=== PATIENT | female | born 1965 | race American Indian/Alaskan Native ===

== ENCOUNTER 2018-04-01 15:54 | Inpatient (IN) | payer MEDICAID ==
[2018-04-01 16:03] VITALS: BMI 39.5
[2018-04-01] MEDS ORDERED: Levalbuterol 1.25 MG/3 ML Inhal Soln UD IH STA ×3 (17:10→17:35)
[2018-04-01 18:26] LABS: BASO # 0.01 K/mm3 (0.0-2.0); BASO % 0.1 % (0.0-3.0); EOS % 0.1 % (1.5-5.0); GRAN # 15.77 (1.4-6.5); GRAN % 86.2 % (50.0-68.0); HEMOGLOBIN 14.3 g/dL (12.0-16.0); LYMPH # 1.7 (1.2-3.4); LYMPH % 9.1 % (22.0-35.0); MEAN CELL VOLUME 91.2 fl (80.0-105.0); MEAN CORPUSCULAR HEMOGLOBIN 30.8 pg (25.0-35.0); MEAN CORPUSCULAR HGB CONC 33.7 g/dl (31.0-37.0); MEAN PLATELET VOLUME 8.9 fl (7.0-11.0); MONO # 0.8 (0.1-0.6); MONO % 4.5 % (1.0-6.0); RBC 4.65 10^6/uL (3.5-6.1); RED CELL DISTRIBUTION WIDTH 13.9 % (11.5-14.5); WHITE BLOOD COUNT 18.3 10^3/ul (4.5-11.0)
[2018-04-01 18:32] LABS: VENOUS BLOOD GAS PO2 29 mm/Hg (30-55)
[2018-04-01 18:35] LABS: INR 1.06; PARTIAL THROMBOPLASTIN TIME 27.1 Seconds (25.1-36.5); PROTHROMBIN TIME 12.1 SECONDS (9.4-12.5)
[2018-04-01 18:43] LABS: ALB/GLOB RATIO 0.8 (1.1-1.8); ALBUMIN 4.4 g/dL (3.0-4.8)
[2018-04-01 18:53] LABS: TROPONIN I 0.01 ng/mL
[2018-04-01] MEDS ORDERED: Azithromycin 500MG/NS 250ml 500 MG/250 ML BAG IVPB STA (18:56)
--- NOTE | 2018-04-01 20:30 | ED PDOC ---
Arrival/HPI - General Chief Complaint: Cough, Cold, Congestion Time Seen by Provider: 04/01/18 16:12 Historian: Patient - History of Present Illness Narrative History of Present Illness (Text): 04/01/18 20:55 53yo female with pmhx of ESRD (dialysis MWF), Asthma, CVA who was bib EMS for 6days history of nonproductive cough, SOB and wheeze, The daughter by the bedside states she has been taking Prednisone and oral prednisone without relieve. +History of hospitalization secondary to Asthma. Never intubated and not steroid dependent. States the son had cold. Denies fever, chills, nausea, vomiting, SOB, diaphoresis, any other complaint. Past Medical History - Provider Review Nursing Documentation Reviewed: Yes - Infectious Disease Hx of Infectious Diseases: None - Tetanus Immunization Tetanus Immunization: Unknown - Cardiac Hx Congestive Heart Failure: Yes - Pulmonary Hx Asthma: Yes Hx Chronic Obstructive Pulmonary Disease (COPD): Yes - Neurological HX Cerebrovascular Accident: Yes - HEENT Hx HEENT Disorder: No - Renal Hx Dialysis: Yes Type of Dialysis Access: L AV shunt Date of Last Dialysis Treatment: 04/01/18 Hx Renal Failure: Yes - Endocrine/Metabolic Hx Diabetes Mellitus Type 2: Yes - Hematological/Oncological Hx Blood Transfusions: Yes (01/2014) Hx Blood Transfusion Reaction: No - Integumentary Hx Dermatological Disorder: No - Musculoskeletal/Rheumatological Hx Musculoskeletal Disorders: No - Gastrointestinal Hx Gastrointestinal Disorders: Yes Hx Gall Bladder Disease: Yes (s/p cholecystectomy) - Genitourinary/Gynecological Hx Genitourinary Disorders: No (C/S X3) - Psychiatric Hx Emotional Abuse: No Hx Physical Abuse: No Hx Substance Use: No - Past Surgical History Past Surgical History: No Previous - Surgical History Hx Cholecystectomy: Yes Other/Comment: L upper arm AV shunt - Anesthesia Hx Anesthesia: Yes Hx Anesthesia Reactions: No Hx Malignant Hyperthermia: No - Suicidal Assessment Feels Threatened In Home Enviroment: No Family/Social History - Physician Review Nursing Documentation Reviewed: Yes Family/Social History: Unknown Family HX Smoking Status: Never Smoked Hx Alcohol Use: No Hx Substance Use: No Hx Substance Use Treatment: No Allergies/Home Meds Allergies/Adverse Reactions: Allergies No Known Allergies Allergy (Verified 01/26/13 00:49) Home Medications: Home Meds Medication Instructions Recorded Confirmed Eliquis 2.5 mg PO BID 06/20/16 04/01/18 Ferric Citrate [Auryxia] 210 mg PO TID 04/01/18 04/01/18 Review of Systems - Physician Review All systems were reviewed & negative as marked: Yes - Review of Systems Constitutional: Normal Eyes: Normal ENT: Normal Respiratory: SOB, Cough, Wheezing Cardiovascular: Normal Gastrointestinal: Normal Genitourinary Female: Normal Musculoskeletal: Normal Skin: Normal Neurological: Normal Endocrine: Normal Hemo/Lymphatic: Normal Psychiatric: Normal Physical Exam Vital Signs Reviewed: Yes Vital Signs Pulse Resp BP Pulse Ox 04/01/18 19:54 85 18 99/78 L 100 04/01/18 16:38 97 H 18 97/74 L 100 Temperature: Afebrile Blood Pressure: Normal Pulse: Regular Respiratory Rate: Normal Appearance: Positive for: Well-Appearing, Non-Toxic, Comfortable Pain Distress: None Mental Status: Positive for: Alert and Oriented X 3 - Systems Exam Head: Present: Atraumatic, Normocephalic Pupils: Present: PERRL Extroacular Muscles: Present: EOMI Conjunctiva: Present: Normal Mouth: Present: Moist Mucous Membranes Neck: Present: Normal Range of Motion Respiratory/Chest: Present: Wheezes (Diffuse expiratory wheeze), Decreased Breath Sounds. No: Respiratory Distress, Accessory Muscle Use, Rales, Retracting, Rhonchi, Tachypneic, Tender to Palpation Cardiovascular: Present: Regular Rate and Rhythm, Normal S1, S2. No: Murmurs Abdomen: No: Tenderness, Distention, Peritoneal Signs Back: Present: Normal Inspection Upper Extremity: Present: Normal Inspection, Other (Fistula noted in left arm). No: Cyanosis, Edema Lower Extremity: Present: Normal Inspection. No: Edema Neurological: Present: GCS=15, CN II-XII Intact, Speech Normal Skin: Present: Warm, Dry, Normal Color. No: Rashes Psychiatric: Present: Alert, Oriented x 3, Normal Insight, Normal Concentration Medical Decision Making ED Course and Treatment: 04/02/18 00:03 53yo female in ED for SOB, cough x 6days. Labs Blood culture Chest xray Xopenex x3 Solu medrol On re evaluation pt continue to wheeze and hypoxic on facial mask. Lab was reviewed and leukocytosis, likely secondary to steroid use was noted. CXR - Cardiomegaly with no clear acute process. EKG NSR; LAD @ 88bpm. Secondary to pt's continuous symptom despite treatment, she was admitted for further treatment. Zithromax and another xopenex ordered. Case was DW Dr. Mccray and she accepted pt for admission Result and plan was DW both pt and the daughter and they agreed. - Lab Interpretations Lab Results: 04/01/18 18:06 04/01/18 18:06 Lab Results 04/01/18 18:06: PT 12.1, INR 1.06, APTT 27.1 04/01/18 18:06: Sodium 135, Chloride 89 L, Potassium 4.8, Carbon Dioxide 33, Anion Gap 17, BUN 30 H, Creatinine 6.0 H, Est GFR ( Amer) 9, Est GFR (Non-Af Amer) 7, Random Glucose 147 H, Calcium 9.0, Magnesium 2.1, Total Bilirubin 0.6, AST 28, ALT 15, Alkaline Phosphatase 92, Lactate Dehydrogenase 497, Total Creatine Kinase 94, Troponin I 0.01 D, Total Protein 9.6 H, Albumin 4.4, Globulin 5.2, Albumin/Globulin Ratio 0.8 L 04/01/18 18:06: pO2 29 L, VBG pH 7.40, VBG pCO2 58.0, VBG HCO3 35.9 H, VBG Total CO2 37.7 H, VBG O2 Sat (Calc) 52.1, VBG Base Excess 9.0 H, VBG Potassium 4.9, Sodium 134.0, Chloride 93.0 L, Glucose 149 H, Lactate 1.7, FiO2 21.0, Venous Blood Potassium 4.9 04/01/18 18:06: WBC 18.3 H D, RBC 4.65, Hgb 14.3, Hct 42.4, MCV 91.2, MCH 30.8, MCHC 33.7, RDW 13.9, Plt Count 333, MPV 8.9, Gran % 86.2 H, Lymph % (Auto) 9.1 L , [place] % (Auto) 4.5, Eos % (Auto) 0.1 L, Baso % (Auto) 0.1, Gran # 15.77 H, Lymph # (Auto) 1.7, [place] # (Auto) 0.8 H, Eos # (Auto) 0.0, Baso # (Auto) 0.01 - RAD Interpretation Radiology Orders: 04/01/18 17:09 CHEST PORTABLE [RAD] Stat - Medication Orders Current Medication Orders: Discontinued Medications Azithromycin (Zithromax 500mg In Ns) 500 mg in 250 mls @ 167 mls/hr IVPB STAT STA; Protocol Stop: 04/01/18 20:25 Last Admin: 04/01/18 19:57 Dose: 167 mls/hr eMAR Start Stop Document 04/01/18 19:57 HI (Rec: 04/01/18 19:57 [id number] Intravenous Solution Start Date 04/01/18 Start Time 19:57 Levalbuterol HCl (Xopenex) 1.25 mg IH STAT STA Stop: 04/01/18 17:11 Last Admin: 04/01/18 18:11 Dose: 1.25 mg Levalbuterol HCl (Xopenex) 1.25 mg IH STAT STA Stop: 04/01/18 17:36 Last Admin: 04/01/18 17:00 Dose: 1.25 mg Levalbuterol HCl (Xopenex) 1.25 mg IH STAT STA Stop: 04/01/18 17:36 Last Admin: 04/01/18 18:28 Dose: 1.25 mg Methylprednisolone (Solu-Medrol) 125 mg IVP STAT STA Stop: 04/01/18 17:09 Last Admin: 04/01/18 18:11 Dose: 125 mg IVP Administration Document 04/01/18 18:11 HI (Rec: 04/01/18 18:11 [id number] Charges for Administration # of IVP Administrations 1 Disposition/Present on Arrival - Present on Arrival Any Indicators Present on Arrival: No History of DVT/PE: No History of Uncontrolled Diabetes: Yes Urinary Catheter: No History of Decub. Ulcer: No History Surgical Site Infection Following: None - Disposition Have Diagnosis and Disposition been Completed?: Yes Diagnosis: Hypoxia, Asthma exacerbation Disposition: HOSPITALIZED Disposition Time: 20:00 Patient Plan: Admission Patient Problems: Current Active Problems Problem Status Onset Asthma exacerbation Acute Hypoxia Acute Condition: STABLE
[2018-04-01] MEDS ORDERED: Levalbuterol 1.25 MG/3 ML Inhal Soln UD IH PRN (22:40)
[2018-04-01] MEDS ORDERED: MethylPREDNISolone 40 mg Vial IVP SCH (22:45)
--- NOTE | 2018-04-01 23:08 | CP.PCM.HP ---
History of Present Illness - History of Present Illness History of Present Illness: Marco Antonio Arreola PGY1, History and Physical for Yana Mccray Pt is a 53yo female with a PMH of ESRD (dialysis MWF), asthma (she is unsure if she has been intubated in the past), CVA x2, TIA x2, HTN who presented to the ED complaining of nonproductive cough, SOB and wheezing for the past week. Pt reports she has had a respiratory illness recently and thinks that it causes her to have this asthma exacerbation. Pt states she has been taking prednisone but she has not had very much relief. Pt has been hospitalized before for asthma exacerbation. Pt denies fever, chills, chest pain, nausea, vomiting, or diarrhea. A 12 point ROS was obtained and added to the HPI where appropriate. PMH: TIA x2, thromboembolic stroke x2, HTN, ESRD on hemodialysis, and asthma PSH: , cholecystectomy SH: denies tobacco, denies alcohol, denies drugs, lives with 3 children FH: Mother- 71, CVA. Father CVA x3 Home meds: per chart review Allergies: NKDA PMD: Saleeb Present on Admission - Present on Admission Any Indicators Present on Admission: No Review of Systems - Review of Systems Review of Systems: a 12 point ROS was obtained and added to HPI where appropriate Past Patient History - Infectious Disease Hx of Infectious Diseases: None - Tetanus Immunizations Tetanus Immunization: Unknown - Past Social History Smoking Status: Never Smoked - CARDIAC Hx Congestive Heart Failure: Yes - PULMONARY Hx Asthma: Yes Hx Chronic Obstructive Pulmonary Disease (COPD): Yes - NEUROLOGICAL HX Cerebrovascular Accident: Yes - HEENT Hx HEENT Problems: No - RENAL Hx Dialysis: Yes Type of Dialysis Access: L AV shunt Date of Last Dialysis Treatment: 04/01/18 Hx Renal Failure: Yes - ENDOCRINE/METABOLIC Hx Diabetes Mellitus Type 2: Yes - HEMATOLOGICAL/ONCOLOGICAL Hx Blood Transfusions: Yes (01/2014) Hx Blood Transfusion Reaction: No - INTEGUMENTARY Hx Dermatological Problems: No - MUSCULOSKELETAL/RHEUMATOLOGICAL Hx Musculoskeletal Disorders: No - GASTROINTESTINAL Hx Gastrointestinal Disorders: Yes Hx Gall Bladder Disease: Yes (s/p cholecystectomy) - GENITOURINARY/GYNECOLOGICAL Hx Genitourinary Disorders: No (C/S X3) - PSYCHIATRIC Hx Emotional Abuse: No Hx Physical Abuse: No Hx Substance Use: No - SURGICAL HISTORY Hx Cholecystectomy: Yes Other/Comment: L upper arm AV shunt - ANESTHESIA Hx Anesthesia: Yes Hx Anesthesia Reactions: No Hx Malignant Hyperthermia: No Meds Allergies/Adverse Reactions: Allergies Allergy/AdvReac Type Severity Reaction Status Date / Time No Known Allergies Allergy Verified 01/26/13 00:49 Physical Exam - Constitutional Appears: No Acute Distress - Head Exam Head Exam: ATRAUMATIC, NORMOCEPHALIC - Eye Exam Eye Exam: EOMI - ENT Exam ENT Exam: Mucous Membranes Moist - Respiratory Exam Respiratory Exam: Wheezes. absent: Accessory Muscle Use Additional comments: wheezing throughout all lung munoz - Cardiovascular Exam Cardiovascular Exam: RRR, +S1, +S2 - GI/Abdominal Exam GI & Abdominal Exam: Normal Bowel Sounds, Soft - Extremities Exam Extremities exam: Positive for: pedal pulses present. Negative for: calf tenderness, pedal edema - Neurological Exam Neurological exam: Alert, Oriented x3 Additional comments: 4/5 muscle strength LUE 1/5 muscle strength LLE - Skin Skin Exam: Dry, Normal Color, Warm Results - Vital Signs Recent Vital Signs: Last Vital Signs Temp Pulse 83 04/01/18 21:40 Resp 18 04/01/18 21:40 BP 101/79 04/01/18 21:40 Pulse Ox 100 04/01/18 21:40 - Labs Result Diagrams: 04/01/18 18:06 04/01/18 18:06 Labs: Laboratory Results - last 24 hr 04/01/18 04/01/18 04/01/18 18:06 18:06 18:06 WBC 18.3 H D RBC 4.65 Hgb 14.3 Hct 42.4 MCV 91.2 MCH 30.8 MCHC 33.7 RDW 13.9 Plt Count 333 MPV 8.9 Gran % 86.2 H Lymph % (Auto) 9.1 L [place] % (Auto) 4.5 Eos % (Auto) 0.1 L Baso % (Auto) 0.1 Gran # 15.77 H Lymph # (Auto) 1.7 [place] # (Auto) 0.8 H Eos # (Auto) 0.0 Baso # (Auto) 0.01 PT INR APTT pO2 29 L VBG pH 7.40 VBG pCO2 58.0 VBG HCO3 35.9 H VBG Total CO2 37.7 H VBG O2 Sat (Calc) 52.1 VBG Base Excess 9.0 H VBG Potassium 4.9 Sodium 134.0 135 Chloride 93.0 L 89 L Glucose 149 H Lactate 1.7 FiO2 21.0 Potassium 4.8 Carbon Dioxide 33 Anion Gap 17 BUN 30 H Creatinine 6.0 H Est GFR ( Amer) 9 Est GFR (Non-Af Amer) 7 Random Glucose 147 H Calcium 9.0 Magnesium 2.1 Total Bilirubin 0.6 AST 28 ALT 15 Alkaline Phosphatase 92 Lactate Dehydrogenase 497 Total Creatine Kinase 94 Troponin I 0.01 D Total Protein 9.6 H Albumin 4.4 Globulin 5.2 Albumin/Globulin Ratio 0.8 L Venous Blood Potassium 4.9 04/01/18 18:06 WBC RBC Hgb Hct MCV MCH MCHC RDW Plt Count MPV Gran % Lymph % (Auto) [place] % (Auto) Eos % (Auto) Baso % (Auto) Gran # Lymph # (Auto) [place] # (Auto) Eos # (Auto) Baso # (Auto) PT 12.1 INR 1.06 APTT 27.1 pO2 VBG pH VBG pCO2 VBG HCO3 VBG Total CO2 VBG O2 Sat (Calc) VBG Base Excess VBG Potassium Sodium Chloride Glucose Lactate FiO2 Potassium Carbon Dioxide Anion Gap BUN Creatinine Est GFR ( Amer) Est GFR (Non-Af Amer) Random Glucose Calcium Magnesium Total Bilirubin AST ALT Alkaline Phosphatase Lactate Dehydrogenase Total Creatine Kinase Troponin I Total Protein Albumin Globulin Albumin/Globulin Ratio Venous Blood Potassium Assessment & Plan - Assessment and Plan (Free Text) Assessment: Pt is a 53yo female with a PMH of ESRD (dialysis MWF), asthma (she is unsure if she has been intubated in the past), CVA x2, TIA x2, HTN who presented to the ED complaining of nonproductive cough, SOB and wheezing for the past week. Plan: Asthma Exacerbation - pt unsure if she has been intubated in the past - repeat ABG in the morning - duoneb q15min - duoneb q6 NASIR - duoneb q2 PRN - WBC 18.3 - given solumedrol 125 mg in ED - start solumedrol 40mg PO Q12 - Azithromycin 500mg IVPB daily - Blood culture - Procalcitonin - Pulm consulted, Dr Dorman History of CVA - continue Eliquis - continue ASA - Lipid panel - BNP - Troponin negative - continue atorvastatin COPD - continue home O2 ESRD (dialysis MWF) - BUN 30, Cr 6.0, GFR 9 Hyperglycemia - random glucose 147 - HA1C - ISS med - accucheck Pt seen, examined, assessment and plan discussed with Dr Yana Arreola PGY1, Internal Medicine Resident - Date & Time Date: 04/02/18 Time: 02:03
[2018-04-01 23:17] LABS: ARTERIAL BLOOD GAS O2 SAT 97.1 % (95-98); ARTERIAL BLOOD GAS PCO2 38 mm/Hg (35-45); ARTERIAL BLOOD GAS PH 7.46 (7.35-7.45); ARTERIAL BLOOD GAS TCO2 28.2 mmol.L (22-28)
[2018-04-02] MEDS ORDERED: Albuterol-Ipratrop 3 mg / 0.5 (3 ml) UD IH PRN (00:36)
[2018-04-02] MEDS ORDERED: Albuterol-Ipratrop 3 mg / 0.5 (3 ml) UD IH SCH ×2 (00:45→10:12)
[2018-04-02] MEDS: Albuterol-Ipratrop 3 mg / 0.5 (3 ml) UD IH SCH ×5 (01:24→19:25)
[2018-04-02 06:35] LABS: EOS % 0.1 % (1.5-5.0); GRAN # 12.57 (1.4-6.5); GRAN % 90.7 % (50.0-68.0); HEMOGLOBIN 13.5 g/dL (12.0-16.0); LYMPH # 0.9 (1.2-3.4); LYMPH % 6.2 % (22.0-35.0); MEAN CELL VOLUME 92.6 fl (80.0-105.0); MEAN CORPUSCULAR HEMOGLOBIN 30.2 pg (25.0-35.0); MEAN CORPUSCULAR HGB CONC 32.6 g/dl (31.0-37.0); MONO # 0.4 (0.1-0.6); PLATELET COUNT 348 10^3/uL (120.0-450.0); RBC 4.47 10^6/uL (3.5-6.1); RED CELL DISTRIBUTION WIDTH 14.2 % (11.5-14.5); WHITE BLOOD COUNT 13.9 10^3/ul (4.5-11.0)
[2018-04-02 06:48] LABS: ALB/GLOB RATIO 0.9 (1.1-1.8); ALBUMIN 4.3 g/dL (3.0-4.8); CALCIUM 8.5 mg/dL (8.4-10.5)
--- NOTE | 2018-04-02 07:58 | CARD ---
APPROVED REPORT Date of service: 04/01/2018 EKG Measurement Heart [id number] <Conclusion> Normal sinus rhythm Left axis deviation Low voltage QRS Abnormal ECG
[2018-04-02] MEDS ORDERED: Levalbuterol 1.25 MG/3 ML Inhal Soln UD IH SCH (08:00)
[2018-04-02 08:24] LABS: ANISOCYTOSIS SLIGHT; LYMPHOCYTE 6 % (22.0-35.0); MONOCYTE 2 % (1.0-6.0); NEUTROPHIL 92 % (50.0-70.0); PLATELET ESTIMATE NORMAL (NORMAL)
[2018-04-02] MEDS: Insulin Lispro (humaLOG) MEDIUM Coverage SC SCH ×4 (08:37→22:09)
[2018-04-02] MEDS: Azithromycin 500MG/NS 250ml 500 MG/250 ML BAG IVPB SCH (09:25)
--- NOTE | 2018-04-02 09:53 | RAD ---
Date of service: 04/01/2018 HISTORY: SOB COMPARISON: CT chest from 06/15/2016 FINDINGS: LUNGS: The lungs are clear. PLEURA: No significant pleural effusion identified, no pneumothorax apparent. CARDIOVASCULAR: Normal. OSSEOUS STRUCTURES: No significant abnormalities. VISUALIZED UPPER ABDOMEN: Normal. OTHER FINDINGS: None. IMPRESSION: No active pulmonary disease.
[2018-04-02] MEDS ORDERED: MethylPREDNISolone 40 mg Vial IVP SCH (10:00)
[2018-04-02] MEDS: FERRIC CITRATE PO SCH ×2 (13:06→17:17)
[2018-04-02] MEDS: guaiFENesin 600 mg ER Tab PO SCH ×2 (13:07→17:17)
[2018-04-02] MEDS ORDERED: FERRIC CITRATE PO SCH (14:00)
--- NOTE | 2018-04-02 15:33 | CP.PCM.PN ---
<Rosa Razo - Last Filed: 04/02/18 15:30> Subjective - Date & Time of Evaluation Date of Evaluation: 04/02/18 Time of Evaluation: 07:45 - Subjective Subjective: PGY-1 Rosa Razo D.O. Medicine progress note for Dr. Felipe service: Patient was seen and examined this morning. No over night events reported. Pat hugo states she is still wheezing. She had an intermittent cough that is nonproductive. She reports she uses 2-3L of O2 via NC at home as needed. She uses a walker at baseline to ambulate. She sees Dr. Renteria for primary care and pulmonology. She denies chest pain. She is breathing comfortably on 3L O2 while lying down. She becomes more out of breath when asked to sit up and has not gotten out of bed since being admitted last night. Objective - Vital Signs/Intake and Output Vital Signs (last 24 hours): Temp Pulse Resp BP Pulse Ox 97.8 F 91 H 20 138/91 H 100 04/02/18 06:00 04/02/18 06:00 04/02/18 06:00 04/02/18 06:00 04/02/18 06:00 Intake and Output: 04/02/18 04/02/18 06:59 18:59 Intake Total 120 Output Total 0 Balance 120 - Medications Medications: Current Medications Albuterol/Ipratropium (Duoneb 3 Mg/0.5 Mg (3 Ml) Ud) 3 ml IH Q2H PRN PRN Reason: Shortness of Breath Albuterol/Ipratropium (Duoneb 3 Mg/0.5 Mg (3 Ml) Ud) 3 ml IH Q4 [facility] [place] Last Admin: 04/02/18 15:25 Dose: 3 ml Apixaban (Eliquis) 2.5 mg PO BID [facility] [place] Last Admin: 04/02/18 09:26 Dose: 2.5 mg Aspirin (Ecotrin) 81 mg PO DAILY [facility] [place] Last Admin: 04/02/18 09:26 Dose: 81 mg Atorvastatin Calcium (Lipitor) 10 mg PO DIN [facility] [place] Guaifenesin (Mucinex La) 600 mg PO BID [facility] [place] Last Admin: 04/02/18 13:07 Dose: 600 mg Azithromycin (Zithromax 500mg In Ns) 500 mg in 250 mls @ 167 mls/hr IVPB DAILY NASIR; Protocol Last Admin: 04/02/18 09:25 Dose: 167 mls/hr Insulin Human Lispro (Humalog Med) 0 units SC ACHS NASIR; Protocol Last Admin: 04/02/18 11:23 Dose: Not Given Methylprednisolone (Solu-Medrol) 40 mg IVP Q8H NASIR Non-Formulary Medication (Ferric Citrate [Auryxia]) 2 tab PO TID NASIR Last Admin: 04/02/18 13:06 Dose: 2 tab - Labs Labs: 04/02/18 06:00 04/02/18 06:00 PT 12.1 SECONDS (9.4-12.5) 04/01/18 18:06 INR 1.06 04/01/18 18:06 APTT 27.1 Seconds (25.1-36.5) 04/01/18 18:06 - Constitutional Appears: Non-toxic, No Acute Distress - Head Exam Head Exam: ATRAUMATIC, NORMAL INSPECTION - Eye Exam Eye Exam: EOMI, Normal appearance, PERRL - ENT Exam ENT Exam: Mucous Membranes Moist, Normal Exam - Neck Exam Neck Exam: Full ROM, Normal Inspection - Respiratory Exam Respiratory Exam: Rhonchi, Wheezes, NORMAL BREATHING PATTERN - Cardiovascular Exam Cardiovascular Exam: REGULAR RHYTHM, +S1, +S2 - GI/Abdominal Exam GI & Abdominal Exam: Soft, Normal Bowel Sounds - Rectal Exam Rectal Exam: Deferred - Extremities Exam Extremities Exam: Normal Capillary Refill, Normal Inspection - Back Exam Back Exam: NORMAL INSPECTION - Neurological Exam Neurological Exam: Alert, Awake, CN II-XII Intact, Oriented x3 Neuro motor strength exam: Left Upper Extremity: 4 (2/2 CVA), Right Upper Extremity: 5, Left Lower Extremity: 4 (2/2 CVA), Right Lower Extremity: 5 - Psychiatric Exam Psychiatric exam: Normal Affect, Normal Mood - Skin Skin Exam: Dry, Intact, Normal Color, Warm Assessment and Plan - Assessment and Plan (Free Text) Assessment: Patient is a 53 yo AA female with a history of asthma, CVAs, OB, and ESRD on dialysis (MWF) who presented to the ED with an asthma exacerbation. Patient reports that her asthma flares up about once per month, and she requires hospitalization about once per year. She cannot recall if she was ever intubated. Plan: Asthma exacerbation - On home supplemental O2 2-3 L PRN - Lactate 1.8, procal 0.45 - Afebrile - CXR: no active disease - Mucinex 600 mg PO BID - Duoneb Q4H NASIR, Q2H PRN - Solu-medrol 40 mg IV Q12H - Azithromycin 500 mg IV daily - Pulmonology consulted (Lakia) ESRD on HD MWF - Continue scheduled HD - Auryxia - Nephrology consulted ([place]a) H/o CVA - Eliquis 2.5 mg PO BID - ASA 81 mg PO daily HLD - Lipitor 10 mg PO QHS Pre-diabetes - A1c 6.4 - Accuchecks ACHS - ISS low - Hypoglycemia protocol PT- home with services IVF: not indicated Diet: renal GI ppx: not indicated VTE ppx: Eliquis, SCDs Code status: full code Case discussed with attending, Dr. Woodall. <Elin Woodall - Last Filed: 04/04/18 15:50> Objective - Vital Signs/Intake and Output Vital Signs (last 24 hours): Temp Pulse Resp BP Pulse Ox 97.9 F 67 22 113/63 100 04/04/18 08:49 04/04/18 08:49 04/04/18 08:49 04/04/18 08:49 04/04/18 08:49 Intake and Output: 04/04/18 04/04/18 06:59 18:59 Intake Total 120 Balance 120 - Medications Medications: Current Medications Albuterol/Ipratropium (Duoneb 3 Mg/0.5 Mg (3 Ml) Ud) 3 ml IH Q2H PRN PRN Reason: Shortness of Breath Albuterol/Ipratropium (Duoneb 3 Mg/0.5 Mg (3 Ml) Ud) 3 ml IH [id number] [facility] Last Admin: 04/04/18 14:00 Dose: 3 ml Apixaban (Eliquis) 2.5 mg PO BID [facility] [place] Last Admin: 04/04/18 10:13 Dose: 2.5 mg Aspirin (Ecotrin) 81 mg PO DAILY [facility] [place] Last Admin: 04/04/18 10:13 Dose: 81 mg Atorvastatin Calcium (Lipitor) 10 mg PO DIN [facility] [place] Last Admin: 04/03/18 17:29 Dose: 10 mg Azithromycin (Zithromax) 500 mg PO DAILY [facility] [place]; Protocol Guaifenesin (Mucinex La) 600 mg PO BID [facility] [place] Last Admin: 04/04/18 10:13 Dose: 600 mg Heparin Sodium (Porcine) (Heparin) 5,000 units IVP MW PRN; Protocol PRN Reason: clotting Stop: 04/29/18 23:00 Last Admin: 04/03/18 11:21 Dose: 5,000 units Insulin Human Lispro (Humalog Med) 0 units SC ACHS [facility] [place]; Protocol Last Admin: 04/04/18 08:01 Dose: Not Given Methylprednisolone (Solu-Medrol) 40 mg IVP Q8H [facility] [place] Last Admin: 04/04/18 15:33 Dose: 40 mg Non-Formulary Medication (Ferric Citrate [Auryxia]) 2 tab PO TID [facility] [place] Last Admin: 04/04/18 15:33 Dose: 2 tab Pantoprazole Sodium (Protonix Ec Tab) 40 mg PO 0600 [facility] [place] Last Admin: 04/04/18 05:55 Dose: 40 mg Polyethylene Glycol (Miralax) 17 gm PO BID [facility] [place] Last Admin: 04/04/18 10:15 Dose: Not Given - Labs Labs: 04/04/18 06:00 04/04/18 06:00 PT 12.1 SECONDS (9.4-12.5) 04/01/18 18:06 INR 1.06 04/01/18 18:06 APTT 27.1 Seconds (25.1-36.5) 04/01/18 18:06 Attending/Attestation - Attestation I have personally seen and examined this patient.: Yes I have fully participated in the care of the patient.: Yes I have reviewed all pertinent clinical information, including history, physical exam and plan: Yes Notes (Text): 04/04/18 15:47 attending note; Patient seen and examined with resident. Patient is complaining of cough and wheezing. Denies any significant sputum production. Denies any fevers, chills. Patient is a 53 year old female with a history of asthma, CVAs, Gait instability and ESRD on dialysis (MWF) who presented to the ED with an asthma exacerbation. Patient reports that her asthma flares up about once per month, and she requires hospitalization about once per year. She cannot recall if she was ever intubated. continue oxygen when necessary. Continue DuoNeb treatment, IV Solu-Medrol and Zithromax. chest x-ray is negative for pneumonia. pulmonary evaluation requested. History of CVA and gait disability; PT evaluation requested. Continue aspirin, Lipitor and Eliquis. GI prophylaxis with Protonix. End-stage renal disease on dialysis; follow-up with nephrology for dialysis on Friday, Wednesdays and Fridays.
[2018-04-02] MEDS: MethylPREDNISolone 40 mg Vial IVP SCH ×2 (15:37→22:08)
--- NOTE | 2018-04-02 17:21 | CON ---
DATE: 04/02/2018 HISTORY OF PRESENT ILLNESS: This is a 53-year-old lady with past medical history of end-stage renal disease, asthma (on oral prednisone; however, never been intubated for status asthmaticus and her last severe asthma exacerbation requiring hospitalization was more than a year ago), who presented to [facility] with increasing nonproductive cough, shortness of breath and wheezes. That happened few days ago when her son come down with upper respiratory tract infection. She did try to increase the dose of her oral prednisone; however, unsuccessfully. The shortness of breath progressed. There was no associated pleuritic or otherwise chest pain. No nausea. No vomiting. No diarrhea. No constipation. PAST MEDICAL HISTORY: Asthma; diabetes; end-stage renal disease, on chronic hemodialysis; status post cholecystectomy; asthma. SOCIAL HISTORY: No alcohol or illicit drug abuse. No tobacco smoking. ALLERGIES: NKDA. MEDICATIONS: Eliquis, Atrovent inhaler, oral prednisone. FAMILY HISTORY: Noncontributory. REVIEW OF SYSTEMS: Review of 12-organ systems other than mentioned in the history of present illness is negative. PHYSICAL EXAMINATION: VITAL SIGNS: Temperature 97.8, heart rate 91, blood pressure 138/91, oxygen saturation 100% on 3 L nasal cannula, respiratory rate of 20. ENT: Head and neck atraumatic. LUNGS: Scattered wheezes bilaterally. HEART: Regular rate and rhythm. S1 and S2 normal. ABDOMEN: Soft, nontender and nondistended. MUSCULOSKELETAL: No C/C/E. NEUROLOGIC: The patient moves all extremities spontaneously. SKIN: Moist. PSYCH: The patient is alert, awake and oriented, not in respiratory distress. LABORATORY DATA: WBC 13.9, hemoglobin 13.5, platelet count 348. Sodium 134, potassium 4.7, chloride 89, carbon dioxide 29, BUN 50, creatinine 7.7 (the patient is on chronic hemodialysis for end-stage renal disease), glucose 147. Troponin 0.02. ProBNP 4500. INR 1.06. MEDICATIONS: DuoNeb every 4 hours, Eliquis 2.5 mg p.o. b.i.d., aspirin, Lipitor, Mucinex, Solu-Medrol 40 mg IV every 8, azithromycin. Chest x-ray showed no active pulmonary disease. ASSESSMENT AND PLAN: This is a 53-year-old lady, who presented with what appears to be asthma exacerbation, most likely triggered by viral or atypical bacterial pathogen (likely contracted from her child). Nevertheless, her chest x-ray did not show any distinct infiltrate and no other source of infection identified. She does have, however, mild leukocytosis. However, remains afebrile. The patient is on dual bronchodilators every 4 hours, steroid taper and azithromycin. While use of azithromycin in asthma exacerbation is controversial and some data suggest may not be associated with better outcomes (MAGDIEL trial), nevertheless a little earlier data suggest that there may potentially be some benefits. I would continue with azithromycin for now due to it anti-inflammatory effects as well as potential for empiric coverage for atypical microorganisms. I would continue to target euvolemia, euglycemia, normothermia and oxygen saturation more than 90%. We will continue with deep venous thrombosis, gastrointestinal prophylaxis. The patient would need to be seen by product developer as an outpatient to adjust her ICS therapy. Infectious prophylaxis with vaccination is also recommended. Dami Dorman MD RACH
[2018-04-03] MEDS: Albuterol-Ipratrop 3 mg / 0.5 (3 ml) UD IH SCH ×5 (03:52→19:35)
[2018-04-03 04:12] LABS: ARTERIAL BLOOD GAS HCO3 24.3 mmol/L (21-28); ARTERIAL BLOOD GAS HEMOGLOBIN 12.4 g/dL (11.7-17.4); ARTERIAL BLOOD GAS O2 CAPACITY 17.2 mL/dl (16-24); ARTERIAL BLOOD GAS O2 SAT 98.7 % (95-98); ARTERIAL BLOOD GAS PCO2 42 mm/Hg (35-45); ARTERIAL BLOOD GAS PH 7.37 (7.35-7.45); ARTERIAL BLOOD GAS TCO2 25.6 mmol.L (22-28)
[2018-04-03] MEDS: Pantoprazole 40 mg EC Tab PO SCH (05:56)
[2018-04-03 07:03] LABS: GRAN # 14.31 (1.4-6.5); GRAN % 89.1 % (50.0-68.0); HEMOGLOBIN 12.4 g/dL (12.0-16.0); LYMPH % 6.2 % (22.0-35.0); MEAN CORPUSCULAR HEMOGLOBIN 30.2 pg (25.0-35.0); MEAN CORPUSCULAR HGB CONC 33.2 g/dl (31.0-37.0); MEAN PLATELET VOLUME 9.2 fl (7.0-11.0); MONO # 0.8 (0.1-0.6); MONO % 4.7 % (1.0-6.0); RBC 4.1 10^6/uL (3.5-6.1); WHITE BLOOD COUNT 16.1 10^3/ul (4.5-11.0)
[2018-04-03 07:32] LABS: ALB/GLOB RATIO 0.9 (1.1-1.8); ALBUMIN 3.7 g/dL (3.0-4.8); CALCIUM 7.8 mg/dL (8.4-10.5)
[2018-04-03] MEDS: Insulin Lispro (humaLOG) MEDIUM Coverage SC SCH ×3 (08:16→17:30)
[2018-04-03] MEDS: MethylPREDNISolone 40 mg Vial IVP SCH ×3 (08:18→22:51)
[2018-04-03] MEDS: FERRIC CITRATE PO SCH ×3 (10:00→17:30)
[2018-04-03] MEDS: Azithromycin 500MG/NS 250ml 500 MG/250 ML BAG IVPB SCH (15:07)
[2018-04-03] MEDS: guaiFENesin 600 mg ER Tab PO SCH ×2 (15:08→17:16)
[2018-04-03 16:23] LABS: HEPATITIS B SURFACE AG Negative (NEGATIVE)
[2018-04-03 16:28] LABS: HEPATITIS B CORE AB NEGATIVE (NEGATIVE)
--- NOTE | 2018-04-03 16:35 | CP.PCM.PN ---
<Rosa Razo - Last Filed: 04/03/18 16:31> Subjective - Date & Time of Evaluation Date of Evaluation: 04/03/18 Time of Evaluation: 08:00 - Subjective Subjective: PGY-1 Rosa Razo D.O. Medicine progress note for Dr. Felipe service: Patient was seen and examined this morning. No over night events reported. Cara arias states that she is feeling much better. Her SOB is improving. She is still requiring supplemental O2 at all times (at home she uses as needed). Her cough is improving as well. She denies fevers, chills, chest pain, abdominal pain. She is eating and sleeping well. She is scheduled to go to dialysis today. Objective - Vital Signs/Intake and Output Vital Signs (last 24 hours): Temp Pulse Resp BP Pulse Ox 97.4 F L 98 H 20 101/61 97 04/03/18 06:00 04/03/18 06:00 04/03/18 06:00 04/03/18 06:00 04/03/18 06:00 Intake and Output: 04/03/18 04/03/18 06:59 18:59 Intake Total 120 Output Total 0 Balance 120 - Medications Medications: Current Medications Albuterol/Ipratropium (Duoneb 3 Mg/0.5 Mg (3 Ml) Ud) 3 ml IH Q2H PRN PRN Reason: Shortness of Breath Albuterol/Ipratropium (Duoneb 3 Mg/0.5 Mg (3 Ml) Ud) 3 ml IH Q4 [facility] Last Admin: 04/03/18 11:08 Dose: Not Given Apixaban (Eliquis) 2.5 mg PO BID [facility] Last Admin: 04/03/18 15:08 Dose: 2.5 mg Aspirin (Ecotrin) 81 mg PO DAILY [facility] Last Admin: 04/03/18 15:08 Dose: 81 mg Atorvastatin Calcium (Lipitor) 10 mg PO DIN [facility] Last Admin: 04/02/18 17:17 Dose: 10 mg Guaifenesin (Mucinex La) 600 mg PO BID [facility] Last Admin: 04/03/18 15:08 Dose: 600 mg Heparin Sodium (Porcine) (Heparin) 5,000 units IVP MWF PRN; Protocol PRN Reason: clotting Stop: 04/29/18 23:00 Last Admin: 04/03/18 11:21 Dose: 5,000 units Azithromycin (Zithromax 500mg In Ns) 500 mg in 250 mls @ 167 mls/hr IVPB DAILY [facility]; Protocol Last Admin: 04/03/18 15:07 Dose: 167 mls/hr Insulin Human Lispro (Humalog Med) 0 units SC ACHS [facility]; Protocol Last Admin: 04/03/18 12:38 Dose: Not Given Methylprednisolone (Solu-Medrol) 40 mg IVP Q8H [facility] Last Admin: 04/03/18 15:08 Dose: 40 mg Non-Formulary Medication (Ferric Citrate [Auryxia]) 2 tab PO TID [facility] Last Admin: 04/03/18 15:07 Dose: 2 tab Pantoprazole Sodium (Protonix Ec Tab) 40 mg PO 0600 [facility] Last Admin: 04/03/18 05:56 Dose: 40 mg - Labs Labs: 04/03/18 06:30 04/03/18 06:30 PT 12.1 SECONDS (9.4-12.5) 04/01/18 18:06 INR 1.06 04/01/18 18:06 APTT 27.1 Seconds (25.1-36.5) 04/01/18 18:06 - Constitutional Appears: Toxic, No Acute Distress - Head Exam Head Exam: ATRAUMATIC, NORMAL INSPECTION - Eye Exam Eye Exam: EOMI, Normal appearance, PERRL - ENT Exam ENT Exam: Mucous Membranes Moist, Normal Exam, Normal Oropharynx - Neck Exam Neck Exam: Full ROM, Normal Inspection - Respiratory Exam Respiratory Exam: Wheezes (b/l), NORMAL BREATHING PATTERN. absent: Respiratory Distress - Cardiovascular Exam Cardiovascular Exam: REGULAR RHYTHM, +S1, +S2 - GI/Abdominal Exam GI & Abdominal Exam: Soft, Normal Bowel Sounds. absent: Tenderness Additional comments: obese - Rectal Exam Rectal Exam: Deferred - Extremities Exam Extremities Exam: Full ROM, Normal Inspection - Back Exam Back Exam: NORMAL INSPECTION - Neurological Exam Neurological Exam: Alert, Awake, CN II-XII Intact, Oriented x3 - Psychiatric Exam Psychiatric exam: Normal Affect, Normal Mood - Skin Skin Exam: Dry, Intact, Normal Color, Warm Assessment and Plan - Assessment and Plan (Free Text) Assessment: Patient is a 53 yo AA female with a history of asthma, CVAs, OB, and ESRD on dialysis (MWF) who presented to the ED with an asthma exacerbation. Patient reports that her asthma flares up about once per month, and she requires hospitalization about once per year. She cannot recall if she was ever intubated. Plan: Asthma exacerbation - On home supplemental O2 2-3 L PRN - Lactate 1.8, procal 0.45 - Afebrile - Leukocytosis stable- on chronic steroids - CXR: no active disease - Mucinex 600 mg PO BID - Duoneb Q6H [facility], Q2H PRN - Solu-medrol 40 mg IV Q8H - Azithromycin 500 mg IV daily - Pulmonology consulted (Lakia) ESRD on HD MWF - Continue scheduled HD - Auryxia - Nephrology consulted (Aixa) H/o CVA - Eliquis 2.5 mg PO BID - ASA 81 mg PO daily HLD - Lipitor 10 mg PO QHS Pre-diabetes - A1c 6.4 - Accuchecks ACHS - ISS low - Hypoglycemia protocol PT- home with services IVF: not indicated Diet: renal GI ppx: Protonix 40 mg PO daily VTE ppx: Eliquis, SCDs Code status: full code Case discussed with attending, Dr. Woodall. <Elin Woodall - Last Filed: 04/04/18 15:51> Objective - Vital Signs/Intake and Output Vital Signs (last 24 hours): Temp Pulse Resp BP Pulse Ox 97.9 F 67 22 113/63 100 04/04/18 08:49 04/04/18 08:49 04/04/18 08:49 04/04/18 08:49 04/04/18 08:49 Intake and Output: 04/04/18 04/04/18 06:59 18:59 Intake Total 120 Balance 120 - Medications Medications: Current Medications Albuterol/Ipratropium (Duoneb 3 Mg/0.5 Mg (3 Ml) Ud) 3 ml IH Q2H PRN PRN Reason: Shortness of Breath Albuterol/Ipratropium (Duoneb 3 Mg/0.5 Mg (3 Ml) Ud) 3 ml IH [id number] [facility] Last Admin: 04/04/18 14:00 Dose: 3 ml Apixaban (Eliquis) 2.5 mg PO BID [facility] Last Admin: 04/04/18 10:13 Dose: 2.5 mg Aspirin (Ecotrin) 81 mg PO DAILY [facility] Last Admin: 04/04/18 10:13 Dose: 81 mg Atorvastatin Calcium (Lipitor) 10 mg PO DIN [facility] Last Admin: 04/03/18 17:29 Dose: 10 mg Azithromycin (Zithromax) 500 mg PO DAILY [facility]; Protocol Guaifenesin (Mucinex La) 600 mg PO BID [facility] Last Admin: 04/04/18 10:13 Dose: 600 mg Heparin Sodium (Porcine) (Heparin) 5,000 units IVP MWF PRN; Protocol PRN Reason: clotting Stop: 04/29/18 23:00 Last Admin: 04/03/18 11:21 Dose: 5,000 units Insulin Human Lispro (Humalog Med) 0 units SC [facility]; Protocol Last Admin: 04/04/18 08:01 Dose: Not Given Methylprednisolone (Solu-Medrol) 40 mg IVP Q8H [facility] Last Admin: 04/04/18 15:33 Dose: 40 mg Non-Formulary Medication (Ferric Citrate [Auryxia]) 2 tab PO TID [facility] Last Admin: 04/04/18 15:33 Dose: 2 tab Pantoprazole Sodium (Protonix Ec Tab) 40 mg PO 0600 [facility] Last Admin: 04/04/18 05:55 Dose: 40 mg Polyethylene Glycol (Miralax) 17 gm PO BID [facility] Last Admin: 04/04/18 10:15 Dose: Not Given - Labs Labs: 04/04/18 06:00 04/04/18 06:00 PT 12.1 SECONDS (9.4-12.5) 04/01/18 18:06 INR 1.06 04/01/18 18:06 APTT 27.1 Seconds (25.1-36.5) 04/01/18 18:06 Attending/Attestation - Attestation I have personally seen and examined this patient.: Yes I have fully participated in the care of the patient.: Yes I have reviewed all pertinent clinical information, including history, physical exam and plan: Yes Notes (Text): 04/04/18 15:50 attending note; Patient seen and examined with resident. Patient is complaining of cough and wheezing. Denies any significant sputum production. Denies any fevers, chills. status post hemodialysis today. Patient is a 53 year old female with a history of asthma, CVAs, Gait instability and ESRD on dialysis (MWF) who presented to the ED with an asthma exacerbation. Patient reports that her asthma flares up about once per month, and she requires hospitalization about once per year. She cannot recall if she was ever intubated. acute asthma exacerbation; continue oxygen when necessary. Continue DuoNeb treatment, IV Solu-Medrol and Zithromax. chest x-ray is negative for pneumonia. pulmonary evaluation appreciated. History of CVA and gait disability; PT evaluation requested. Continue aspirin, Lipitor and Eliquis. GI prophylaxis with Protonix. End-stage renal disease on dialysis; follow-up with nephrology for dialysis on Friday, Wednesdays and Fridays. upon discharge patient will follow up with PMD Dr. Renteria. 04/04/18 15:51
[2018-04-03] MEDS: POLYETHYLENE GLYCOL 3350 17 GM/Dose PACKET PO SCH (17:30)
[2018-04-04] MEDS: Insulin Lispro (humaLOG) MEDIUM Coverage SC SCH ×6 (01:32→22:46)
[2018-04-04] MEDS: Albuterol-Ipratrop 3 mg / 0.5 (3 ml) UD IH SCH ×4 (01:51→20:16)
[2018-04-04] MEDS: Pantoprazole 40 mg EC Tab PO SCH (05:55)
[2018-04-04 06:49] LABS: BASO # 0.01 K/mm3 (0.0-2.0); BASO % 0.1 % (0.0-3.0); EOS % 0.1 % (1.5-5.0); GRAN # 14.19 (1.4-6.5); GRAN % 80.9 % (50.0-68.0); HEMOGLOBIN 12.9 g/dL (12.0-16.0); LYMPH # 2.2 (1.2-3.4); LYMPH % 12.3 % (22.0-35.0); MEAN CELL VOLUME 92.3 fl (80.0-105.0); MEAN CORPUSCULAR HEMOGLOBIN 29.9 pg (25.0-35.0); MEAN CORPUSCULAR HGB CONC 32.4 g/dl (31.0-37.0); MONO # 1.2 (0.1-0.6); MONO % 6.6 % (1.0-6.0); RBC 4.31 10^6/uL (3.5-6.1); RED CELL DISTRIBUTION WIDTH 14.4 % (11.5-14.5); WHITE BLOOD COUNT 17.5 10^3/ul (4.5-11.0)
[2018-04-04 07:24] LABS: ALB/GLOB RATIO 0.9 (1.1-1.8); ALBUMIN 3.7 g/dL (3.0-4.8); CALCIUM 8.1 mg/dL (8.4-10.5)
[2018-04-04] MEDS: MethylPREDNISolone 40 mg Vial IVP SCH ×3 (08:28→22:45)
--- NOTE | 2018-04-04 09:56 | PN ---
DATE: 04/04/2018 SUBJECTIVE: The patient is currently seen lying comfortable in bed on 3R. She still continues to have shortness of breath and wheezing. She remains on medication for an acute asthma exacerbation. She had an uneventful dialysis yesterday. MEDICATIONS: Medication list reviewed. The patient is currently on DuoNeb, Ecotrin, Eliquis, Auryxia, sliding scale insulin, Lipitor, MiraLax, Mucinex, Protonix, Solu-Medrol, and Zithromax. PHYSICAL EXAMINATION: INTAKE AND OUTPUT: Intake is 120, output is 3500 mL with dialysis. VITAL SIGNS: Blood pressure 105/58, temperature 97.6, respiratory rate 19 with a pulse of 84, pulse ox is 100%. HEENT: Shows her to be normocephalic, atraumatic. Conjunctivae are pink. Sclerae nonicteric. NECK: Supple. No neck vein distention. CHEST: Positive bilateral rhonchi, wheezing. No rales. CARDIOVASCULAR: Shows a regular rate and rhythm without audible murmurs, rubs, or gallops. ABDOMEN: Moderate obesity. Bowel sounds normal. No rebound, guarding, or masses. EXTREMITIES: Show a working AV fistula left upper extremity. No lower extremity pitting edema. No cyanosis or clubbing. LABORATORY DATA AND IMAGING: Admitting chest x-ray done on 04/01/2018 shows no active pulmonary disease. CBC: White blood cell count 17.5, likely partly a steroid effect. Hemoglobin 12.9, platelet count is 331,000. Blood gas from yesterday: pH 7.37, pO2 of 114, pCO2 of 42. Chemistry showed normal electrolytes. BUN 64 with a creatinine of 7.1 from today. Glucose 166. Calcium 8.1 with a phosphorus level of 5.2 and a magnesium level of 2. Liver enzymes are normal. Albumin is 3.7. Blood cultures are negative at 48 hours. ASSESSMENT: 1. End-stage renal disease. The patient will continue routine dialysis Friday, Friday, Friday with her being in the hospital, she will likely have less access to hydration and the patient should remain euvolemic during the hospitalization. 2. Asthma with exacerbation. The patient will continue present medication. Pulmonary evaluation as necessary. We will try and taper steroids as the patient continues improvement. She will remain on empiric antibiotic therapy and continue inhalation therapy. 3. 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 The patient continues on chronic anticoagulation. 4. History of hypertension. The patient continues off blood pressure medication. Blood pressure is controlled with dialysis. 5. History of secondary hyperparathyroidism. Phosphorus level is 5.2. The patient will continue binder therapy. She is using Auryxia. The patient will continue a renal diet. 6. Mild glucose intolerance, likely secondary to the use of steroids. The patient will continue on sliding scale insulin. PLAN: 1. Hemodialysis for 04/06/2018. We will continue to keep the patient euvolemic. 2. Continue present medication and treatment for acute exacerbation of her asthma. 3. Continue chronic anticoagulation with Eliquis in light of her history of thromboembolic CVAs. 4. Compliance with all dietary restrictions and fluid restriction. Andre Peralta MD
[2018-04-04] MEDS: FERRIC CITRATE PO SCH ×3 (10:13→18:23)
[2018-04-04] MEDS: POLYETHYLENE GLYCOL 3350 17 GM/Dose PACKET PO SCH ×3 (10:13→18:36)
[2018-04-04] MEDS: guaiFENesin 600 mg ER Tab PO SCH ×2 (10:13→18:36)
[2018-04-04] MEDS: Azithromycin 500MG/NS 250ml 500 MG/250 ML BAG IVPB SCH (10:13)
--- NOTE | 2018-04-04 11:31 | CP.PCM.PN ---
<Rosa Razo - Last Filed: 04/04/18 12:00> Subjective - Date & Time of Evaluation Date of Evaluation: 04/04/18 Time of Evaluation: 11:00 - Subjective Subjective: PGY-1 Rosa Razo D.O. Medicine progress note for Dr. Felipe service: Patient was seen and examined this morning. Patient is feeling clinically impr todd but is still wheezing. Her cough is intermittent. She denies fevers, chills, chest pain, abdominal pain. She is eating and sleeping well. She is continuing dialysis MWF. Objective - Vital Signs/Intake and Output Vital Signs (last 24 hours): Temp Pulse Resp BP Pulse Ox 97.9 F 67 22 113/63 100 04/04/18 08:49 04/04/18 08:49 04/04/18 08:49 04/04/18 08:49 04/04/18 08:49 Intake and Output: 04/04/18 04/04/18 06:59 18:59 Intake Total 120 Balance 120 - Medications Medications: Current Medications Albuterol/Ipratropium (Duoneb 3 Mg/0.5 Mg (3 Ml) Ud) 3 ml IH Q2H PRN PRN Reason: Shortness of Breath Albuterol/Ipratropium (Duoneb 3 Mg/0.5 Mg (3 Ml) Ud) 3 ml IH [id number] [facility] Last Admin: 04/04/18 07:54 Dose: 3 ml Apixaban (Eliquis) 2.5 mg PO BID [facility] Last Admin: 04/04/18 10:13 Dose: 2.5 mg Aspirin (Ecotrin) 81 mg PO DAILY [facility] Last Admin: 04/04/18 10:13 Dose: 81 mg Atorvastatin Calcium (Lipitor) 10 mg PO DIN [facility] Last Admin: 04/03/18 17:29 Dose: 10 mg Azithromycin (Zithromax) 500 mg PO DAILY [facility]; Protocol Guaifenesin (Mucinex La) 600 mg PO BID [facility] Last Admin: 04/04/18 10:13 Dose: 600 mg Heparin Sodium (Porcine) (Heparin) 5,000 units IVP MWF PRN; Protocol PRN Reason: clotting Stop: 04/29/18 23:00 Last Admin: 04/03/18 11:21 Dose: 5,000 units Insulin Human Lispro (Humalog Med) 0 units SC ACHS [facility]; Protocol Last Admin: 04/04/18 08:01 Dose: Not Given Methylprednisolone (Solu-Medrol) 40 mg IVP Q8H [facility] Last Admin: 04/04/18 08:28 Dose: 40 mg Non-Formulary Medication (Ferric Citrate [Auryxia]) 2 tab PO TID [facility] Last Admin: 04/04/18 10:13 Dose: 2 tab Pantoprazole Sodium (Protonix Ec Tab) 40 mg PO 0600 [facility] Last Admin: 04/04/18 05:55 Dose: 40 mg Polyethylene Glycol (Miralax) 17 gm PO BID [facility] Last Admin: 04/04/18 10:15 Dose: Not Given - Labs Labs: 04/04/18 06:00 04/04/18 06:00 PT 12.1 SECONDS (9.4-12.5) 04/01/18 18:06 INR 1.06 04/01/18 18:06 APTT 27.1 Seconds (25.1-36.5) 04/01/18 18:06 - Constitutional Appears: Non-toxic, No Acute Distress - Head Exam Head Exam: ATRAUMATIC, NORMAL INSPECTION - Eye Exam Eye Exam: EOMI, Normal appearance, PERRL - ENT Exam ENT Exam: Mucous Membranes Moist, Normal Exam - Neck Exam Neck Exam: Normal Inspection - Respiratory Exam Respiratory Exam: Rales, Wheezes, NORMAL BREATHING PATTERN. absent: Respiratory Distress - Cardiovascular Exam Cardiovascular Exam: REGULAR RHYTHM, +S1, +S2 - GI/Abdominal Exam GI & Abdominal Exam: Soft, Normal Bowel Sounds. absent: Tenderness - Rectal Exam Rectal Exam: Deferred - Extremities Exam Extremities Exam: Normal Inspection. absent: Pedal Edema, Tenderness - Back Exam Back Exam: NORMAL INSPECTION - Neurological Exam Neurological Exam: Alert, Awake, CN II-XII Intact, Oriented x3 - Psychiatric Exam Psychiatric exam: Normal Affect, Normal Mood - Skin Skin Exam: Dry, Intact, Normal Color, Warm Assessment and Plan - Assessment and Plan (Free Text) Assessment: Patient is a 53 yo AA female with a history of asthma, CVAs, OB, and ESRD on dialysis (MWF) who presented to the ED with an asthma exacerbation. Patient reports that her asthma flares up about once per month, and she requires hospitalization about once per year. She cannot recall if she was ever intubated. Plan: Asthma exacerbation - On home supplemental O2 2-3 L PRN - Lactate 1.8, procal 0.45 - Leukocytosis stable- chronic steroids - Afebrile - Leukocytosis stable- on chronic steroids - CXR: no active disease - Mucinex 600 mg PO BID - Duoneb Q6H [facility], Q2H PRN - Solu-medrol 40 mg IV Q8H - Change Azithromycin 500 mg from IV to PO daily - Pulmonology consulted (Lakia) ESRD on HD MWF - Continue scheduled HD - Auryxia 2 tabs PO TID - Nephrology consulted ([facility]ixa) H/o CVA - Eliquis 2.5 mg PO BID - ASA 81 mg PO daily HLD - Lipitor 10 mg PO QHS Pre-diabetes - A1c 6.4 - Accuchecks ACHS - ISS low - Hypoglycemia protocol PT- home with services IVF: not indicated Diet: renal GI ppx: Protonix 40 mg PO daily VTE ppx: Eliquis, SCDs Code status: full code Case discussed with attending, Dr. Woodall. <Elin Woodall - Last Filed: 04/04/18 15:53> Objective - Vital Signs/Intake and Output Vital Signs (last 24 hours): Temp Pulse Resp BP Pulse Ox 97.9 F 67 22 113/63 100 04/04/18 08:49 04/04/18 08:49 04/04/18 08:49 04/04/18 08:49 04/04/18 08:49 Intake and Output: 04/04/18 04/04/18 06:59 18:59 Intake Total 120 Balance 120 - Medications Medications: Current Medications Albuterol/Ipratropium (Duoneb 3 Mg/0.5 Mg (3 Ml) Ud) 3 ml IH Q2H PRN PRN Reason: Shortness of Breath Albuterol/Ipratropium (Duoneb 3 Mg/0.5 Mg (3 Ml) Ud) 3 ml IH [id number] [facility] Last Admin: 04/04/18 14:00 Dose: 3 ml Apixaban (Eliquis) 2.5 mg PO BID [facility] Last Admin: 04/04/18 10:13 Dose: 2.5 mg Aspirin (Ecotrin) 81 mg PO DAILY [facility] Last Admin: 04/04/18 10:13 Dose: 81 mg Atorvastatin Calcium (Lipitor) 10 mg PO DIN [facility] Last Admin: 04/03/18 17:29 Dose: 10 mg Azithromycin (Zithromax) 500 mg PO DAILY [facility]; Protocol Guaifenesin (Mucinex La) 600 mg PO BID [facility] Last Admin: 04/04/18 10:13 Dose: 600 mg Heparin Sodium (Porcine) (Heparin) 5,000 units IVP MW PRN; Protocol PRN Reason: clotting Stop: 04/29/18 23:00 Last Admin: 04/03/18 11:21 Dose: 5,000 units Insulin Human Lispro (Humalog Med) 0 units SC ACHS [facility]; Protocol Last Admin: 04/04/18 08:01 Dose: Not Given Methylprednisolone (Solu-Medrol) 40 mg IVP Q8H [facility] Last Admin: 04/04/18 15:33 Dose: 40 mg Non-Formulary Medication (Ferric Citrate [Auryxia]) 2 tab PO TID [facility] Last Admin: 04/04/18 15:33 Dose: 2 tab Pantoprazole Sodium (Protonix Ec Tab) 40 mg PO 0600 [facility] Last Admin: 04/04/18 05:55 Dose: 40 mg Polyethylene Glycol (Miralax) 17 gm PO BID [facility] Last Admin: 04/04/18 10:15 Dose: Not Given - Labs Labs: 04/04/18 06:00 04/04/18 06:00 PT 12.1 SECONDS (9.4-12.5) 04/01/18 18:06 INR 1.06 04/01/18 18:06 APTT 27.1 Seconds (25.1-36.5) 04/01/18 18:06 Attending/Attestation - Attestation I have personally seen and examined this patient.: Yes I have fully participated in the care of the patient.: Yes I have reviewed all pertinent clinical information, including history, physical exam and plan: Yes Notes (Text): 04/04/18 15:52 attending note; Patient seen and examined with resident. shortness of breath is improving. But still with cough and mild wheezing. Denies any fevers, chills. walked with physical therapy today. Patient is a 53 year old female with a history of asthma, CVAs, Gait instability and ESRD on dialysis (MWF) who presented to the ED with an asthma exacerbation. Patient reports that her asthma flares up about once per month, and she requires hospitalization about once per year. She cannot recall if she was ever intubated. acute asthma exacerbation; continue oxygen when necessary. Continue DuoNeb treatment, IV Solu-Medrol and Zithromax. chest x-ray is negative for pneumonia. pulmonary evaluation appreciated. History of CVA and gait disability; PT evaluation appreciated. Ambulating with walker. Continue aspirin, Lipitor and Eliquis. GI prophylaxis with Protonix. End-stage renal disease on dialysis; follow-up with nephrology for dialysis on Friday, Wednesdays and Fridays. Possible discharge within 24-48 hours if clinically improves. Home care services arranged by by skilled nursing case manager. upon discharge patient will follow up with PMD Dr. Renteria. 04/04/18 15:53
--- NOTE | 2018-04-04 13:45 | CON ---
DATE: 04/03/2018 REASON FOR CONSULTATION: Shortness of breath, need for dialysis. HISTORY OF PRESENTING ILLNESS: A 53-year lady known to me from outpatient hemodialysis. She presented to the emergency room late Friday night with complaints of cough and shortness of breath. She gives the history of progressive cough and shortness of breath for 4 days. No fever. No chills. She has a history of asthma. Currently, she is on dialysis. She is awake. She is afebrile, but she is still coughing. PAST MEDICAL AND SURGICAL HISTORY: Asthma, CVA x2, TIA x2, hypertension, ESRD. FAMILY HISTORY: CVA. SOCIAL HISTORY: No smoking, no alcohol use, no IV drug abuse. ALLERGIES: NO KNOWN DRUG ALLERGIES. MEDICATIONS AT HOME: Auryxia, Eliquis and albuterol. REVIEW OF SYSTEMS: All systems are reviewed, pertinent positives as mentioned in history presenting illness, rest unremarkable. PHYSICAL EXAMINATION: GENERAL: Obese young woman, lying in bed in the dialysis unit. VITAL SIGNS: Blood pressure 101/61, heart rate 84, respiratory rate 18-20, temperature 97.6. HEENT: Normocephalic, atraumatic, positive pallor. NECK: Supple, no JVD. LUNGS: Bilateral equal air entry, bilateral rhonchi, bilateral expiratory wheeze. CARDIAC: S1 and S2, regular rate and rhythm, no murmur, no rub. ABDOMEN: Obese, distended, soft, nontender. Bowel sounds present. EXTREMITIES: No lower extremity edema. INTAKE AND OUTPUT: Not charted. LABORATORY DATA: WBC 16, hemoglobin 12, hematocrit 37, platelets 342. Sodium 135, potassium 5.2, chloride 93, CO2 25, BUN 90, creatinine 9.9, glucose 247, calcium 7.8, phosphorus 5.7, magnesium 2.2, albumin 3.7. CURRENT MEDICATIONS: DuoNeb, Ecotrin, Auryxia 2 tablets three times a day with food, heparin, insulin, Lipitor. ASSESSMENT: 1. Asthma exacerbation. 2. Hypertension well controlled. 3. Hyperphosphatemia. 4. End-stage renal disease. 5. Leukocytosis. PLAN: 1. Stable dialysis. 2. Continue phosphate binders. 3. Monitor for fever and WBC count. 4. (?) antibiotics. Mame Kruse MD [facility] # [id number]
[2018-04-04] MEDS: Albuterol-Ipratrop 3 mg / 0.5 (3 ml) UD IH PRN (16:21)
[2018-04-05] MEDS: Albuterol-Ipratrop 3 mg / 0.5 (3 ml) UD IH SCH ×4 (01:34→19:44)
[2018-04-05] MEDS: Pantoprazole 40 mg EC Tab PO SCH (05:23)
[2018-04-05 07:14] LABS: BASO # 0.01 K/mm3 (0.0-2.0); BASO % 0.1 % (0.0-3.0); EOS % 0.1 % (1.5-5.0); GRAN # 17.75 (1.4-6.5); GRAN % 89.4 % (50.0-68.0); LYMPH # 1.3 (1.2-3.4); LYMPH % 6.4 % (22.0-35.0); MEAN CELL VOLUME 90.8 fl (80.0-105.0); MEAN CORPUSCULAR HEMOGLOBIN 30.5 pg (25.0-35.0); MEAN CORPUSCULAR HGB CONC 33.6 g/dl (31.0-37.0); MEAN PLATELET VOLUME 9.2 fl (7.0-11.0); MONO # 0.8 (0.1-0.6); RBC 4.26 10^6/uL (3.5-6.1); RED CELL DISTRIBUTION WIDTH 14.3 % (11.5-14.5); WHITE BLOOD COUNT 19.8 10^3/ul (4.5-11.0)
[2018-04-05] MEDS: Insulin Lispro (humaLOG) MEDIUM Coverage SC SCH ×4 (08:32→21:41)
[2018-04-05] MEDS: MethylPREDNISolone 40 mg Vial IVP SCH (09:01)
[2018-04-05] MEDS: POLYETHYLENE GLYCOL 3350 17 GM/Dose PACKET PO SCH ×2 (10:33→17:14)
[2018-04-05] MEDS: guaiFENesin 600 mg ER Tab PO SCH ×2 (10:39→17:14)
[2018-04-05] MEDS: FERRIC CITRATE PO SCH ×3 (10:39→17:15)
[2018-04-05 10:53] LABS: ALB/GLOB RATIO 0.9 (1.1-1.8); ALBUMIN 3.5 g/dL (3.0-4.8); CALCIUM 7.7 mg/dL (8.4-10.5)
[2018-04-05] MEDS ORDERED: Sod Polystyrene Sulf 15 gm/60 ml Susp PO ONE (10:57)
[2018-04-05] MEDS ORDERED: Insulin Regular 1 UNITS/0.01 ML ML SC STA (10:59)
--- NOTE | 2018-04-05 11:25 | CP.PCM.DIS ---
Provider - Provider Date of Admission: 04/01/18 23:00 Attending physician: Elin Woodall MD Primary care physician: Dr. Tennille Renteria Consults: pulmonology nephrology Time Spent in preparation of Discharge (in minutes): 45 Diagnosis - Discharge Diagnosis (1) Asthma exacerbation Status: Acute Priority: High (2) ESRD (end stage renal disease) on dialysis Status: Chronic Priority: Medium Hospital Course - Lab Results Lab Results: Micro Results 04/01/18 18:06 Blood-Venous Blood Culture - Preliminary NO GROWTH AFTER 3 DAYS 04/01/18 17:30 Blood-Venous Blood Culture - Preliminary NO GROWTH AFTER 3 DAYS Most Recent Lab Values WBC 19.8 10^3/ul (4.5-11.0) H 04/05/18 05:00 RBC 4.26 10^6/uL (3.5-6.1) 04/05/18 05:00 Hgb 13.0 g/dL (12.0-16.0) 04/05/18 05:00 Hct 38.7 % (36.0-48.0) 04/05/18 05:00 MCV 90.8 fl (80.0-105.0) 04/05/18 05:00 MCH 30.5 pg (25.0-35.0) 04/05/18 05:00 MCHC 33.6 g/dl (31.0-37.0) 04/05/18 05:00 RDW 14.3 % (11.5-14.5) 04/05/18 05:00 Plt Count 349 10^3/uL (120.0-450.0) 04/05/18 05:00 MPV 9.2 fl (7.0-11.0) 04/05/18 05:00 Gran % 89.4 % (50.0-68.0) H 04/05/18 05:00 Lymph % (Auto) 6.4 % (22.0-35.0) L 04/05/18 05:00 [place] % (Auto) 4.0 % (1.0-6.0) 04/05/18 05:00 Eos % (Auto) 0.1 % (1.5-5.0) L 04/05/18 05:00 Baso % (Auto) 0.1 % (0.0-3.0) 04/05/18 05:00 Gran # 17.75 (1.4-6.5) H 04/05/18 05:00 Lymph # (Auto) 1.3 (1.2-3.4) 04/05/18 05:00 [place] # (Auto) 0.8 (0.1-0.6) H 04/05/18 05:00 Eos # (Auto) 0.0 (0.0-0.7) 04/05/18 05:00 Baso # (Auto) 0.01 K/mm3 (0.0-2.0) 04/05/18 05:00 Neutrophils % (Manual) 92 % (50.0-70.0) H 04/02/18 06:00 Lymphocytes % (Manual) 6 % (22.0-35.0) L 04/02/18 06:00 Monocytes % (Manual) 2 % (1.0-6.0) 04/02/18 06:00 Platelet Evaluation Normal (NORMAL) 04/02/18 06:00 Anisocytosis (manual) Slight 04/02/18 06:00 PT 12.1 SECONDS (9.4-12.5) 04/01/18 18:06 INR 1.06 04/01/18 18:06 APTT 27.1 Seconds (25.1-36.5) 04/01/18 18:06 pCO2 42 mm/Hg (35-45) 04/03/18 04:04 pO2 114.0 mm/Hg (80-100) H 04/03/18 04:04 HCO3 24.3 mmol/L (21-28) 04/03/18 04:04 ABG pH 7.37 (7.35-7.45) 04/03/18 04:04 ABG Total CO2 25.6 mmol.L (22-28) 04/03/18 04:04 ABG O2 Saturation 98.7 % (95-98) H 04/03/18 04:04 ABG O2 Content 17.0 ML/dl (15-23) 04/03/18 04:04 ABG Base Excess -1.0 mmol/L (-2.0-3.0) 04/03/18 04:04 ABG Hemoglobin 12.4 g/dL (11.7-17.4) 04/03/18 04:04 ABG Carboxyhemoglobin 1.0 % (0.5-1.5) 04/03/18 04:04 POC ABG HHb (Measured) 1.3 % (0-5) 04/03/18 04:04 ABG Methemoglobin 0.9 % (0.0-3.0) 04/03/18 04:04 ABG O2 Capacity 17.2 mL/dl (16-24) 04/03/18 04:04 ABG Potassium 4.4 mmol/L (3.6-5.2) 04/01/18 23:10 VBG pH 7.40 (7.32-7.43) 04/01/18 18:06 VBG pCO2 58.0 (40-60) 04/01/18 18:06 VBG HCO3 35.9 mmol/l (21-28) H 04/01/18 18:06 VBG Total CO2 37.7 mmol.L (22-28) H 04/01/18 18:06 VBG O2 Sat (Calc) 52.1 % (40-65) 04/01/18 18:06 VBG Base Excess 9.0 mmol/L (0.0-2.0) H 04/01/18 18:06 VBG Potassium 4.9 mmol/L (3.6-5.2) 04/01/18 18:06 Hgb O2 Saturation 96.8 % (95.0-98.0) 04/03/18 04:04 Sodium 130.0 mmol/L (132-148) L 04/01/18 23:10 Chloride 96.0 mmol/L (98-107) L 04/01/18 23:10 Glucose 237 mg/dl (65-105) H 04/01/18 23:10 Lactate 1.8 mmol/L (0.7-2.1) 04/01/18 23:10 FiO2 28.0 % 04/03/18 04:04 Sodium 133 mmol/L (132-148) 04/05/18 05:00 Potassium 6.0 mmol/L (3.6-5.0) H* D 04/05/18 05:00 Chloride 98 mmol/L (98-107) 04/05/18 05:00 Carbon Dioxide 19 mmol/L (21-33) L 04/05/18 05:00 Anion Gap 22 (10-20) H 04/05/18 05:00 BUN 105 mg/dL (7-21) H 04/05/18 05:00 Creatinine 10.4 mg/dl (0.7-1.2) H* D 04/05/18 05:00 Est GFR ( Amer) 5 04/05/18 05:00 Est GFR (Non-Af Amer) 4 04/05/18 05:00 POC Glucose (mg/dL) 158 mg/dL (65-110) H 04/05/18 07:16 Random Glucose 207 mg/dL (70-110) H 04/05/18 05:00 Hemoglobin A1c 6.4 % (4.2-6.5) 04/02/18 06:00 Calcium 7.7 mg/dL (8.4-10.5) L 04/05/18 05:00 Phosphorus 5.9 mg/dL (2.5-4.5) H 04/05/18 05:00 Magnesium 2.2 mg/dL (1.7-2.2) 04/05/18 05:00 Total Bilirubin 0.6 mg/dL (0.2-1.3) 04/05/18 05:00 AST 21 U/L (14-36) 04/05/18 05:00 ALT 7 U/L (7-56) 04/05/18 05:00 Alkaline Phosphatase 88 U/L (38-126) 04/05/18 05:00 Lactate Dehydrogenase 497 U/L (333-699) 04/01/18 18:06 Total Creatine Kinase 94 U/L (35-230) 04/01/18 18:06 Troponin I 0.02 ng/mL 04/02/18 06:30 NT-Pro-B Natriuret Pep 4500 pg/mL (0-450) H 04/02/18 06:00 Total Protein 7.3 g/dL (5.8-8.3) 04/05/18 05:00 Albumin 3.5 g/dL (3.0-4.8) 04/05/18 05:00 Globulin 3.8 gm/dL 04/05/18 05:00 Albumin/Globulin Ratio 0.9 (1.1-1.8) L 04/05/18 05:00 Triglycerides 69 mg/dL (35-160) 04/02/18 06:00 Cholesterol 191 mg/dL (130-200) 04/02/18 06:00 LDL Cholesterol Direct 101 mg/dL (0-129) 04/02/18 06:00 HDL Cholesterol 54 mg/dL (29-60) 04/02/18 06:00 Procalcitonin 0.45 NG/ML (0.19-0.49) 04/02/18 06:00 TSH 3rd Generation 0.51 mIU/mL (0.46-4.68) 04/01/18 18:06 Arterial Blood Potassium 4.4 mmol/L (3.6-5.2) 04/01/18 23:10 Venous Blood Potassium 4.9 mmol/L (3.6-5.2) 04/01/18 18:06 Hep Bs Antigen Negative (NEGATIVE) 04/03/18 10:00 Hep Bs Antibody Negative (NEGATIVE) 04/03/18 10:00 Hep B Core IgM Ab Negative (NEGATIVE) 04/03/18 10:00 - Hospital Course Hospital Course: 53 y/o female with a PMH of ESRD (dialysis MWF), asthma (she is unsure if she has been intubated in the past), CVA x2, TIA x2, HTN presented to the ED complaining of nonproductive cough, SOB and wheezing for the past week. Pt reports she has had a respiratory illness recently and thinks that it causes her to have this asthma exacerbation. Pt states she has been taking prednisone but she has not had very much relief. Pt has been hospitalized before for asthma exacerbation. The patient was diagnosed with COPD exacerbation. Her VBGs revealed CO2 of 58, Total CO2 of 37.7 and pH of 7.40. ABGs revealed CO2 of 38, Total CO2 of 28.2 and pH of 7.40. She received duonebs, solu-medrol and azithromycin as well as mucinex. Her O2 saturation ranged from 97-100 on 3 L O2 via nasal cannula. Patient reports improvement in her symptoms. The patient's creatinine was elevated at 9.9, phosphorus was elevated at 5.7 and magnesium was normal at 2.2 which is due to history of end stage renal disease which she receives dialysis for on Friday, Friday and Friday. Discharge Exam - Head Exam Head Exam: ATRAUMATIC, NORMAL INSPECTION Discharge Plan - Discharge Medications Prescriptions: Albuterol HFA [Ventolin HFA 90 mcg/actuation (8 g)] 1 puff IH Q12 #1 inhaler Aspirin [Ecotrin] 81 mg PO DAILY #30 tabec Atorvastatin [Lipitor] 10 mg PO DIN #30 tab Azithromycin [Zithromax] 500 mg PO DAILY 3 Days #3 tab guaiFENesin [Mucinex LA] 600 mg PO BID 3 Days #6 tab Methylprednisolone [Medrol Dose Pack (21 tabs)] 4 mg PO DAILY #21 mg - Follow Up Plan Condition: STABLE Disposition: HOME/ ROUTINE Instructions: Asthma in Adults, Asthma, Adult (DC), Shortness of Breath (Dyspnea) (DC), Altered Mental Status (DC) Additional Instructions: Please follow-up with your primary care physician, Dr. Renteria, within 3-5 days of discharge. You will be given a prescription for Azithromycin (antibiotic). Please take for 3 days until all pills completed. You will be given a prescription for Mucinex for cough. You may take twice daily for 3 days. You will be given a Medrol dose pack. Please follow instructions for taking pills. When the pack is completed, you may resume your previous home dose of steroids. You may resume all of your other home medications. If symptoms return, present to the nearest emergency room. Referrals: Tennille Renteria MD [Family Provider] -
--- NOTE | 2018-04-05 13:47 | PN ---
DATE: 04/05/2018 SUBJECTIVE: The patient is currently seen lying comfortable in bed. She states she will likely be discharged home later today. Exacerbation of her asthma has significantly improved with steroid therapy and inhalation therapy. The patient states she is back to baseline. MEDICATIONS: Medication list reviewed. The patient is on DuoNeb, Ecotrin, Eliquis, Auryxia, subcu heparin, sliding scale insulin, Lipitor, MiraLax, Mucinex, Protonix, Solu-Medrol, and Zithromax. PHYSICAL EXAMINATION: INTAKE AND OUTPUT. Intake 1210, output not charted. VITAL SIGNS: Blood pressure 114/63, temperature 98.2, respiratory rate 20 with a pulse of 91, pulse ox 98%. HEENT: Shows her to be normocephalic, atraumatic. Conjunctivae remain pink. Sclerae are nonicteric. NECK: Supple. No neck vein distention. CHEST: Occasional scattered wheeze. No rhonchi. No rales. CARDIOVASCULAR: Regular rate and rhythm without audible murmurs, rubs, or gallops. ABDOMEN: Obese. Bowel sounds normal. No rebound, guarding, or masses. EXTREMITIES: Show a working AV fistula, left upper extremity. No lower extremity cyanosis, clubbing, or edema. LABORATORY DATA AND IMAGING: CBC today: White blood cell count 19.8, likely a steroid effect. Hemoglobin 13 with a platelet count of 349,000. Chemistries today showed normal electrolytes. BUN 64, creatinine 7.1 from 04/04/2018. Glucose today was 209. Last calcium 8.1 with a phosphorus of 5.2. Albumin was 3.7. Microbiology, all cultures are negative at 72 hours. ASSESSMENT: 1. End-stage renal disease. The patient will continue routine Friday, Friday, and Friday dialysis. In all likelihood, she will be discharged later today and she may receive her outpatient dialysis at her outpatient center at [facility]. 2. Asthma with exacerbation. The patient responded nicely to steroids and will likely be discharged home on tapering doses of steroid. She will continue inhalation therapy. No evidence for any infectious etiology. However, the patient will continue her course of Zithromax therapy. 3. 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 The patient will continue chronic anticoagulation. 4. History of hypertension. Blood pressure remains controlled off blood pressure medication. 5. History of secondary hyperparathyroidism. The patient will continue binder therapy. She is using Auryxia. The patient will continue a renal diet. Last phosphorus level was 5.2. 6. History of mild glucose intolerance, in part secondary to use of steroids. With decreasing steroid dose, the patient's requirement for any sliding scale insulin will likely be zero. PLAN: 1. Hemodialysis scheduled for tomorrow. This will likely be take place in the outpatient unit. 2. Discussed with Dr. Woodall, her hospitalist. Discharge home on steroids, tapering dose, and inhalation therapy. 3. The patient will continue chronic anticoagulation with Eliquis in light of her thromboembolic CVAs. 4. The patient to be careful with fluid restrictions at home as to not exacerbate her shortness of breath. Andre Peralta MD
--- NOTE | 2018-04-05 15:12 | CP.PCM.PN ---
<Rosa Razo - Last Filed: 04/05/18 15:15> Subjective - Date & Time of Evaluation Date of Evaluation: 04/05/18 Time of Evaluation: 10:20 - Subjective Subjective: PGY-1 Rosa Razo D.O. Medicine progress note for Dr. Felipe service: Patient was seen and examined this morning. Patient is feeling clinically impr todd but is still wheezing. She states that she always wheezes somewhat. Her cough is intermittent. She denies fevers, chills, chest pain, abdominal pain. She is eating and sleeping well. She is continuing dialysis MWF. Conversation with patient's daughter (mathematics department chair) concluded that patient should stay one more day as her wheezing is more audible than baseline. Objective - Vital Signs/Intake and Output Vital Signs (last 24 hours): Temp Pulse Resp BP Pulse Ox 98.2 F 91 H 20 114/63 98 04/05/18 08:36 04/05/18 08:36 04/05/18 08:36 04/05/18 08:36 04/05/18 08:36 Intake and Output: 04/05/18 04/05/18 06:59 18:59 Intake Total 1210 Balance 1210 - Medications Medications: Current Medications Albuterol/Ipratropium (Duoneb 3 Mg/0.5 Mg (3 Ml) Ud) 3 ml IH Q2H PRN PRN Reason: Shortness of Breath Last Admin: 04/04/18 16:21 Dose: 3 ml Albuterol/Ipratropium (Duoneb 3 Mg/0.5 Mg (3 Ml) Ud) 3 ml IH [id number] [facility] Last Admin: 04/05/18 14:40 Dose: 3 ml Apixaban (Eliquis) 2.5 mg PO BID [facility] Last Admin: 04/05/18 10:40 Dose: 2.5 mg Aspirin (Ecotrin) 81 mg PO DAILY [facility] Last Admin: 04/05/18 10:40 Dose: 81 mg Atorvastatin Calcium (Lipitor) 10 mg PO DIN [facility] Last Admin: 04/04/18 18:36 Dose: 10 mg Azithromycin (Zithromax) 500 mg PO DAILY [facility]; Protocol Last Admin: 04/05/18 10:39 Dose: 500 mg Guaifenesin (Mucinex La) 600 mg PO BID [facility] Last Admin: 04/05/18 10:39 Dose: 600 mg Heparin Sodium (Porcine) (Heparin) 5,000 units IVP MWF PRN; Protocol PRN Reason: clotting Stop: 04/29/18 23:00 Last Admin: 04/03/18 11:21 Dose: 5,000 units Insulin Human Lispro (Humalog Med) 0 units SC ACHS [facility]; Protocol Last Admin: 04/05/18 08:32 Dose: 1 unit Methylprednisolone (Solu-Medrol) 40 mg IVP Q8H [facility] Last Admin: 04/05/18 09:01 Dose: 40 mg Non-Formulary Medication (Ferric Citrate [Auryxia]) 2 tab PO TID [facility] Last Admin: 04/05/18 10:39 Dose: 2 tab Pantoprazole Sodium (Protonix Ec Tab) 40 mg PO 0600 [facility] Last Admin: 04/05/18 05:23 Dose: 40 mg Polyethylene Glycol (Miralax) 17 gm PO BID [facility] Last Admin: 04/05/18 10:33 Dose: Not Given - Labs Labs: 04/05/18 05:00 04/05/18 05:00 PT 12.1 SECONDS (9.4-12.5) 04/01/18 18:06 INR 1.06 04/01/18 18:06 APTT 27.1 Seconds (25.1-36.5) 04/01/18 18:06 - Constitutional Appears: Non-toxic, No Acute Distress - Head Exam Head Exam: ATRAUMATIC, NORMAL INSPECTION - Eye Exam Eye Exam: EOMI, Normal appearance, PERRL - ENT Exam ENT Exam: Mucous Membranes Moist, Normal Exam - Neck Exam Neck Exam: Normal Inspection - Respiratory Exam Respiratory Exam: Wheezes, NORMAL BREATHING PATTERN. absent: Respiratory Distress - Cardiovascular Exam Cardiovascular Exam: REGULAR RHYTHM, +S1, +S2 - GI/Abdominal Exam GI & Abdominal Exam: Soft, Normal Bowel Sounds. absent: Tenderness - Rectal Exam Rectal Exam: Deferred - Extremities Exam Extremities Exam: Normal Inspection - Back Exam Back Exam: NORMAL INSPECTION - Neurological Exam Neurological Exam: Alert, Awake, CN II-XII Intact, Oriented x3 - Psychiatric Exam Psychiatric exam: Normal Affect, Normal Mood - Skin Skin Exam: Dry, Intact, Normal Color, Warm Assessment and Plan (1) Asthma exacerbation Status: Acute (2) ESRD (end stage renal disease) on dialysis Status: Chronic - Assessment and Plan (Free Text) Assessment: Patient is a 53 yo AA female with a history of asthma, CVAs, OB, and ESRD on dialysis (MWF) who presented to the ED with an asthma exacerbation. Patient reports that her asthma flares up about once per month, and she requires hospitalization about once per year. She cannot recall if she was ever intubated. Plan: Asthma exacerbation - On home supplemental O2 2-3 L PRN - Lactate 1.8, procal 0.45 - Leukocytosis stable- chronic steroids - Afebrile - Leukocytosis stable- on chronic steroids - CXR: no active disease - Mucinex 600 mg PO BID - Duoneb Q6H NASIR, Q2H PRN - Change Solu-medrol 40 mg IV Q8H to Prednison 40 mg PO daily - Change Azithromycin 500 mg from IV to PO daily - Pulmonology consulted (Lakia) ESRD on HD MWF - Continue scheduled HD - Auryxia 2 tabs PO TID - Kayexalate 15 g PO PRN - Nephrology consulted ([place]) H/o CVA - Eliquis 2.5 mg PO BID - ASA 81 mg PO daily HLD - Lipitor 10 mg PO QHS Pre-diabetes - A1c 6.4 - Accuchecks ACHS - ISS low - Hypoglycemia protocol PT- home with services IVF: not indicated Diet: renal GI ppx: Protonix 40 mg PO daily VTE ppx: Eliquis, SCDs Code status: full code Case discussed with attending, Dr. Woodall. <Elin Woodall - Last Filed: 04/05/18 17:14> Objective - Vital Signs/Intake and Output Vital Signs (last 24 hours): Temp Pulse Resp BP Pulse Ox 97.6 F 89 18 106/64 98 04/05/18 17:02 04/05/18 17:02 04/05/18 17:02 04/05/18 17:02 04/05/18 17:02 Intake and Output: 04/05/18 04/05/18 06:59 18:59 Intake Total 1210 Balance 1210 - Medications Medications: Current Medications Albuterol/Ipratropium (Duoneb 3 Mg/0.5 Mg (3 Ml) Ud) 3 ml IH Q2H PRN PRN Reason: Shortness of Breath Last Admin: 04/04/18 16:21 Dose: 3 ml Albuterol/Ipratropium (Duoneb 3 Mg/0.5 Mg (3 Ml) Ud) 3 ml IH [id number] [facility] Last Admin: 04/05/18 14:40 Dose: 3 ml Apixaban (Eliquis) 2.5 mg PO BID [facility] Last Admin: 04/05/18 10:40 Dose: 2.5 mg Aspirin (Ecotrin) 81 mg PO DAILY [facility] Last Admin: 04/05/18 10:40 Dose: 81 mg Atorvastatin Calcium (Lipitor) 10 mg PO DIN [facility] Last Admin: 04/04/18 18:36 Dose: 10 mg Azithromycin (Zithromax) 500 mg PO DAILY [facility]; Protocol Last Admin: 04/05/18 10:39 Dose: 500 mg Azithromycin (Zithromax) 500 mg PO DAILY [facility]; Protocol Stop: 04/10/18 10:01 Guaifenesin (Mucinex La) 600 mg PO BID [facility] Last Admin: 04/05/18 10:39 Dose: 600 mg Heparin Sodium (Porcine) (Heparin) 5,000 units IVP MWF PRN; Protocol PRN Reason: clotting Stop: 04/29/18 23:00 Last Admin: 04/03/18 11:21 Dose: 5,000 units Insulin Human Lispro (Humalog Med) 0 units SC [facility]; Protocol Last Admin: 04/05/18 08:32 Dose: 1 unit Non-Formulary Medication (Ferric Citrate [Auryxia]) 2 tab PO TID [facility] Last Admin: 04/05/18 10:39 Dose: 2 tab Pantoprazole Sodium (Protonix Ec Tab) 40 mg PO 0600 [facility] Last Admin: 04/05/18 05:23 Dose: 40 mg Polyethylene Glycol (Miralax) 17 gm PO BID [facility] Last Admin: 04/05/18 10:33 Dose: Not Given Prednisone (Prednisone Tab) 40 mg PO DAILY [facility] - Labs Labs: 04/05/18 05:00 04/05/18 15:46 PT 12.1 SECONDS (9.4-12.5) 04/01/18 18:06 INR 1.06 04/01/18 18:06 APTT 27.1 Seconds (25.1-36.5) 04/01/18 18:06 Attending/Attestation - Attestation I have personally seen and examined this patient.: Yes I have fully participated in the care of the patient.: Yes I have reviewed all pertinent clinical information, including history, physical exam and plan: Yes Notes (Text): 04/05/18 17:13 attending note; Patient seen and examined with resident. shortness of breath is improving. But still with mild wheezing. Denies any fevers, chills. wanted to go home. Patient is a 53 year old female with a history of asthma, CVAs, Gait instability and ESRD on dialysis (MWF) who presented to the ED with an asthma exacerbation. Patient reports that her asthma flares up about once per month, and she requires hospitalization about once per year. She cannot recall if she was ever intubated. acute asthma exacerbation; continue oxygen when necessary. Continue DuoNeb treatment, IV Solu-Medrol and Zithromax. chest x-ray is negative for pneumonia. pulmonary evaluation appreciated. History of CVA and gait disability; PT evaluation appreciated. Ambulating with walker. Continue aspirin, Lipitor and Eliquis. GI prophylaxis with Protonix. End-stage renal disease on dialysis; follow-up with nephrology for dialysis on Friday, Wednesdays and Fridays. Hyperkalemia; Kayexalate given. Follow-up potassium level. Patient will get hemodialysis tomorrow. Possible discharge tomorrow. Home care services arranged by by outpatient case manager. upon discharge patient will follow up with PMD Dr. Renteria. 04/05/18 17:13
[2018-04-05 16:38] LABS: CALCIUM 7.9 mg/dL (8.4-10.5)
[2018-04-06] MEDS: Albuterol-Ipratrop 3 mg / 0.5 (3 ml) UD IH SCH ×3 (01:32→14:02)
[2018-04-06] MEDS: Pantoprazole 40 mg EC Tab PO SCH (05:37)
[2018-04-06 06:32] LABS: BASO # 0.01 K/mm3 (0.0-2.0); EOS # 0.1 (0.0-0.7); EOS % 0.4 % (1.5-5.0); GRAN # 16.45 (1.4-6.5); GRAN % 78.9 % (50.0-68.0); HEMOGLOBIN 12.9 g/dL (12.0-16.0); LYMPH # 3.1 (1.2-3.4); LYMPH % 14.7 % (22.0-35.0); MEAN CELL VOLUME 90.3 fl (80.0-105.0); MEAN CORPUSCULAR HEMOGLOBIN 29.8 pg (25.0-35.0); MEAN PLATELET VOLUME 8.9 fl (7.0-11.0); MONO # 1.3 (0.1-0.6); RBC 4.33 10^6/uL (3.5-6.1); RED CELL DISTRIBUTION WIDTH 14.2 % (11.5-14.5); WHITE BLOOD COUNT 20.9 10^3/ul (4.5-11.0)
--- NOTE | 2018-04-06 08:13 | PN ---
DATE: 04/03/2018 SUBJECTIVE: The patient was seen and examined at the bedside. She is in good spirit. She reports that her breathing subjectively better. The night was uneventful. She is in the hemodialysis unit, and she was seen and examined at the bedside. PHYSICAL EXAMINATION: VITAL SIGNS: Temperature 97.4, blood pressure 101/61, heart rate 98, respiratory rate 20, oxygen saturation 97% on 2 L nasal cannula. GENERAL: The patient reports that she has some cough with whitish sputum and able to expectorate phlegm easily. ENT: Head and neck atraumatic. LUNGS: Clear to auscultation bilaterally. HEART: Regular rate and rhythm. S1 and S2 normal. ABDOMEN: Soft, nontender, and nondistended. MUSCULOSKELETAL: No C/C/E. NEURO: The patient moves all extremities spontaneously. SKIN: Moist. PSYCH: The patient is alert, awake, and oriented x3. LABORATORY DATA: WBC 16.1, hemoglobin 12.4, and platelet count 342. Eosinophils 0. Sodium 135, potassium 5.2 (the patient is on dialysis), chloride 93. BUN 90, creatinine 9.9. Glucose 247. AST 18, ALT 12. MEDICATIONS: DuoNeb p.r.n. and every 4 hours on standing basis, Eliquis, aspirin, Lipitor, Mucinex, heparin with dialysis, Solu-Medrol 40 mg IV every 8 hours, Protonix, and azithromycin. ASSESSMENT AND PLAN: This is a 53-year-old lady with asthma exacerbation, chronically on dual bronchodilators every 4 hours and systemic steroid taper. I will also add inhaled corticosteroids. The patient is doing subjectively better. We will continue to target euvolemia, euglycemia, normothermia, and oxygen saturation more than 90%. She is still wheezing a little bit; however, bronchospasm appears to be doing little bit better. We will continue with DVT and GI prophylaxes, dialysis. Dami Dorman MD
[2018-04-06 08:53] VITALS: RESP 20
[2018-04-06] MEDS: Insulin Lispro (humaLOG) MEDIUM Coverage SC SCH ×3 (09:29→17:01)
[2018-04-06] MEDS: POLYETHYLENE GLYCOL 3350 17 GM/Dose PACKET PO SCH ×2 (09:34→17:07)
[2018-04-06] MEDS: FERRIC CITRATE PO SCH ×3 (09:34→17:07)
[2018-04-06 10:07] LABS: ALB/GLOB RATIO 0.9 (1.1-1.8); ALBUMIN 3.2 g/dL (3.0-4.8); CALCIUM 7.1 mg/dL (8.4-10.5)
[2018-04-06] MEDS: guaiFENesin 600 mg ER Tab PO SCH ×2 (16:30→17:07)
[2018-04-06 17:39] VITALS: BP 135/92; PULSE 85; TEMP 98.6; O2SAT 100
[2018-04-06] MEDS: Albuterol-Ipratrop 3 mg / 0.5 (3 ml) UD IH PRN (17:40)
--- NOTE | 2018-04-06 18:18 | PN ---
DATE: 04/06/2018 SUBJECTIVE: The patient is currently seen completing dialysis, 3.5 liters of fluid have been removed. The patient's breathing is improved, but she still continues to have wheezing. She states that is her baseline. MEDICATIONS List reviewed. The patient is currently on DuoNeb, Ecotrin, Eliquis, Auryxia, heparin, insulin sliding scale, Lipitor, MiraLax, Mucinex, prednisone, Protonix, and Zithromax. OBJECTIVE: INTAKE/OUTPUT: Intake/output not charted. VITAL SIGNS: Blood pressure presently 104/61, temperature 97.8, respiratory rate 20 with a pulse of 87. HEENT: Shows her to be normocephalic, atraumatic. Conjunctivae remain pink. Sclerae are nonicteric. NECK: Supple. No neck vein distention. CHEST: Scattered wheezes bilaterally. No rales or rhonchi. CARDIOVASCULAR: Shows regular rate and rhythm without audible murmurs, rubs or gallops. ABDOMEN: Moderately obese. Bowel sounds normal. No rebound, guarding or masses. EXTREMITIES: Show cannulated AV fistula in left upper extremity. No lower extremity cyanosis, clubbing or edema. LABORATORY DATA AND IMAGING: CBC: White blood cell count today 20.9, likely a steroid effect. Hemoglobin 12 and platelet count of 334,000. Today's chemistries, BUN 130 with creatinine of 12.4. Potassium level is 4.7. Remainder of the electrolytes are acceptable. Calcium is 7.1. Phosphorus level remains extremely elevated at 8. Albumin is 3.2. Microbiology: All cultures are negative i.e. blood cultures at 4 days. ASSESSMENT: 1. End-stage renal disease. The patient will continue Friday, Friday and Friday dialysis, should she be discharged home later today or next dialysis will take place in the outpatient unit in [place]. 2. History of asthma with exacerbation. The patient will likely need to taper steroids in the outpatient setting. She will continue inhalation therapy. She will complete her course of Zithromax therapy. 3. Past history of thromboembolic cerebrovascular accident. The patient will continue on chronic anticoagulation. No bleeding. 4. History of hypertension. Blood pressure remains in the low normal range, off blood pressure medication. 5. History of secondary hyperparathyroidism. Elevated phosphorus levels. The patient needs to continue binder therapy and adheres strictly to a renal diet. 6. History of mild glucose intolerance, likely exacerbated by steroids. In all likelihood, she would not require any medication for glucose control once the steroid dose is reduced. PLAN: 1. The patient will complete today's hemodialysis if she remains stable from a pulmonary standpoint to be discharged home later today. 2. Continue medication, chronic anticoagulation with Eliquis in light of her history of thromboembolic CVAs. 3. Cautioned the patient to adhere to all fluid restrictions at home, not to exacerbate her shortness of breath. Andre Peralta MD
--- NOTE | 2018-04-06 22:09 | CP.PCM.DIS ---
Provider - Provider Date of Admission: 04/01/18 23:00 Attending physician: Elin Woodall MD Consults: Pulmonology: Dr. Dorman Nephrology: Dr. Kruse Time Spent in preparation of Discharge (in minutes): 45 Hospital Course - Lab Results Lab Results: Micro Results 04/01/18 18:06 Blood-Venous Blood Culture - Final NO GROWTH AFTER 5 DAYS 04/01/18 18:06 Blood-Venous Gram Stain - Final TEST NOT PERFORMED 04/01/18 17:30 Blood-Venous Blood Culture - Final NO GROWTH AFTER 5 DAYS 04/01/18 17:30 Blood-Venous Gram Stain - Final TEST NOT PERFORMED Most Recent Lab Values WBC 20.9 10^3/ul (4.5-11.0) H 04/06/18 06:10 RBC 4.33 10^6/uL (3.5-6.1) 04/06/18 06:10 Hgb 12.9 g/dL (12.0-16.0) 04/06/18 06:10 Hct 39.1 % (36.0-48.0) 04/06/18 06:10 MCV 90.3 fl (80.0-105.0) 04/06/18 06:10 MCH 29.8 pg (25.0-35.0) 04/06/18 06:10 MCHC 33.0 g/dl (31.0-37.0) 04/06/18 06:10 RDW 14.2 % (11.5-14.5) 04/06/18 06:10 Plt Count 334 10^3/uL (120.0-450.0) 04/06/18 06:10 MPV 8.9 fl (7.0-11.0) 04/06/18 06:10 Gran % 78.9 % (50.0-68.0) H 04/06/18 06:10 Lymph % (Auto) 14.7 % (22.0-35.0) L 04/06/18 06:10 Wilkin % (Auto) 6.0 % (1.0-6.0) 04/06/18 06:10 Eos % (Auto) 0.4 % (1.5-5.0) L 04/06/18 06:10 Baso % (Auto) 0.0 % (0.0-3.0) 04/06/18 06:10 Gran # 16.45 (1.4-6.5) H 04/06/18 06:10 Lymph # (Auto) 3.1 (1.2-3.4) 04/06/18 06:10 Wilkin # (Auto) 1.3 (0.1-0.6) H 04/06/18 06:10 Eos # (Auto) 0.1 (0.0-0.7) 04/06/18 06:10 Baso # (Auto) 0.01 K/mm3 (0.0-2.0) 04/06/18 06:10 Neutrophils % (Manual) 92 % (50.0-70.0) H 04/02/18 06:00 Lymphocytes % (Manual) 6 % (22.0-35.0) L 04/02/18 06:00 Monocytes % (Manual) 2 % (1.0-6.0) 04/02/18 06:00 Platelet Evaluation Normal (NORMAL) 04/02/18 06:00 Anisocytosis (manual) Slight 04/02/18 06:00 PT 12.1 SECONDS (9.4-12.5) 04/01/18 18:06 INR 1.06 04/01/18 18:06 APTT 27.1 Seconds (25.1-36.5) 04/01/18 18:06 pCO2 42 mm/Hg (35-45) 04/03/18 04:04 pO2 114.0 mm/Hg (80-100) H 04/03/18 04:04 HCO3 24.3 mmol/L (21-28) 04/03/18 04:04 ABG pH 7.37 (7.35-7.45) 04/03/18 04:04 ABG Total CO2 25.6 mmol.L (22-28) 04/03/18 04:04 ABG O2 Saturation 98.7 % (95-98) H 04/03/18 04:04 ABG O2 Content 17.0 ML/dl (15-23) 04/03/18 04:04 ABG Base Excess -1.0 mmol/L (-2.0-3.0) 04/03/18 04:04 ABG Hemoglobin 12.4 g/dL (11.7-17.4) 04/03/18 04:04 ABG Carboxyhemoglobin 1.0 % (0.5-1.5) 04/03/18 04:04 POC ABG HHb (Measured) 1.3 % (0-5) 04/03/18 04:04 ABG Methemoglobin 0.9 % (0.0-3.0) 04/03/18 04:04 ABG O2 Capacity 17.2 mL/dl (16-24) 04/03/18 04:04 ABG Potassium 4.4 mmol/L (3.6-5.2) 04/01/18 23:10 VBG pH 7.40 (7.32-7.43) 04/01/18 18:06 VBG pCO2 58.0 (40-60) 04/01/18 18:06 VBG HCO3 35.9 mmol/l (21-28) H 04/01/18 18:06 VBG Total CO2 37.7 mmol.L (22-28) H 04/01/18 18:06 VBG O2 Sat (Calc) 52.1 % (40-65) 04/01/18 18:06 VBG Base Excess 9.0 mmol/L (0.0-2.0) H 04/01/18 18:06 VBG Potassium 4.9 mmol/L (3.6-5.2) 04/01/18 18:06 Hgb O2 Saturation 96.8 % (95.0-98.0) 04/03/18 04:04 Sodium 130.0 mmol/L (132-148) L 04/01/18 23:10 Chloride 96.0 mmol/L (98-107) L 04/01/18 23:10 Glucose 237 mg/dl (65-105) H 04/01/18 23:10 Lactate 1.8 mmol/L (0.7-2.1) 04/01/18 23:10 FiO2 28.0 % 04/03/18 04:04 Sodium 134 mmol/L (132-148) 04/06/18 09:00 Potassium 4.7 mmol/L (3.6-5.0) 04/06/18 09:00 Chloride 95 mmol/L (98-107) L 04/06/18 09:00 Carbon Dioxide 20 mmol/L (21-33) L 04/06/18 09:00 Anion Gap 24 (10-20) H 04/06/18 09:00 BUN 138 mg/dL (7-21) H* 04/06/18 09:00 Creatinine 12.4 mg/dl (0.7-1.2) H* D 04/06/18 09:00 Est GFR ( Amer) 4 04/06/18 09:00 Est GFR (Non-Af Amer) 3 04/06/18 09:00 POC Glucose (mg/dL) 79 mg/dL (65-110) 04/06/18 16:25 Random Glucose 90 mg/dL (70-110) 04/06/18 09:00 Hemoglobin A1c 6.4 % (4.2-6.5) 04/02/18 06:00 Calcium 7.1 mg/dL (8.4-10.5) L 04/06/18 09:00 Phosphorus 8.0 mg/dL (2.5-4.5) H 04/06/18 09:00 Magnesium 2.0 mg/dL (1.7-2.2) 04/06/18 09:00 Total Bilirubin 0.7 mg/dL (0.2-1.3) 04/06/18 09:00 AST 33 U/L (14-36) 04/06/18 09:00 ALT 15 U/L (7-56) 04/06/18 09:00 Alkaline Phosphatase 71 U/L (38-126) 04/06/18 09:00 Lactate Dehydrogenase 497 U/L (333-699) 04/01/18 18:06 Total Creatine Kinase 94 U/L (35-230) 04/01/18 18:06 Troponin I 0.02 ng/mL 04/02/18 06:30 NT-Pro-B Natriuret Pep 4500 pg/mL (0-450) H 04/02/18 06:00 Total Protein 6.5 g/dL (5.8-8.3) 04/06/18 09:00 Albumin 3.2 g/dL (3.0-4.8) 04/06/18 09:00 Globulin 3.4 gm/dL 04/06/18 09:00 Albumin/Globulin Ratio 0.9 (1.1-1.8) L 04/06/18 09:00 Triglycerides 69 mg/dL (35-160) 04/02/18 06:00 Cholesterol 191 mg/dL (130-200) 04/02/18 06:00 LDL Cholesterol Direct 101 mg/dL (0-129) 04/02/18 06:00 HDL Cholesterol 54 mg/dL (29-60) 04/02/18 06:00 Procalcitonin 0.45 NG/ML (0.19-0.49) 04/02/18 06:00 TSH 3rd Generation 0.51 mIU/mL (0.46-4.68) 04/01/18 18:06 Arterial Blood Potassium 4.4 mmol/L (3.6-5.2) 04/01/18 23:10 Venous Blood Potassium 4.9 mmol/L (3.6-5.2) 04/01/18 18:06 Hep Bs Antigen Negative (NEGATIVE) 04/03/18 10:00 Hep Bs Antibody Negative (NEGATIVE) 04/03/18 10:00 Hep B Core IgM Ab Negative (NEGATIVE) 04/03/18 10:00 - Hospital Course Hospital Course: Patient is a 53 yo AA female with a history of asthma, CVAs, OB, and ESRD on dialysis (MWF) who presented to the ED and admitted for asthma exacerbation. Patient reports that her asthma flares up about once per month, and she requires hospitalization about once per year. Pt was found to have Lactate 1.8, procal 0.45- Leukocytosis stable- chronic steroids. Chest xray showed no active disease. She was started on Mucinex, Duoneb, Solu-medrol and azithromycin in the hospital. Pulmonology and nephrology were consulted during this hospital stay. Pt was continued on hemodialysis during the hospital stay. Auryxia was continued. Pt was continued on home medications. During hospital stay, patients SOB and wheezing had improved significantly after hemodialysis and medical treatment. Pts daughter was involved in treatment process and agreed with the the discharge planning. Pt was discharged with a taper of po prednisone as well as azithromycin. Discharge Exam - Head Exam Head Exam: ATRAUMATIC, NORMAL INSPECTION - Eye Exam Eye Exam: EOMI, Normal appearance - ENT Exam ENT Exam: Mucous Membranes Moist, Normal Exam - Respiratory Exam Respiratory Exam: NORMAL BREATHING PATTERN, UNREMARKABLE. absent: Accessory Muscle Use, Rales, Rhonchi - Cardiovascular Exam Cardiovascular Exam: REGULAR RHYTHM, +S1, +S2 - GI/Abdominal Exam GI & Abdominal Exam: Normal Bowel Sounds, Soft. absent: Tenderness - Extremities Exam Extremities exam: normal inspection - Back Exam Back exam: NORMAL INSPECTION - Neurological Exam Neurological exam: Alert, CN II-XII Intact, Oriented x3 - Psychiatric Exam Psychiatric exam: Normal Affect, Normal Mood - Skin Skin Exam: Dry, Intact, Warm Discharge Plan - Discharge Medications Prescriptions: Albuterol HFA [Ventolin HFA 90 mcg/actuation (8 g)] 1 puff IH Q12 #1 inhaler Aspirin [Ecotrin] 81 mg PO DAILY #30 tabec Atorvastatin [Lipitor] 10 mg PO DIN #30 tab Azithromycin [Zithromax] 500 mg PO DAILY 3 Days #3 tab guaiFENesin [Mucinex LA] 600 mg PO BID 3 Days #6 tab Prednisolone [Millipred Dp] See Taper PO DAILY #18 tab.ds.pk Prednisone 10 mg PO DAILY #18 tab.ds.pk - Follow Up Plan Condition: STABLE Disposition: HOME/ ROUTINE Instructions: Asthma in Adults, Asthma, Adult (DC), Shortness of Breath (Dyspnea) (DC), Altered Mental Status (DC) Additional Instructions: Please follow-up with your primary care physician, Dr. Renteria, within 3-5 days of discharge. You will be given a prescription for Azithromycin (antibiotic). Please take for 3 days until all pills completed. You will be given a prescription for Mucinex for cough. You may take twice daily for 3 days. You may take over the counter miralax or colace as needed for constipation. You will be given a tapered dose of a steroid, Prednisone, to go home with. You will take it as follows: -30mg once a day x3 days -20mg once a day x3 days -10mg once a day x3 days You may resume all of your other home medications. If symptoms return, present to the nearest emergency room. Referrals: Tennille Renteria MD [Family Provider] - Clinical Quality Measures - CQM - Stroke Statin prescribed: Yes - CQM - VTE Did patient receive overlap therapy during hosptialization?: Yes - Date & Time of Discharge Summary Date of Discharge Summary: 04/06/18 Time of Discharge Summary: 22:00
== END 2018-04-06 18:57 | disposition home or self-care (01) | DRG 96 ==
LOC: ED 15:54 → ERH 23:00 → 3RSO 04-02 00:31
PROVIDERS: ADMIT Internal Medicine; ATTEND Internal Medicine
PROC: 5A1D70Z Performance of Urinary Filtration, Intermittent, Less than 6 Hours Per Day (ICD-10-PCS; principal; 2018-04-03)
PROC: 5A1D70Z Performance of Urinary Filtration, Intermittent, Less than 6 Hours Per Day (ICD-10-PCS; 2018-04-06)
DX: J45.901 Unspecified asthma with (acute) exacerbation (principal); N18.6 End stage renal disease; I13.2 Hypertensive heart and chronic kidney disease with heart failure and with stage 5 chronic kidney disease, or end stage renal disease; I50.9 Heart failure, unspecified; E11.22 Type 2 diabetes mellitus with diabetic chronic kidney disease; E87.5 Hyperkalemia; E11.65 Type 2 diabetes mellitus with hyperglycemia; J44.9 Chronic obstructive pulmonary disease, unspecified; N25.81 Secondary hyperparathyroidism of renal origin; E83.39 Other disorders of phosphorus metabolism; D72.829 Elevated white blood cell count, unspecified; Z79.52 Long term (current) use of systemic steroids; Z99.2 Dependence on renal dialysis; Z79.01 Long term (current) use of anticoagulants; Z86.73 Personal history of transient ischemic attack (TIA), and cerebral infarction without residual deficits; Z82.3 Family history of stroke

== ENCOUNTER 2018-05-05 10:00 | Observation (INO) | payer MEDICAID ==
[2018-05-05 10:37] VITALS: BMI 40.3
[2018-05-05 10:50] VITALS: TEMP 97.7; O2SAT 98
--- NOTE | 2018-05-05 11:18 | ED PDOC ---
Arrival/HPI - General Chief Complaint: Upper Extremity Problem/Injury Time Seen by Provider: 05/05/18 10:49 Historian: Patient - History of Present Illness Narrative History of Present Illness (Text): 05/05/18 11:18 Patient is a 53 year old female whose past medical history includes renal failure, who was sent to the Emergency department by her physician for dialysis. Patient last had dialysis 4 days ago. She was scheduled for dialysis yesterday, but couldn't receive it because she was scheduled for a procedure and did not make it to dialysis on time. Patient denies fevers, shortness of breath, chest pain, or any other complaint. 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: Time/Duration: < week Context: Other (Had a blood clot in fistual yesterday) Past Medical History - Provider Review Nursing Documentation Reviewed: Yes - Infectious Disease Hx of Infectious Diseases: None - Tetanus Immunization Tetanus Immunization: Unknown - Cardiac Hx Cardiac Disorders: Yes Hx Congestive Heart Failure: Yes Hx Hypertension: Yes - Pulmonary Hx Respiratory Disorders: Yes Hx Chronic Obstructive Pulmonary Disease (COPD): Yes - Neurological Hx Neurological Disorder: Yes HX Cerebrovascular Accident: Yes - HEENT Hx HEENT Disorder: No - Renal Hx Renal Disorder: Yes Hx Renal Failure: Yes - Endocrine/Metabolic Hx Endocrine Disorders: Yes Hx Diabetes Mellitus Type 2: Yes - Hematological/Oncological Hx Blood Disorders: Yes Hx Anemia: Yes - Integumentary Hx Dermatological Disorder: No - Musculoskeletal/Rheumatological Hx Musculoskeletal Disorders: Yes Hx Falls: Yes Hx Unsteady Gait: Yes - Gastrointestinal Hx Gastrointestinal Disorders: Yes Hx Gall Bladder Disease: Yes (s/p cholecystectomy) - Genitourinary/Gynecological Hx Genitourinary Disorders: No (C/S X3) Other/Comment: ANURIA - Psychiatric Hx Psychophysiologic Disorder: No Hx Substance Use: No - Past Surgical History Past Surgical History: No Previous - Surgical History Hx Cholecystectomy: Yes Other/Comment: L upper arm AV shunt - Anesthesia Hx Anesthesia: Yes Hx Anesthesia Reactions: No Hx Malignant Hyperthermia: No - Suicidal Assessment Feels Threatened In Home Enviroment: No Family/Social History - Physician Review Nursing Documentation Reviewed: Yes Family/Social History: No Known Family HX Smoking Status: Never Smoked Hx Alcohol Use: No Hx Substance Use: No Hx Substance Use Treatment: No Allergies/Home Meds Allergies/Adverse Reactions: Allergies No Known Allergies Allergy (Verified 05/05/18 10:38) Home Medications: Home Meds Medication Instructions Recorded Confirmed Eliquis 2.5 mg PO BID 06/20/16 05/05/18 Ferric Citrate [Auryxia] 2 tab PO TID 04/01/18 05/05/18 Albuterol/Ipratropium [Combivent 1 puff IH PRN PRN 04/02/18 05/05/18 Respimat] Review of Systems - Physician Review All systems were reviewed & negative as marked: Yes - Review of Systems Constitutional: absent: Fevers Respiratory: absent: SOB Cardiovascular: absent: Chest Pain Physical Exam - Physical Exam Narrative Physical Exam (Text): 05/05/18 11:34 Constitutional: No acute distress. Head: Normocephalic. Atraumatic. Eyes: PERRL. ENT: Moist mucous membranes. Neck: Supple. Cardiovascular: Regular rate. Chest: No tenderness. Respiratory: Clear to auscultation bilaterally. GI: Soft. Nontender. Nondistended. Back: No CVA tenderness. Musculoskeletal: No tenderness or swelling of extremities. Left upper extremity AV fistula with palpable thrill Skin: No rash. Neurologic: Alert. Vital Signs Reviewed: Yes Vital Signs Temp Pulse Resp BP Pulse Ox 05/05/18 10:49 97.7 F 86 19 146/78 98 Temperature: Afebrile Blood Pressure: Normal Pulse: Regular Respiratory Rate: Normal Appearance: Positive for: Well-Appearing Mental Status: Positive for: Alert and Oriented X 3 Finger Stick Blood Glucose: 116 Medical Decision Making ED Course and Treatment: 05/05/18 11:18 Impression: 53 year old female who presents for need for dialysis as she did not obtain her treatment yesterday due to extenuating circumstances. Differential Diagnosis included but are not limited to: Plan: -- Discuss with Dr. Peralta. Prior Visits: Notes and results from previous visits were reviewed. Progress Notes: 05/05/18 11:29 Discussed case with , who states that he will be arranging for patient to get dialysis here, and that patient may be discharged afterwards. States baseline labs not required as patient will be receiving routine dialysis - Lab Interpretations Lab Results: Lab Results 05/05/18 10:45: POC Glucose (mg/dL) 116 H - Scribe Statement The provider has reviewed the documentation as recorded by the Scribyvonne Breaux Provider Scribe Attestation: All medical record entries made by the Andraeibyvonne were at my direction and personally dictated by me. I have reviewed the chart and agree that the record accurately reflects my personal performance of the history, physical exam, medical decision making, and the department course for this patient. I have also personally directed, reviewed, and agree with the discharge instructions and disposition. Disposition/Present on Arrival - Present on Arrival Any Indicators Present on Arrival: No History of DVT/PE: No History of Uncontrolled Diabetes: No Urinary Catheter: No History of Decub. Ulcer: No History Surgical Site Infection Following: None - Disposition Have Diagnosis and Disposition been Completed?: Yes Diagnosis: ESRD (end stage renal disease) Disposition: HOSPITALIZED Disposition Time: 12:00 Patient Plan: Observation Condition: STABLE
[2018-05-05 13:42] VITALS: BP 111/71; PULSE 78; RESP 18
[2018-05-05 14:40] LABS: BASO # 0.04 K/mm3 (0.0-2.0); BASO % 0.5 % (0.0-3.0); EOS # 0.2 (0.0-0.7); EOS % 2.4 % (1.5-5.0); GRAN # 5.65 (1.4-6.5); HEMOGLOBIN 11.1 g/dL (12.0-16.0); LYMPH # 1.9 (1.2-3.4); MEAN CORPUSCULAR HEMOGLOBIN 30.5 pg (25.0-35.0); MEAN CORPUSCULAR HGB CONC 33.1 g/dl (31.0-37.0); MEAN PLATELET VOLUME 8.9 fl (7.0-11.0); MONO # 0.7 (0.1-0.6); MONO % 8.1 % (1.0-6.0); RBC 3.64 10^6/uL (3.5-6.1); RED CELL DISTRIBUTION WIDTH 13.9 % (11.5-14.5); WHITE BLOOD COUNT 8.4 10^3/uL (4.5-11.0)
[2018-05-05 15:04] LABS: ALB/GLOB RATIO 1.1 (1.1-1.8); ALBUMIN 3.2 g/dL (3.0-4.8); CALCIUM 7.6 mg/dL (8.4-10.5)
== END 2018-05-05 20:42 | disposition home or self-care (01) ==
LOC: ED 10:00 → ERH 12:01 → 5RNO 18:01
PROVIDERS: ADMIT Internal Medicine Nephrology; ATTEND Internal Medicine Nephrology
DX: I13.2 Hypertensive heart and chronic kidney disease with heart failure and with stage 5 chronic kidney disease, or end stage renal disease (principal); N18.6 End stage renal disease; E11.22 Type 2 diabetes mellitus with diabetic chronic kidney disease; I50.9 Heart failure, unspecified; J44.9 Chronic obstructive pulmonary disease, unspecified; Z79.01 Long term (current) use of anticoagulants; Z86.73 Personal history of transient ischemic attack (TIA), and cerebral infarction without residual deficits; Z90.49 Acquired absence of other specified parts of digestive tract
CPT/HCPCS: 80053; 82948; 83735; 84100; 85025; 99285; G0378

== ENCOUNTER 2018-09-22 21:00 | Inpatient (IN) | payer MEDICAID ==
[2018-09-22 21:12] VITALS: BMI 41.3
--- NOTE | 2018-09-22 21:39 | ED PDOC ---
Arrival/HPI - General Chief Complaint: Shortness Of Breath Time Seen by Provider: 09/22/18 21:04 Historian: Patient - History of Present Illness Narrative History of Present Illness (Text): 09/22/18 21:36 53 year old female, whose past medical history includes chronic obstructive pulmonary disease and end stage renal disease on hemodialysis, who presents to the ED for shortness of breath for the past 3 days. Patient report associated wheezing. Patient reports she was fully dialyzed yesterday. Patient denies any cough, fever, nausea, vomiting, chest pain or any other complaints. Time/Duration: < week Symptom Onset: Gradual Symptom Course: Unchanged Activities at Onset: Light Context: Home Past Medical History - Provider Review Nursing Documentation Reviewed: Yes - Infectious Disease Hx of Infectious Diseases: None - Tetanus Immunization Tetanus Immunization: Unknown - Cardiac Hx Cardiac Disorders: Yes Hx Congestive Heart Failure: Yes Hx Hypertension: Yes - Pulmonary Hx Respiratory Disorders: Yes Hx Chronic Obstructive Pulmonary Disease (COPD): Yes - Neurological Hx Neurological Disorder: Yes HX Cerebrovascular Accident: Yes - HEENT Hx HEENT Disorder: No - Renal Hx Renal Disorder: Yes Hx Renal Failure: Yes - Endocrine/Metabolic Hx Endocrine Disorders: Yes (HYPERPARATHYROIDISM) - Hematological/Oncological Hx Blood Disorders: Yes Hx Anemia: Yes - Integumentary Hx Dermatological Disorder: No - Musculoskeletal/Rheumatological Hx Musculoskeletal Disorders: No - Gastrointestinal Hx Gastrointestinal Disorders: Yes Hx Gall Bladder Disease: Yes (s/p cholecystectomy) - Genitourinary/Gynecological Hx Genitourinary Disorders: Yes (C/S X3) Other/Comment: ANURIA - Psychiatric Hx Psychophysiologic Disorder: No Hx Substance Use: No - Past Surgical History Past Surgical History: No Previous - Surgical History Hx Cholecystectomy: Yes Other/Comment: L upper arm AV shunt - Anesthesia Hx Anesthesia: Yes Hx Anesthesia Reactions: No Hx Malignant Hyperthermia: No - Suicidal Assessment Feels Threatened In Home Enviroment: No Family/Social History - Physician Review Nursing Documentation Reviewed: Yes Family/Social History: Unknown Family HX Smoking Status: Never Smoked Hx Alcohol Use: No Hx Substance Use: No Hx Substance Use Treatment: No Allergies/Home Meds Allergies/Adverse Reactions: Allergies No Known Allergies Allergy (Verified 09/22/18 21:09) Home Medications: Home Meds Medication Instructions Recorded Confirmed Eliquis 2.5 mg PO BID 06/20/16 09/22/18 Ferric Citrate [Auryxia] 3 tab PO TID 04/01/18 09/22/18 Albuterol/Ipratropium [Combivent 1 puff IH PRN PRN 04/02/18 09/22/18 Respimat] Azithromycin [Zithromax] 250 mg PO QID 09/22/18 09/22/18 Fluticasone Propionate [Flovent 220 mcg INH BID 09/22/18 09/22/18 Hfa] Levocetirizine Dihydrochloride 5 mg PO DAILY 09/22/18 09/22/18 [Xyzal] Montelukast [Singulair] 10 mg PO DAILY 09/22/18 09/22/18 Prednisone 10 mg PO DAILY 09/22/18 09/22/18 Review of Systems - Physician Review All systems were reviewed & negative as marked: Yes - Review of Systems Constitutional: Normal. absent: Fevers Eyes: Normal ENT: Normal Respiratory: SOB, Wheezing. absent: Cough Cardiovascular: Normal. absent: Chest Pain Gastrointestinal: Normal. absent: Abdominal Pain, Diarrhea, Nausea, Vomiting Musculoskeletal: Normal. absent: Back Pain, Neck Pain Skin: Normal. absent: Rash Neurological: Normal. absent: Headache, Dizziness Endocrine: Normal Hemo/Lymphatic: Normal Psychiatric: Normal Physical Exam Vital Signs Reviewed: Yes Vital Signs Temp Pulse Resp BP Pulse Ox 09/22/18 21:00 97.8 F 107 H 20 111/65 95 Temperature: Afebrile Blood Pressure: Normal Pulse: Tachycardic Respiratory Rate: Normal Appearance: Positive for: Well-Appearing Pain Distress: None Mental Status: Positive for: Alert and Oriented X 3 - Systems Exam Head: Present: Atraumatic, Normocephalic Pupils: Present: PERRL Extroacular Muscles: Present: EOMI Conjunctiva: Present: Normal Mouth: Present: Moist Mucous Membranes Neck: Present: Normal Range of Motion. No: Meningeal Signs, MIDLINE TENDERNESS, Paraspinal Tenderness Respiratory/Chest: Present: Wheezes. No: Respiratory Distress, Accessory Muscle Use Cardiovascular: Present: Regular Rate and Rhythm, Normal S1, S2. No: Murmurs Abdomen: No: Tenderness, Distention, Peritoneal Signs Upper Extremity: Present: Normal Inspection. No: Cyanosis, Edema Lower Extremity: Present: Normal Inspection. No: Edema Neurological: Present: GCS=15, CN II-XII Intact, Speech Normal Skin: Present: Warm, Dry, Normal Color. No: Rashes Psychiatric: Present: Alert, Oriented x 3, Normal Insight, Normal Concentration Medical Decision Making ED Course and Treatment: 09/22/18 21:44 Impression: 53 year old female who presents to the ED for shortness of breath and wheezing. Plan: -- EKG -- Labs, cardiac enzymes, Beta-HCG, blood cultures -- Rapid Flu A/B -- Chest X-ray -- Duoneb -- Solu-Medrol --Reassess and disposition Prior Visits: Notes and results from previous visits were reviewed. Progress Notes: Reviewed EKG, sinus tachycardia at 109 bpm. Non-specific ST/T wave changes. 09/22/17 22:55 Chest X-ray reviewed, shows no acute processes. 09/22/18 23:[address] Welsh, who requests pt go to hospitalist service. 09/23/18 00:08 Case discussed with emergency medical dispatcher production editor, who is aware and agrees with plan. 09/23/18 00:[address] Pinto, who is aware and agrees with plan. Accepts pt in to hospitalist service. Pt admitted to remote telemetry for COPD. - Lab Interpretations I have reviewed the lab results: Yes - RAD Interpretation Radiology Orders: 09/22/18 21:30 CHEST PORTABLE [RAD] Stat Activities Therapist: ED Physician - EKG Interpretation Interpreted by ED Physician: Yes Type: 12 lead EKG - Medication Orders Current Medication Orders: Albuterol/Ipratropium (Duoneb 3 Mg/0.5 Mg (3 Ml) Ud) 3 ml IH Q15M NASIR Stop: 09/22/18 22:16 Methylprednisolone (Solu-Medrol) 125 mg IVP STAT STA Stop: 09/22/18 21:31 - Scribe Statement The provider has reviewed the documentation as recorded by the Kwabena Phoenix training with Muna Flynn. All medical record entries made by the Andraeibyvonne were at my direction and personally dictated by me. I have reviewed the chart and agree that the record accurately reflects my personal performance of the history, physical exam, medical decision making, and the department course for this patient. I have also personally directed, reviewed, and agree with the discharge instructions and disposition. Disposition/Present on Arrival - Present on Arrival Any Indicators Present on Arrival: No History of DVT/PE: No History of Uncontrolled Diabetes: No Urinary Catheter: No History of Decub. Ulcer: No History Surgical Site Infection Following: None - Disposition Have Diagnosis and Disposition been Completed?: Yes Diagnosis: ESRD (end stage renal disease), Asthma Disposition: HOSPITALIZED Disposition Time: 00:06 Condition: FAIR
[2018-09-22] MEDS ORDERED: Albuterol-Ipratrop 3 mg / 0.5 (3 ml) UD IH SCH (21:45)
[2018-09-22 21:54] LABS: BASO # 0.06 K/mm3 (0.0-2.0); BASO % 0.4 % (0.0-3.0); EOS # 0.1 (0.0-0.7); EOS % 0.5 % (1.5-5.0); HEMOGLOBIN 13.8 g/dL (12.0-16.0); LYMPH # 2.4 (1.2-3.4); LYMPH % 14.2 % (22.0-35.0); MEAN CELL VOLUME 93.8 fl (80.0-105.0); MEAN CORPUSCULAR HEMOGLOBIN 30.3 pg (25.0-35.0); MEAN CORPUSCULAR HGB CONC 32.3 g/dl (31.0-37.0); MEAN PLATELET VOLUME 9.2 fl (7.0-11.0); MONO # 1.4 (0.1-0.6); MONO % 8.3 % (1.0-6.0); RBC 4.55 10^6/uL (3.5-6.1); RED CELL DISTRIBUTION WIDTH 13.4 % (11.5-14.5); WHITE BLOOD COUNT 16.7 10^3/uL (4.5-11.0)
[2018-09-22 22:15] LABS: TROPONIN I < 0.01 ng/mL
[2018-09-22 22:17] LABS: ALB/GLOB RATIO 0.9 (1.1-1.8); ALBUMIN 3.9 g/dL (3.0-4.8); ALT/SGPT < 6 U/L (7-56); AST/SGOT 19 U/L (14-36); BLOOD UREA NITROGEN 65 mg/dL (7-21); GFR NON-AFRICAN AMERICAN 4
[2018-09-23] MEDS ORDERED: Azithromycin 500MG/NS 250ml 500 MG/250 ML BAG IVPB STA (00:58)
--- NOTE | 2018-09-23 01:21 | CP.PCM.HP ---
<Marvin Graf - Last Filed: 09/23/18 02:49> History of Present Illness - History of Present Illness History of Present Illness: Dr Graf H&P Hospitalist Service Pt is a 53yo female with a PMH of ESRD (dialysis MWF), asthma (she is unsure if she has been intubated in the past), CVA x2, TIA x2, HTN who presented to the ED complaining of nonproductive cough, SOB and wheezing for the past 3 days. Pt reports she say Dr Welsh in office and was prescribed a Zpak, she took her first does this morning. Pt states she has been taking prednisone PRN for SOB as prescribed but she has not had very much relief. Pt has been hospitalized before for asthma exacerbation. Pt denies fever, chills, chest pain, nausea, vomiting, or diarrhea. Pt reports compliance with her current medications and A 12 point ROS was obtained and added to the HPI where appropriate. PMH: TIA x2, thromboembolic stroke x2, HTN, ESRD on hemodialysis, and asthma PSH: , cholecystectomy SH: denies tobacco, denies alcohol, denies drugs, lives with 3 children FH: Mother- 71, CVA. Father CVA x3 Home meds: per chart review Allergies: NKDA PMD: Anitha Present on Admission - Present on Admission Any Indicators Present on Admission: No Review of Systems - Constitutional Constitutional: absent: Chills, Fever, Headache, Night Sweats - EENT Eyes: absent: Change in Vision, Photophobia Ears: absent: Dizziness Nose/Mouth/Throat: absent: Dysphagia, Neck Pain - Cardiovascular Cardiovascular: absent: Chest Pain, Pain Radiating to Arm/Neck/Jaw, Leg Edema, Palpitations, Syncope - Respiratory Respiratory: Cough, Dyspnea, Wheezing, Chest Congestion - Gastrointestinal Gastrointestinal: absent: Abdominal Pain, Diarrhea, Nausea, Vomiting - Musculoskeletal Musculoskeletal: Muscle Weakness (left lower extremity, post CVA) - Neurological Neurological: absent: Dizziness, Numbness, Syncope, Other Visual Disturbances Past Patient History - Infectious Disease Hx of Infectious Diseases: None - Tetanus Immunizations Tetanus Immunization: Unknown - Past Social History Smoking Status: Never Smoked - CARDIAC Hx Cardiac Disorders: Yes Hx Congestive Heart Failure: Yes Hx Hypertension: Yes - PULMONARY Hx Respiratory Disorders: Yes Hx Chronic Obstructive Pulmonary Disease (COPD): Yes - NEUROLOGICAL Hx Neurological Disorder: Yes HX Cerebrovascular Accident: Yes - HEENT Hx HEENT Problems: No - RENAL Hx Chronic Kidney Disease: Yes Hx Renal Failure: Yes - ENDOCRINE/METABOLIC Hx Endocrine Disorders: Yes (HYPERPARATHYROIDISM) - HEMATOLOGICAL/ONCOLOGICAL Hx Blood Disorders: Yes Hx Anemia: Yes - INTEGUMENTARY Hx Dermatological Problems: No - MUSCULOSKELETAL/RHEUMATOLOGICAL Hx Musculoskeletal Disorders: No - GASTROINTESTINAL Hx Gastrointestinal Disorders: Yes Hx Gall Bladder Disease: Yes (s/p cholecystectomy) - GENITOURINARY/GYNECOLOGICAL Hx Genitourinary Disorders: Yes (C/S X3) Other/Comment: ANURIA - PSYCHIATRIC Hx Psychophysiologic Disorder: No Hx Substance Use: No - SURGICAL HISTORY Hx Cholecystectomy: Yes Other/Comment: L upper arm AV shunt - ANESTHESIA Hx Anesthesia: Yes Hx Anesthesia Reactions: No Hx Malignant Hyperthermia: No Meds Allergies/Adverse Reactions: Allergies Allergy/AdvReac Type Severity Reaction Status Date / Time No Known Allergies Allergy Verified 09/22/18 21:09 Physical Exam - Additional Findings Additional findings: Head: Present: Atraumatic, Normocephalic Pupils: Present: PERRL Extroacular Muscles: Present: EOMI Conjunctiva: Normal Mouth: Moist Mucous Membranes Neck: Normal Range of Motion. No: Meningeal Signs, MIDLINE TENDERNESS, Paraspinal Tenderness Respiratory/Chest: Wheezes all 4 munoz, mild rales in lower munoz bilaterally. No: Respiratory Distress, Accessory Muscle Use Cardiovascular: Regular Rate and Rhythm, Normal S1, S2. No: Murmurs Abdomen: No: Tenderness, Distention, Peritoneal Signs Upper Extremity: Normal Inspection. No: Cyanosis, Edema Lower Extremity: LLE weakness noted, chronic Neurological: GCS=15, CN II-XII Intact, Speech Normal Skin: Warm, Dry, Normal Color. No: Rashes Psychiatric: Alert, Oriented x 3, Normal Insight, Normal Concentration, Results - Vital Signs Recent Vital Signs: Last Vital Signs Temp 97.8 F 09/23/18 00:50 Pulse 107 H 09/23/18 00:50 Resp 19 09/23/18 00:50 BP 119/52 L 09/23/18 00:50 Pulse Ox 100 09/23/18 00:50 - Labs Result Diagrams: 09/22/18 21:30 09/22/18 21:30 Labs: Laboratory Results - last 24 hr 09/22/18 09/22/18 09/22/18 21:30 21:30 21:30 WBC 16.7 H D RBC 4.55 Hgb 13.8 D Hct 42.7 MCV 93.8 MCH 30.3 MCHC 32.3 RDW 13.4 Plt Count 316 MPV 9.2 Neut % (Auto) 76.6 H Lymph % (Auto) 14.2 L Patrick % (Auto) 8.3 H Eos % (Auto) 0.5 L Baso % (Auto) 0.4 Lymph # (Auto) 2.4 Patrick # (Auto) 1.4 H Eos # (Auto) 0.1 Baso # (Auto) 0.06 Absolute Neuts (auto) 12.82 H Sodium 134 Potassium 4.2 Chloride 92 L Carbon Dioxide 26 Anion Gap 20 BUN 65 H Creatinine 9.8 H* D Est GFR ( Amer) 5 Est GFR (Non-Af Amer) 4 Random Glucose 222 H Calcium 8.0 L Magnesium 2.1 Total Bilirubin 0.3 AST 19 ALT < 6 L Alkaline Phosphatase 119 Lactate Dehydrogenase 449 Total Creatine Kinase 41 Troponin I < 0.01 D Total Protein 8.1 Albumin 3.9 Globulin 4.3 Albumin/Globulin Ratio 0.9 L Beta HCG, Quant < 2.39 Influenza Typ A,B (EIA) 09/22/18 21:55 WBC RBC Hgb Hct MCV MCH MCHC RDW Plt Count MPV Neut % (Auto) Lymph % (Auto) Patrick % (Auto) Eos % (Auto) Baso % (Auto) Lymph # (Auto) Patrick # (Auto) Eos # (Auto) Baso # (Auto) Absolute Neuts (auto) Sodium Potassium Chloride Carbon Dioxide Anion Gap BUN Creatinine Est GFR ( Amer) Est GFR (Non-Af Amer) Random Glucose Calcium Magnesium Total Bilirubin AST ALT Alkaline Phosphatase Lactate Dehydrogenase Total Creatine Kinase Troponin I Total Protein Albumin Globulin Albumin/Globulin Ratio Beta HCG, Quant Influenza Typ A,B (EIA) Negative for flu a/b Assessment & Plan - Assessment and Plan (Free Text) Assessment: Pt is a 53yo female with a PMH of ESRD (dialysis MWF), asthma (she is unsure if she has been intubated in the past), CVA x2, TIA x2, HTN who presented to the ED complaining of nonproductive cough, SOB and wheezing for the past 3 days Plan: Asthma exacerbation - Lactate , procal , blood cultures pending - Afebrile - Leukocytosis stable- on chronic steroids - CXR: diffuse infiltrates/ fluid - Duoneb Q4H NASIR, Q2H PRN - Solu-medrol 125 mg IV given in ED - Azithromycin 500 mg IVPB - Mometasone 2 puff hs - singulair 10mg po daily ESRD on HD MWF - Continue scheduled HD - Auryxia 3 tabs PO TID - Nephrology consulted ([facility]) H/o CVA - Eliquis 2.5 mg PO BID - ASA 81 mg PO daily HLD - Lipitor 10 mg PO QHS Pre-diabetes - last A1c 6.4 - accuchecks achs - maintain euglycemia Diet: renal GI ppx: Protonix 40 mg PO daily VTE ppx: Eliquis, SCDs Code status: full code <BlairLucy - Last Filed: 09/23/18 07:42> Results - Vital Signs Recent Vital Signs: Last Vital Signs Temp 97.4 F L 09/23/18 06:07 Pulse 104 H 09/23/18 06:07 Resp 19 09/23/18 06:07 BP 120/75 09/23/18 06:07 Pulse Ox 96 09/23/18 06:07 - Labs Result Diagrams: 09/22/18 21:30 09/22/18 21:30 Labs: Laboratory Results - last 24 hr 09/22/18 09/22/18 09/22/18 21:30 21:30 21:30 WBC 16.7 H D RBC 4.55 Hgb 13.8 D Hct 42.7 MCV 93.8 MCH 30.3 MCHC 32.3 RDW 13.4 Plt Count 316 MPV 9.2 Neut % (Auto) 76.6 H Lymph % (Auto) 14.2 L Patrick % (Auto) 8.3 H Eos % (Auto) 0.5 L Baso % (Auto) 0.4 Lymph # (Auto) 2.4 Patrick # (Auto) 1.4 H Eos # (Auto) 0.1 Baso # (Auto) 0.06 Absolute Neuts (auto) 12.82 H pO2 VBG pH VBG pCO2 VBG HCO3 VBG Total CO2 VBG O2 Sat (Calc) VBG Base Excess VBG Potassium Glucose Lactate FiO2 Crit Value Called To Crit Value Called By Blood Gas Notified Time Sodium 134 Potassium 4.2 Chloride 92 L Carbon Dioxide 26 Anion Gap 20 BUN 65 H Creatinine 9.8 H* D Est GFR ( Amer) 5 Est GFR (Non-Af Amer) 4 Random Glucose 222 H Calcium 8.0 L Magnesium 2.1 Total Bilirubin 0.3 AST 19 ALT < 6 L Alkaline Phosphatase 119 Lactate Dehydrogenase 449 Total Creatine Kinase 41 Troponin I < 0.01 D Total Protein 8.1 Albumin 3.9 Globulin 4.3 Albumin/Globulin Ratio 0.9 L Beta HCG, Quant < 2.39 Venous Blood Potassium Influenza Typ A,B (EIA) 09/22/18 09/23/18 21:55 05:55 WBC RBC Hgb Hct MCV MCH MCHC RDW Plt Count MPV Neut % (Auto) Lymph % (Auto) Patrick % (Auto) Eos % (Auto) Baso % (Auto) Lymph # (Auto) Patrick # (Auto) Eos # (Auto) Baso # (Auto) Absolute Neuts (auto) pO2 61 H VBG pH 7.41 VBG pCO2 37.0 L VBG HCO3 23.5 VBG Total CO2 24.6 VBG O2 Sat (Calc) 94.8 H VBG Base Excess -0.8 L VBG Potassium 5.2 Glucose 354 H Lactate 2.5 H FiO2 21.0 Crit Value Called To Sukhdev dickson rn 2rso Crit Value Called By Yamila Blood Gas Notified Time 612 Sodium 131.0 L Potassium Chloride 92.0 L Carbon Dioxide Anion Gap BUN Creatinine Est GFR ( Amer) Est GFR (Non-Af Amer) Random Glucose Calcium Magnesium Total Bilirubin AST ALT Alkaline Phosphatase Lactate Dehydrogenase Total Creatine Kinase Troponin I Total Protein Albumin Globulin Albumin/Globulin Ratio Beta HCG, Quant Venous Blood Potassium 5.2 Influenza Typ A,B (EIA) Negative for flu a/b Attending/Attestation - Attestation I have personally seen and examined this patient.: Yes I have fully participated in the care of the patient.: Yes I have reviewed all pertinent clinical information: Yes Notes (Text): 09/23/18 07:35 Pt was seen with the resident by the bedside. Case discussed in detail. Addendum to Physical exam: Pt is Obese. She. has an AV shunt in the L upper arm. Additional diagnosis of Obesity is to be noted,and dietitcan referral is recommended Agree with rest of documentation,assessment and plan of treatment
[2018-09-23] MEDS: Albuterol-Ipratrop 3 mg / 0.5 (3 ml) UD IH SCH ×5 (03:11→20:12)
[2018-09-23 06:12] LABS: VENOUS BLOOD GAS BASE EXCESS -0.8 mmol/L (0.0-2.0); VENOUS BLOOD GAS PO2 61 mm/Hg (30-55); VENOUS BLOOD PH 7.41 (7.32-7.43)
--- NOTE | 2018-09-23 09:31 | RAD ---
Date of service: 09/22/2018 HISTORY: sob COMPARISON: 04/01/2018 TECHNIQUE: 1 view obtained. FINDINGS: LUNGS: No active pulmonary disease. PLEURA: No significant pleural effusion identified, no pneumothorax apparent. CARDIOVASCULAR: No aortic atherosclerotic calcification present. Mild cardiomegaly. There is a prominent right hilum. Follow-up two-view chest x-ray or chest CT is recommended OSSEOUS STRUCTURES: No significant abnormalities. VISUALIZED UPPER ABDOMEN: Normal. OTHER FINDINGS: None. IMPRESSION: There is a prominent right hilum. Follow-up two-view chest x-ray or chest CT is recommended
[2018-09-23] MEDS ORDERED: Albuterol HFA 90 mcg/actuation (8 g) IH SCH (10:00)
--- NOTE | 2018-09-23 10:06 | CARD ---
APPROVED REPORT Date of service: 09/22/2018 EKG Measurement Heart [id number] <Conclusion> Sinus tachycardia Low voltage QRS Borderline ECG
[2018-09-23 11:42] LABS: VENOUS BLOOD GAS BASE EXCESS 1.4 mmol/L (0.0-2.0); VENOUS BLOOD GAS PO2 178 mm/Hg (30-55); VENOUS BLOOD PH 7.46 (7.32-7.43)
[2018-09-23] MEDS: FERRIC CITRATE PO SCH ×3 (12:59→19:19)
[2018-09-23] MEDS: MethylPREDNISolone 40 mg Vial IVP SCH ×2 (12:59→21:56)
[2018-09-23] MEDS ORDERED: Azithromycin 500MG/NS 250ml 500 MG/250 ML BAG IVPB SCH (13:00)
[2018-09-23 16:23] LABS: VENOUS BLOOD GAS BASE EXCESS 2.8 mmol/L (0.0-2.0); VENOUS BLOOD GAS PO2 50 mm/Hg (30-55); VENOUS BLOOD PH 7.44 (7.32-7.43)
[2018-09-23] MEDS: Mometasone 220 mcg/puff-14 puff Inh IH SCH (17:42)
[2018-09-24] MEDS: Albuterol-Ipratrop 3 mg / 0.5 (3 ml) UD IH SCH ×7 (00:45→23:47)
--- NOTE | 2018-09-24 02:38 | CON ---
DATE: 09/23/2018 REASON FOR CONSULTATION: Shortness of breath, ESRD, need for dialysis. HISTORY OF PRESENTING ILLNESS: A 53-year-old morbidly obese, young woman, presented to the emergency room with complaints of dyspnea on exertion, shortness of breath, cough, and increased wheezing for the past 3 days. The patient was given Z-Guero by her primary yesterday. The patient denies any fevers, chills. She denies any nausea, vomiting, or diarrhea. In the emergency room, she was found to be afebrile. Blood pressure was 111/65. She was found to be somewhat tachycardic with a heart rate of 107. Her WBC count was found to be elevated at 16.7. PAST MEDICAL AND SURGICAL HISTORY: Morbid obesity, TIA x2, thromboembolic stroke x2, hypertension, ESRD, asthma, , cholecystectomy. FAMILY HISTORY: Hypertension and diabetes. SOCIAL HISTORY: No smoking, no alcohol use, no IV drug abuse. ALLERGIES: NO KNOWN DRUG ALLERGIES. MEDICATIONS AT HOME: Flovent, Singulair, Xyzal, Zithromax, prednisone 10 daily, Ecotrin, Ventolin, Lipitor, Auryxia, Eliquis 2.5 b.i.d. REVIEW OF SYSTEMS: All systems are reviewed, pertinent positives as mentioned in the history of presenting illness, rest are unremarkable. PHYSICAL EXAMINATION: GENERAL: Obese, young woman, lying in bed. VITAL SIGNS: Blood pressure 104/48, heart rate 100, respiratory rate 20, temperature 98.1. HEENT: Normocephalic, atraumatic, positive pallor. NECK: Supple, no JVD. LUNGS: Bilateral equal air entry, bilateral equal expansion. CARDIAC: S1, S2, regular rate and rhythm, no murmur, no rub. ABDOMEN: Obese, distended, soft, nontender, bowel sounds present. EXTREMITIES: No lower extremity edema. INTAKE AND OUTPUT: Not charted. LABORATORY DATA: WBC 16.7, hemoglobin 13.8, hematocrit 42.7, platelets 316. Sodium 134, potassium 4.2, chloride 92, CO2 of 26, BUN 65, creatinine 9.8, glucose 222, calcium 8, magnesium 2.1. Troponin less than 0.01, albumin 3.9. CURRENT MEDICATIONS: Asmanex, aspirin, albuterol, Eliquis, Auryxia, Lipitor, Singulair, Solu-Medrol. ASSESSMENT: 1. Asthma exacerbation. 2. End stage renal disease. 3. Hypertension. 4. Anemia of chronic kidney disease. 5. Secondary hyperparathyroidism. PLAN: 1. Continue empiric antibiotics. 2. Respiratory treatments. 3. Steroids. 4. Dialysis on Friday, Friday, and Friday. 5. Discharge planning. Mame Kruse MD
[2018-09-24 08:04] LABS: ALB/GLOB RATIO 0.9 (1.1-1.8); ALBUMIN 3.5 g/dL (3.0-4.8); ALT/SGPT < 6 U/L (7-56); AST/SGOT 22 U/L (14-36); BLOOD UREA NITROGEN 60 mg/dL (7-21); CALCIUM 7.9 mg/dL (8.4-10.5); GFR NON-AFRICAN AMERICAN 5
[2018-09-24 08:24] LABS: BASO # 0.01 K/mm3 (0.0-2.0); BASO % 0.1 % (0.0-3.0); HEMOGLOBIN 12.4 g/dL (12.0-16.0); LYMPH % 6.1 % (22.0-35.0); MEAN CELL VOLUME 93.7 fl (80.0-105.0); MEAN CORPUSCULAR HEMOGLOBIN 30.1 pg (25.0-35.0); MEAN CORPUSCULAR HGB CONC 32.1 g/dl (31.0-37.0); MEAN PLATELET VOLUME 9.3 fl (7.0-11.0); MONO # 0.7 (0.1-0.6); RBC 4.12 10^6/uL (3.5-6.1); RED CELL DISTRIBUTION WIDTH 13.6 % (11.5-14.5); WHITE BLOOD COUNT 16.8 10^3/uL (4.5-11.0)
[2018-09-24] MEDS: MethylPREDNISolone 40 mg Vial IVP SCH ×2 (09:23→22:56)
[2018-09-24] MEDS: FERRIC CITRATE PO SCH ×3 (09:24→22:56)
--- NOTE | 2018-09-24 11:42 | CT ---
Date of service: 09/23/2018 PROCEDURE: CT Chest without contrast HISTORY: prominent hilum on xray, shortness of breath COMPARISON: None available. TECHNIQUE: Contiguous axial images were obtained through the chest without intravenous contrast enhancement. Sagittal and coronal reconstructions were performed. Radiation dose: Total exam DLP = 804.28 mGy-cm. This CT exam was performed using one or more of the following dose reduction techniques: Automated exposure control, adjustment of the mA and/or kV according to patient size, and/or use of iterative reconstruction technique. FINDINGS: LUNGS: Scattered bilateral pulmonary ground-glass density interstitial changes. MEDIASTINUM: Unremarkable thoracic aorta. No aneurysm. Normal sized heart. Main pulmonary artery unremarkable. No vascular congestion. No lymphadenopathy. No aortic atherosclerotic calcification. PLEURA: No pleural fluid. No pneumothorax. BONES: No fracture. No destructive lesion. 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 OTHER FINDINGS: None. IMPRESSION: Scattered bilateral pulmonary ground-glass density interstitial changes.
--- NOTE | 2018-09-24 14:40 | CP.PCM.PN ---
<Dorian Jones - Last Filed: 09/24/18 14:35> Subjective - Date & Time of Evaluation Date of Evaluation: 09/24/18 Time of Evaluation: 09:30 - Subjective Subjective: Dorian Jones PGY1 Medicine Progress Note Patient seen and examined at bedside this morning. No acute events reported overnight. Patient s/p HD yesterday. Patient admits to SOB that is non improved from previous day. Offers no new complaints today. Denies CP, fevers, nausea, vomiting, abdominal pain and back pain. Objective - Vital Signs/Intake and Output Vital Signs (last 24 hours): Temp Pulse Resp BP Pulse Ox 97.7 F 92 H 20 113/75 100 09/24/18 12:00 09/24/18 12:00 09/24/18 12:00 09/24/18 12:00 09/24/18 09:20 Intake and Output: 09/24/18 09/24/18 06:59 18:59 Intake Total 1078 Output Total 0 Balance 1078 - Medications Medications: Current Medications Albuterol/Ipratropium (Duoneb 3 Mg/0.5 Mg (3 Ml) Ud) 3 ml IH [id number] [facility] Last Admin: 09/24/18 11:37 Dose: 3 ml Apixaban (Eliquis) 2.5 mg PO BID [facility]; Protocol Last Admin: 09/24/18 09:22 Dose: 2.5 mg Aspirin (Aspirin Chewable) 81 mg PO DAILY [facility] Last Admin: 09/24/18 09:22 Dose: 81 mg Atorvastatin Calcium (Lipitor) 10 mg PO DIN [facility] Last Admin: 09/23/18 17:42 Dose: 10 mg Azithromycin (Zithromax) 250 mg PO DAILY [facility]; Protocol Last Admin: 09/24/18 09:22 Dose: 250 mg Methylprednisolone (Solu-Medrol) 40 mg IVP Q12 [facility] Last Admin: 09/24/18 09:23 Dose: 40 mg Mometasone Furoate (Asmanex Twisthaler 220 Mcg) 2 puff IH QPM [facility] Last Admin: 09/23/18 17:42 Dose: 2 puff Montelukast Sodium (Singulair) 10 mg PO DAILY [facility] Last Admin: 09/24/18 09:22 Dose: 10 mg Ferric Citrate [ Auryxia] 3 Tab (Home Med) 2 tab PO TID [facility] Last Admin: 09/24/18 09:24 Dose: 2 tab - Labs Labs: 09/24/18 06:30 09/24/18 06:30 - Constitutional Appears: No Acute Distress - Head Exam Head Exam: ATRAUMATIC, NORMAL INSPECTION - Eye Exam Eye Exam: EOMI Pupil Exam: PERRL - ENT Exam ENT Exam: Mucous Membranes Moist - Neck Exam Neck Exam: Normal Inspection - Respiratory Exam Respiratory Exam: absent: Accessory Muscle Use, Respiratory Distress Additional comments: decreased breath sounds right worse than left - Cardiovascular Exam Cardiovascular Exam: +S1, +S2. absent: Tachycardia - GI/Abdominal Exam GI & Abdominal Exam: Soft. absent: Guarding, Rigid, Tenderness Additional comments: globular abdomen - Extremities Exam Extremities Exam: absent: Calf Tenderness, Tenderness Additional comments: +1 pitting edema B/L - Neurological Exam Neurological Exam: Alert, CN II-XII Intact, Oriented x3 - Skin Skin Exam: Normal Color, Warm Assessment and Plan - Assessment and Plan (Free Text) Assessment: Pt is a 53yo female with a PMH of ESRD (dialysis MWF), asthma (she is unsure if she has been intubated in the past), CVA x2, TIA x2, HTN who presented to the ED complaining of nonproductive cough, SOB and wheezing for the past 3 days. Plan: Asthma exacerbation - procal low, blood cultures negative for 24 hours - Afebrile, WBC is 16.8 from 16.7 yesterday - influenza negative - continue solumedrol 40 q12 - CXR: prominent right hilum - CT chest showed scattered B/L pulmonary ground-glass density interstitial changes - Duoneb Q4H NASIR, Q2H PRN - Mometasone 2 puff hs - singulair 10mg po daily ESRD on HD MWF - possible HD today, potassium and calcium noted to be abnormal - previously on sevelamer, last prescription picked up on January 2018 - Auryxia 3 tabs PO TID - Nephrology consulted ([facility]) Hx of HLD - Lipitor 10 mg PO QHS Hx of CVA - Eliquis 2.5 mg PO BID - ASA 81 mg PO daily Pre-diabetes - last A1c 6.4 - accuchecks achs, maintain euglycemia PPX -protonix, SCD -Renal Diet Patient seen and case discussed with attending, Celestine Prieto <Kayla Lloyd R - Last Filed: 09/25/18 14:58> Objective - Vital Signs/Intake and Output Vital Signs (last 24 hours): Temp Pulse Resp BP Pulse Ox 98.6 F 87 18 105/68 98 09/25/18 11:58 09/25/18 11:58 09/25/18 11:58 09/25/18 11:58 09/25/18 05:50 Intake and Output: 09/25/18 09/25/18 06:59 18:59 Intake Total 1234 Balance 1234 - Medications Medications: Current Medications Albuterol/Ipratropium (Duoneb 3 Mg/0.5 Mg (3 Ml) Ud) 3 ml IH [id number] [facility] Last Admin: 09/25/18 11:56 Dose: 3 ml Apixaban (Eliquis) 2.5 mg PO BID [facility]; Protocol Last Admin: 09/25/18 09:22 Dose: 2.5 mg Aspirin (Aspirin Chewable) 81 mg PO DAILY [facility] Last Admin: 09/25/18 09:22 Dose: 81 mg Atorvastatin Calcium (Lipitor) 10 mg PO DIN [facility] Last Admin: 09/24/18 22:55 Dose: 10 mg Azithromycin (Zithromax) 250 mg PO DAILY [facility]; Protocol Last Admin: 09/25/18 09:22 Dose: 250 mg Methylprednisolone (Solu-Medrol) 20 mg IVP Q12 [facility] Last Admin: 09/25/18 10:54 Dose: Not Given Mometasone Furoate (Asmanex Twisthaler 220 Mcg) 2 puff IH QPM [facility] Last Admin: 09/24/18 22:56 Dose: 2 puff Montelukast Sodium (Singulair) 10 mg PO DAILY [facility] Last Admin: 09/25/18 09:22 Dose: 10 mg Ferric Citrate [ Auryxia] 3 Tab (Home Med) 2 tab PO TID [facility] Last Admin: 09/25/18 09:23 Dose: 2 tab - Labs Labs: 09/25/18 06:30 09/25/18 06:30 Attending/Attestation - Attestation I have personally seen and examined this patient.: Yes I have fully participated in the care of the patient.: Yes I have reviewed all pertinent clinical information, including history, physical exam and plan: Yes Notes (Text): Patient seen and examined by me with resident at approximately 9:40AM on 09/24. Case including HPI, physical exam, and assessment and plan discussed with resident. Agree with above with following additions/corrections. Patient is a 53-year-old female with past medical history significant for end- stage renal disease on dialysis Friday, Friday, and Friday, asthma, CVA, TIA, and hypertension that presented to the emergency room with nonproductive cough, shortness of breath, and wheezing for 3 days. Patient states that she is feeling ok. States she is still feeling short of breath, feels a little worse today. Patient states she is always short of breath but this is worse than her baseline. She denies chest pain or palpitations. No headaches or dizziness. No nausea, vomiting, or abdominal pain. No dysuria. She is afebrile. Physical exam: General: Awake and alert sitting up in bed in no acute distress. HEENT: Normocephalic, atraumatic. Extraocular muscles intact, pupils equal and reactive, no scleral icterus. Oropharynx is pink and moist. No pharyngeal erythema or exudate appreciated. Neck is supple. Cardiovascular: Regular rhythm. Normal S1, S2. No murmurs, rubs, or gallops appreciated Pulmonary: Normal respiratory effort. Decreased breath sounds. Expiratory wheezing appreciated anteriorly. Positive crackles at bases. No rhonchi appreciated. Gastrointestinal: Soft, nondistended. Nontender. Positive bowel sounds all 4 quadrants. No guarding. Musculoskeletal: Moves all extremities. No calf tenderness. No edema appreciated. Central nervous system: AAOx3. Dermatologic: Skin warm and dry. Assessment and plan: Patient is a 53-year-old female with past medical history significant for end-stage renal disease on dialysis Friday, Friday, and ay, asthma, CVA, TIA, and hypertension that presented to the emergency room with nonproductive cough, shortness of breath, and wheezing for 3 days. 1. Dyspnea. Secondary to moderate persistent asthma vs fluid overload. Patient for dialysis today. Continue nebulizer treatments. Continue solumedrol, z ithromax, and asmanex. Continue singulair. Continue O2 via nasal cannula as needed. Patient will need 6 minute walk test prior to discharge. 2. Hyperkalemia. Patient for dialysis today. Follow up repeat labs. 3. Hyperphosphotemia. Continue home auryxia 4. ESRD. Continue dialysis per nephrology. Digital Artist following, recommendations appreciated. 5. Leukocytosis. Likely secondary to steroids. Patient afebrile. Chest xray per radiologist showed prominent right hilum. Chest CT per radiologist showed scattered bilateral pulmonary ground-glass density interstitial changes. Blood cultures with no growth. Procalcitonin 0.47. 6. History of CVA. Continue ASA and Plavix 7. History of homocystinuria. Continue Eliquis 2.5mg PO BID. Case was discussed in detail with the patient regarding current diagnosis and treatment plan. All questions answered.
[2018-09-24] MEDS: Mometasone 220 mcg/puff-14 puff Inh IH SCH (22:56)
--- NOTE | 2018-09-24 23:32 | PN ---
DATE: 09/24/2018 SUBJECTIVE: The patient is seen lying in bed. She complains of shortness of breath. She complains of some cough. She denies any fever. She denies any chills. PHYSICAL EXAMINATION: GENERAL: Obese middle-aged lady, lying in bed. VITAL SIGNS: Blood pressure 113/75, heart rate 92, respiratory rate 20, temperature 97.7. HEENT: Normocephalic, atraumatic. Positive pallor. NECK: Supple. No JVD. LUNGS: Bilateral equal air entry. Bilateral expiratory wheeze. Prolonged expiration. CARDIAC: S1 and S2. Regular rate and rhythm. No murmur. No rub. ABDOMEN: Obese, distended, soft, nontender. Bowel sounds present. EXTREMITIES: 2+ pitting edema of the lower extremities. INTAKE AND OUTPUT: Not charted. LABORATORY DATA: WBC 16.8, hemoglobin 12, hematocrit 38.6, platelets 314. Sodium 134, potassium 5.7, chloride 97, CO2 of 24, BUN 60, creatinine 8.7, glucose 214, calcium 7.9, phosphorus 5.8, magnesium 2.2, albumin 3.5. Blood cultures, no growth. CT of the chest: Bilateral pulmonary ground-glass density, interstitial changes. CURRENT MEDICATIONS: Asmanex, aspirin, DuoNeb, Eliquis, Auryxia, Lipitor 10 mg, Singulair, Solu-Medrol 40 IV every 12 hours, Zithromax. ASSESSMENT: 1. Interstitial pneumonia ? 2. Asthma exacerbation. 3. Hyperkalemia. 4. Hypertension. 5. End-stage renal disease. 6. Anemia of chronic kidney disease. PLAN: 1. Dialysis again today. 2. Ultrafiltrate 3 kg. 3. Continue steroids and respiratory treatments. 4. Continue antibiotics. 5. The patient will receive regular dialysis treatment on Friday again. Mame Kruse MD
[2018-09-25] MEDS: Albuterol-Ipratrop 3 mg / 0.5 (3 ml) UD IH SCH ×6 (04:39→23:11)
[2018-09-25 06:47] LABS: BASO # 0.01 K/mm3 (0.0-2.0); BASO % 0.1 % (0.0-3.0); HEMOGLOBIN 12.9 g/dL (12.0-16.0); LYMPH # 1.2 (1.2-3.4); LYMPH % 8.4 % (22.0-35.0); MEAN CELL VOLUME 93.6 fl (80.0-105.0); MEAN CORPUSCULAR HEMOGLOBIN 29.7 pg (25.0-35.0); MEAN CORPUSCULAR HGB CONC 31.7 g/dl (31.0-37.0); MEAN PLATELET VOLUME 9.1 fl (7.0-11.0); MONO # 0.9 (0.1-0.6); MONO % 5.9 % (1.0-6.0); RBC 4.35 10^6/uL (3.5-6.1); RED CELL DISTRIBUTION WIDTH 13.7 % (11.5-14.5); WHITE BLOOD COUNT 14.7 10^3/uL (4.5-11.0)
[2018-09-25 07:13] LABS: ALBUMIN 3.7 g/dL (3.0-4.8); CALCIUM 7.9 mg/dL (8.4-10.5)
[2018-09-25] MEDS: FERRIC CITRATE PO SCH ×3 (09:23→18:28)
[2018-09-25] MEDS: MethylPREDNISolone 40 mg Vial IVP SCH ×3 (09:23→21:08)
--- NOTE | 2018-09-25 12:47 | CP.PCM.PN ---
<Dorian Jones - Last Filed: 09/25/18 12:41> Subjective - Date & Time of Evaluation Date of Evaluation: 09/25/18 Time of Evaluation: 10:30 - Subjective Subjective: Dorian Jones PGY1 Medicine Progress Note Patient seen and examined at bedside this morning. No acute events reported overnight. Patient s/p HD yesterday with 3L removed. HD planned for today. SOB is improved today. Offers no new complaints today. Will have 6 minute walk test. Objective - Vital Signs/Intake and Output Vital Signs (last 24 hours): Temp Pulse Resp BP Pulse Ox 98.6 F 87 18 105/68 98 09/25/18 11:58 09/25/18 11:58 09/25/18 11:58 09/25/18 11:58 09/25/18 05:50 Intake and Output: 09/25/18 09/25/18 06:59 18:59 Intake Total 1234 Balance 1234 - Medications Medications: Current Medications Albuterol/Ipratropium (Duoneb 3 Mg/0.5 Mg (3 Ml) Ud) 3 ml IH [id number] [facility] Last Admin: 09/25/18 11:56 Dose: 3 ml Apixaban (Eliquis) 2.5 mg PO BID [facility]; Protocol Last Admin: 09/25/18 09:22 Dose: 2.5 mg Aspirin (Aspirin Chewable) 81 mg PO DAILY [facility] Last Admin: 09/25/18 09:22 Dose: 81 mg Atorvastatin Calcium (Lipitor) 10 mg PO DIN [facility] Last Admin: 09/24/18 22:55 Dose: 10 mg Azithromycin (Zithromax) 250 mg PO DAILY [facility]; Protocol Last Admin: 09/25/18 09:22 Dose: 250 mg Methylprednisolone (Solu-Medrol) 20 mg IVP Q12 [facility] Last Admin: 09/25/18 10:54 Dose: Not Given Mometasone Furoate (Asmanex Twisthaler 220 Mcg) 2 puff IH QPM [facility] Last Admin: 09/24/18 22:56 Dose: 2 puff Montelukast Sodium (Singulair) 10 mg PO DAILY [facility] Last Admin: 09/25/18 09:22 Dose: 10 mg Ferric Citrate [ Auryxia] 3 Tab (Home Med) 2 tab PO TID [facility] Last Admin: 09/25/18 09:23 Dose: 2 tab - Labs Labs: 09/25/18 06:30 09/25/18 06:30 - Constitutional Appears: No Acute Distress - Head Exam Head Exam: ATRAUMATIC, NORMAL INSPECTION - Eye Exam Eye Exam: EOMI Pupil Exam: PERRL - ENT Exam ENT Exam: Mucous Membranes Moist - Neck Exam Neck Exam: Normal Inspection - Respiratory Exam Respiratory Exam: absent: Accessory Muscle Use, Respiratory Distress Additional comments: decreased breath sounds right worse than left - Cardiovascular Exam Cardiovascular Exam: +S1, +S2. absent: Tachycardia - GI/Abdominal Exam GI & Abdominal Exam: Soft. absent: Guarding, Rigid, Tenderness Additional comments: globular abdomen - Extremities Exam Extremities Exam: absent: Calf Tenderness, Tenderness Additional comments: +1 pitting edema B/L - Neurological Exam Neurological Exam: Alert, CN II-XII Intact, Oriented x3 - Skin Skin Exam: Normal Color, Warm Assessment and Plan - Assessment and Plan (Free Text) Assessment: Pt is a 53yo female with a PMH of ESRD (dialysis MWF), asthma (she is unsure if she has been intubated in the past), CVA x2, TIA x2, HTN who presented to the ED complaining of nonproductive cough, SOB and wheezing for the past 3 days. Pending 6 minute walk test then discharge home. P.T. to 6 minute walk test. Plan: Asthma exacerbation - procal low, blood cultures negative for 48 hours - Afebrile, WBC is 14.7 from 16.8 - influenza negative - titrating down solumedrol 20 q12 - CXR: prominent right hilum - CT chest showed scattered B/L pulmonary ground-glass density interstitial changes - Duoneb Q4H NASIR, Q2H PRN - Mometasone 2 puff hs - singulair 10mg po daily ESRD on HD MWF - s/p HD yesterday with 3 L removed - plan for HD today - previously on sevelamer, last prescription picked up on January 2018 - Auryxia 3 tabs PO TID - Nephrology consulted ([facility]) Hx of HLD - Lipitor 10 mg PO QHS Hx of CVA - ASA 81 mg PO daily Hx of Homocystinuria - Eliquis 2.5 mg PO BID Pre-diabetes - last A1c 6.4 - accuchecks achs, maintain euglycemia PPX -protonix, SCD -Renal Diet Patient seen and case discussed with attending, Celestine Prieto <Kayla Lloyd R - Last Filed: 09/26/18 07:54> Objective - Vital Signs/Intake and Output Vital Signs (last 24 hours): Temp Pulse Resp BP Pulse Ox 98.2 F 79 20 95/66 L 95 09/26/18 05:34 09/26/18 05:34 09/26/18 05:34 09/26/18 05:34 09/26/18 05:34 Intake and Output: 09/26/18 09/26/18 06:59 18:59 Intake Total 440 Balance 440 - Medications Medications: Current Medications Albuterol/Ipratropium (Duoneb 3 Mg/0.5 Mg (3 Ml) Ud) 3 ml IH [id number] [facility] Last Admin: 09/26/18 07:16 Dose: 3 ml Apixaban (Eliquis) 2.5 mg PO BID [facility]; Protocol Last Admin: 09/25/18 18:27 Dose: 2.5 mg Aspirin (Aspirin Chewable) 81 mg PO DAILY [facility] Last Admin: 09/25/18 09:22 Dose: 81 mg Atorvastatin Calcium (Lipitor) 10 mg PO DIN [facility] Last Admin: 09/25/18 18:28 Dose: 10 mg Azithromycin (Zithromax) 250 mg PO DAILY [facility]; Protocol Last Admin: 09/25/18 09:22 Dose: 250 mg Methylprednisolone (Solu-Medrol) 20 mg IVP Q12 [facility] Last Admin: 09/25/18 21:08 Dose: 20 mg Mometasone Furoate (Asmanex Twisthaler 220 Mcg) 2 puff IH QPM [facility] Last Admin: 09/25/18 18:28 Dose: Not Given Montelukast Sodium (Singulair) 10 mg PO DAILY [facility] Last Admin: 09/25/18 09:22 Dose: 10 mg Ferric Citrate [ Auryxia] 3 Tab (Home Med) 2 tab PO TID [facility] Last Admin: 09/25/18 18:28 Dose: 2 tab - Labs Labs: 09/25/18 06:30 09/25/18 06:30 Attending/Attestation - Attestation I have personally seen and examined this patient.: Yes I have fully participated in the care of the patient.: Yes I have reviewed all pertinent clinical information, including history, physical exam and plan: Yes Notes (Text): Patient seen and examined by me with resident at approximately 9:45AM on 09/25/18. Case including HPI, physical exam, and assessment and plan discussed with resident. Agree with above with following additions/corrections. Patient is a 53-year-old female with past medical history significant for end- stage renal disease on dialysis Friday, Friday, and Friday, asthma, CVA, TIA, and hypertension that presented to the emergency room with nonproductive cough, shortness of breath, and wheezing for 3 days. Patient states that she is feeling better today. Shortness of breath has improved. States she is unsure if it is at baseline. Patient for dialysis today. She denies chest pain or palpitations. No headaches or dizziness. No nausea, vomiting, or abdominal pain. She is afebrile. Patient complains of some constipation, last bowel movement was yesterday. Physical exam: General: Awake and alert sitting up in bed in no acute distress. HEENT: Normocephalic, atraumatic. Extraocular muscles intact, pupils equal and reactive, no scleral icterus. Oropharynx is pink and moist. No pharyngeal erythema or exudate appreciated. Neck is supple. Cardiovascular: Regular rhythm. Normal S1, S2. No murmurs, rubs, or gallops appreciated Pulmonary: Normal respiratory effort. Decreased breath sounds. No rhonchi, rales, or wheezing appreciated Gastrointestinal: Soft, nondistended. Nontender. Positive bowel sounds all 4 quadrants. No guarding. Musculoskeletal: Moves all extremities. No calf tenderness. No edema appreciated. Central nervous system: AAOx3. Dermatologic: Skin warm and dry. Assessment and plan: Patient is a 53-year-old female with past medical history significant for end-stage renal disease on dialysis Friday, Friday, and Friday, asthma, CVA, TIA, and hypertension that presented to the emergency room with nonproductive cough, shortness of breath, and wheezing for 3 days. 1. Dyspnea. Secondary to moderate persistent asthma vs fluid overload. Patient for 3rd day of dialysis today. Continue nebulizer treatments. Continue solumedrol, zithromax, and asmanex. Continue singulair. Continue O2 via nasal c annula as needed. Pending 6 minute walk test prior to discharge. 2. Hyperkalemia. Patient for dialysis today. Follow up repeat labs in AM. 3. Hyperphosphotemia. Continue home auryxia 4. ESRD. Continue dialysis per nephrology. Hydraulic Design Engineer following, recommendations appreciated. 5. Leukocytosis. Likely secondary to steroids. Downtrending Patient afebrile. Chest xray per radiologist showed prominent right hilum. Chest CT per radiologist showed scattered bilateral pulmonary ground-glass density i nterstitial changes. Blood cultures with no growth. Procalcitonin 0.47. 6. History of CVA. Continue ASA and Plavix 7. History of homocystinuria. Continue Eliquis 2.5mg PO BID. Case was discussed in detail with the patient regarding current diagnosis and treatment plan. All questions answered.
--- NOTE | 2018-09-25 14:17 | PN ---
DATE: 09/25/2018 SUBJECTIVE: The patient is seen lying in bed. She reports she is feeling much better today. She had a bowel movement yesterday morning. She also reported her breathing is much improved. PHYSICAL EXAMINATION: GENERAL: Obese middle-aged lady, lying in bed. VITAL SIGNS: Blood pressure 112/70, heart rate 97, respiratory rate 20, and temperature 97.8. HEENT: Normocephalic, atraumatic, positive pallor. NECK: Supple, no JVD. LUNGS: Bilateral equal air entry, bilateral equal expansion, expiratory rhonchi, prolonged expiration. CARDIAC: S1 and S2, regular rate and rhythm, no murmur, no rub. ABDOMEN: Obese, distended, soft, nontender, bowel sounds present. EXTREMITIES: 1+ pitting edema of the lower extremities. Intake and output not charted. LABORATORY DATA: WBC 14.7, hemoglobin 12.9, hematocrit 40.7, and platelets 315. Sodium 134, potassium 6.2, chloride 95, CO2 of 26, BUN 62, creatinine 7, glucose 181, calcium 7.9, phosphorus 6.5, and albumin 3.7. CURRENT MEDICATIONS: Mometasone, aspirin, DuoNeb, Eliquis, Auryxia, Lipitor, Singulair, Solu-Medrol, and Zithromax. ASSESSMENT: 1. Persistent hyperkalemia despite dialysis 2 days in a row. 2. Asthma exacerbation. 3. Bronchitis. 4. Hypertension. 5. End-stage renal disease. 6. History of cerebrovascular accident. 7. Severe constipation. PLAN: 1. Dialysis again today, potassium 2 for first 2 hours, potassium 1 bath for the second one and half hours. 2. Continue Auryxia as her phosphate binder. 3. Start Linzess for constipation. 4. Continue respiratory treatments. 5. Taper steroids. 6. Continue empiric antibiotics. 7. Discharge planning. Mame Kruse MD
[2018-09-25] MEDS: Mometasone 220 mcg/puff-14 puff Inh IH SCH (18:28)
[2018-09-25 23:24] VITALS: RESP 20
[2018-09-26 05:34] VITALS: TEMP 98.2
[2018-09-26] MEDS: Albuterol-Ipratrop 3 mg / 0.5 (3 ml) UD IH SCH ×3 (05:35→11:05)
--- NOTE | 2018-09-26 07:53 | CP.PCM.PN ---
Objective - Vital Signs/Intake and Output Vital Signs (last 24 hours): Temp Pulse Resp BP Pulse Ox 98.2 F 79 20 95/66 L 95 09/26/18 05:34 09/26/18 05:34 09/26/18 05:34 09/26/18 05:34 09/26/18 05:34 Intake and Output: 09/26/18 09/26/18 06:59 18:59 Intake Total 440 Balance 440 - Medications Medications: Current Medications Albuterol/Ipratropium (Duoneb 3 Mg/0.5 Mg (3 Ml) Ud) 3 ml IH [id number] [facility] Last Admin: 09/26/18 07:16 Dose: 3 ml Apixaban (Eliquis) 2.5 mg PO BID [facility]; Protocol Last Admin: 09/25/18 18:27 Dose: 2.5 mg Aspirin (Aspirin Chewable) 81 mg PO DAILY [facility] Last Admin: 09/25/18 09:22 Dose: 81 mg Atorvastatin Calcium (Lipitor) 10 mg PO DIN [facility] Last Admin: 09/25/18 18:28 Dose: 10 mg Azithromycin (Zithromax) 250 mg PO DAILY [facility]; Protocol Last Admin: 09/25/18 09:22 Dose: 250 mg Methylprednisolone (Solu-Medrol) 20 mg IVP Q12 [facility] Last Admin: 09/25/18 21:08 Dose: 20 mg Mometasone Furoate (Asmanex Twisthaler 220 Mcg) 2 puff IH QPM [facility] Last Admin: 09/25/18 18:28 Dose: Not Given Montelukast Sodium (Singulair) 10 mg PO DAILY [facility] Last Admin: 09/25/18 09:22 Dose: 10 mg Ferric Citrate [ Auryxia] 3 Tab (Home Med) 2 tab PO TID [facility] Last Admin: 09/25/18 18:28 Dose: 2 tab - Labs Labs: 09/25/18 06:30 09/25/18 06:30
[2018-09-26 08:12] LABS: BASO # 0.01 K/mm3 (0.0-2.0); BASO % 0.1 % (0.0-3.0); HEMOGLOBIN 13.4 g/dL (12.0-16.0); LYMPH # 1.7 (1.2-3.4); LYMPH % 10.2 % (22.0-35.0); MEAN CELL VOLUME 92.7 fl (80.0-105.0); MEAN CORPUSCULAR HEMOGLOBIN 29.7 pg (25.0-35.0); MEAN CORPUSCULAR HGB CONC 32.1 g/dl (31.0-37.0); MEAN PLATELET VOLUME 9.1 fl (7.0-11.0); MONO # 1.2 (0.1-0.6); MONO % 7.4 % (1.0-6.0); RBC 4.51 10^6/uL (3.5-6.1); RED CELL DISTRIBUTION WIDTH 13.7 % (11.5-14.5); WHITE BLOOD COUNT 16.2 10^3/uL (4.5-11.0)
[2018-09-26 08:25] LABS: ALBUMIN 3.8 g/dL (3.0-4.8); CALCIUM 7.9 mg/dL (8.4-10.5)
[2018-09-26] MEDS: MethylPREDNISolone 40 mg Vial IVP SCH (10:35)
[2018-09-26] MEDS: FERRIC CITRATE PO SCH ×2 (10:35→14:06)
--- NOTE | 2018-09-26 15:24 | CP.PCM.DIS ---
<Megan Velázquez - Last Filed: 09/26/18 15:16> Provider - Provider Date of Admission: 09/23/18 00:06 Attending physician: Kayla Lloyd DO Primary care physician: Alcira Welsh MD Consults: 09/23/18 02:25 Nephrology Consult Routine Comment: Consulting Provider: Mame Kruse Consulting Physician: Mame Kruse Reason for Consult: ESRD MWF, admitted for SOB Time Spent in preparation of Discharge (in minutes): 45 Hospital Course - Lab Results Lab Results: Micro Results 09/22/18 21:55 Blood-Venous Blood Culture - Preliminary NO GROWTH AFTER 3 DAYS 09/22/18 21:30 Blood-Venous Blood Culture - Preliminary NO GROWTH AFTER 3 DAYS Most Recent Lab Values WBC 16.2 10^3/uL (4.5-11.0) H 09/26/18 07:00 RBC 4.51 10^6/uL (3.5-6.1) 09/26/18 07:00 Hgb 13.4 g/dL (12.0-16.0) 09/26/18 07:00 Hct 41.8 % (36.0-48.0) 09/26/18 07:00 MCV 92.7 fl (80.0-105.0) 09/26/18 07:00 MCH 29.7 pg (25.0-35.0) 09/26/18 07:00 MCHC 32.1 g/dl (31.0-37.0) 09/26/18 07:00 RDW 13.7 % (11.5-14.5) 09/26/18 07:00 Plt Count 360 10^3/uL (120.0-450.0) 09/26/18 07:00 MPV 9.1 fl (7.0-11.0) 09/26/18 07:00 Neut % (Auto) 82.3 % (50.0-68.0) H 09/26/18 07:00 Lymph % (Auto) 10.2 % (22.0-35.0) L 09/26/18 07:00 Sanborn % (Auto) 7.4 % (1.0-6.0) H 09/26/18 07:00 Eos % (Auto) 0.0 % (1.5-5.0) L 09/26/18 07:00 Baso % (Auto) 0.1 % (0.0-3.0) 09/26/18 07:00 Lymph # (Auto) 1.7 (1.2-3.4) 09/26/18 07:00 Sanborn # (Auto) 1.2 (0.1-0.6) H 09/26/18 07:00 Eos # (Auto) 0.0 (0.0-0.7) 09/26/18 07:00 Baso # (Auto) 0.01 K/mm3 (0.0-2.0) 09/26/18 07:00 Absolute Neuts (auto) 13.34 (1.4-6.5) H 09/26/18 07:00 pO2 50 mm/Hg (30-55) 09/23/18 16:19 VBG pH 7.44 (7.32-7.43) H 09/23/18 16:19 VBG pCO2 40.0 (40-60) 09/23/18 16:19 VBG HCO3 27.2 mmol/l (21-28) 09/23/18 16:19 VBG Total CO2 28.4 mmol.L (22-28) H 09/23/18 16:19 VBG O2 Sat (Calc) 91.2 % (40-65) H 09/23/18 16:19 VBG Base Excess 2.8 mmol/L (0.0-2.0) H 09/23/18 16:19 VBG Potassium 5.0 mmol/L (3.6-5.2) 09/23/18 16:19 Sodium 135.0 mmol/L (132-148) 09/23/18 16:19 Chloride 98.0 mmol/L (98-107) 09/23/18 16:19 Glucose 187 mg/dl (65-105) H 09/23/18 16:19 Lactate 1.6 mmol/L (0.7-2.1) 09/23/18 16:19 FiO2 21.0 % 09/23/18 16:19 Crit Value Called To Amy jett 09/23/18 11:30 Crit Value Called By Tara alva 09/23/18 11:30 Blood Gas Notified Time 1140 09/23/18 11:30 Sodium 131 mmol/L (132-148) L 09/26/18 07:00 Potassium 5.3 mmol/L (3.6-5.0) H 09/26/18 07:00 Chloride 91 mmol/L (98-107) L 09/26/18 07:00 Carbon Dioxide 27 mmol/L (21-33) 09/26/18 07:00 Anion Gap 18 (10-20) 09/26/18 07:00 BUN 60 mg/dL (7-21) H 09/26/18 07:00 Creatinine 6.5 mg/dl (0.7-1.2) H 09/26/18 07:00 Est GFR ( Amer) 8 09/26/18 07:00 Est GFR (Non-Af Amer) 7 09/26/18 07:00 POC Glucose (mg/dL) 217 mg/dL (65-110) H 09/26/18 11:53 Random Glucose 156 mg/dL (70-110) H 09/26/18 07:00 Calcium 7.9 mg/dL (8.4-10.5) L 09/26/18 07:00 Phosphorus 7.6 mg/dL (2.5-4.5) H 09/26/18 07:00 Magnesium 2.1 mg/dL (1.7-2.2) 09/26/18 07:00 Total Bilirubin 0.4 mg/dL (0.2-1.3) 09/26/18 07:00 AST 27 U/L (14-36) 09/26/18 07:00 ALT 9 U/L (7-56) 09/26/18 07:00 Alkaline Phosphatase 60 U/L (38-126) 09/26/18 07:00 Lactate Dehydrogenase 449 U/L (333-699) 09/22/18 21:30 Total Creatine Kinase 41 U/L (35-230) 09/22/18 21:30 Troponin I < 0.01 ng/mL D 09/22/18 21:30 Total Protein 7.7 g/dL (5.8-8.3) 09/26/18 07:00 Albumin 3.8 g/dL (3.0-4.8) 09/26/18 07:00 Globulin 3.9 gm/dL 09/26/18 07:00 Albumin/Globulin Ratio 1.0 (1.1-1.8) L 09/26/18 07:00 Procalcitonin 0.47 NG/ML (0.19-0.49) 09/23/18 05:30 Beta HCG, Quant < 2.39 mIU/mL (0-6.15) 09/22/18 21:30 Venous Blood Potassium 5.0 mmol/L (3.6-5.2) 09/23/18 16:19 Hep Bs Antibody Negative (NEGATIVE) 09/24/18 16:00 Hep B Core IgM Ab Negative (NEGATIVE) 09/24/18 16:00 Influenza Typ A,B (EIA) Negative for flu a/b (NEGATIVE) 09/22/18 21:55 - Hospital Course Hospital Course: Upon Admission As per HPI: "53yo female with a PMHx ESRD (dialysis MWF), asthma (she is unsure if she has been intubated in the past), CVA x2, TIA x2, HTN who presented to the ED complaining of nonproductive cough, SOB and wheezing for the past 3 days. Pt reports she say Dr Welsh in office and was prescribed a Zpak, she took her first does this morning. Pt states she has been taking prednisone PRN for SOB as prescribed but she has not had very much relief. Pt has been hospitalized before for asthma exacerbation. Pt denies fever, chills, chest pain, nausea, vomiting, or diarrhea." Hospital Course Patient was admitted to [facility] for asthma exacerbation. Nephrology was consulted for dilaysis management. Patient had a CXR that showed prominent R hilum and chest CT that showed scattered B/L pulmonary ground-glass density interstitial changes. Patient was started on IV solumedrol and breathing treatments. She had blood cultures that were drawn which were negative x 2 and procal was low. Patient had two rounds of HD which both removed 3L. Patient was continued on home medications lipitor, ASA, eliquis and auryxia. She ambulated with PT who recommended patient continue using home oxygen at home. Patient symptomatically improved and was discharged on 09/26/18. Upon Discharge Patient was discharged on the following medications: -Aspirin 81mg 1 tab daily by mouth -Lipitor 10mg 1 tab daily by mouth -Ventolin HFA 90mcg 1 puff inhaled every 12 hours as needed for shortness of breath. -Eliquis 2.5mg 1 tab by mouth twice daily -Singulair 10mg 1 tab daily by mouth -Auryxia 210mg 2 tab by mouth three times daily -Xyzal 5mg 1 tab by mouth daily -Combivent Respimat 1puff inhaled -Colace 100mg 1 tab by mouth twice daily -Medrol dose pack, take as directed. She was instructed to continue home O2. Patient was also instructed to follow up with PMD Dr. Welsh within 3-5 days and [employer] [employer] [address]. Kruse within 3-5 days. Patient was instructed to return to the nearest Emergency Room for any new or worsening symptoms. Instructions discussed in detail with patient and daughter who was at bedside. Both patient and daughter voiced understanding and agreement with discharge plan. Please note this is a discharge summary. For full hospital course please refer to EMR. Discharge Exam - Additional Findings Additional findings: - Constitutional Appears: No Acute Distress - Head Exam Head Exam: ATRAUMATIC, NORMAL INSPECTION - Eye Exam Eye Exam: EOMI Pupil Exam: PERRL - ENT Exam ENT Exam: Mucous Membranes Moist - Neck Exam Neck Exam: Normal Inspection - Respiratory Exam Respiratory Exam: absent: Accessory Muscle Use, Respiratory Distress Additional comments: decreased breath sounds right worse than left - Cardiovascular Exam Cardiovascular Exam: +S1, +S2. absent: Tachycardia - GI/Abdominal Exam GI & Abdominal Exam: Soft. absent: Guarding, Rigid, Tenderness Additional comments: globular abdomen - Extremities Exam Extremities Exam: absent: Calf Tenderness, Tenderness Additional comments: trace pitting edema B/L - Neurological Exam Neurological Exam: Alert, CN II-XII Intact, Oriented x3 - Skin Skin Exam: Normal Color, Warm Discharge Plan - Discharge Medications Prescriptions: Albuterol HFA [Ventolin HFA 90 mcg/actuation (8 g)] 1 puff IH Q12 #1 inhaler Albuterol/Ipratropium [Combivent Respimat] 1 puff IH PRN PRN #1 inhaler PRN Reason: Shortness Of Breath Aspirin [Aspirin Chewable] 81 mg PO DAILY #30 chew Atorvastatin [Lipitor] 10 mg PO DIN #30 tab Docusate [Colace] 100 mg PO BID #60 cap Ferric Citrate [Auryxia] 2 tab PO TID #180 Levocetirizine Dihydrochloride [Xyzal] 5 mg PO DAILY #14 tablet Methylprednisolone [Medrol Dose Pack (21 tabs)] 4 mg PO DAILY #21 mg Montelukast [Singulair] 10 mg PO DAILY #30 tab - Follow Up Plan Condition: FAIR Disposition: HOME/ ROUTINE Instructions: Heart Healthy Diet, Diabetes Diet , Exacerbation of COPD (DC), Asthma (DC), Renal Failure Diet (DC) Additional Instructions: You are being discharged from [facility]. You were admitted for asthma exacerbation. Upon discharge please take the following medications as prescribed: -Aspirin 81mg 1 tab daily by mouth -Lipitor 10mg 1 tab daily by mouth -Ventolin HFA 90mcg 1 puff inhaled every 12 hours as needed for shortness of breath. -Eliquis 2.5mg 1 tab by mouth twice daily -Singulair 10mg 1 tab daily by mouth -Auryxia 210mg 2 tab by mouth three times daily -Xyzal 5mg 1 tab by mouth daily -Combivent Respimat 1puff inhaled -Colace 100mg 1 tab by mouth twice daily -Medrol dose pack, take as directed. Please continue to use home oxygen as prescribed by your primary care doctor. Please follow up with your primary care doctor, Dr. Welsh within 3-5 days of discharge. Please follow up with your optometrist president/practice owner, Dr. Kruse within 3-5 days of discharge. Please return to your nearest Emergency Room for any new or worsening symptoms. Referrals: Alcira Welsh MD [Primary Care Provider] - Mame Kruse MD [Staff Provider] - <Kayla Lloyd - Last Filed: 09/26/18 16:23> Provider - Provider Date of Admission: 09/23/18 00:06 Attending physician: Kayla Lloyd DO Primary care physician: Alcira Welsh MD Consults: 09/23/18 02:25 Nephrology Consult Routine Comment: Consulting Provider: Mame Kruse Consulting Physician: Mame Kruse Reason for Consult: ESRD MWF, admitted for SOB Hospital Course - Lab Results Lab Results: Micro Results 09/22/18 21:55 Blood-Venous Blood Culture - Preliminary NO GROWTH AFTER 3 DAYS 09/22/18 21:30 Blood-Venous Blood Culture - Preliminary NO GROWTH AFTER 3 DAYS Most Recent Lab Values WBC 16.2 10^3/uL (4.5-11.0) H 09/26/18 07:00 RBC 4.51 10^6/uL (3.5-6.1) 09/26/18 07:00 Hgb 13.4 g/dL (12.0-16.0) 09/26/18 07:00 Hct 41.8 % (36.0-48.0) 09/26/18 07:00 MCV 92.7 fl (80.0-105.0) 09/26/18 07:00 MCH 29.7 pg (25.0-35.0) 09/26/18 07:00 MCHC 32.1 g/dl (31.0-37.0) 09/26/18 07:00 RDW 13.7 % (11.5-14.5) 09/26/18 07:00 Plt Count 360 10^3/uL (120.0-450.0) 09/26/18 07:00 MPV 9.1 fl (7.0-11.0) 09/26/18 07:00 Neut % (Auto) 82.3 % (50.0-68.0) H 09/26/18 07:00 Lymph % (Auto) 10.2 % (22.0-35.0) L 09/26/18 07:00 Sanborn % (Auto) 7.4 % (1.0-6.0) H 09/26/18 07:00 Eos % (Auto) 0.0 % (1.5-5.0) L 09/26/18 07:00 Baso % (Auto) 0.1 % (0.0-3.0) 09/26/18 07:00 Lymph # (Auto) 1.7 (1.2-3.4) 09/26/18 07:00 Sanborn # (Auto) 1.2 (0.1-0.6) H 09/26/18 07:00 Eos # (Auto) 0.0 (0.0-0.7) 09/26/18 07:00 Baso # (Auto) 0.01 K/mm3 (0.0-2.0) 09/26/18 07:00 Absolute Neuts (auto) 13.34 (1.4-6.5) H 09/26/18 07:00 pO2 50 mm/Hg (30-55) 09/23/18 16:19 VBG pH 7.44 (7.32-7.43) H 09/23/18 16:19 VBG pCO2 40.0 (40-60) 09/23/18 16:19 VBG HCO3 27.2 mmol/l (21-28) 09/23/18 16:19 VBG Total CO2 28.4 mmol.L (22-28) H 09/23/18 16:19 VBG O2 Sat (Calc) 91.2 % (40-65) H 09/23/18 16:19 VBG Base Excess 2.8 mmol/L (0.0-2.0) H 09/23/18 16:19 VBG Potassium 5.0 mmol/L (3.6-5.2) 09/23/18 16:19 Sodium 135.0 mmol/L (132-148) 09/23/18 16:19 Chloride 98.0 mmol/L (98-107) 09/23/18 16:19 Glucose 187 mg/dl (65-105) H 09/23/18 16:19 Lactate 1.6 mmol/L (0.7-2.1) 09/23/18 16:19 FiO2 21.0 % 09/23/18 16:19 Crit Value Called To Amy jett 09/23/18 11:30 Crit Value Called By Tara alva 09/23/18 11:30 Blood Gas Notified Time 1140 09/23/18 11:30 Sodium 131 mmol/L (132-148) L 09/26/18 07:00 Potassium 5.3 mmol/L (3.6-5.0) H 09/26/18 07:00 Chloride 91 mmol/L (98-107) L 09/26/18 07:00 Carbon Dioxide 27 mmol/L (21-33) 09/26/18 07:00 Anion Gap 18 (10-20) 09/26/18 07:00 BUN 60 mg/dL (7-21) H 09/26/18 07:00 Creatinine 6.5 mg/dl (0.7-1.2) H 09/26/18 07:00 Est GFR ( Amer) 8 09/26/18 07:00 Est GFR (Non-Af Amer) 7 09/26/18 07:00 POC Glucose (mg/dL) 217 mg/dL (65-110) H 09/26/18 11:53 Random Glucose 156 mg/dL (70-110) H 09/26/18 07:00 Calcium 7.9 mg/dL (8.4-10.5) L 09/26/18 07:00 Phosphorus 7.6 mg/dL (2.5-4.5) H 09/26/18 07:00 Magnesium 2.1 mg/dL (1.7-2.2) 09/26/18 07:00 Total Bilirubin 0.4 mg/dL (0.2-1.3) 09/26/18 07:00 AST 27 U/L (14-36) 09/26/18 07:00 ALT 9 U/L (7-56) 09/26/18 07:00 Alkaline Phosphatase 60 U/L (38-126) 09/26/18 07:00 Lactate Dehydrogenase 449 U/L (333-699) 09/22/18 21:30 Total Creatine Kinase 41 U/L (35-230) 09/22/18 21:30 Troponin I < 0.01 ng/mL D 09/22/18 21:30 Total Protein 7.7 g/dL (5.8-8.3) 09/26/18 07:00 Albumin 3.8 g/dL (3.0-4.8) 09/26/18 07:00 Globulin 3.9 gm/dL 09/26/18 07:00 Albumin/Globulin Ratio 1.0 (1.1-1.8) L 09/26/18 07:00 Procalcitonin 0.47 NG/ML (0.19-0.49) 09/23/18 05:30 Beta HCG, Quant < 2.39 mIU/mL (0-6.15) 09/22/18 21:30 Venous Blood Potassium 5.0 mmol/L (3.6-5.2) 09/23/18 16:19 Hep Bs Antibody Negative (NEGATIVE) 09/24/18 16:00 Hep B Core IgM Ab Negative (NEGATIVE) 09/24/18 16:00 Influenza Typ A,B (EIA) Negative for flu a/b (NEGATIVE) 09/22/18 21:55 Attending/Attestation - Attestation I have personally seen and examined this patient.: Yes I have fully participated in the care of the patient.: Yes I have reviewed all pertinent clinical information, including history, physical exam and plan: Yes Notes (Text): Patient seen and examined by me with resident at approximately 8:45AM and prior to discharge on 09/26/18. Case including discharge plan discussed with resident. Agree with above with following additions/corrections. Patient is a 53-year-old female with past medical history significant for end- stage renal disease on dialysis Friday, Friday, and Friday, asthma, CVA, TIA, and hypertension that presented to the emergency room with nonproductive cough, shortness of breath, and wheezing for 3 days. Please see H&P for full details. Patient was found to have dyspnea, hyperkalemia, hyperphosphatemia, end-stage renal disease on dialysis, leukocytosis, history of CVA, and history of homocystinuria. Dyspnea was likely secondary to moderate persistent asthma versus fluid overload. Patient had 3 days of dialysis with improvement. She was also treated with nebulized treatments, Solu-Medrol, Zithromax, and Asmanex. She was also treated with Singulair. Patient was placed on O2 via nasal cannula as needed. Patient was also found to have hyperkalemia and was treated with dialysis. Patient was continued on home auryxia for hyperphosphatemia. Patient was being followed by optometrist president/practice owner. Patient was also found to have leukocytosis which was likely secondary to steroids. She remained afebrile. Chest xray per radiologist showed prominent right hilum. Chest CT per radiologist showed scattered bilateral pulmonary ground-glass density interstitial changes. Blood cultures showed no growth. Procalcitonin was 0.47. She was continued on aspirin for history of CVA. She was continued on Eliquis for history of homocystinuria. Patient was feeling much better. She was able to ambulate with physical therapy. Patient was provided with refills of medications prior to discharge. Patient was cleared by optometrist president/practice owner for discharge. Patient was advised to continue her home oxygen as prescribed. Patient was discharged home. On day of discharge, patient stated she was feeling much better. Stated shor tness of breath was at baseline. Patient was ambulating with PT without shortness of breath. No chest pain or palpitations. No nausea, vomiting, or abdominal pain. No lightheadedness or dizziness. No headaches or change in vision. No fevers or chills. No diarhea or constipation. Physical exam: General: Awake and alert sitting up in bed in no acute distress. HEENT: Normocephalic, atraumatic. Extraocular muscles intact, pupils equal and reactive, no scleral icterus. Oropharynx is pink and moist. No pharyngeal erythema or exudate appreciated. Neck is supple. Cardiovascular: Regular rhythm. Normal S1, S2. No murmurs, rubs, or gallops appreciated Pulmonary: Normal respiratory effort. Improved breath sounds. No rhonchi, rales, or wheezing appreciated Gastrointestinal: Soft, nondistended. Nontender. Positive bowel sounds all 4 quadrants. No guarding. Musculoskeletal: Moves all extremities. No calf tenderness. No edema appreciated. Central nervous system: AAOx3. Dermatologic: Skin warm and dry. Please see chart for full details. Follow up instructions: Patient to follow-up with primary care doctor within 3-5 days. Patient to follow up with optometrist president/practice owner within 3-5 days. Patient to take medications as prescribed. All instructions explained to the patient in detail. Also discussed with patient's daughter at bedside. Patient both understands and agrees to all instructions. Written instructions also given. Time spent in discharging the patient including chart review, medication reconciliation, discussion with the patient, senior medical transcriptionist, consultants, and nursing staff was approximately 45 minutes.
[2018-09-26 16:13] VITALS: BP 116/68; PULSE 84; O2SAT 96
--- NOTE | 2018-09-26 21:25 | PN ---
DATE: 09/26/2018 SUBJECTIVE: The patient is seen sitting in bed. She is awake, she is alert, she is comfortable. She reports she is feeling much better. PHYSICAL EXAMINATION: GENERAL: Obese, middle-aged lady sitting in bed. VITAL SIGNS: Blood pressure is 116/68, heart rate 84, respiratory rate 20, temperature 98.2. HEENT: Normocephalic, atraumatic, positive pallor. NECK: Supple, no JVD. LUNGS: Bilateral equal air entry, bilateral rhonchi, expiratory rhonchi, no rales. CARDIAC: S1, S2, regular rate and rhythm, no murmur, no rub. ABDOMEN: Obese, distended, soft, nontender, bowel sounds present. EXTREMITIES: No lower extremity edema. LABORATORY DATA: WBC 16, hemoglobin 13.4, hematocrit 42, platelets 360. Sodium 131, potassium 5.3, chloride 91, CO2 of 27, BUN 60, creatinine 6.5, glucose 156, calcium 7.9, phosphorus 7.6, magnesium 2.1, albumin 3.8. CURRENT MEDICATIONS: Asmanex, aspirin, Colace, DuoNeb, Eliquis, Auryxia, Lipitor, Singulair, Solu-Medrol, Tylenol, Zithromax. ASSESSMENT: 1. Bronchitis. 2. Asthma exacerbation. 3. Hyperkalemia. 4. Hyperphosphatemia. 5. End-stage renal disease. 6. History of cerebrovascular accident. PLAN: 1. Status post dialysis yesterday. 2. Potassium is still elevated but acceptable. 3. Continue to taper steroids. 4. Continue inhalers. 5. Continue antibiotics. 6. No objection to discharge. Mame Kruse MD
== END 2018-09-26 16:56 | disposition home or self-care (01) | DRG 96 ==
LOC: ED 21:00 → ERH 09-23 00:06 → 2RSO 09-23 00:55
PROVIDERS: ADMIT Hospitalist; ATTEND Hospitalist
PROC: 5A1D70Z Performance of Urinary Filtration, Intermittent, Less than 6 Hours Per Day (ICD-10-PCS; principal; 2018-09-23)
PROC: 5A1D70Z Performance of Urinary Filtration, Intermittent, Less than 6 Hours Per Day (ICD-10-PCS; 2018-09-24)
PROC: 5A1D70Z Performance of Urinary Filtration, Intermittent, Less than 6 Hours Per Day (ICD-10-PCS; 2018-09-25)
DX: J45.41 Moderate persistent asthma with (acute) exacerbation (principal); J44.9 Chronic obstructive pulmonary disease, unspecified; I13.2 Hypertensive heart and chronic kidney disease with heart failure and with stage 5 chronic kidney disease, or end stage renal disease; N18.6 End stage renal disease; E87.5 Hyperkalemia; I50.9 Heart failure, unspecified; Z86.73 Personal history of transient ischemic attack (TIA), and cerebral infarction without residual deficits; D63.1 Anemia in chronic kidney disease; D72.829 Elevated white blood cell count, unspecified; E66.01 Morbid (severe) obesity due to excess calories; E83.39 Other disorders of phosphorus metabolism; K59.00 Constipation, unspecified; N25.81 Secondary hyperparathyroidism of renal origin; T38.0X5A Adverse effect of glucocorticoids and synthetic analogues, initial encounter; Z79.01 Long term (current) use of anticoagulants; Z79.02 Long term (current) use of antithrombotics/antiplatelets; Z79.82 Long term (current) use of aspirin; Z82.3 Family history of stroke; Z90.49 Acquired absence of other specified parts of digestive tract; Z99.2 Dependence on renal dialysis; Z99.81 Dependence on supplemental oxygen; R73.03 Prediabetes

== ENCOUNTER 2018-10-14 17:08 | Inpatient (IN) | payer MEDICAID ==
[2018-10-14] MEDS: Albuterol-Ipratrop 3 mg / 0.5 (3 ml) UD IH SCH ×4 (17:58→20:58)
[2018-10-14 17:59] LABS: BASO # 0.03 K/mm3 (0.0-2.0); BASO % 0.4 % (0.0-3.0); EOS # 0.2 (0.0-0.7); EOS % 3.1 % (1.5-5.0); HEMOGLOBIN 13.9 g/dL (12.0-16.0); LYMPH # 1.7 (1.2-3.4); LYMPH % 21.5 % (22.0-35.0); MEAN CELL VOLUME 94.1 fl (80.0-105.0); MEAN CORPUSCULAR HEMOGLOBIN 30.6 pg (25.0-35.0); MEAN CORPUSCULAR HGB CONC 32.6 g/dl (31.0-37.0); MEAN PLATELET VOLUME 9.4 fl (7.0-11.0); MONO # 0.6 (0.1-0.6); MONO % 7.7 % (1.0-6.0); RBC 4.54 10^6/uL (3.5-6.1); RED CELL DISTRIBUTION WIDTH 14.5 % (11.5-14.5); WHITE BLOOD COUNT 7.8 10^3/uL (4.5-11.0)
[2018-10-14 18:15] LABS: CALCIUM 8.4 mg/dL (8.4-10.5)
[2018-10-14 18:16] LABS: TROPONIN I 0.02 ng/mL
[2018-10-14 18:21] LABS: CK-MB 1.3 ng/mL (0.0-3.6)
[2018-10-14 18:39] LABS: VENOUS BLOOD GAS BASE EXCESS 9.7 mmol/L (0.0-2.0); VENOUS BLOOD GAS PO2 33 mm/Hg (30-55); VENOUS BLOOD PH 7.47 (7.32-7.43)
--- NOTE | 2018-10-14 19:38 | ED PDOC ---
Arrival/HPI - General Chief Complaint: Shortness Of Breath Time Seen by Provider: 10/14/18 17:29 Historian: Patient - History of Present Illness Narrative History of Present Illness (Text): 10/14/18 17:29 Roosevelt Quigley is a 53 year old female, with a past medical history of COPD, asthma, CVA, ESRD (M/W/F), who presents to the emergency department complaining of wheezing. Patient appreciates cough unchanged from baseline. Patient was previously admitted two weeks ago for similar complaints. Patient notes symptoms did not improve since previous admission. Patients last dialysis today and was fully completed. Patient denies any fevers, chills, headache, dizziness, chest pain, dyspnea on exertion, abdominal pain, nausea, vomiting, diarrhea, back pain, neck pain, dysuria, hematuria, or any other complaint. PMD: Dr. Hogue Symptom Onset: Gradual Symptom Course: Unchanged Activities at Onset: Light Context: Home Past Medical History - Provider Review Nursing Documentation Reviewed: Yes - Infectious Disease Hx of Infectious Diseases: None - Tetanus Immunization Tetanus Immunization: Unknown - Cardiac Hx Cardiac Disorders: Yes Hx Congestive Heart Failure: Yes Hx Hypertension: Yes - Pulmonary Hx Respiratory Disorders: Yes Hx Chronic Obstructive Pulmonary Disease (COPD): Yes - Neurological Hx Neurological Disorder: Yes HX Cerebrovascular Accident: Yes - HEENT Hx HEENT Disorder: No - Renal Hx Renal Disorder: Yes Hx Renal Failure: Yes - Endocrine/Metabolic Hx Endocrine Disorders: Yes (HYPERPARATHYROIDISM) - Hematological/Oncological Hx Blood Disorders: Yes Hx Anemia: Yes - Integumentary Hx Dermatological Disorder: No - Musculoskeletal/Rheumatological Hx Musculoskeletal Disorders: No - Gastrointestinal Hx Gastrointestinal Disorders: Yes Hx Gall Bladder Disease: Yes (s/p cholecystectomy) - Genitourinary/Gynecological Hx Genitourinary Disorders: No (C/S X3) - Psychiatric Hx Psychophysiologic Disorder: No Hx Substance Use: No - Past Surgical History Past Surgical History: No Previous - Surgical History Hx Cholecystectomy: Yes Other/Comment: L upper arm AV shunt - Anesthesia Hx Anesthesia: Yes Hx Anesthesia Reactions: No Hx Malignant Hyperthermia: No - Suicidal Assessment Feels Threatened In Home Enviroment: No Family/Social History - Physician Review Nursing Documentation Reviewed: Yes Family/Social History: Unknown Family HX Smoking Status: Never Smoked Hx Alcohol Use: No Hx Substance Use: No Hx Substance Use Treatment: No Allergies/Home Meds Allergies/Adverse Reactions: Allergies No Known Allergies Allergy (Verified 10/14/18 17:33) Home Medications: Home Meds Medication Instructions Recorded Confirmed Prednisone 10 mg PO DAILY 10/14/18 10/14/18 Review of Systems - Physician Review All systems were reviewed & negative as marked: Yes - Review of Systems Constitutional: absent: Fevers, Other (chills) Respiratory: SOB, Cough, Wheezing Cardiovascular: absent: Chest Pain, VERDE Gastrointestinal: absent: Abdominal Pain, Diarrhea, Nausea, Vomiting Genitourinary Female: absent: Dysuria, Hematuria Musculoskeletal: absent: Back Pain, Neck Pain Neurological: absent: Headache, Dizziness Physical Exam Vital Signs Reviewed: Yes Vital Signs Temp Pulse Resp BP Pulse Ox 10/14/18 18:25 97.8 F 107 H 18 110/42 L 99 10/14/18 17:47 100 10/14/18 17:26 90 18 156/89 H 100 Temperature: Afebrile Blood Pressure: Normal Pulse: Regular Respiratory Rate: Normal Appearance: Positive for: Well-Appearing, Non-Toxic, Comfortable, Uncomfortable (speaking in 4-5 word phrases) Pain Distress: None Mental Status: Positive for: Alert and Oriented X 3 - Systems Exam Head: Present: Atraumatic, Normocephalic Pupils: Present: PERRL Extroacular Muscles: Present: EOMI Conjunctiva: Present: Normal Mouth: Present: Moist Mucous Membranes Neck: Present: Normal Range of Motion Respiratory/Chest: Present: Respiratory Distress (mild), Wheezes (diffuse wheezing ). No: Accessory Muscle Use, Rhonchi Cardiovascular: Present: Normal S1, S2, Tachycardic. No: Murmurs, Rub, Gallop Abdomen: Present: Normal Bowel Sounds. No: Tenderness, Distention, Peritoneal Signs, Rebound, Guarding Back: Present: Normal Inspection Upper Extremity: Present: Normal ROM, NORMAL PULSES, Neurovascularly Intact, Capillary Refill < 2s, Other (left upper extremity positive thrill and bruit). No: Cyanosis, Edema Lower Extremity: Present: Normal Inspection, NORMAL PULSES, Normal ROM, N eurovascularly Intact, Capillary Refill < 2 s. No: Edema Neurological: Present: GCS=15, CN II-XII Intact, Speech Normal Skin: Present: Warm, Dry, Normal Color. No: Rashes Psychiatric: Present: Alert, Oriented x 3, Normal Insight, Normal Concentration Medical Decision Making ED Course and Treatment: 10/14/18 17:29 Impression: Patient is a 53 year old female with a history of COPD, asthma, CVA, and ESRD (M/W/F) who presents to the emergency department complaining of wheezing. Patient was admitted for similar symptoms 2 weeks ago and notes symptoms have not improved since admission. Patient's last dialysis was today. Patient denies F/C/N/V/D and chest pain. On exam; diffuse wheezing. Left upper extremity positive thrill and bruit. Otherwise unremarkable. Differential Diagnosis included but are not limited to: Plan: -- VBG -- EKG -- Labs -- Chest X-Ray -- Duoneb -- SOLU-medrol -- POC Urine -- IV Fluids -- Reassess and disposition Prior Visits: Notes and results from previous visits were reviewed. Patient was last seen in the emergency department on Patient reassessed after neb tx and has not improved. Plan to admit for further evaluation and management. Patient agreeable w/POC. Progress Notes: 10/14/18 18:[address] Mcguire. Requests patient admission to telemetry observation. - Lab Interpretations Lab Results: pO2 33 mm/Hg (30-55) 10/14/18 17:50 VBG pH 7.47 (7.32-7.43) H 10/14/18 17:50 VBG pCO2 48.0 (40-60) 10/14/18 17:50 VBG HCO3 34.9 mmol/l (21-28) H 10/14/18 17:50 VBG Total CO2 36.4 mmol.L (22-28) H 10/14/18 17:50 VBG O2 Sat (Calc) 71.1 % (40-65) H 10/14/18 17:50 VBG Base Excess 9.7 mmol/L (0.0-2.0) H 10/14/18 17:50 VBG Potassium 4.4 mmol/L (3.6-5.2) 10/14/18 17:50 Sodium 135.0 mmol/L (132-148) 10/14/18 17:50 Chloride 97.0 mmol/L (98-107) L 10/14/18 17:50 Glucose 113 mg/dl (65-105) H 10/14/18 17:50 Lactate 1.1 mmol/L (0.7-2.1) 10/14/18 17:50 FiO2 21.0 % 10/14/18 17:50 Troponin I 0.02 ng/mL D 10/14/18 17:30 Beta HCG, Quant < 2.39 mIU/mL (0-6.15) 10/14/18 17:30 - RAD Interpretation Radiology Orders: 10/14/18 17:41 CHEST PORTABLE [RAD] Stat - Medication Orders Current Medication Orders: Discontinued Medications Albuterol/Ipratropium (Duoneb 3 Mg/0.5 Mg (3 Ml) Ud) 3 ml IH Q15M NASIR Stop: 10/14/18 18:16 Last Admin: 10/14/18 18:30 Dose: 3 ml Methylprednisolone (Solu-Medrol) 125 mg IVP STAT STA Stop: 10/14/18 17:41 Last Admin: 10/14/18 17:58 Dose: 125 mg IVP Administration Document 10/14/18 17:58 MA (Rec: 10/14/18 17:58 MA [facility] [id number]) Charges for Administration # of IVP Administrations 1 - Scribe Statement The provider has reviewed the documentation as recorded by the Scribe Benoit Oneal All medical record entries made by the Scribe were at my direction and personally dictated by me. I have reviewed the chart and agree that the record accurately reflects my personal performance of the history, physical exam, medical decision making, and the department course for this patient. I have also personally directed, reviewed, and agree with the discharge instructions and disposition. Disposition/Present on Arrival - Present on Arrival Any Indicators Present on Arrival: No History of DVT/PE: No History of Uncontrolled Diabetes: No Urinary Catheter: No History of Decub. Ulcer: No History Surgical Site Infection Following: None - Disposition Have Diagnosis and Disposition been Completed?: Yes Diagnosis: Asthma exacerbation Disposition: HOSPITALIZED Disposition Time: 18:30 Patient Plan: Admission Condition: FAIR
[2018-10-14] MEDS ORDERED: Albuterol-Ipratrop 3 mg / 0.5 (3 ml) UD IH PRN (19:53)
--- NOTE | 2018-10-14 20:08 | CP.PCM.HP ---
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 Patient is a poor historian, most info obtained by bedside daughter (who works at [employer] [facility] [place] Daughter states that she was recently [place] from [facility] [place] ago, treated for COPD exacerbation. Patient, however, started having exacerbation within the past week, using nebulizer machine 3-4x/day, and night time awakenings 2-3x per week. This morning, during dialysis session, there was excessive wheezing, for which patient got a duoneb treatment during session and was sent to [facility] [place]. Patient reports mild congestion, denies fevers, chills, headache, chest pain, palpitations, diaphoresis, abdominal pain, nausea, vomiting, poor appetite, back pain, dysuria, hematuria, leg swelling. Patient reports constipation, last BM 2 days ago. In ED, patient afebrile with vitals stable on RA. Given methyprednisolone 125 mg IV, duonebs x3. 12 point ROS obtained and neg, except as per HPI. PMD: Dr. Renteria Appliquer: True PMH: Homocytsinuria, TIA x2, thromboembolic stroke x2, HTN, ESRD on hemodialysis, and asthma PSH: , cholecystectomy SH: denies tobacco, denies alcohol, denies drugs, lives with 3 children FH: Mother- 71, CVA. Father CVA x3 Home meds: per chart review Allergies: NKDA PMD: Anitha Present on Admission - Present on Admission Any Indicators Present on Admission: No History of DVT/PE: No History of Uncontrolled Diabetes: No Urinary Catheter: No Decubitus Ulcer Present: No Review of Systems - Review of Systems All systems: reviewed and no additional remarkable complaints except Review of Systems: as per HPI Past Patient History - Infectious Disease Hx of Infectious Diseases: None - Tetanus Immunizations Tetanus Immunization: Unknown - Past Social History Smoking Status: Never Smoked - CARDIAC Hx Cardiac Disorders: Yes Hx Congestive Heart Failure: Yes Hx Hypertension: Yes - PULMONARY Hx Respiratory Disorders: Yes Hx Chronic Obstructive Pulmonary Disease (COPD): Yes - NEUROLOGICAL Hx Neurological Disorder: Yes HX Cerebrovascular Accident: Yes - HEENT Hx HEENT Problems: No - RENAL Hx Chronic Kidney Disease: Yes Hx Renal Failure: Yes - ENDOCRINE/METABOLIC Hx Endocrine Disorders: Yes (HYPERPARATHYROIDISM) - HEMATOLOGICAL/ONCOLOGICAL Hx Blood Disorders: Yes Hx Anemia: Yes - INTEGUMENTARY Hx Dermatological Problems: No - MUSCULOSKELETAL/RHEUMATOLOGICAL Hx Musculoskeletal Disorders: No - GASTROINTESTINAL Hx Gastrointestinal Disorders: Yes Hx Gall Bladder Disease: Yes (s/p cholecystectomy) - GENITOURINARY/GYNECOLOGICAL Hx Genitourinary Disorders: No (C/S X3) - PSYCHIATRIC Hx Psychophysiologic Disorder: No Hx Substance Use: No - SURGICAL HISTORY Hx Cholecystectomy: Yes Other/Comment: L upper arm AV shunt - ANESTHESIA Hx Anesthesia: Yes Hx Anesthesia Reactions: No Hx Malignant Hyperthermia: No Meds Allergies/Adverse Reactions: Allergies Allergy/AdvReac Type Severity Reaction Status Date / Time No Known Allergies Allergy Verified 10/14/18 17:33 Physical Exam - Constitutional Appears: Non-toxic, No Acute Distress, Older Than Stated Age, Chronically Ill - Head Exam Head Exam: ATRAUMATIC, NORMOCEPHALIC - Eye Exam Eye Exam: EOMI, PERRL. absent: Conjunctival injection, Nystagmus, Scleral icterus Pupil Exam: NORMAL ACCOMODATION, PERRL. absent: Irregular, Miosis, Unequal - ENT Exam ENT Exam: Mucous Membranes Moist - Neck Exam Neck exam: Positive for: Full Rom - Respiratory Exam Respiratory Exam: Wheezes (bilaterally, throughout, more pronounced in upper lung munoz.). absent: Accessory Muscle Use, Decreased Breath Sounds, Prolonged Expiratory Phase, Rales, Rhonchi, Respiratory Distress, Stridor - Cardiovascular Exam Cardiovascular Exam: RRR, +S1, +S2. absent: Systolic Murmur - GI/Abdominal Exam GI & Abdominal Exam: Normal Bowel Sounds, Soft. absent: Distended, Firm, Guarding, Organomegaly, Rebound, Rigid, Tenderness - Extremities Exam Extremities exam: Positive for: normal inspection. Negative for: calf tendern ess, pedal edema - Back Exam Back exam: NORMAL INSPECTION - Neurological Exam Neurological exam: Alert, Oriented x3 - Psychiatric Exam Psychiatric exam: Normal Affect, Normal Mood - Skin Skin Exam: Dry, Normal Color, Warm Results - Vital Signs Recent Vital Signs: Last Vital Signs Temp 97.8 F 10/14/18 18:25 Pulse 107 H 10/14/18 18:25 Resp 18 10/14/18 18:25 BP 110/42 L 10/14/18 18:25 Pulse Ox 99 10/14/18 18:25 - Labs Result Diagrams: 10/14/18 17:30 10/14/18 17:30 Labs: Laboratory Results - last 24 hr 10/14/18 10/14/18 10/14/18 17:30 17:30 17:30 WBC 7.8 D RBC 4.54 Hgb 13.9 Hct 42.7 MCV 94.1 MCH 30.6 MCHC 32.6 RDW 14.5 Plt Count 246 MPV 9.4 Neut % (Auto) 67.3 Lymph % (Auto) 21.5 L Martin % (Auto) 7.7 H Eos % (Auto) 3.1 Baso % (Auto) 0.4 Lymph # (Auto) 1.7 Martin # (Auto) 0.6 Eos # (Auto) 0.2 Baso # (Auto) 0.03 Absolute Neuts (auto) 5.28 pO2 VBG pH VBG pCO2 VBG HCO3 VBG Total CO2 VBG O2 Sat (Calc) VBG Base Excess VBG Potassium Glucose Lactate FiO2 Sodium 136 Potassium 4.4 Chloride 94 L Carbon Dioxide 31 Anion Gap 15 BUN 18 Creatinine 5.2 H Est GFR ( Amer) 11 Est GFR (Non-Af Amer) 9 Random Glucose 116 H Calcium 8.4 Magnesium 2.0 Lactate Dehydrogenase 557 Total Creatine Kinase 277 H CK-MB (CK-2) 1.3 CK-MB (CK-2) % Cancelled Troponin I 0.02 D Beta HCG, Quant < 2.39 Venous Blood Potassium 10/14/18 17:50 WBC RBC Hgb Hct MCV MCH MCHC RDW Plt Count MPV Neut % (Auto) Lymph % (Auto) Martin % (Auto) Eos % (Auto) Baso % (Auto) Lymph # (Auto) Martin # (Auto) Eos # (Auto) Baso # (Auto) Absolute Neuts (auto) pO2 33 VBG pH 7.47 H VBG pCO2 48.0 VBG HCO3 34.9 H VBG Total CO2 36.4 H VBG O2 Sat (Calc) 71.1 H VBG Base Excess 9.7 H VBG Potassium 4.4 Glucose 113 H Lactate 1.1 FiO2 21.0 Sodium 135.0 Potassium Chloride 97.0 L Carbon Dioxide Anion Gap BUN Creatinine Est GFR ( Amer) Est GFR (Non-Af Amer) Random Glucose Calcium Magnesium Lactate Dehydrogenase Total Creatine Kinase CK-MB (CK-2) CK-MB (CK-2) % Troponin I Beta HCG, Quant Venous Blood Potassium 4.4 Assessment & Plan - Assessment and Plan (Free Text) Assessment: This is a 53 year old female with PMH asthma on home daily prednisone, homocystinuria, CVA, ESRD on HD, is here for asthma exacerbation: # Dyspnea 2/2 asthma exacerbation, r/o heart failure, valvular malfunction: - lactate normal - afebrile, no leukocytosis - CXR fairly negative on my read. f/u official read. - EKG HR 99 NSR. QTc 472 ms. - duonebs q6 h filiberto and q2 prn - solumedrol 40 mg IV q12 - Doxycyline (will hold azithro in setting of prolonged qtc) - continue with home singulair 10 mg - started on budesonide inh q 12h - f/u procal, blood cultures - will obtain echocardiogram - monitor breathing status, on telemetry # Constipation: - miralax bid filiberto. monitor BMs. if > 1 or liquidy BMs, will make it prn. # ESRD on HD MWF: - nephrology Dr Peralta consulted. f/u recs. - continue with home Auryxia 3 tabs PO TID # Hx of Homocystinuria: - c/w home elliquis # Hx of CVA: - c/w home ASA Diet: renal, HHD, diabetic GI and DVT ppx: protonix, elliquis Case reviewed and discussed with Dr Baer. <Ludivina Baer - Last Filed: 10/15/18 19:25> Results - Vital Signs Recent Vital Signs: Last Vital Signs Temp 98.2 F 10/15/18 06:00 Pulse 102 H 10/15/18 14:00 Resp 20 10/15/18 06:00 BP 99/61 L 10/15/18 06:00 Pulse Ox 96 10/15/18 06:00 - Labs Result Diagrams: 10/15/18 06:00 10/15/18 06:00 Labs: Laboratory Results - last 24 hr 10/15/18 10/15/18 10/15/18 06:00 06:00 07:41 WBC 5.6 D RBC 4.19 Hgb 12.3 Hct 39.5 MCV 94.3 MCH 29.4 MCHC 31.1 RDW 14.3 Plt Count 205 MPV 9.2 Neut % (Auto) 90.4 H Lymph % (Auto) 8.0 L Martin % (Auto) 1.6 Eos % (Auto) 0.0 L Baso % (Auto) 0.0 Lymph # (Auto) 0.5 L Martin # (Auto) 0.1 Eos # (Auto) 0.0 Baso # (Auto) 0.00 Absolute Neuts (auto) 5.06 Neutrophils % (Manual) 89 H Lymphocytes % (Manual) 10 L Monocytes % (Manual) 1 Platelet Evaluation Normal Sodium 134 Potassium 5.4 H Chloride 94 L Carbon Dioxide 28 Anion Gap 17 BUN 34 H Creatinine 7.3 H Est GFR ( Amer) 7 Est GFR (Non-Af Amer) 6 POC Glucose (mg/dL) 315 H Random Glucose 334 H* D Hemoglobin A1c Calcium 7.5 L Phosphorus 4.1 Magnesium 2.0 Total Bilirubin 0.5 AST 34 ALT 9 Alkaline Phosphatase 61 Total Protein 7.3 Albumin 3.7 Globulin 3.6 Albumin/Globulin Ratio 1.0 L 10/15/18 10/15/18 08:51 11:29 WBC RBC Hgb Hct MCV MCH MCHC RDW Plt Count MPV Neut % (Auto) Lymph % (Auto) Martin % (Auto) Eos % (Auto) Baso % (Auto) Lymph # (Auto) Martin # (Auto) Eos # (Auto) Baso # (Auto) Absolute Neuts (auto) Neutrophils % (Manual) Lymphocytes % (Manual) Monocytes % (Manual) Platelet Evaluation Sodium Potassium Chloride Carbon Dioxide Anion Gap BUN Creatinine Est GFR ( Amer) Est GFR (Non-Af Amer) POC Glucose (mg/dL) 251 H Random Glucose Hemoglobin A1c 6.9 H Calcium Phosphorus Magnesium Total Bilirubin AST ALT Alkaline Phosphatase Total Protein Albumin Globulin Albumin/Globulin Ratio Attending/Attestation - Attestation I have personally seen and examined this patient.: Yes I have fully participated in the care of the patient.: Yes I have reviewed all pertinent clinical information: Yes Notes (Text): 10/15/18 19:25 Seen and examined. Discussed with resident. A&P as above. add 2 D echo and miralax
[2018-10-14] MEDS: POLYETHYLENE GLYCOL 3350 17 GM/Dose PACKET PO SCH (20:58)
--- NOTE | 2018-10-14 22:42 | CARD ---
APPROVED REPORT Date of service: 10/14/2018 EKG Measurement Heart [id number] <Conclusion> Normal sinus rhythm Left axis deviation Low voltage QRS Abnormal ECG
[2018-10-14] MEDS: MethylPREDNISolone 40 mg Vial IVP SCH (23:32)
[2018-10-15 00:41] VITALS: BMI 42.1
[2018-10-15] MEDS: Albuterol-Ipratrop 3 mg / 0.5 (3 ml) UD IH SCH ×4 (01:22→19:33)
[2018-10-15 06:50] LABS: HEMOGLOBIN 12.3 g/dL (12.0-16.0); LYMPH # 0.5 (1.2-3.4); MEAN CELL VOLUME 94.3 fl (80.0-105.0); MEAN CORPUSCULAR HEMOGLOBIN 29.4 pg (25.0-35.0); MEAN CORPUSCULAR HGB CONC 31.1 g/dl (31.0-37.0); MEAN PLATELET VOLUME 9.2 fl (7.0-11.0); MONO # 0.1 (0.1-0.6); MONO % 1.6 % (1.0-6.0); PLATELET COUNT 205 10^3/uL (120.0-450.0); RBC 4.19 10^6/uL (3.5-6.1); RED CELL DISTRIBUTION WIDTH 14.3 % (11.5-14.5); WHITE BLOOD COUNT 5.6 10^3/uL (4.5-11.0)
[2018-10-15 07:50] LABS: ALBUMIN 3.7 g/dL (3.0-4.8); CALCIUM 7.5 mg/dL (8.4-10.5)
[2018-10-15] MEDS: Budesonide 0.5 mg/2 ml Inhal Susp UD IH SCH ×2 (08:00→19:33)
[2018-10-15 08:03] LABS: LYMPHOCYTE 10 % (22.0-35.0); MONOCYTE 1 % (1.0-6.0); NEUTROPHIL 89 % (50.0-70.0)
[2018-10-15 08:04] LABS: PLATELET ESTIMATE NORMAL (NORMAL)
[2018-10-15] MEDS ORDERED: Insulin Reg-MEDIUM-Coverage SC SCH ×2 (09:01→11:30)
[2018-10-15] MEDS: Insulin Reg-MEDIUM-Coverage SC SCH ×4 (09:38→22:17)
[2018-10-15] MEDS ORDERED: Azithromycin 500MG/NS 250ml 500 MG/250 ML BAG IVPB SCH (10:00)
[2018-10-15] MEDS: Pantoprazole 40 mg EC Tab PO SCH (10:55)
[2018-10-15] MEDS: MethylPREDNISolone 40 mg Vial IVP SCH (10:55)
[2018-10-15] MEDS: POLYETHYLENE GLYCOL 3350 17 GM/Dose PACKET PO SCH ×2 (10:55→17:59)
[2018-10-15] MEDS: FERRIC CITRATE PO SCH ×3 (10:57→17:59)
--- NOTE | 2018-10-15 11:51 | CP.PCM.PN ---
<Florentin Dhaliwal - Last Filed: 10/15/18 11:55> Subjective - Date & Time of Evaluation Date of Evaluation: 10/15/18 Time of Evaluation: 11:00 - Subjective Subjective: INTERNAL MEDICINE PROGRESS NOTE FOR DR. JAGJIT Dhaliwal PGY1 Pt seen and examined at bedside this am. She was see laying down flat. She reports she is still having some difficulty breathing. She was seen prior to receiving breathing treatment. She otherwise denies 12 point ROS Objective - Vital Signs/Intake and Output Vital Signs (last 24 hours): Temp Pulse Resp BP Pulse Ox 98.2 F 100 H 20 99/61 L 96 10/15/18 06:00 10/15/18 06:00 10/15/18 06:00 10/15/18 06:00 10/15/18 06:00 Intake and Output: 10/15/18 10/15/18 06:59 18:59 Intake Total 660 Output Total 0 Balance 660 - Medications Medications: Current Medications Albuterol/Ipratropium (Duoneb 3 Mg/0.5 Mg (3 Ml) Ud) 3 ml IH [id number] [facility] Last Admin: 10/15/18 08:00 Dose: 3 ml Albuterol/Ipratropium (Duoneb 3 Mg/0.5 Mg (3 Ml) Ud) 3 ml IH Q2 PRN PRN Reason: Shortness of Breath Last Admin: 10/15/18 11:14 Dose: 3 ml Apixaban (Eliquis) 2.5 mg PO BID [facility]; Protocol Last Admin: 10/15/18 10:56 Dose: 2.5 mg Aspirin (Aspirin Chewable) 81 mg PO DAILY [facility] Last Admin: 10/15/18 10:56 Dose: 81 mg Budesonide (Pulmicort Respules) 0.5 mg IH [id number] [facility] Last Admin: 10/15/18 08:00 Dose: 0.5 mg Doxycycline Hyclate (Doryx) 100 mg PO Q12 [facility] Insulin Human Regular (Humulin R Med) 0 units SC ACHS [facility]; Protocol Last Admin: 10/15/18 09:38 Dose: 7 u Methylprednisolone (Solu-Medrol) 40 mg IVP Q12 [facility] Last Admin: 10/15/18 10:55 Dose: 40 mg Montelukast Sodium (Singulair) 10 mg PO HS [facility] Ferric Citrate [ Auryxia] 2 Tab (Home Med) 2 tab PO TID [facility] Last Admin: 10/15/18 10:57 Dose: 2 tab Levocetirizine Dihydrochloride [ Xyzal] 5 Mg (Home Med) 5 mg PO DAILY [facility] Last Admin: 10/15/18 10:57 Dose: Not Given Pantoprazole Sodium (Protonix Ec Tab) 40 mg PO DAILY [facility] Last Admin: 10/15/18 10:55 Dose: 40 mg Polyethylene Glycol (Miralax) 17 gm PO BID [facility] Last Admin: 10/15/18 10:55 Dose: 17 gm - Labs Labs: 10/15/18 06:00 10/15/18 06:00 - Constitutional Appears: Well, Non-toxic, No Acute Distress - Head Exam Head Exam: NORMAL INSPECTION, NORMOCEPHALIC - Eye Exam Eye Exam: EOMI, Normal appearance - ENT Exam ENT Exam: Mucous Membranes Moist, Normal Exam - Neck Exam Neck Exam: Normal Inspection - Respiratory Exam Respiratory Exam: Wheezes, NORMAL BREATHING PATTERN - Cardiovascular Exam Cardiovascular Exam: Tachycardia, REGULAR RHYTHM - GI/Abdominal Exam GI & Abdominal Exam: Soft. absent: Tenderness - Extremities Exam Extremities Exam: Normal Inspection. absent: Calf Tenderness - Back Exam Back Exam: NORMAL INSPECTION - Neurological Exam Neurological Exam: Alert, Awake, Oriented x3 - Psychiatric Exam Psychiatric exam: Normal Affect, Normal Mood - Skin Skin Exam: Dry, Intact, Warm Assessment and Plan - Assessment and Plan (Free Text) Assessment: 53 year old female with PMH asthma on home daily prednisone, CVA, hx elevated homocysteine, ESRD on HD admitted for asthma exacerbation in the setting of ESRD Plan: Shortness of breath - 2/2 asthma exacerbation - afebrile, no leukocytosis, lactate wnl - CXR read pending - EKG HR 99 NSR. QTc 472 ms. - continue duonebs q6 h filiberto and q2 prn - continue solumedrol 40 mg IV q12 - continue Doxycyline (will hold azithro in setting of prolonged qtc) - continue with home singulair 10 mg - continue budesonide inh q 12h - f/u procal, blood cultures - monitor breathing status, on telemetry ESRD on HD MWF - Pt underwent HD yesterday 10/14 - does not require emergent dialysis - will continue with regular HD regimen tomorrow - nephrology Dr Peralta consulted. f/u recs. - continue with home Auryxia 3 tabs PO TID Hyperkalemia - will administer kayexalate - ISS sliding, will treatment hyperkalemia and BS Constipation - Will administer 1 dose kayexalate - miralax bid filiberto. monitor BMs. if > 1 or liquidy BMs, will make it prn DM2 -A1c this admission is 6.9% - will start insulin sliding scale Hx of CVA: - continue aspirin and eliquis Diet: renal, HHD, diabetic GI/DVT ppx: protonix, eliquis Case reviewed with attending physician, Dr. Jagjit Dhaliwal PGY1 <Elin Woodall - Last Filed: 10/16/18 15:02> Objective - Vital Signs/Intake and Output Vital Signs (last 24 hours): Temp Pulse Resp BP Pulse Ox 98.0 F 90 18 120/71 94 L 10/16/18 06:00 10/16/18 06:00 10/16/18 06:00 10/16/18 06:00 10/16/18 06:00 Intake and Output: 10/16/18 10/16/18 06:59 18:59 Intake Total 480 Balance 480 - Medications Medications: Current Medications Albuterol/Ipratropium (Duoneb 3 Mg/0.5 Mg (3 Ml) Ud) 3 ml IH [id number] [facility] Last Admin: 10/16/18 09:29 Dose: Not Given Albuterol/Ipratropium (Duoneb 3 Mg/0.5 Mg (3 Ml) Ud) 3 ml IH Q2 PRN PRN Reason: Shortness of Breath Last Admin: 10/15/18 11:14 Dose: 3 ml Apixaban (Eliquis) 2.5 mg PO BID [facility]; Protocol Last Admin: 10/15/18 17:59 Dose: 2.5 mg Aspirin (Aspirin Chewable) 81 mg PO DAILY [facility] Last Admin: 10/15/18 10:56 Dose: 81 mg Budesonide (Pulmicort Respules) 0.5 mg IH [id number] [facility] Last Admin: 10/15/18 19:33 Dose: 0.5 mg Doxycycline Hyclate (Doryx) 100 mg PO Q12 [facility] Last Admin: 10/15/18 21:19 Dose: 100 mg Insulin Human Regular (Humulin R Med) 0 units SC ACHS [facility]; Protocol Last Admin: 10/16/18 08:26 Dose: 3 u Methylprednisolone (Solu-Medrol) 60 mg IVP Q12 [facility] Last Admin: 10/15/18 21:20 Dose: 60 mg Montelukast Sodium (Singulair) 10 mg PO HS [facility] Last Admin: 10/15/18 21:19 Dose: 10 mg Ferric Citrate [ Auryxia] 2 Tab (Home Med) 2 tab PO TID [facility] Last Admin: 10/15/18 17:59 Dose: 2 tab Levocetirizine Dihydrochloride [ Xyzal] 5 Mg (Home Med) 5 mg PO DAILY [facility] Last Admin: 10/15/18 10:57 Dose: Not Given Pantoprazole Sodium (Protonix Ec Tab) 40 mg PO DAILY [facility] Last Admin: 10/15/18 10:55 Dose: 40 mg Polyethylene Glycol (Miralax) 17 gm PO BID [facility] Last Admin: 10/15/18 17:59 Dose: 17 gm - Labs Labs: 10/16/18 09:20 10/16/18 09:20 Attending/Attestation - Attestation I have personally seen and examined this patient.: Yes I have fully participated in the care of the patient.: Yes I have reviewed all pertinent clinical information, including history, physical exam and plan: Yes Notes (Text): Attending note; Patient seen and examined with resident. Patient is alert and awake. Complaining of wheezing. denies any fevers, chills. Denies any cough or sputum production. Patient is a 53-year-old female with past medical history significant for end- stage renal disease on dialysis Friday, Friday, and Friday, asthma, CVA, TIA, and hypertension that presented to the emergency room with shortness of breath and wheezing . 1. Asthma exacerbation ; patient has significant wheezing and chest tightness . d currently on oxygen nasal cannula. Continue DuoNeb. Started on IV Solu-Medrol. Dosage increased today. continue Singulair and Pulmicort inhaler. 2. Hyperkalemia. Low potassium diet ordered. Kayexalate ordered. Continue albuterol and insulin. Patient will go for hemodialysis tomorrow. 3. ESRD hemodialysis Friday ; due for dialysis tomorrow .follow-up with nephrology closely. 4. History of CVA. Continue ASA and Eliquis. 5. Diabetes; continue regular insulin sliding scale. 6. Obesity; diet and exercise recommended . Dietitian evaluation requested . Out of bed to chair as tolerated. Upon discharge the patient will follow up with PMD .
--- NOTE | 2018-10-15 12:14 | RAD ---
Date of service: 10/14/2018 HISTORY: sob COMPARISON: 09/22/2018 TECHNIQUE: 1 view obtained. FINDINGS: LUNGS: No active pulmonary disease. PLEURA: No significant pleural effusion identified, no pneumothorax apparent. CARDIOVASCULAR: No aortic atherosclerotic calcification present. Normal cardiac size. No pulmonary vascular congestion. OSSEOUS STRUCTURES: No significant abnormalities. VISUALIZED UPPER ABDOMEN: Normal. OTHER FINDINGS: None. IMPRESSION: No active disease.
[2018-10-15] MEDS ORDERED: Levalbuterol 1.25 MG/3 ML Inhal Soln UD IH STA (20:59)
--- NOTE | 2018-10-15 22:42 | CARD ---
APPROVED REPORT Date of service: 10/15/2018 EXAM: Two-dimensional and M-mode echocardiogram with Doppler and color Doppler. INDICATION Dyspnea 2D DIMENSIONS Left Atrium (2D)4.1 (1.6-4.0cm)IVSd1.0 (0.7-1.1cm) LVDd3.9 (3.9-5.9cm)PWd1.0 (0.7-1.1cm) LVDs2.5 (2.5-4.0cm)FS (%) 36.6 % LVEF (%)67.1 (>50%) M-Mode DIMENSIONS Aortic Root3.20 (2.2-3.7cm)Aortic Cusp Exc.2.10 (1.5-2.0cm) Aortic Valve AoV Peak Yarapqsy741.0cm/Stas Peak GR.9mmHg Mitral Valve MV E Msvuwdgv58.2cm/sMV A Fnpnfljg270.0cm/sMV ARQ38jp E/A ratio0.8MVA (PHT)2.59cm2 TDI Lateral E' Peak V11.20cm/sMedial E' Peak V7.51cm/sE/Lateral E'8.7 E/Medial E'12.9 Pulmonary Valve PV Peak Xmihamqy621.0cm/sPV Peak Grad.4mmHg Tricuspid Valve TR Peak Pzbzqzvd093jg/sRAP SDCZOAIA81fyXaCO Peak Gr.28mmHg [id number] LEFT VENTRICLE The left ventricle is normal size. There is normal left ventricular wall thickness. The left ventricular function is normal. The left ventricular ejection fraction is within the normal range. There is normal LV segmental wall motion. Transmitral Doppler flow pattern is Grade I-abnormal relaxation pattern. RIGHT VENTRICLE The right ventricle is normal size. There is normal right ventricular wall thickness. The right ventricular systolic function is normal. ATRIA The left atrium is borderline dilated. The right atrium size is normal. AORTIC VALVE The aortic valve is mildly thickened. There is trace aortic regurgitation. There is no aortic valvular stenosis. MITRAL VALVE The mitral valve is normal in structure. There is no mitral valve regurgitation noted. There is no mitral valve stenosis. TRICUSPID VALVE The tricuspid valve is normal in structure. There is mild tricuspid regurgitation. There is mild pulmonary hypertension. PULMONIC VALVE The pulmonary valve is normal in structure. There is no pulmonic valvular regurgitation. GREAT VESSELS The aortic root is normal in size. The IVC is normal in size and collapses >50% with inspiration. <Conclusion> There is normal left ventricular wall thickness. The left ventricular function is normal. The left ventricular ejection fraction is within the normal range. There is normal LV segmental wall motion. Transmitral Doppler flow pattern is Grade I-abnormal relaxation pattern. There is mild tricuspid regurgitation. There is mild pulmonary hypertension.
[2018-10-16] MEDS: Insulin Reg-MEDIUM-Coverage SC SCH ×3 (08:26→22:01)
[2018-10-16 08:54] LABS: HEMOGLOBIN 13.1 g/dL (12.0-16.0); LYMPH # 0.8 (1.2-3.4); LYMPH % 7.4 % (22.0-35.0); MEAN CELL VOLUME 93.8 fl (80.0-105.0); MEAN CORPUSCULAR HEMOGLOBIN 29.8 pg (25.0-35.0); MEAN CORPUSCULAR HGB CONC 31.8 g/dl (31.0-37.0); MEAN PLATELET VOLUME 9.3 fl (7.0-11.0); MONO # 0.3 (0.1-0.6); MONO % 2.4 % (1.0-6.0); RBC 4.39 10^6/uL (3.5-6.1); RED CELL DISTRIBUTION WIDTH 14.2 % (11.5-14.5)
[2018-10-16 08:59] LABS: WHITE BLOOD COUNT 10.8 10^3/uL (4.5-11.0)
--- NOTE | 2018-10-16 09:10 | RAD ---
Date of service: 10/15/2018 HISTORY: Severe wheezing COMPARISON: 10/14/2018 TECHNIQUE: 1 view obtained. FINDINGS: LUNGS: No active pulmonary disease. PLEURA: No significant pleural effusion identified, no pneumothorax apparent. CARDIOVASCULAR: Aortic calcification Normal cardiac size. Mild vascular congestion OSSEOUS STRUCTURES: No significant abnormalities. VISUALIZED UPPER ABDOMEN: Normal. OTHER FINDINGS: None. IMPRESSION: Mild vascular calcification
[2018-10-16 09:16] LABS: ALB/GLOB RATIO 1.1 (1.1-1.8); CALCIUM 7.3 mg/dL (8.4-10.5)
[2018-10-16] MEDS: Albuterol-Ipratrop 3 mg / 0.5 (3 ml) UD IH SCH ×3 (09:29→21:00)
[2018-10-16 09:43] LABS: HEMOGLOBIN 12.1 g/dL (12.0-16.0); MEAN CELL VOLUME 92.5 fl (80.0-105.0); MEAN CORPUSCULAR HEMOGLOBIN 30.3 pg (25.0-35.0); MEAN CORPUSCULAR HGB CONC 32.8 g/dl (31.0-37.0); MEAN PLATELET VOLUME 9.1 fl (7.0-11.0); RBC 3.99 10^6/uL (3.5-6.1); RED CELL DISTRIBUTION WIDTH 14.1 % (11.5-14.5)
--- NOTE | 2018-10-16 12:52 | CP.PCM.PN ---
<Florentin Dhaliwal - Last Filed: 10/16/18 13:07> Subjective - Date & Time of Evaluation Date of Evaluation: 10/16/18 Time of Evaluation: 11:00 - Subjective Subjective: INTERNAL MEDICINE PROGRESS NOTE FOR DR. JAGJIT Dhaliwal PGY1 Pt seen and examined at bedside this am during hemodialysis. Pt had acute shortness of breath overnight, breathing treatment & CXR were ordered. No acute changes were noted. Pt scheduled medications were given early. This am, pt was seen continuing to complain of wheezing. She reported minimal improvement with breathing treatments. She otherwise denies rest of ROS Objective - Vital Signs/Intake and Output Vital Signs (last 24 hours): Temp Pulse Resp BP Pulse Ox 98.0 F 90 18 120/71 94 L 10/16/18 06:00 10/16/18 06:00 10/16/18 06:00 10/16/18 06:00 10/16/18 06:00 Intake and Output: 10/16/18 10/16/18 06:59 18:59 Intake Total 480 Balance 480 - Medications Medications: Current Medications Albuterol/Ipratropium (Duoneb 3 Mg/0.5 Mg (3 Ml) Ud) 3 ml IH [id number] [facility] Last Admin: 10/16/18 09:29 Dose: Not Given Albuterol/Ipratropium (Duoneb 3 Mg/0.5 Mg (3 Ml) Ud) 3 ml IH Q2 PRN PRN Reason: Shortness of Breath Last Admin: 10/15/18 11:14 Dose: 3 ml Apixaban (Eliquis) 2.5 mg PO BID [facility]; Protocol Last Admin: 10/15/18 17:59 Dose: 2.5 mg Aspirin (Aspirin Chewable) 81 mg PO DAILY [facility] Last Admin: 10/15/18 10:56 Dose: 81 mg Budesonide (Pulmicort Respules) 0.5 mg IH [id number] [facility] Last Admin: 10/15/18 19:33 Dose: 0.5 mg Doxycycline Hyclate (Doryx) 100 mg PO Q12 [facility] Last Admin: 10/15/18 21:19 Dose: 100 mg Insulin Human Regular (Humulin R Med) 0 units SC ACHS [facility]; Protocol Last Admin: 10/16/18 08:26 Dose: 3 u Methylprednisolone (Solu-Medrol) 60 mg IVP Q12 [facility] Last Admin: 10/15/18 21:20 Dose: 60 mg Montelukast Sodium (Singulair) 10 mg PO HS [facility] Last Admin: 10/15/18 21:19 Dose: 10 mg Ferric Citrate [ Auryxia] 2 Tab (Home Med) 2 tab PO TID [facility] Last Admin: 10/15/18 17:59 Dose: 2 tab Levocetirizine Dihydrochloride [ Xyzal] 5 Mg (Home Med) 5 mg PO DAILY [facility] Last Admin: 10/15/18 10:57 Dose: Not Given Pantoprazole Sodium (Protonix Ec Tab) 40 mg PO DAILY [facility] Last Admin: 10/15/18 10:55 Dose: 40 mg Polyethylene Glycol (Miralax) 17 gm PO BID [facility] Last Admin: 10/15/18 17:59 Dose: 17 gm - Labs Labs: 10/16/18 09:20 10/16/18 09:20 - Constitutional Appears: Well, Non-toxic, No Acute Distress - Head Exam Head Exam: NORMAL INSPECTION, NORMOCEPHALIC - Eye Exam Eye Exam: EOMI, Normal appearance - ENT Exam ENT Exam: Mucous Membranes Moist, Normal Exam - Respiratory Exam Respiratory Exam: Wheezes. absent: Rales, Rhonchi Additional comments: large neck circumference - Cardiovascular Exam Cardiovascular Exam: REGULAR RHYTHM, +S1, +S2 - GI/Abdominal Exam GI & Abdominal Exam: Soft. absent: Tenderness - Extremities Exam Extremities Exam: Normal Inspection. absent: Tenderness - Back Exam Back Exam: NORMAL INSPECTION. absent: CVA tenderness (L), CVA tenderness (R) - Neurological Exam Neurological Exam: Alert, Awake, Oriented x3 - Psychiatric Exam Psychiatric exam: Normal Affect, Normal Mood - Skin Skin Exam: Dry, Intact, Warm Assessment and Plan - Assessment and Plan (Free Text) Assessment: 53 year old female with PMH asthma on home daily prednisone, CVA, hx elevated homocysteine, ESRD on HD admitted for asthma exacerbation in the setting of ESRD Plan: Shortness of breath - 2/2 asthma exacerbation, afebrile, no leukocytosis, lactate wnl - increased solumedrol to 60Q12 - Will consult pulmonlogy as wheezing hasn't been controlled. Last CT Chest revealed interstitial opacities - continue duonebs q6 h filiberto and q2 prn, singulair, budesonide - continue Doxycyline (will hold azithro in setting of prolonged qtc) - blood cultures have been negative so far - monitor breathing status on telemetry ESRD on HD MWF - Will undergo HD today - will continue with regular HD regimen tomorrow - nephrology Dr Peralta consulted. f/u recs. - continue with home Auryxia 3 tabs PO TID Hyperkalemia - will undergo HD today. continue to monitor - ISS sliding scale Constipation - miralax bid filiberto. monitor BMs. if > 1 or liquidy BMs, will make it prn DM2 -A1c this admission is 6.9% - will start insulin sliding scale - early childhood educator aide consulted Hx of CVA: - continue aspirin and eliquis Diet: renal, HHD, diabetic GI/DVT ppx: protonix, eliquis Case reviewed with attending physician, Dr. Jagjit Dhaliwal PGY1 <Elin Woodall - Last Filed: 10/16/18 15:05> Objective - Vital Signs/Intake and Output Vital Signs (last 24 hours): Temp Pulse Resp BP Pulse Ox 98.0 F 90 18 120/71 94 L 10/16/18 06:00 10/16/18 06:00 10/16/18 06:00 10/16/18 06:00 10/16/18 06:00 Intake and Output: 10/16/18 10/16/18 06:59 18:59 Intake Total 480 Balance 480 - Medications Medications: Current Medications Albuterol/Ipratropium (Duoneb 3 Mg/0.5 Mg (3 Ml) Ud) 3 ml IH [id number] [facility] Last Admin: 10/16/18 09:29 Dose: Not Given Albuterol/Ipratropium (Duoneb 3 Mg/0.5 Mg (3 Ml) Ud) 3 ml IH Q2 PRN PRN Reason: Shortness of Breath Last Admin: 10/15/18 11:14 Dose: 3 ml Apixaban (Eliquis) 2.5 mg PO BID [facility]; Protocol Last Admin: 10/15/18 17:59 Dose: 2.5 mg Aspirin (Aspirin Chewable) 81 mg PO DAILY [facility] Last Admin: 10/15/18 10:56 Dose: 81 mg Budesonide (Pulmicort Respules) 0.5 mg IH [id number] [facility] Last Admin: 10/15/18 19:33 Dose: 0.5 mg Doxycycline Hyclate (Doryx) 100 mg PO Q12 [facility] Last Admin: 10/15/18 21:19 Dose: 100 mg Insulin Human Regular (Humulin R Med) 0 units SC ACHS [facility]; Protocol Last Admin: 10/16/18 08:26 Dose: 3 u Methylprednisolone (Solu-Medrol) 60 mg IVP Q12 [facility] Last Admin: 10/15/18 21:20 Dose: 60 mg Montelukast Sodium (Singulair) 10 mg PO HS [facility] Last Admin: 10/15/18 21:19 Dose: 10 mg Ferric Citrate [ Auryxia] 2 Tab (Home Med) 2 tab PO TID [facility] Last Admin: 10/15/18 17:59 Dose: 2 tab Levocetirizine Dihydrochloride [ Xyzal] 5 Mg (Home Med) 5 mg PO DAILY [facility] Last Admin: 10/15/18 10:57 Dose: Not Given Pantoprazole Sodium (Protonix Ec Tab) 40 mg PO DAILY [facility] Last Admin: 10/15/18 10:55 Dose: 40 mg Polyethylene Glycol (Miralax) 17 gm PO BID [facility] Last Admin: 10/15/18 17:59 Dose: 17 gm - Labs Labs: 10/16/18 09:20 10/16/18 09:20 Attending/Attestation - Attestation I have personally seen and examined this patient.: Yes I have fully participated in the care of the patient.: Yes I have reviewed all pertinent clinical information, including history, physical exam and plan: Yes Notes (Text): 10/16/18 15:02 Attending note; Patient seen and examined with resident during hemodialysis session. Patient is alert and awake. still Complaining of wheezing. She has mild stridor. denies any fevers, chills. Denies any cough or sputum production. Patient is a 53-year-old female with past medical history significant for end- stage renal disease on dialysis Friday, Friday, and Friday, asthma, CVA, TIA, and hypertension that presented to the emergency room with shortness of breath and wheezing . 1. Asthma exacerbation ; patient has significant wheezing and chest tightness. With significant wheezing and tightness. currently on oxygen nasal cannula. Continue DuoNeb. Started on IV Solu-Medrol. Dosage increased today. continue Singulair and Pulmicort inhaler. Pulmonary evaluation requested. 2. Hyperkalemia. Low potassium diet ordered. Patient is getting dialysis today. Continue albuterol and insulin. 3. ESRD hemodialysis Friday: getting dialysis.follow-up with nephrology closely. 4. History of CVA. Continue ASA and Eliquis. 5. Diabetes; continue regular insulin sliding scale. 6. Obesity; diet and exercise recommended . Dietitian evaluation requested . Out of bed to chair as tolerated. Case discussed with pulmonary attending in detail. Transfer the patient to ICU for close monitoring. Upon discharge the patient will follow up with PMD .
--- NOTE | 2018-10-16 15:19 | CP.PCM.CON ---
<Marco Antonio Arreola - Last Filed: 10/16/18 16:18> History of Present Illness - History of Present Illness History of Present Illness: Pt is a 53yo female with a PMH of ESRD (dialysis MWF), homocystinuria on elliquis, asthma (she is unsure if she has been intubated in the past), CVA x2, TIA x2, HTN who was admitted for wheezing and SOB secondary to an asthma exacerbation. Pt was recently admitted to [facility] for COPD exacerbation. Pt experienced excessive wheezing during her dialysis session today. Pt was brought to the ICU to be placed on CPAP. PMH: TIA x2, thromboembolic stroke x2, HTN, ESRD on hemodialysis, and asthma PSH: , cholecystectomy SH: denies tobacco, denies alcohol, denies drugs, lives with 3 children FH: Mother- 71, CVA. Father CVA x3 Home meds: per chart review Allergies: NKDA Past Patient History - Infectious Disease Hx of Infectious Diseases: None - Tetanus Immunizations Tetanus Immunization: Unknown - Past Social History Smoking Status: Never Smoked - CARDIAC Hx Cardiac Disorders: Yes Hx Congestive Heart Failure: Yes Hx Hypertension: Yes - PULMONARY Hx Respiratory Disorders: Yes Hx Chronic Obstructive Pulmonary Disease (COPD): Yes - NEUROLOGICAL Hx Neurological Disorder: Yes HX Cerebrovascular Accident: Yes - HEENT Hx HEENT Problems: No - RENAL Hx Chronic Kidney Disease: Yes Hx Renal Failure: Yes - ENDOCRINE/METABOLIC Hx Endocrine Disorders: Yes (HYPERPARATHYROIDISM) - HEMATOLOGICAL/ONCOLOGICAL Hx Blood Disorders: Yes Hx Anemia: Yes - INTEGUMENTARY Hx Dermatological Problems: No - MUSCULOSKELETAL/RHEUMATOLOGICAL Hx Musculoskeletal Disorders: No Hx Falls: No - GASTROINTESTINAL Hx Gastrointestinal Disorders: Yes Hx Gall Bladder Disease: Yes (s/p cholecystectomy) - GENITOURINARY/GYNECOLOGICAL Hx Genitourinary Disorders: No (C/S X3) - PSYCHIATRIC Hx Psychophysiologic Disorder: No Hx Substance Use: Yes - SURGICAL HISTORY Hx Cholecystectomy: Yes Other/Comment: L upper arm AV shunt - ANESTHESIA Hx Anesthesia: Yes Hx Anesthesia Reactions: No Hx Malignant Hyperthermia: No Meds Allergies/Adverse Reactions: Allergies Allergy/AdvReac Type Severity Reaction Status Date / Time No Known Allergies Allergy Verified 10/14/18 17:33 - Medications Medications: Current Medications Albuterol/Ipratropium (Duoneb 3 Mg/0.5 Mg (3 Ml) Ud) 3 ml IH [id number] [facility] Last Admin: 10/16/18 09:29 Dose: Not Given Albuterol/Ipratropium (Duoneb 3 Mg/0.5 Mg (3 Ml) Ud) 3 ml IH Q2 PRN PRN Reason: Shortness of Breath Last Admin: 10/15/18 11:14 Dose: 3 ml Apixaban (Eliquis) 2.5 mg PO BID [facility]; Protocol Last Admin: 10/15/18 17:59 Dose: 2.5 mg Aspirin (Aspirin Chewable) 81 mg PO DAILY [facility] Last Admin: 10/15/18 10:56 Dose: 81 mg Budesonide (Pulmicort Respules) 0.5 mg IH [id number] [facility] Last Admin: 10/15/18 19:33 Dose: 0.5 mg Doxycycline Hyclate (Doryx) 100 mg PO Q12 [facility] Last Admin: 10/15/18 21:19 Dose: 100 mg Insulin Human Regular (Humulin R Med) 0 units SC ACHS [facility]; Protocol Last Admin: 10/16/18 08:26 Dose: 3 u Methylprednisolone (Solu-Medrol) 60 mg IVP Q12 [facility] Last Admin: 10/15/18 21:20 Dose: 60 mg Montelukast Sodium (Singulair) 10 mg PO HS [facility] Last Admin: 10/15/18 21:19 Dose: 10 mg Ferric Citrate [ Auryxia] 2 Tab (Home Med) 2 tab PO TID [facility] Last Admin: 10/15/18 17:59 Dose: 2 tab Levocetirizine Dihydrochloride [ Xyzal] 5 Mg (Home Med) 5 mg PO DAILY [facility] Last Admin: 10/15/18 10:57 Dose: Not Given Pantoprazole Sodium (Protonix Ec Tab) 40 mg PO DAILY [facility] Last Admin: 10/15/18 10:55 Dose: 40 mg Polyethylene Glycol (Miralax) 17 gm PO BID [facility] Last Admin: 10/15/18 17:59 Dose: 17 gm Physical Exam - Constitutional Appears: No Acute Distress - Head Exam Head Exam: ATRAUMATIC, NORMOCEPHALIC - Eye Exam Eye Exam: EOMI - ENT Exam ENT Exam: Mucous Membranes Moist - Neck Exam Neck exam: Positive for: Full Rom - Respiratory Exam Respiratory Exam: Wheezes, NORMAL BREATHING PATTERN. absent: Accessory Muscle Use, Clear to Auscultation Bilateral - Cardiovascular Exam Cardiovascular Exam: RRR, +S1, +S2. absent: Bradycardia, Tachycardia, Diastolic murmur, Systolic Murmur - GI/Abdominal Exam GI & Abdominal Exam: Diminished Bowel Sounds, Normal Bowel Sounds, Soft. absent: Rebound, Rigid - Extremities Exam Extremities exam: Positive for: full ROM, pedal pulses present. Negative for: calf tenderness, pedal edema, tenderness - Neurological Exam Neurological exam: Alert, CN II-XII Intact, Oriented x3 - Skin Skin Exam: Dry, Erythema, Normal Color Results - Vital Signs Recent Vital Signs: Last Vital Signs Temp 98.0 F 10/16/18 06:00 Pulse 90 10/16/18 06:00 Resp 18 10/16/18 06:00 BP 120/71 10/16/18 06:00 Pulse Ox 94 L 10/16/18 06:00 - Labs Result Diagrams: 10/16/18 09:20 10/16/18 09:20 Labs: Laboratory Results - last 24 hr 10/15/18 10/15/18 10/16/18 16:27 21:14 07:28 WBC RBC Hgb Hct MCV MCH MCHC RDW Plt Count MPV Neut % (Auto) Lymph % (Auto) [place] % (Auto) Eos % (Auto) Baso % (Auto) Lymph # (Auto) [place] # (Auto) Eos # (Auto) Baso # (Auto) Absolute Neuts (auto) Sodium Potassium Chloride Carbon Dioxide Anion Gap BUN Creatinine Est GFR ( Amer) Est GFR (Non-Af Amer) POC Glucose (mg/dL) 146 H 197 H 250 H Random Glucose Calcium Phosphorus Magnesium Total Bilirubin AST ALT Alkaline Phosphatase Total Protein Albumin Globulin Albumin/Globulin Ratio 10/16/18 10/16/18 10/16/18 08:30 08:30 09:20 WBC 10.8 D RBC 4.39 Hgb 13.1 Hct 41.2 MCV 93.8 MCH 29.8 MCHC 31.8 RDW 14.2 Plt Count 229 MPV 9.3 Neut % (Auto) 90.2 H Lymph % (Auto) 7.4 L [place] % (Auto) 2.4 Eos % (Auto) 0.0 L Baso % (Auto) 0.0 Lymph # (Auto) 0.8 L [place] # (Auto) 0.3 Eos # (Auto) 0.0 Baso # (Auto) 0.00 Absolute Neuts (auto) 9.71 H Sodium 133 133 Potassium 5.8 H* 5.8 H* Chloride 89 L 92 L Carbon Dioxide 27 24 Anion Gap 23 H 22 H BUN 65 H 67 H Creatinine 10.0 H* D 10.0 H* Est GFR ( Amer) 5 5 Est GFR (Non-Af Amer) 4 4 POC Glucose (mg/dL) Random Glucose 184 H 237 H Calcium 7.3 L 7.0 L Phosphorus 6.3 H Magnesium 2.0 Total Bilirubin 0.4 AST 28 ALT 16 Alkaline Phosphatase 65 Total Protein 7.8 Albumin 4.0 Globulin 3.8 Albumin/Globulin Ratio 1.1 10/16/18 09:20 WBC 11.0 RBC 3.99 Hgb 12.1 Hct 36.9 MCV 92.5 MCH 30.3 MCHC 32.8 RDW 14.1 Plt Count 227 MPV 9.1 Neut % (Auto) Lymph % (Auto) [place] % (Auto) Eos % (Auto) Baso % (Auto) Lymph # (Auto) [place] # (Auto) Eos # (Auto) Baso # (Auto) Absolute Neuts (auto) Sodium Potassium Chloride Carbon Dioxide Anion Gap BUN Creatinine Est GFR ( Amer) Est GFR (Non-Af Amer) POC Glucose (mg/dL) Random Glucose Calcium Phosphorus Magnesium Total Bilirubin AST ALT Alkaline Phosphatase Total Protein Albumin Globulin Albumin/Globulin Ratio Assessment & Plan - Assessment and Plan (Free Text) Assessment: Pt is a 53yo female with a PMH of ESRD (dialysis MWF), homocystinuria on elliquis, asthma (she is unsure if she has been intubated in the past), CVA x2, TIA x2, HTN who was admitted for wheezing and SOB secondary to an asthma exacerbation who was transferred to the ICU for CPAP. Plan: Neuro - history of CVA x2, TIA x2 - continue home ASA Cardio - HTN - ECHO normal LV function, mild TR, mild Pulm HTN Pulm - asthma exacerbation, SOB, COPD - duonebs q6 h nasir and q2 prn - solumedrol 60 mg IV q12 - Doxycyline - singulair, budesonide - will start CPAP GI - protonix - renal diet Nephro/ - ESRD dialysis MWF - nephro consulted, Dr Peralta Heme/ Onc - homocystinuria on elliquis Endo - DM - ISS ID - no leukocytosis Pt seen, examined, assessment and plan discussed with Dr Yadira Arreola PGY1 - Date & Time Date: 10/16/18 Time: 15:20 <Yadira Mccray - Last Filed: 10/16/18 18:06> Meds - Medications Medications: Current Medications Albuterol/Ipratropium (Duoneb 3 Mg/0.5 Mg (3 Ml) Ud) 3 ml IH [id number] [facility] Last Admin: 10/16/18 16:05 Dose: 3 ml Albuterol/Ipratropium (Duoneb 3 Mg/0.5 Mg (3 Ml) Ud) 3 ml IH Q2 PRN PRN Reason: Shortness of Breath Last Admin: 10/15/18 11:14 Dose: 3 ml Apixaban (Eliquis) 2.5 mg PO BID [facility]; Protocol Last Admin: 10/16/18 15:46 Dose: 2.5 mg Aspirin (Aspirin Chewable) 81 mg PO DAILY [facility] Last Admin: 10/16/18 15:44 Dose: 81 mg Budesonide (Pulmicort Respules) 0.5 mg IH [id number] [facility] Last Admin: 10/15/18 19:33 Dose: 0.5 mg Doxycycline Hyclate (Doryx) 100 mg PO Q12 [facility] Last Admin: 10/16/18 15:45 Dose: 100 mg Insulin Human Regular (Humulin R Med) 0 units SC ACHS [facility]; Protocol Last Admin: 10/16/18 16:30 Dose: Not Given Methylprednisolone (Solu-Medrol) 60 mg IVP Q12 [facility] Last Admin: 10/16/18 15:46 Dose: 60 mg Montelukast Sodium (Singulair) 10 mg PO HS [facility] Last Admin: 10/15/18 21:19 Dose: 10 mg Ferric Citrate [ Auryxia] 2 Tab (Home Med) 2 tab PO TID [facility] Last Admin: 10/16/18 15:49 Dose: Not Given Levocetirizine Dihydrochloride [ Xyzal] 5 Mg (Home Med) 5 mg PO DAILY [facility] Last Admin: 10/15/18 10:57 Dose: Not Given Pantoprazole Sodium (Protonix Ec Tab) 40 mg PO DAILY [facility] Last Admin: 10/16/18 15:45 Dose: 40 mg Polyethylene Glycol (Miralax) 17 gm PO BID [facility] Last Admin: 10/16/18 17:41 Dose: Not Given Results - Vital Signs Recent Vital Signs: Last Vital Signs Temp 98 F 10/16/18 13:10 Pulse 97 H 10/16/18 17:40 Resp 38 H 10/16/18 17:40 BP 98/60 L 10/16/18 17:01 Pulse Ox 96 10/16/18 17:40 - Labs Result Diagrams: 10/16/18 09:20 10/16/18 09:20 Labs: Laboratory Results - last 24 hr 10/15/18 10/15/18 10/16/18 16:27 21:14 07:28 WBC RBC Hgb Hct MCV MCH MCHC RDW Plt Count MPV Neut % (Auto) Lymph % (Auto) [place] % (Auto) Eos % (Auto) Baso % (Auto) Lymph # (Auto) [place] # (Auto) Eos # (Auto) Baso # (Auto) Absolute Neuts (auto) pCO2 pO2 HCO3 ABG pH ABG Total CO2 ABG O2 Saturation ABG O2 Content ABG Base Excess ABG Hemoglobin ABG Carboxyhemoglobin POC ABG HHb (Measured) ABG Methemoglobin ABG O2 Capacity Hgb O2 Saturation FiO2 Sodium Potassium Chloride Carbon Dioxide Anion Gap BUN Creatinine Est GFR ( Amer) Est GFR (Non-Af Amer) POC Glucose (mg/dL) 146 H 197 H 250 H Random Glucose Calcium Phosphorus Magnesium Total Bilirubin AST ALT Alkaline Phosphatase Total Protein Albumin Globulin Albumin/Globulin Ratio Hep Bs Antigen Hep Bs Antibody 10/16/18 10/16/18 10/16/18 08:30 08:30 09:20 WBC 10.8 D RBC 4.39 Hgb 13.1 Hct 41.2 MCV 93.8 MCH 29.8 MCHC 31.8 RDW 14.2 Plt Count 229 MPV 9.3 Neut % (Auto) 90.2 H Lymph % (Auto) 7.4 L [place] % (Auto) 2.4 Eos % (Auto) 0.0 L Baso % (Auto) 0.0 Lymph # (Auto) 0.8 L [place] # (Auto) 0.3 Eos # (Auto) 0.0 Baso # (Auto) 0.00 Absolute Neuts (auto) 9.71 H pCO2 pO2 HCO3 ABG pH ABG Total CO2 ABG O2 Saturation ABG O2 Content ABG Base Excess ABG Hemoglobin ABG Carboxyhemoglobin POC ABG HHb (Measured) ABG Methemoglobin ABG O2 Capacity Hgb O2 Saturation FiO2 Sodium 133 133 Potassium 5.8 H* 5.8 H* Chloride 89 L 92 L Carbon Dioxide 27 24 Anion Gap 23 H 22 H BUN 65 H 67 H Creatinine 10.0 H* D 10.0 H* Est GFR ( Amer) 5 5 Est GFR (Non-Af Amer) 4 4 POC Glucose (mg/dL) Random Glucose 184 H 237 H Calcium 7.3 L 7.0 L Phosphorus 6.3 H Magnesium 2.0 Total Bilirubin 0.4 AST 28 ALT 16 Alkaline Phosphatase 65 Total Protein 7.8 Albumin 4.0 Globulin 3.8 Albumin/Globulin Ratio 1.1 Hep Bs Antigen Hep Bs Antibody 10/16/18 10/16/18 10/16/18 09:20 11:50 11:50 WBC 11.0 RBC 3.99 Hgb 12.1 Hct 36.9 MCV 92.5 MCH 30.3 MCHC 32.8 RDW 14.1 Plt Count 227 MPV 9.1 Neut % (Auto) Lymph % (Auto) [place] % (Auto) Eos % (Auto) Baso % (Auto) Lymph # (Auto) [place] # (Auto) Eos # (Auto) Baso # (Auto) Absolute Neuts (auto) pCO2 pO2 HCO3 ABG pH ABG Total CO2 ABG O2 Saturation ABG O2 Content ABG Base Excess ABG Hemoglobin ABG Carboxyhemoglobin POC ABG HHb (Measured) ABG Methemoglobin ABG O2 Capacity Hgb O2 Saturation FiO2 Sodium Potassium Chloride Carbon Dioxide Anion Gap BUN Creatinine Est GFR ( Amer) Est GFR (Non-Af Amer) POC Glucose (mg/dL) Random Glucose Calcium Phosphorus Magnesium Total Bilirubin AST ALT Alkaline Phosphatase Total Protein Albumin Globulin Albumin/Globulin Ratio Hep Bs Antigen Negative Hep Bs Antibody Negative 10/16/18 10/16/18 15:50 16:01 WBC RBC Hgb Hct MCV MCH MCHC RDW Plt Count MPV Neut % (Auto) Lymph % (Auto) [place] % (Auto) Eos % (Auto) Baso % (Auto) Lymph # (Auto) [place] # (Auto) Eos # (Auto) Baso # (Auto) Absolute Neuts (auto) pCO2 40 pO2 84.0 HCO3 34.2 H ABG pH 7.54 H ABG Total CO2 35.4 H ABG O2 Saturation 97.9 ABG O2 Content 17.1 ABG Base Excess 10.7 H ABG Hemoglobin 12.7 ABG Carboxyhemoglobin 1.4 POC ABG HHb (Measured) 2.0 ABG Methemoglobin 1.1 ABG O2 Capacity 17.5 Hgb O2 Saturation 95.5 FiO2 28.0 Sodium Potassium Chloride Carbon Dioxide Anion Gap BUN Creatinine Est GFR ( Amer) Est GFR (Non-Af Amer) POC Glucose (mg/dL) 132 H Random Glucose Calcium Phosphorus Magnesium Total Bilirubin AST ALT Alkaline Phosphatase Total Protein Albumin Globulin Albumin/Globulin Ratio Hep Bs Antigen Hep Bs Antibody Addendum Addendum: 10/16/18 18:06 MICU Attending Addendum: Patient seen and examined with housestaff, case discussed on rounds. I agree with resident note above with the following additions/exceptions: 53F with hx of ESRD (dialysis MWF), homocystinuria on elliquis, asthma, CVA x2, TIA x2, HTN who was admitted for wheezing and SOB secondary to an asthma exacerbation, I was asked to see her for resp failure. Her imaging is suggestive of fluid overload and she did feel better after HD today however during my interview she was not completing sentences. I was concerned this was related asthma. After further review and disucssion with tea member who are familiar with her in the past, she does have neuro injury from her strokes that do affect her ability to speak consistently. In any event, will monitor her in ICU Bipap if needed if she develops worsening SOB ABG does not show CO2 retention althought much still caution against resp exhaus ting cont nebs and steroids as mentioned above repeat chem to check K which was 5.8 pre-dialysis Rest of care as per resident note above Yadira Mccray MD Attending Pulmonary Critical Care Sleep Medicine
[2018-10-16] MEDS: POLYETHYLENE GLYCOL 3350 17 GM/Dose PACKET PO SCH ×2 (15:39→17:41)
[2018-10-16] MEDS: Pantoprazole 40 mg EC Tab PO SCH (15:45)
[2018-10-16] MEDS: FERRIC CITRATE PO SCH ×2 (15:49→18:19)
[2018-10-16 16:00] LABS: ARTERIAL BLOOD GAS HCO3 34.2 mmol/L (21-28); ARTERIAL BLOOD GAS HEMOGLOBIN 12.7 g/dL (11.7-17.4); ARTERIAL BLOOD GAS O2 CAPACITY 17.5 mL/dl (16-24); ARTERIAL BLOOD GAS O2 CONTENT 17.1 ML/dl (15-23); ARTERIAL BLOOD GAS O2 SAT 97.9 % (95-98); ARTERIAL BLOOD GAS PCO2 40 mm/Hg (35-45); ARTERIAL BLOOD GAS PH 7.54 (7.35-7.45); ARTERIAL BLOOD GAS TCO2 35.4 mmol.L (22-28)
[2018-10-16] MEDS: Budesonide 0.5 mg/2 ml Inhal Susp UD IH SCH (21:00)
--- NOTE | 2018-10-16 21:14 | PN ---
DATE: 10/16/2018 SUBJECTIVE: The patient is seen lying in bed. She complains of a cough. She complains of shortness of breath. She is still wheezing. PHYSICAL EXAMINATION GENERAL: An obese middle aged lady lying in bed. VITAL SIGNS: Blood pressure 120/71, heart rate 60, respiratory rate 18, temperature 98. HEENT: Normocephalic, atraumatic, positive pallor. NECK: Supple, no JVD. LUNGS: Bilateral equal air entry, bilateral expiratory wheeze, prolonged expiration. CARDIAC: S1, S2, regular rate and rhythm, no murmur, no rub. ABDOMEN: Obese, distended, soft, nontender, bowel sounds present. EXTREMITIES: Trace lower extremity edema. INTAKE AND OUTPUT: Not charted. LABORATORY DATA: WBC 11, hemoglobin 12, hematocrit 37, platelets 227. Sodium 133, potassium 5.8, chloride 92, BUN 67, creatinine 10, glucose 237, calcium 7, phosphorus 6.3. Blood cultures no growth. CURRENT MEDICATIONS: Aspirin, doxycycline 100 mg every 12 hours, DuoNeb, Eliquis 2.5 mg b.i.d., Auryxia two tablets t.i.d., 5 mg daily, MiraLax 17 mg b.i.d., Protonix, Pulmicort, Singulair, Solu-Medrol, Xopenex. ASSESSMENT 1. Asthma exacerbation. 2. Hyperkalemia. 3. Severe constipation. 4. End-stage renal disease. PLAN 1. Kayexalate 30 g p.o. x1 dose, will likely help with constipation. 2. Serial dialysis today. 3. Continue respiratory treatments. 4. Continue empiric antibiotics. 5. Will assess for dialysis again tomorrow. Mame Kruse MD
[2018-10-17] MEDS: Albuterol-Ipratrop 3 mg / 0.5 (3 ml) UD IH SCH ×4 (01:25→20:36)
[2018-10-17 05:59] LABS: HEMOGLOBIN 12.4 g/dL (12.0-16.0); LYMPH # 0.7 (1.2-3.4); LYMPH % 7.5 % (22.0-35.0); MEAN CELL VOLUME 93.9 fl (80.0-105.0); MEAN CORPUSCULAR HEMOGLOBIN 30.4 pg (25.0-35.0); MEAN CORPUSCULAR HGB CONC 32.4 g/dl (31.0-37.0); MEAN PLATELET VOLUME 9.2 fl (7.0-11.0); MONO # 0.2 (0.1-0.6); MONO % 1.9 % (1.0-6.0); RBC 4.08 10^6/uL (3.5-6.1); RED CELL DISTRIBUTION WIDTH 14.2 % (11.5-14.5); WHITE BLOOD COUNT 9.9 10^3/uL (4.5-11.0)
[2018-10-17 06:25] LABS: ALB/GLOB RATIO 1.1 (1.1-1.8); ALBUMIN 3.6 g/dL (3.0-4.8); CALCIUM 7.4 mg/dL (8.4-10.5)
[2018-10-17] MEDS: Budesonide 0.5 mg/2 ml Inhal Susp UD IH SCH ×2 (07:37→19:35)
[2018-10-17] MEDS: Insulin Reg-MEDIUM-Coverage SC SCH ×4 (07:44→21:44)
[2018-10-17] MEDS: Pantoprazole 40 mg EC Tab PO SCH (09:10)
[2018-10-17] MEDS: POLYETHYLENE GLYCOL 3350 17 GM/Dose PACKET PO SCH ×2 (09:11→17:33)
[2018-10-17] MEDS: FERRIC CITRATE PO SCH ×3 (09:12→17:56)
--- NOTE | 2018-10-17 09:49 | PN ---
DATE: 10/17/2018 [employer] OFFBEARER NOTE SUBJECTIVE: The patient is resting in bed, O2 via nasal cannula. States that she does feel much better with the aggressive treatment for her asthma. She continues to have slight wheeze and occasional cough. No nauseousness or vomiting. No chest pain or abdominal pain. PHYSICAL EXAMINATION: VITAL SIGNS: Note that her temperature is 98.7, pulse is 91, respirations of 20 and BP is 130/65. SKIN: Warm and dry. HEENT: Head atraumatic and normocephalic. Eyes reactive to light. Ear, nose and throat seem to be within normal limits. NECK: Supple. No JVD. No thyroid enlargement. No lymph nodes. HEART: Has regular rate and rhythm. Normal S1 and S2. LUNGS: Reveal mild wheezing bilaterally. ABDOMEN: Soft. Decreased bowel sounds. GENITALIA: Deferred. RECTAL: Deferred. MUSCULOSKELETAL: No obvious deformities. EXTREMITIES: Note that the patient has complaints of cold fingers in the extremities all the time, she actually had gloves on her hands. NEUROLOGICAL: She seemed to be grossly intact. LABORATORY DATA: As far as her laboratories are concerned, her white count is 9.9, hemoglobin of 12.4, hematocrit 38.3 with platelets of 206,000. Arterial blood gas is 7.54, pCO2 of 40 and pO2 of 84. Sodium is 135, potassium 5.2, chloride 91, CO2 of 28 with a BUN of 56 and creatinine of 6.7 and glucose of 266. IMPRESSION: The patient has acute exacerbation of her asthma and has a history of end-stage renal disease and hypertension, prior cerebrovascular accidents, congestive heart failure and homocystinuria. PLAN: We will continue with aspirin and doxycycline, DuoNeb as well as her Eliquis and is negative. The patient is on some MiraLax as well as Protonix, Pulmicort, Singulair and Solu-Medrol. We will continue to treat aggressively along with the other consultants and the primary care doctor. Mark Alves MD
--- NOTE | 2018-10-17 12:38 | CP.PCM.PN ---
<Florentin Dhaliwal - Last Filed: 10/17/18 12:26> Subjective - Date & Time of Evaluation Date of Evaluation: 10/17/18 Time of Evaluation: 08:00 - Subjective Subjective: INTERNAL MEDICINE PROGRESS NOTE FOR DR. JAGJIT Dhaliwal PGY1 Pt seen and examined at bedside this am in ICU. Pt transferred to ICU for close monitoring. Pt was placed on supplemental O2 overnight. No acute events. She reports continued SOB, however denying rest of ROS. Objective - Vital Signs/Intake and Output Vital Signs (last 24 hours): Temp Pulse Resp BP Pulse Ox 98.8 F 90 24 129/93 H 100 10/17/18 08:00 10/17/18 10:01 10/17/18 10:01 10/17/18 10:01 10/17/18 10:01 - Medications Medications: Current Medications Albuterol/Ipratropium (Duoneb 3 Mg/0.5 Mg (3 Ml) Ud) 3 ml IH [id number] [facility] Last Admin: 10/17/18 07:36 Dose: 3 ml Albuterol/Ipratropium (Duoneb 3 Mg/0.5 Mg (3 Ml) Ud) 3 ml IH Q2 PRN PRN Reason: Shortness of Breath Last Admin: 10/15/18 11:14 Dose: 3 ml Apixaban (Eliquis) 2.5 mg PO BID [facility]; Protocol Last Admin: 10/17/18 09:10 Dose: 2.5 mg Aspirin (Aspirin Chewable) 81 mg PO DAILY [facility] Last Admin: 10/17/18 09:10 Dose: 81 mg Budesonide (Pulmicort Respules) 0.5 mg IH [id number] [facility] Last Admin: 10/17/18 07:37 Dose: 0.5 mg Doxycycline Hyclate (Doryx) 100 mg PO Q12 [facility] Last Admin: 10/17/18 09:10 Dose: 100 mg Insulin Human Regular (Humulin R Med) 0 units SC [facility]; Protocol Last Admin: 10/17/18 11:18 Dose: 5 u Loratadine (Claritin) 10 mg PO DAILY [facility] Last Admin: 10/17/18 09:10 Dose: 10 mg Methylprednisolone (Solu-Medrol) 60 mg IVP Q12 [facility] Last Admin: 10/17/18 09:09 Dose: 60 mg Montelukast Sodium (Singulair) 10 mg PO HS [facility] Last Admin: 10/16/18 21:39 Dose: 10 mg Ferric Citrate [ Auryxia] 2 Tab (Home Med) 2 tab PO TID [facility] Last Admin: 10/17/18 09:12 Dose: 2 tab Levocetirizine Dihydrochloride [ Xyzal] 5 Mg (Home Med) 5 mg PO DAILY [facility] Last Admin: 10/17/18 09:14 Dose: Not Given Pantoprazole Sodium (Protonix Ec Tab) 40 mg PO DAILY [facility] Last Admin: 10/17/18 09:10 Dose: 40 mg Polyethylene Glycol (Miralax) 17 gm PO BID [facility] Last Admin: 10/17/18 09:11 Dose: Not Given - Labs Labs: 10/17/18 05:15 10/17/18 05:15 - Constitutional Appears: Well, Non-toxic, No Acute Distress - Head Exam Head Exam: NORMAL INSPECTION, NORMOCEPHALIC - Eye Exam Eye Exam: EOMI, Normal appearance - ENT Exam ENT Exam: Mucous Membranes Moist, Normal Exam - Respiratory Exam Respiratory Exam: Wheezes. absent: Rales, Rhonchi Additional comments: large neck circumference - Cardiovascular Exam Cardiovascular Exam: REGULAR RHYTHM, +S1, +S2 - GI/Abdominal Exam GI & Abdominal Exam: Soft. absent: Tenderness - Extremities Exam Extremities Exam: Normal Inspection. absent: Tenderness - Back Exam Back Exam: NORMAL INSPECTION. absent: CVA tenderness (L), CVA tenderness (R) - Neurological Exam Neurological Exam: Alert, Awake, Oriented x3 - Psychiatric Exam Psychiatric exam: Normal Affect, Normal Mood - Skin Skin Exam: Dry, Intact, Warm Assessment and Plan - Assessment and Plan (Free Text) Assessment: 53 year old female with PMH asthma on home daily prednisone, CVA, hx elevated homocysteine, ESRD on HD admitted for asthma exacerbation in the setting of ESRD Plan: Shortness of breath - Upper airway wheezing noted on exam likely 2/2 asthma exacerbation, afebrile, no leukocytosis, lactate wnl - will start loratidine and obtain IgE level for allergic asthma - will start daily cpap. Bipap prn for SOB - will continue solumedrol 60Q12, will taper when improvement noted - continue duonebs q6 h filiberto and q2 prn, singulair, budesonide - continue Doxycyline (will hold azithromycin in setting of prolonged qtc) - Pulmonology consulted - blood cultures have been negative so far - monitor respiratory status on telemetry ESRD on HD MWF - currently doesn't require emergent dialysis - continue HD regimen when hospitalized - nephrology Dr Peralta consulted. f/u recs. - continue with home Auryxia 3 tabs PO TID Hyperkalemia - Will continue albuterol, insulin - ISS sliding scale Constipation - miralax bid filiberto. monitor BMs. if > 1 or liquidy BMs, will make it prn DM2 -A1c this admission is 6.9% -continue insulin sliding scale - hospital educator consulted Hx of CVA: - continue aspirin and eliquis Diet: renal, HHD, diabetic GI/DVT ppx: protonix, eliquis Case reviewed with attending physician, Dr. Jagjit Dhaliwal PGY1 <Elin Woodall - Last Filed: 10/18/18 11:11> Objective - Vital Signs/Intake and Output Vital Signs (last 24 hours): Temp Pulse Resp BP Pulse Ox 98.2 F 89 36 H 121/76 93 L 10/17/18 12:00 10/17/18 14:00 10/17/18 14:00 10/17/18 13:59 10/17/18 14:00 - Medications Medications: Current Medications Albuterol/Ipratropium (Duoneb 3 Mg/0.5 Mg (3 Ml) Ud) 3 ml IH [id number] [facility] Last Admin: 10/17/18 14:39 Dose: 3 ml Albuterol/Ipratropium (Duoneb 3 Mg/0.5 Mg (3 Ml) Ud) 3 ml IH Q2 PRN PRN Reason: Shortness of Breath Last Admin: 10/15/18 11:14 Dose: 3 ml Apixaban (Eliquis) 2.5 mg PO BID [facility]; Protocol Last Admin: 10/17/18 09:10 Dose: 2.5 mg Aspirin (Aspirin Chewable) 81 mg PO DAILY [facility] Last Admin: 10/17/18 09:10 Dose: 81 mg Budesonide (Pulmicort Respules) 0.5 mg IH [id number] [facility] Last Admin: 10/17/18 07:37 Dose: 0.5 mg Doxycycline Hyclate (Doryx) 100 mg PO Q12 [facility] Last Admin: 10/17/18 09:10 Dose: 100 mg Insulin Human Regular (Humulin R Med) 0 units SC ACHS [facility]; Protocol Last Admin: 10/17/18 11:18 Dose: 5 u Loratadine (Claritin) 10 mg PO DAILY [facility] Last Admin: 10/17/18 09:10 Dose: 10 mg Methylprednisolone (Solu-Medrol) 60 mg IVP Q12 [facility] Last Admin: 10/17/18 09:09 Dose: 60 mg Montelukast Sodium (Singulair) 10 mg PO HS [facility] Last Admin: 10/16/18 21:39 Dose: 10 mg Ferric Citrate [ Auryxia] 2 Tab (Home Med) 2 tab PO TID [facility] Last Admin: 10/17/18 13:58 Dose: Not Given Levocetirizine Dihydrochloride [ Xyzal] 5 Mg (Home Med) 5 mg PO DAILY [facility] Last Admin: 10/17/18 09:14 Dose: Not Given Pantoprazole Sodium (Protonix Ec Tab) 40 mg PO DAILY [facility] Last Admin: 10/17/18 09:10 Dose: 40 mg Polyethylene Glycol (Miralax) 17 gm PO BID [facility] Last Admin: 10/17/18 09:11 Dose: Not Given Sodium Polystyrene Sulfonate (Kayexalate) 15 gm PO ONCE ONE Stop: 10/17/18 14:42 - Labs Labs: 10/17/18 05:15 10/17/18 05:15 Attending/Attestation - Attestation I have personally seen and examined this patient.: Yes I have fully participated in the care of the patient.: Yes I have reviewed all pertinent clinical information, including history, physical exam and plan: Yes Notes (Text): Attending note; Patient seen and examined with resident in ICU. Patient is alert and awake. still Complaining of wheezing. denies any fevers, chills. Denies any cough or sputum production. Patient is a 53-year-old female with past medical history significant for end- stage renal disease on dialysis Friday, Friday, and Friday, asthma, CVA, TIA, and hypertension that presented to the emergency room with shortness of breath and wheezing . 1. Asthma exacerbation ; wheezing and chest tightness is improving slowly. currently on oxygen nasal cannula. Continue DuoNeb. Started on IV Solu-Medrol. continue Singulair and Pulmicort inhaler. Pulmonary evaluation appreciated. Patient started on loratadine. IgE level ordered. Patient has normal eosinophil count. 2. Hyperkalemia. Low potassium diet ordered. Patient will get dialysis today. Kayexalate ordered. Continue albuterol and insulin. 3. ESRD hemodialysis Friday: Patient will get dialysis today .follow-up with nephrology closely. 4. History of CVA. Continue ASA and Eliquis. 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 History of homocystinuria. 5. Diabetes; continue regular insulin sliding scale. 6. Obesity; diet and exercise recommended . Dietitian evaluation appreciated. Out of bed to chair as tolerated. Patient closely in ICU. CPAP as needed at night. Patient does not use CPAP at home. Upon discharge the patient will follow up with PMD .
[2018-10-18] MEDS: Levalbuterol 1.25 MG/3 ML Inhal Soln UD IH SCH ×4 (01:40→19:47)
[2018-10-18 06:08] LABS: BASO # 0.01 K/mm3 (0.0-2.0); BASO % 0.1 % (0.0-3.0); HEMOGLOBIN 12.8 g/dL (12.0-16.0); LYMPH # 0.7 (1.2-3.4); LYMPH % 5.6 % (22.0-35.0); MEAN CELL VOLUME 94.1 fl (80.0-105.0); MEAN CORPUSCULAR HGB CONC 31.9 g/dl (31.0-37.0); MONO # 0.4 (0.1-0.6); RBC 4.26 10^6/uL (3.5-6.1); RED CELL DISTRIBUTION WIDTH 14.2 % (11.5-14.5); WHITE BLOOD COUNT 11.9 10^3/uL (4.5-11.0)
[2018-10-18 06:18] LABS: CALCIUM 7.6 mg/dL (8.4-10.5)
[2018-10-18 06:19] LABS: ALBUMIN 3.7 g/dL (3.0-4.8)
[2018-10-18] MEDS: Insulin Reg-MEDIUM-Coverage SC SCH ×4 (07:41→22:05)
[2018-10-18] MEDS: Budesonide 0.5 mg/2 ml Inhal Susp UD IH SCH ×2 (07:49→19:47)
[2018-10-18] MEDS: FERRIC CITRATE PO SCH ×3 (09:13→17:24)
[2018-10-18] MEDS: Pantoprazole 40 mg EC Tab PO SCH (09:14)
[2018-10-18] MEDS: POLYETHYLENE GLYCOL 3350 17 GM/Dose PACKET PO SCH ×2 (09:14→17:25)
--- NOTE | 2018-10-18 10:42 | CP.PCM.PN ---
<Florentin Dhaliwal - Last Filed: 10/18/18 10:37> Subjective - Date & Time of Evaluation Date of Evaluation: 10/18/18 Time of Evaluation: 08:00 - Subjective Subjective: INTERNAL MEDICINE PROGRESS NOTE FROM DR. JAGJIT Dhaliwal PGY1 Pt seen and examined at bedside this am in ICU. Pt reports improvement in SOB. She has not required Bipap overnight. She tolerated HD session well yesterday. Overnight pt went into SVT with 180-190bpm. Duoneb tx held, xopenex treatment done. SVT resolved spontaneous prior to EKG. Pt denied any chest pain, palpitations, SOB, n/v/c/d overnight. She denies complaints today. Objective - Vital Signs/Intake and Output Vital Signs (last 24 hours): Temp Pulse Resp BP Pulse Ox 98 F 81 19 110/61 97 10/18/18 04:00 10/18/18 06:00 10/18/18 06:00 10/18/18 06:00 10/18/18 06:00 Intake and Output: 10/18/18 10/18/18 06:59 18:59 Intake Total 300 Output Total 0 Balance 300 - Medications Medications: Current Medications Albuterol/Ipratropium (Duoneb 3 Mg/0.5 Mg (3 Ml) Ud) 3 ml IH [id number] [facility] Last Admin: 10/17/18 20:36 Dose: 3 ml Albuterol/Ipratropium (Duoneb 3 Mg/0.5 Mg (3 Ml) Ud) 3 ml IH Q2 PRN PRN Reason: Shortness of Breath Last Admin: 10/15/18 11:14 Dose: 3 ml Apixaban (Eliquis) 2.5 mg PO BID [facility]; Protocol Last Admin: 10/18/18 09:13 Dose: 2.5 mg Aspirin (Aspirin Chewable) 81 mg PO DAILY [facility] Last Admin: 10/18/18 09:12 Dose: 81 mg Budesonide (Pulmicort Respules) 0.5 mg IH [id number] [facility] Last Admin: 10/18/18 07:49 Dose: 0.5 mg Doxycycline Hyclate (Doryx) 100 mg PO Q12 [facility] Last Admin: 10/18/18 09:13 Dose: 100 mg Insulin Human Regular (Humulin R Med) 0 units SC [facility]; Protocol Last Admin: 10/18/18 07:41 Dose: 5 u Levalbuterol HCl (Xopenex) 1.25 mg IH Q6H [facility] Last Admin: 10/18/18 07:49 Dose: 1.25 mg Loratadine (Claritin) 10 mg PO DAILY [facility] Last Admin: 10/18/18 09:13 Dose: 10 mg Methylprednisolone (Solu-Medrol) 60 mg IVP Q12 [facility] Last Admin: 10/18/18 09:13 Dose: 60 mg Montelukast Sodium (Singulair) 10 mg PO HS [facility] Last Admin: 10/17/18 21:41 Dose: 10 mg Ferric Citrate [ Auryxia] 2 Tab (Home Med) 2 tab PO TID [facility] Last Admin: 10/18/18 09:13 Dose: 2 tab Levocetirizine Dihydrochloride [ Xyzal] 5 Mg (Home Med) 5 mg PO DAILY [facility] Last Admin: 10/18/18 09:20 Dose: Not Given Pantoprazole Sodium (Protonix Ec Tab) 40 mg PO DAILY [facility] Last Admin: 10/18/18 09:14 Dose: 40 mg Polyethylene Glycol (Miralax) 17 gm PO BID [facility] Last Admin: 10/18/18 09:14 Dose: 17 gm - Labs Labs: 10/18/18 05:00 10/18/18 05:00 - Constitutional Appears: Well, Non-toxic, No Acute Distress - Head Exam Head Exam: NORMAL INSPECTION, NORMOCEPHALIC - Eye Exam Eye Exam: EOMI, Normal appearance - ENT Exam ENT Exam: Mucous Membranes Moist, Normal Exam - Respiratory Exam Respiratory Exam: Wheezes. absent: Rales, Rhonchi Additional comments: large neck circumference - Cardiovascular Exam Cardiovascular Exam: REGULAR RHYTHM, +S1, +S2 - GI/Abdominal Exam GI & Abdominal Exam: Soft. absent: Tenderness - Extremities Exam Extremities Exam: Normal Inspection. absent: Tenderness - Back Exam Back Exam: NORMAL INSPECTION. absent: CVA tenderness (L), CVA tenderness (R) - Neurological Exam Neurological Exam: Alert, Awake, Oriented x3 - Psychiatric Exam Psychiatric exam: Normal Affect, Normal Mood - Skin Skin Exam: Dry, Intact, Warm Assessment and Plan - Assessment and Plan (Free Text) Assessment: 53 year old female with PMH asthma on home daily prednisone, CVA, hx elevated homocysteine, ESRD on HD admitted for asthma exacerbation in the setting of ESRD Plan: Shortness of breath - Upper airway wheezing noted on exam likely 2/2 asthma exacerbation, afebrile, no leukocytosis, lactate wnl. Improved today - continue loratidine, f/u IgE level - Bipap prn for SOB - will decrease solumedrol to 40Q12, will continue tapering - continue duonebs q6 h filiberto and q2 prn, singulair, budesonide - continue Doxycyline (will hold azithromycin in setting of prolonged qtc) - Pulmonology consulted - blood cultures have been negative so far - monitor respiratory status on telemetry ESRD on HD MWF - s/p extra HD session yesterday with 2L net fluid removed - continue HD regimen when hospitalized - nephrology Dr Peralta consulted. f/u recs. - continue with home Auryxia 3 tabs PO TID Hyperkalemia - Will continue albuterol, insulin - ISS sliding scale Constipation - miralax bid filiberto. monitor BMs. if > 1 or liquidy BMs, will make it prn DM2 - A1c this admission is 6.9% - continue insulin sliding scale - bowling alley operator consulted Hx of CVA: - continue aspirin and eliquis - Pt has baseline speech impediment impairing her ability to complete sentences Obesity - diet/exercise recommended. Casing In Line Setter eval ordered Activity: OOB to chair. PT eval & treat ordered Diet: renal, HHD, diabetic GI/DVT ppx: protonix, eliquis Dispo: Pt to f/u with PMD. Dr. Renteria. Will attempt to obtain medical records Case reviewed with attending physician, Dr. Jagjit Dhaliwal PGY1 <Elin Woodall - Last Filed: 10/18/18 11:16> Objective - Vital Signs/Intake and Output Vital Signs (last 24 hours): Temp Pulse Resp BP Pulse Ox 98 F 81 19 110/61 97 10/18/18 04:00 10/18/18 06:00 10/18/18 06:00 10/18/18 06:00 10/18/18 06:00 Intake and Output: 10/18/18 10/18/18 06:59 18:59 Intake Total 300 Output Total 0 Balance 300 - Medications Medications: Current Medications Albuterol/Ipratropium (Duoneb 3 Mg/0.5 Mg (3 Ml) Ud) 3 ml IH [id number] [facility] Last Admin: 10/17/18 20:36 Dose: 3 ml Albuterol/Ipratropium (Duoneb 3 Mg/0.5 Mg (3 Ml) Ud) 3 ml IH Q2 PRN PRN Reason: Shortness of Breath Last Admin: 10/15/18 11:14 Dose: 3 ml Apixaban (Eliquis) 2.5 mg PO BID [facility]; Protocol Last Admin: 10/18/18 09:13 Dose: 2.5 mg Aspirin (Aspirin Chewable) 81 mg PO DAILY [facility] Last Admin: 10/18/18 09:12 Dose: 81 mg Budesonide (Pulmicort Respules) 0.5 mg IH [id number] [facility] Last Admin: 10/18/18 07:49 Dose: 0.5 mg Doxycycline Hyclate (Doryx) 100 mg PO Q12 [facility] Last Admin: 10/18/18 09:13 Dose: 100 mg Insulin Human Regular (Humulin R Med) 0 units SC ACHS [facility]; Protocol Last Admin: 10/18/18 07:41 Dose: 5 u Levalbuterol HCl (Xopenex) 1.25 mg IH Q6H [facility] Last Admin: 10/18/18 07:49 Dose: 1.25 mg Loratadine (Claritin) 10 mg PO DAILY [facility] Last Admin: 10/18/18 09:13 Dose: 10 mg Methylprednisolone (Solu-Medrol) 40 mg IVP Q12 [facility] Last Admin: 10/18/18 10:54 Dose: Not Given Montelukast Sodium (Singulair) 10 mg PO HS [facility] Last Admin: 10/17/18 21:41 Dose: 10 mg Ferric Citrate [ Auryxia] 2 Tab (Home Med) 2 tab PO TID [facility] Last Admin: 10/18/18 09:13 Dose: 2 tab Levocetirizine Dihydrochloride [ Xyzal] 5 Mg (Home Med) 5 mg PO DAILY [facility] Last Admin: 10/18/18 09:20 Dose: Not Given Pantoprazole Sodium (Protonix Ec Tab) 40 mg PO DAILY [facility] Last Admin: 10/18/18 09:14 Dose: 40 mg Polyethylene Glycol (Miralax) 17 gm PO BID [facility] Last Admin: 10/18/18 09:14 Dose: 17 gm - Labs Labs: 10/18/18 05:00 10/18/18 05:00 Attending/Attestation - Attestation I have personally seen and examined this patient.: Yes I have fully participated in the care of the patient.: Yes I have reviewed all pertinent clinical information, including history, physical exam and plan: Yes Notes (Text): 10/18/18 11:12 Attending note; Patient seen and examined with resident in ICU. Patient is alert and awake. still Complaining of wheezing. Improving slowly. denies any fevers, chills. Denies any cough or sputum production. Patient is a 53-year-old female with past medical history significant for end- stage renal disease on dialysis Friday, Friday, and Friday, asthma, CVA, TIA, and hypertension that presented to the emergency room with shortness of breath and wheezing . 1. Asthma exacerbation ; wheezing and chest tightness is improving slowly. currently on oxygen nasal cannula. Continue DuoNeb. Started on IV Solu-Medrol. we will taper steroids. continue Singulair and Pulmicort inhaler. Pulmonary evaluation appreciated. 2. Hyperkalemia. Low potassium diet ordered. Patient will got dialysis yesterday. Continue albuterol and insulin. 3. ESRD hemodialysis Friday: Patient will get dialysis yesterday. Next dialysis is due tomorrow. 4. History of CVA. Continue ASA and Eliquis. 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 History of homocystinuria. 5. Diabetes; continue regular insulin sliding scale. 6. Obesity; diet and exercise recommended . Dietitian evaluation appreciated. 7. Episodes of tachycardia; sinus tachycardia versus SVT. Patient was asymptom atic. Spontaneously resolved . No tachycardia noted. Out of bed to chair as tolerated. Transfer out of ICU. CPAP as needed at night. Patient does not use CPAP at home. We will follow-up with foster care case manager for discharge planning. Upon discharge the patient will follow up with PMD . 10/18/18 11:15
[2018-10-18] MEDS: MethylPREDNISolone 40 mg Vial IVP SCH ×2 (10:54→22:04)
--- NOTE | 2018-10-18 12:57 | PN ---
DATE: 10/18/2018 RABBLE FURNACE TENDER NOTE SUBJECTIVE: The patient is resting in bed with O2 via nasal cannula, feeling much better today. No complaints of wheezing, shortness of breath, cough, chest congestion, no chest pain. The patient does have history of asthma and that was the initial diagnosis. PHYSICAL EXAMINATION: VITAL SIGNS: Temperature is 98, pulse is 81, respirations of 19 and BP is 110/61, O2 saturation is 97%. HEENT: Head is atraumatic, normocephalic. Eyes reactive to light. Ear, nose and throat seem to be within normal limits. NECK: Supple. No JVD. No thyroid enlargement. No lymph nodes. HEART: Regular rate and rhythm. Normal S1, S2. LUNGS: Reveal good breath sounds bilaterally. ABDOMEN: Soft. Decreased bowel sounds. GENITALIA: Deferred. RECTAL: Deferred. MUSCULOSKELETAL: No joint deformities. EXTREMITIES: Reveal trace lower extremity edema. NEUROLOGICAL: She is grossly intact. LABORATORY DATA: White count is 11.9, hemoglobin is 12.8, hematocrit 40.1 with platelets of 232,000. Sodium is 134, potassium 5.2, chloride 94, CO2 of 26 with a BUN of 61, creatinine of 6.6 and a glucose of 276. IMPRESSION: The patient presented with acute exacerbation of her asthma, has a history of end-stage renal disease and hypertension as well as prior history of cerebrovascular accident, congestive heart failure, and homocystinuria. PLAN: The patient will continue with aspirin, doxycycline, DuoNeb, and Eliquis. The patient is on MiraLax as well as Protonix, Pulmicort, Singulair, and Solu-Medrol. We will continue to treat aggressively along with the other consultants and her primary care doctor. Mark Alves MD
[2018-10-19] MEDS: Levalbuterol 1.25 MG/3 ML Inhal Soln UD IH SCH ×4 (02:11→19:33)
--- NOTE | 2018-10-19 03:04 | PN ---
DATE: 10/17/2018 SUBJECTIVE: The patient is seen in the ICU. She is awake. She is alert. She is in moderate respiratory distress. She is wheezing. She was brought to the ICU because of worsening respiratory failure, wheezing and stridor. She is currently on CPAP. She denies any chest pain. She denies any palpitations. PHYSICAL EXAMINATION: GENERAL: A morbidly obese, middle-aged lady lying in bed in the ICU. VITAL SIGNS: Blood pressure is 120/44, heart rate 82, respiratory rate 22, temperature 98.5. HEENT: Normocephalic, atraumatic, positive pallor. NECK: Supple. No JVD. LUNGS: Bilateral rhonchi, bilateral expiratory wheeze, prolonged expiration. CARDIAC: S1 and S2, regular rate and rhythm. No murmur, no rub. ABDOMEN: Obese, distended, soft, nontender, bowel sounds present. EXTREMITIES: No lower extremity edema. LABORATORY DATA: WBC 9.9, hemoglobin 12.4, hematocrit 38, platelets 206. Sodium 136, potassium 4.8, chloride 95, CO2 of 28, BUN 40, creatinine 5.3, glucose 186, calcium 8, phosphorus 5.4, magnesium 1.8, AST 47, ALT 26, albumin 3.6. Hepatitis B serology negative. ABG on 10/16/2018 showing pH of 7.5, pCO2 of 40, pO2 of 84. Blood cultures, no growth. Echocardiogram from 10/15/2018: Normal left ventricular wall thickness, normal LV function, normal EF, normal segmental wall motion. Mild pulmonary hypertension. CURRENT MEDICATIONS: Aspirin 81, Claritin 10, doxycycline 100 every 12 hours, DuoNeb, Eliquis 2.5 b.i.d., Auryxia, Humulin, Xyzal, MiraLax, Protonix, Pulmicort, Singulair, Solu-Medrol 40 IV every 12 hours, Tylenol and Xopenex. ASSESSMENT: 1. Severe acute asthma exacerbation/respiratory failure. 2. End-stage renal disease. 3. Volume overload. 4. Hypertension. 5. History of cerebrovascular accident. 6. Hyperkalemia. 7. Anemia of chronic kidney disease. PLAN: 1. Agree with placing on noninvasive positive-pressure ventilation. 2. Agree with high-dose steroids. 3. Agree with empiric antibiotics. 4. We will provide extra dialysis and ultrafiltration today. 5. Continue to monitor in the ICU setting. 6. Case discussed with ICU resident, case discussed with Dr. Woodall. More than 35 minutes was spent in the care of this critically ill patient. Mame Kruse MD
[2018-10-19 06:56] LABS: BASO # 0.01 K/mm3 (0.0-2.0); BASO % 0.1 % (0.0-3.0); LYMPH % 7.5 % (22.0-35.0); MEAN CELL VOLUME 92.6 fl (80.0-105.0); MEAN CORPUSCULAR HEMOGLOBIN 29.7 pg (25.0-35.0); MEAN CORPUSCULAR HGB CONC 32.1 g/dl (31.0-37.0); MEAN PLATELET VOLUME 9.2 fl (7.0-11.0); MONO # 0.5 (0.1-0.6); MONO % 3.7 % (1.0-6.0); RBC 4.04 10^6/uL (3.5-6.1); RED CELL DISTRIBUTION WIDTH 14.1 % (11.5-14.5); WHITE BLOOD COUNT 12.9 10^3/uL (4.5-11.0)
[2018-10-19] MEDS: Budesonide 0.5 mg/2 ml Inhal Susp UD IH SCH ×2 (07:33→19:33)
[2018-10-19 07:38] LABS: ALBUMIN 3.4 g/dL (3.0-4.8); CALCIUM 6.9 mg/dL (8.4-10.5)
[2018-10-19] MEDS: Insulin Reg-MEDIUM-Coverage SC SCH ×4 (08:11→21:43)
[2018-10-19] MEDS: Pantoprazole 40 mg EC Tab PO SCH (09:14)
[2018-10-19] MEDS: MethylPREDNISolone 40 mg Vial IVP SCH ×2 (09:14→21:35)
[2018-10-19] MEDS: POLYETHYLENE GLYCOL 3350 17 GM/Dose PACKET PO SCH ×2 (09:14→17:57)
[2018-10-19] MEDS: FERRIC CITRATE PO SCH ×3 (09:16→17:57)
--- NOTE | 2018-10-19 11:22 | CP.CCUPN ---
<MaxwellMarco Antonio - Last Filed: 10/19/18 11:28> CCU Subjective - Physician Review Events Since Last Encounter (Free Text): 10/19/18 11:19 no acute events overnight Subjective (Free Text): 10/19/18 11:19 pt seen and examined, denies chest pain or SOB CCU Objective - Vital Signs / Intake & Output Vital Signs (Last 4 hours): Vital Signs Temp Pulse Resp BP Pulse Ox 10/19/18 10:00 118/63 10/19/18 09:59 87 19 100 10/19/18 09:00 112/56 L 10/19/18 08:59 91 H 23 100 10/19/18 08:00 97.7 F 89 24 141/57 L 100 Intake and Output (Last 8hrs): Intake & Output 10/18/18 10/19/18 10/19/18 22:59 06:59 14:59 Intake Total 600 Output Total 0 Balance 600 Intake: Oral 600 Output: Urine 0 Urine, Voided 0 Other: # Bowel Movements 2 1 - Physical Exam Head: Positive for: Atraumatic, Normocephalic Pupils: Positive for: PERRL Extroacular Muscles: Positive for: EOMI Conjunctiva: Positive for: Normal Mouth: Positive for: Moist Mucous Membranes Neck: Positive for: Normal Range of Motion Respiratory/Chest: Positive for: Wheezes (diffuse wheezing ). Negative for: Respiratory Distress, Accessory Muscle Use Cardiovascular: Positive for: Regular Rate and Rhythm, Normal S1, S2. Negative for: Murmurs, Rub, Gallop Abdomen: Positive for: Normal Bowel Sounds. Negative for: Tenderness, Distention, Peritoneal Signs, Rebound, Guarding Back: Positive for: Normal Inspection Upper Extremity: Positive for: Normal ROM, NORMAL PULSES, Neurovascularly Intact, Capillary Refill < 2s, Other (left upper extremity positive thrill and bruit). Negative for: Cyanosis, Edema Lower Extremity: Positive for: Normal Inspection, NORMAL PULSES, Normal ROM, Neurovascularly Intact, Capillary Refill < 2 s. Negative for: Edema Neurological: Positive for: GCS=15, CN II-XII Intact, Speech Normal Skin: Positive for: Warm, Dry, Normal Color. Negative for: Rashes Psychiatric: Positive for: Alert, Oriented x 3, Normal Insight, Normal Concentration - Medications Active Medications: Active Medications Generic Name Dose Route Start Last Admin Trade Name Freq PRN Reason Stop Dose Admin Acetaminophen 650 mg 10/18/18 19:00 10/18/18 19:07 Tylenol 325mg Tab PO 650 mg Q6H PRN Administration Headache Albuterol/Ipratropium 3 ml 10/14/18 20:00 10/17/18 20:36 Duoneb 3 Mg/0.5 Mg (3 Ml) Ud IH 3 ml [id number] NASIR Administration Albuterol/Ipratropium 3 ml 10/14/18 19:53 10/15/18 11:14 Duoneb 3 Mg/0.5 Mg (3 Ml) Ud IH 3 ml Q2 PRN Administration Shortness of Breath Apixaban 2.5 mg 10/15/18 10:00 10/19/18 09:14 Eliquis PO 2.5 mg BID NASIR Administration Protocol Aspirin 81 mg 10/15/18 10:00 10/19/18 09:14 Aspirin Chewable PO 81 mg DAILY NASIR Administration Budesonide 0.5 mg 10/15/18 08:00 10/19/18 07:33 Pulmicort Respules IH 0.5 mg [id number] NASIR Administration Insulin Human Regular 0 units 10/15/18 09:30 10/19/18 08:11 Humulin R Med SC 3 u ACHS NASIR Administration Protocol Levalbuterol HCl 1.25 mg 10/18/18 06:00 10/19/18 07:33 Xopenex IH 1.25 mg Q6H NASIR Administration Loratadine 10 mg 10/17/18 10:00 10/19/18 09:14 Claritin PO 10 mg DAILY NASIR Administration Methylprednisolone 40 mg 10/18/18 10:45 10/19/18 09:14 Solu-Medrol IVP 40 mg Q12 NASIR Administration Montelukast Sodium 10 mg 10/15/18 22:00 10/18/18 22:04 Singulair PO 10 mg HS NASIR Administration Ferric Citrate [ 2 tab 10/15/18 10:00 10/19/18 09:16 Auryxia] 2 Tab (Home PO 2 tab Med) TID NASIR Administration Levocetirizine 5 mg 10/15/18 10:00 10/19/18 09:16 Dihydrochloride [ PO Not Given Xyzal] 5 Mg (Home DAILY NASIR Med) Pantoprazole Sodium 40 mg 10/15/18 10:00 10/19/18 09:14 Protonix Ec Tab PO 40 mg DAILY NASIR Administration Polyethylene Glycol 17 gm 10/14/18 20:15 10/19/18 09:14 Miralax PO 17 gm BID NASIR Administration - Patient Studies Lab Studies: Microbiology Studies 10/14/18 17:00 Blood Culture - Preliminary Blood-Venous NO GROWTH AFTER 4 DAYS 10/14/18 17:30 Blood Culture - Preliminary Blood-Venous NO GROWTH AFTER 4 DAYS Lab Studies 10/19/18 10/19/18 10/18/18 Range/Units 05:30 05:30 21:23 WBC 12.9 H (4.5-11.0) 10^3/uL RBC 4.04 (3.5-6.1) 10^6/uL Hgb 12.0 (12.0-16.0) g/dL Hct 37.4 (36.0-48.0) % MCV 92.6 (80.0-105.0) fl MCH 29.7 (25.0-35.0) pg MCHC 32.1 (31.0-37.0) g/dl RDW 14.1 (11.5-14.5) % Plt Count 251 (120.0-450.0) 10^3/uL MPV 9.2 (7.0-11.0) fl Neut % (Auto) 88.7 H (50.0-68.0) % Lymph % (Auto) 7.5 L (22.0-35.0) % Webb % (Auto) 3.7 (1.0-6.0) % Eos % (Auto) 0.0 L (1.5-5.0) % Baso % (Auto) 0.1 (0.0-3.0) % Lymph # (Auto) 1.0 L (1.2-3.4) Webb # (Auto) 0.5 (0.1-0.6) Eos # (Auto) 0.0 (0.0-0.7) Baso # (Auto) 0.01 (0.0-2.0) K/mm3 Absolute Neuts (auto) 11.43 H (1.4-6.5) Sodium 133 (132-148) mmol/L Potassium 5.3 H (3.6-5.0) mmol/L Chloride 94 L (98-107) mmol/L Carbon Dioxide 22 (21-33) mmol/L Anion Gap 22 H (10-20) BUN 99 H (7-21) mg/dL Creatinine 9.1 H* D (0.7-1.2) mg/dl Est GFR ( Amer) 6 Est GFR (Non-Af Amer) 5 POC Glucose (mg/dL) 270 H (65-110) mg/dL Random Glucose 224 H (70-110) mg/dL Calcium 6.9 L* (8.4-10.5) mg/dL Phosphorus 6.5 H (2.5-4.5) mg/dL Magnesium 1.9 (1.7-2.2) mg/dL Total Bilirubin 0.3 (0.2-1.3) mg/dL AST 30 (14-36) U/L ALT 35 (7-56) U/L Alkaline Phosphatase 69 (38-126) U/L Total Protein 6.7 (5.8-8.3) g/dL Albumin 3.4 (3.0-4.8) g/dL Globulin 3.3 gm/dL Albumin/Globulin Ratio 1.0 L (1.1-1.8) 10/18/18 10/18/18 10/18/18 Range/Units 16:27 13:48 06:33 WBC (4.5-11.0) 10^3/uL RBC (3.5-6.1) 10^6/uL Hgb (12.0-16.0) g/dL Hct (36.0-48.0) % MCV (80.0-105.0) fl MCH (25.0-35.0) pg MCHC (31.0-37.0) g/dl RDW (11.5-14.5) % Plt Count (120.0-450.0) 10^3/uL MPV (7.0-11.0) fl Neut % (Auto) (50.0-68.0) % Lymph % (Auto) (22.0-35.0) % Webb % (Auto) (1.0-6.0) % Eos % (Auto) (1.5-5.0) % Baso % (Auto) (0.0-3.0) % Lymph # (Auto) (1.2-3.4) Webb # (Auto) (0.1-0.6) Eos # (Auto) (0.0-0.7) Baso # (Auto) (0.0-2.0) K/mm3 Absolute Neuts (auto) (1.4-6.5) Sodium (132-148) mmol/L Potassium (3.6-5.0) mmol/L Chloride (98-107) mmol/L Carbon Dioxide (21-33) mmol/L Anion Gap (10-20) BUN (7-21) mg/dL Creatinine (0.7-1.2) mg/dl Est GFR ( Amer) Est GFR (Non-Af Amer) POC Glucose (mg/dL) 237 H 268 H 262 H (65-110) mg/dL Random Glucose (70-110) mg/dL Calcium (8.4-10.5) mg/dL Phosphorus (2.5-4.5) mg/dL Magnesium (1.7-2.2) mg/dL Total Bilirubin (0.2-1.3) mg/dL AST (14-36) U/L ALT (7-56) U/L Alkaline Phosphatase (38-126) U/L Total Protein (5.8-8.3) g/dL Albumin (3.0-4.8) g/dL Globulin gm/dL Albumin/Globulin Ratio (1.1-1.8) Laboratory Results - last 24 hr 10/18/18 10/18/18 10/18/18 06:33 13:48 16:27 WBC RBC Hgb Hct MCV MCH MCHC RDW Plt Count MPV Neut % (Auto) Lymph % (Auto) Webb % (Auto) Eos % (Auto) Baso % (Auto) Lymph # (Auto) Webb # (Auto) Eos # (Auto) Baso # (Auto) Absolute Neuts (auto) Sodium Potassium Chloride Carbon Dioxide Anion Gap BUN Creatinine Est GFR ( Amer) Est GFR (Non-Af Amer) POC Glucose (mg/dL) 262 H 268 H 237 H Random Glucose Calcium Phosphorus Magnesium Total Bilirubin AST ALT Alkaline Phosphatase Total Protein Albumin Globulin Albumin/Globulin Ratio 10/18/18 10/19/18 10/19/18 21:23 05:30 05:30 WBC 12.9 H RBC 4.04 Hgb 12.0 Hct 37.4 MCV 92.6 MCH 29.7 MCHC 32.1 RDW 14.1 Plt Count 251 MPV 9.2 Neut % (Auto) 88.7 H Lymph % (Auto) 7.5 L Webb % (Auto) 3.7 Eos % (Auto) 0.0 L Baso % (Auto) 0.1 Lymph # (Auto) 1.0 L Webb # (Auto) 0.5 Eos # (Auto) 0.0 Baso # (Auto) 0.01 Absolute Neuts (auto) 11.43 H Sodium 133 Potassium 5.3 H Chloride 94 L Carbon Dioxide 22 Anion Gap 22 H BUN 99 H Creatinine 9.1 H* D Est GFR ( Amer) 6 Est GFR (Non-Af Amer) 5 POC Glucose (mg/dL) 270 H Random Glucose 224 H Calcium 6.9 L* Phosphorus 6.5 H Magnesium 1.9 Total Bilirubin 0.3 AST 30 ALT 35 Alkaline Phosphatase 69 Total Protein 6.7 Albumin 3.4 Globulin 3.3 Albumin/Globulin Ratio 1.0 L Fingerstick Blood Sugar Results: 221 Critical Care Progress Note - Nutrition Nutrition: Nutrition Category Date Time Status Renal Diet [DIET] Diets 10/14/18 Breakfast Ordered Assessment/Plan - Assessment and Plan (Free Text) Assessment: Pt is a 53yo female with a PMH of ESRD (dialysis MWF), homocystinuria on elliquis, asthma (she is unsure if she has been intubated in the past), CVA x2, TIA x2, HTN who was admitted for wheezing and SOB secondary to an asthma exacerbation who was transferred to the ICU for CPAP. Plan: Neuro - history of CVA x2, TIA x2 - continue home ASA Cardio - HTN - ECHO normal LV function, mild TR, mild Pulm HTN Pulm - asthma exacerbation, SOB, COPD - xopenex, solumedrol, pulmicort, singulair GI - protonix - renal diet Nephro/ - ESRD dialysis MWF - nephro consulted, Dr Peralta Heme/ Onc - history of homocystinuria on elliquis Endo - DM - ISS ID - no leukocytosis Dispo: transfer out of ICU today Pt seen, examined, assessment and plan discussed with Dr Lakia Arreola PGY1 - Date & Time Date: 10/19/18 Time: 11:21 <Dami Dorman B - Last Filed: 10/19/18 18:08> CCU Objective - Vital Signs / Intake & Output Intake and Output (Last 8hrs): Intake & Output 10/19/18 10/19/18 10/19/18 06:59 14:59 22:59 Intake Total 600 Output Total 0 Balance 600 Intake: Oral 600 Output: Urine 0 Urine, Voided 0 Other: # Bowel Movements 1 - Medications Active Medications: Active Medications Generic Name Dose Route Start Last Admin Trade Name Freq PRN Reason Stop Dose Admin Acetaminophen 650 mg 10/18/18 19:00 10/18/18 19:07 Tylenol 325mg Tab PO 650 mg Q6H PRN Administration Headache Albuterol/Ipratropium 3 ml 10/14/18 20:00 10/17/18 20:36 Duoneb 3 Mg/0.5 Mg (3 Ml) Ud IH 3 ml [id number] NASIR Administration Albuterol/Ipratropium 3 ml 10/14/18 19:53 10/15/18 11:14 Duoneb 3 Mg/0.5 Mg (3 Ml) Ud IH 3 ml Q2 PRN Administration Shortness of Breath Apixaban 2.5 mg 10/15/18 10:00 10/19/18 17:56 Eliquis PO 2.5 mg BID NASIR Administration Protocol Aspirin 81 mg 10/15/18 10:00 10/19/18 09:14 Aspirin Chewable PO 81 mg DAILY NASIR Administration Budesonide 0.5 mg 10/15/18 08:00 10/19/18 07:33 Pulmicort Respules IH 0.5 mg [id number] NASIR Administration Insulin Human Regular 0 units 10/15/18 09:30 10/19/18 17:57 Humulin R Med SC 1 u ACHS NASIR Administration Protocol Levalbuterol HCl 1.25 mg 10/18/18 06:00 10/19/18 16:57 Xopenex IH Not Given Q6H NASIR Loratadine 10 mg 10/17/18 10:00 10/19/18 09:14 Claritin PO 10 mg DAILY NASIR Administration Methylprednisolone 40 mg 10/18/18 10:45 10/19/18 09:14 Solu-Medrol IVP 40 mg Q12 NASIR Administration Montelukast Sodium 10 mg 10/15/18 22:00 10/18/18 22:04 Singulair PO 10 mg HS NASIR Administration Ferric Citrate [ 2 tab 10/15/18 10:00 10/19/18 17:57 Auryxia] 2 Tab (Home PO 2 tab Med) TID NASIR Administration Levocetirizine 5 mg 10/15/18 10:00 10/19/18 09:16 Dihydrochloride [ PO Not Given Xyzal] 5 Mg (Home DAILY NASIR Med) Pantoprazole Sodium 40 mg 10/15/18 10:00 10/19/18 09:14 Protonix Ec Tab PO 40 mg DAILY NASIR Administration Polyethylene Glycol 17 gm 10/14/18 20:15 10/19/18 17:57 Miralax PO 17 gm BID NASIR Administration - Patient Studies Lab Studies: Microbiology Studies 10/14/18 17:30 Blood Culture - Final Blood-Venous NO GROWTH AFTER 5 DAYS Gram Stain - Final TEST NOT PERFORMED 10/14/18 17:00 Blood Culture - Final Blood-Venous NO GROWTH AFTER 5 DAYS Gram Stain - Final TEST NOT PERFORMED Lab Studies 10/19/18 10/19/18 10/19/18 Range/Units 17:32 12:15 11:39 WBC (4.5-11.0) 10^3/uL RBC (3.5-6.1) 10^6/uL Hgb (12.0-16.0) g/dL Hct (36.0-48.0) % MCV (80.0-105.0) fl MCH (25.0-35.0) pg MCHC (31.0-37.0) g/dl RDW (11.5-14.5) % Plt Count (120.0-450.0) 10^3/uL MPV (7.0-11.0) fl Neut % (Auto) (50.0-68.0) % Lymph % (Auto) (22.0-35.0) % Webb % (Auto) (1.0-6.0) % Eos % (Auto) (1.5-5.0) % Baso % (Auto) (0.0-3.0) % Lymph # (Auto) (1.2-3.4) Webb # (Auto) (0.1-0.6) Eos # (Auto) (0.0-0.7) Baso # (Auto) (0.0-2.0) K/mm3 Absolute Neuts (auto) (1.4-6.5) PT 11.8 (9.4-12.5) SECONDS INR 1.04 Sodium (132-148) mmol/L Potassium (3.6-5.0) mmol/L Chloride (98-107) mmol/L Carbon Dioxide (21-33) mmol/L Anion Gap (10-20) BUN (7-21) mg/dL Creatinine (0.7-1.2) mg/dl Est GFR ( Amer) Est GFR (Non-Af Amer) POC Glucose (mg/dL) 173 H 213 H (65-110) mg/dL Random Glucose (70-110) mg/dL Calcium (8.4-10.5) mg/dL Phosphorus (2.5-4.5) mg/dL Magnesium (1.7-2.2) mg/dL Total Bilirubin (0.2-1.3) mg/dL AST (14-36) U/L ALT (7-56) U/L Alkaline Phosphatase (38-126) U/L Total Protein (5.8-8.3) g/dL Albumin (3.0-4.8) g/dL Globulin gm/dL Albumin/Globulin Ratio (1.1-1.8) IgE (<dr=123) kU/L 10/19/18 10/19/18 10/19/18 Range/Units 08:03 05:30 05:30 WBC 12.9 H (4.5-11.0) 10^3/uL RBC 4.04 (3.5-6.1) 10^6/uL Hgb 12.0 (12.0-16.0) g/dL Hct 37.4 (36.0-48.0) % MCV 92.6 (80.0-105.0) fl MCH 29.7 (25.0-35.0) pg MCHC 32.1 (31.0-37.0) g/dl RDW 14.1 (11.5-14.5) % Plt Count 251 (120.0-450.0) 10^3/uL MPV 9.2 (7.0-11.0) fl Neut % (Auto) 88.7 H (50.0-68.0) % Lymph % (Auto) 7.5 L (22.0-35.0) % Webb % (Auto) 3.7 (1.0-6.0) % Eos % (Auto) 0.0 L (1.5-5.0) % Baso % (Auto) 0.1 (0.0-3.0) % Lymph # (Auto) 1.0 L (1.2-3.4) Webb # (Auto) 0.5 (0.1-0.6) Eos # (Auto) 0.0 (0.0-0.7) Baso # (Auto) 0.01 (0.0-2.0) K/mm3 Absolute Neuts (auto) 11.43 H (1.4-6.5) PT (9.4-12.5) SECONDS INR Sodium 133 (132-148) mmol/L Potassium 5.3 H (3.6-5.0) mmol/L Chloride 94 L (98-107) mmol/L Carbon Dioxide 22 (21-33) mmol/L Anion Gap 22 H (10-20) BUN 99 H (7-21) mg/dL Creatinine 9.1 H* D (0.7-1.2) mg/dl Est GFR ( Amer) 6 Est GFR (Non-Af Amer) 5 POC Glucose (mg/dL) 221 H (65-110) mg/dL Random Glucose 224 H (70-110) mg/dL Calcium 6.9 L* (8.4-10.5) mg/dL Phosphorus 6.5 H (2.5-4.5) mg/dL Magnesium 1.9 (1.7-2.2) mg/dL Total Bilirubin 0.3 (0.2-1.3) mg/dL AST 30 (14-36) U/L ALT 35 (7-56) U/L Alkaline Phosphatase 69 (38-126) U/L Total Protein 6.7 (5.8-8.3) g/dL Albumin 3.4 (3.0-4.8) g/dL Globulin 3.3 gm/dL Albumin/Globulin Ratio 1.0 L (1.1-1.8) IgE (<oy=954) kU/L 04/10/18/18 10/17/18 Range/Units 21:23 16:27 09:00 WBC (4.5-11.0) 10^3/uL RBC (3.5-6.1) 10^6/uL Hgb (12.0-16.0) g/dL Hct (36.0-48.0) % MCV (80.0-105.0) fl MCH (25.0-35.0) pg MCHC (31.0-37.0) g/dl RDW (11.5-14.5) % Plt Count (120.0-450.0) 10^3/uL MPV (7.0-11.0) fl Neut % (Auto) (50.0-68.0) % Lymph % (Auto) (22.0-35.0) % Webb % (Auto) (1.0-6.0) % Eos % (Auto) (1.5-5.0) % Baso % (Auto) (0.0-3.0) % Lymph # (Auto) (1.2-3.4) Webb # (Auto) (0.1-0.6) Eos # (Auto) (0.0-0.7) Baso # (Auto) (0.0-2.0) K/mm3 Absolute Neuts (auto) (1.4-6.5) PT (9.4-12.5) SECONDS INR Sodium (132-148) mmol/L Potassium (3.6-5.0) mmol/L Chloride (98-107) mmol/L Carbon Dioxide (21-33) mmol/L Anion Gap (10-20) BUN (7-21) mg/dL Creatinine (0.7-1.2) mg/dl Est GFR ( Amer) Est GFR (Non-Af Amer) POC Glucose (mg/dL) 270 H 237 H (65-110) mg/dL Random Glucose (70-110) mg/dL Calcium (8.4-10.5) mg/dL Phosphorus (2.5-4.5) mg/dL Magnesium (1.7-2.2) mg/dL Total Bilirubin (0.2-1.3) mg/dL AST (14-36) U/L ALT (7-56) U/L Alkaline Phosphatase (38-126) U/L Total Protein (5.8-8.3) g/dL Albumin (3.0-4.8) g/dL Globulin gm/dL Albumin/Globulin Ratio (1.1-1.8) IgE 187 H (<ek=133) kU/L Laboratory Results - last 24 hr 10/17/18 10/18/18 10/18/18 09:00 16:27 21:23 WBC RBC Hgb Hct MCV MCH MCHC RDW Plt Count MPV Neut % (Auto) Lymph % (Auto) Webb % (Auto) Eos % (Auto) Baso % (Auto) Lymph # (Auto) Webb # (Auto) Eos # (Auto) Baso # (Auto) Absolute Neuts (auto) PT INR Sodium Potassium Chloride Carbon Dioxide Anion Gap BUN Creatinine Est GFR ( Amer) Est GFR (Non-Af Amer) POC Glucose (mg/dL) 237 H 270 H Random Glucose Calcium Phosphorus Magnesium Total Bilirubin AST ALT Alkaline Phosphatase Total Protein Albumin Globulin Albumin/Globulin Ratio IgE 187 H 10/19/18 10/19/18 10/19/18 05:30 05:30 08:03 WBC 12.9 H RBC 4.04 Hgb 12.0 Hct 37.4 MCV 92.6 MCH 29.7 MCHC 32.1 RDW 14.1 Plt Count 251 MPV 9.2 Neut % (Auto) 88.7 H Lymph % (Auto) 7.5 L Webb % (Auto) 3.7 Eos % (Auto) 0.0 L Baso % (Auto) 0.1 Lymph # (Auto) 1.0 L Webb # (Auto) 0.5 Eos # (Auto) 0.0 Baso # (Auto) 0.01 Absolute Neuts (auto) 11.43 H PT INR Sodium 133 Potassium 5.3 H Chloride 94 L Carbon Dioxide 22 Anion Gap 22 H BUN 99 H Creatinine 9.1 H* D Est GFR ( Amer) 6 Est GFR (Non-Af Amer) 5 POC Glucose (mg/dL) 221 H Random Glucose 224 H Calcium 6.9 L* Phosphorus 6.5 H Magnesium 1.9 Total Bilirubin 0.3 AST 30 ALT 35 Alkaline Phosphatase 69 Total Protein 6.7 Albumin 3.4 Globulin 3.3 Albumin/Globulin Ratio 1.0 L IgE 10/19/18 10/19/18 10/19/18 11:39 12:15 17:32 WBC RBC Hgb Hct MCV MCH MCHC RDW Plt Count MPV Neut % (Auto) Lymph % (Auto) Webb % (Auto) Eos % (Auto) Baso % (Auto) Lymph # (Auto) Webb # (Auto) Eos # (Auto) Baso # (Auto) Absolute Neuts (auto) PT 11.8 INR 1.04 Sodium Potassium Chloride Carbon Dioxide Anion Gap BUN Creatinine Est GFR ( Amer) Est GFR (Non-Af Amer) POC Glucose (mg/dL) 213 H 173 H Random Glucose Calcium Phosphorus Magnesium Total Bilirubin AST ALT Alkaline Phosphatase Total Protein Albumin Globulin Albumin/Globulin Ratio IgE Critical Care Progress Note - Nutrition Nutrition: Nutrition Category Date Time Status Renal Diet [DIET] Diets 10/14/18 Breakfast Ordered Attending/Attestation - Attestation I have personally seen and examined this patient.: Yes I have fully participated in the care of the patient.: Yes I have reviewed all pertinent clinical information: Yes Notes (Text): 10/19/18 18:07 patient is alert, awake and oriented x 3. protecting airways, hemodynamically and respiratory lopez stable, not in respiratory or otherwise distress. ok to downgrade to tele ccm time 40 min
--- NOTE | 2018-10-19 11:41 | CP.PCM.PN ---
<Florentin Dhaliwal - Last Filed: 10/19/18 11:31> Subjective - Date & Time of Evaluation Date of Evaluation: 10/19/18 Time of Evaluation: 08:30 - Subjective Subjective: INTERNAL MEDICINE PROGRESS NOTE FOR DR. SHERIE Dhaliwal PGY1 Pt seen and examined at bedside this am. No acute events overnight. She continues to report SOB. She has O2 & Bipap at home, however reports not using it. She otherwise denies 12 point ROS Objective - Vital Signs/Intake and Output Vital Signs (last 24 hours): Temp Pulse Resp BP Pulse Ox 97.7 F 87 19 118/63 100 10/19/18 08:00 10/19/18 09:59 10/19/18 09:59 10/19/18 10:00 10/19/18 09:59 Intake and Output: 10/19/18 10/19/18 06:59 18:59 Intake Total 600 Output Total 0 Balance 600 - Medications Medications: Current Medications Acetaminophen (Tylenol 325mg Tab) 650 mg PO Q6H PRN PRN Reason: Headache Last Admin: 10/18/18 19:07 Dose: 650 mg Albuterol/Ipratropium (Duoneb 3 Mg/0.5 Mg (3 Ml) Ud) 3 ml IH [id number] FILIBERTO Last Admin: 10/17/18 20:36 Dose: 3 ml Albuterol/Ipratropium (Duoneb 3 Mg/0.5 Mg (3 Ml) Ud) 3 ml IH Q2 PRN PRN Reason: Shortness of Breath Last Admin: 10/15/18 11:14 Dose: 3 ml Apixaban (Eliquis) 2.5 mg PO BID [facility]; Protocol Last Admin: 10/19/18 09:14 Dose: 2.5 mg Aspirin (Aspirin Chewable) 81 mg PO DAILY [facility] Last Admin: 10/19/18 09:14 Dose: 81 mg Budesonide (Pulmicort Respules) 0.5 mg IH [id number] [facility]IBERTO Last Admin: 10/19/18 07:33 Dose: 0.5 mg Insulin Human Regular (Humulin R Med) 0 units SC ACHS [facility]; Protocol Last Admin: 10/19/18 08:11 Dose: 3 u Levalbuterol HCl (Xopenex) 1.25 mg IH Q6H [facility] Last Admin: 10/19/18 07:33 Dose: 1.25 mg Loratadine (Claritin) 10 mg PO DAILY [facility] Last Admin: 10/19/18 09:14 Dose: 10 mg Methylprednisolone (Solu-Medrol) 40 mg IVP Q12 [facility] Last Admin: 10/19/18 09:14 Dose: 40 mg Montelukast Sodium (Singulair) 10 mg PO HS [facility] Last Admin: 10/18/18 22:04 Dose: 10 mg Ferric Citrate [ Auryxia] 2 Tab (Home Med) 2 tab PO TID [facility] Last Admin: 10/19/18 09:16 Dose: 2 tab Levocetirizine Dihydrochloride [ Xyzal] 5 Mg (Home Med) 5 mg PO DAILY [facility] Last Admin: 10/19/18 09:16 Dose: Not Given Pantoprazole Sodium (Protonix Ec Tab) 40 mg PO DAILY [facility] Last Admin: 10/19/18 09:14 Dose: 40 mg Polyethylene Glycol (Miralax) 17 gm PO BID [facility] Last Admin: 10/19/18 09:14 Dose: 17 gm - Labs Labs: 10/19/18 05:30 10/19/18 05:30 - Constitutional Appears: Well, Non-toxic, No Acute Distress - Head Exam Head Exam: NORMAL INSPECTION, NORMOCEPHALIC - Eye Exam Eye Exam: EOMI, Normal appearance - ENT Exam ENT Exam: Mucous Membranes Moist, Normal Exam. Upper airway stridor - Respiratory Exam Respiratory Exam: Wheezes. absent: Rales, Rhonchi Additional comments: large neck circumference - Cardiovascular Exam Cardiovascular Exam: REGULAR RHYTHM, +S1, +S2 - GI/Abdominal Exam GI & Abdominal Exam: Soft. absent: Tenderness - Extremities Exam Extremities Exam: Normal Inspection. absent: Tenderness - Back Exam Back Exam: NORMAL INSPECTION. absent: CVA tenderness (L), CVA tenderness (R) - Neurological Exam Neurological Exam: Alert, Awake, Oriented x3 - Psychiatric Exam Psychiatric exam: Normal Affect, Normal Mood - Skin Skin Exam: Dry, Intact, Warm Assessment and Plan - Assessment and Plan (Free Text) Assessment: 53 year old female with PMH asthma on home daily prednisone, CVA, hx elevated homocysteine, ESRD on HD admitted for asthma exacerbation in the setting of ESRD Plan: Shortness of breath - Upper airway wheezing noted on exam likely 2/2 asthma exacerbation. Remains afebrile, not tachycardic, not hypoxic, no hypercarbia on ABG. Leukocytosis likely 2/2 demargination from solu-medrol use - continue loratidine, f/u IgE level - Bipap prn for SOB - will decrease solumedrol to 40Q12, will continue tapering - continue duonebs q6 h filiberto and q2 prn, singulair, budesonide - Pulmonology following - blood cultures have been negative so far, MRSA screen negative - monitor respiratory status on telemetry ESRD on HD MWF - scheduled for HD today, continue regular regimen - nephrology Dr Peralta consulted. f/u recs. - continue with home Auryxia 3 tabs PO TID Hyperkalemia - Will continue albuterol, insulin - ISS sliding scale Constipation - miralax bid filiberto. monitor BMs. if > 1 or liquidy BMs, will make it prn DM2 - A1c this admission is 6.9% - continue insulin sliding scale - paraeducator consulted Hx of CVA: - continue aspirin and eliquis - Pt has baseline speech impediment impairing her ability to complete sentences Obesity - diet/exercise recommended. 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 PT eval & treat ordered Diet: renal, HHD, diabetic GI/DVT ppx: protonix, eliquis Dispo: Pending PT eval & treat Case reviewed with attending physician, Dr. Kayla Dhaliwal PGY1 <Kayla Lloyd R - Last Filed: 10/20/18 07:32> Objective - Vital Signs/Intake and Output Vital Signs (last 24 hours): Temp Pulse Resp BP Pulse Ox 98.6 F 83 25 H 112/79 100 10/20/18 04:00 10/20/18 06:00 10/20/18 06:00 10/20/18 04:00 10/20/18 06:00 Intake and Output: 10/20/18 10/20/18 06:59 18:59 Intake Total 600 Output Total 0 Balance 600 - Medications Medications: Current Medications Acetaminophen (Tylenol 325mg Tab) 650 mg PO Q6H PRN PRN Reason: Headache Last Admin: 10/18/18 19:07 Dose: 650 mg Apixaban (Eliquis) 2.5 mg PO BID [facility]; Protocol Last Admin: 10/19/18 17:56 Dose: 2.5 mg Aspirin (Aspirin Chewable) 81 mg PO DAILY [facility] Last Admin: 10/19/18 09:14 Dose: 81 mg Budesonide (Pulmicort Respules) 0.5 mg IH [id number] [facility] Last Admin: 10/20/18 07:19 Dose: 0.5 mg Insulin Human Regular (Humulin R Med) 0 units SC ACHS [facility]; Protocol Last Admin: 10/19/18 21:43 Dose: Not Given Levalbuterol HCl (Xopenex) 1.25 mg IH Q6H [facility] Last Admin: 10/20/18 07:19 Dose: 1.25 mg Loratadine (Claritin) 10 mg PO DAILY [facility] Last Admin: 10/19/18 09:14 Dose: 10 mg Methylprednisolone (Solu-Medrol) 40 mg IVP Q12 [facility] Last Admin: 10/19/18 21:35 Dose: 40 mg Montelukast Sodium (Singulair) 10 mg PO HS [facility] Last Admin: 10/19/18 21:34 Dose: 10 mg Ferric Citrate [ Auryxia] 2 Tab (Home Med) 2 tab PO TID [facility] Last Admin: 10/19/18 17:57 Dose: 2 tab Levocetirizine Dihydrochloride [ Xyzal] 5 Mg (Home Med) 5 mg PO DAILY [facility] Last Admin: 10/19/18 09:16 Dose: Not Given Pantoprazole Sodium (Protonix Ec Tab) 40 mg PO DAILY [facility] Last Admin: 10/19/18 09:14 Dose: 40 mg Polyethylene Glycol (Miralax) 17 gm PO BID [facility] Last Admin: 10/19/18 17:57 Dose: 17 gm - Labs Labs: 10/20/18 05:40 10/20/18 05:40 PT 11.8 SECONDS (9.4-12.5) 10/19/18 12:15 INR 1.04 10/19/18 12:15 APTT 26.5 Seconds (26.9-38.3) L 10/20/18 05:40 Attending/Attestation - Attestation I have personally seen and examined this patient.: Yes I have fully participated in the care of the patient.: Yes I have reviewed all pertinent clinical information, including history, physical exam and plan: Yes Notes (Text): Patient seen and examined by me with resident at approximately 8:40AM on 10/19/18. Case including HPI, physical exam, and assessment and plan discussed with resident. Agree with above with following additions/corrections. Patient is a 53-year-old female with past medical history significant for end- stage renal disease on dialysis Friday, Friday, and Friday, asthma, CVA, TIA, homocystinuria on Eliquis, and hypertension that presented to the emergency room for wheezing and shortness of breath for one week. Patient states that she feels a little better today. Still with shortness of breath and wheezing but improved since admission. Patient denies chest pain or palpitations. No headaches or dizziness. No nausea, vomiting, or abdominal pain. No fevers or chills. Physical exam: General: Awake and alert sitting up in bed in no acute distress. HEENT: Normocephalic, atraumatic. Extraocular muscles intact, pupils equal and reactive, no scleral icterus. Oropharynx is pink and moist. No pharyngeal erythema or exudate appreciated. Neck is supple. Cardiovascular: Regular rhythm. Normal S1, S2. No murmurs, rubs, or gallops appreciated Pulmonary: Normal respiratory effort. Decreased breath sounds. Coarse breath sounds. Expiratory wheezing heard throughout anteriorly and posteriorly. Gastrointestinal: Soft, nondistended. Nontender. Positive bowel sounds all 4 quadrants. No guarding. Musculoskeletal: Moves all extremities. No calf tenderness. No edema appre ciated. Central nervous system: AAOx3. Dermatologic: Skin warm and dry. Assessment and plan: Patient is a 53-year-old female with past medical history significant for end-stage renal disease on dialysis Friday, Friday, and Friday, asthma, CVA, TIA, homocystinuria on Eliquis, and hypertension that presented to the emergency room for wheezing and shortness of breath for one week. 1. Dyspnea. Secondary to asthma exacerbation. Continue pulmicort. Continue Xoponex. Continue solumedrol and singulair. Continue O2 via nasal cannula as needed. Continue BIPAP as needed. Pulmonary recommendations appreciated. 2. Hyperkalemia. 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 Follow up repeat labs in AM. 3. Hyperphosphotemia. Continue home auryxia 4. ESRD. Continue dialysis per nephrology. Pharmacy Benefits Coordinator following, recommendations appreciated. 5. DM2. HgbA1C 6.9. Continue insulin sliding scale. Continue to monitor accuchecks. Diet and exercise recommended. 6. Leukocytosis. Likely secondary to steroids. Continue to monitor. 7. History of CVA. Continue ASA 8. History of homocystinuria. Continue Eliquis 2.5mg PO BID. 9. Constipation. Continue miralax. 10. GI/DVT prophylaxis. Protonix/Eliquis. Case was discussed in detail with the patient regarding current diagnosis and treatment plan. All questions answered.
[2018-10-19 12:34] LABS: INR 1.04; PROTHROMBIN TIME 11.8 SECONDS (9.4-12.5)
--- NOTE | 2018-10-20 00:48 | PN ---
DATE: 10/19/2018 SUBJECTIVE: The patient is seen in the dialysis unit. She is awake. She is alert. She still appears puffy. She complains of wheezing. PHYSICAL EXAMINATION: GENERAL: A middle-aged lady, lying in bed. VITAL SIGNS: Blood pressure 137/72, heart rate 90, respiratory rate 24, temperature 98. HEENT: Normocephalic, atraumatic, positive pallor. NECK: Supple, no JVD. LUNGS: Bilateral equal entry, bilateral rhonchi, prolonged expiration. CARDIAC: S1, S2. Regular rate and rhythm. No murmur, no rub. ABDOMEN: Obese, distended, soft, nontender. Bowel sounds present. EXTREMITIES: No lower extremity edema. LABORATORY DATA: WBC 12.9, hemoglobin 12, hematocrit 37.4, platelets 251. Sodium 133, potassium 5.3, chloride 94, CO2 of 22, BUN 99, creatinine 9.1, glucose 224, calcium 6.9, phosphorus 6.5, magnesium 1.9, AST 30, ALT 35. CURRENT MEDICATIONS: List reviewed. ASSESSMENT: 1. Acute asthma exacerbation, still with severe bronchospasm and wheezing. 2. End stage renal disease. 3. Obesity. 4. History of cerebrovascular accident. 5. Anemia of chronic kidney disease. PLAN: 1. Stable dialysis, ultrafiltrating about 3 liters right now. 2. We will attempt ultrafiltration tomorrow. 3. Continue respiratory treatments. 4. Continue steroids. 5. Continue empiric antibiotics. Mame Kruse MD
[2018-10-20] MEDS: Levalbuterol 1.25 MG/3 ML Inhal Soln UD IH SCH ×4 (01:55→20:22)
[2018-10-20 06:07] LABS: BASO # 0.01 K/mm3 (0.0-2.0); BASO % 0.1 % (0.0-3.0); HEMOGLOBIN 12.8 g/dL (12.0-16.0); LYMPH % 7.4 % (22.0-35.0); MEAN CELL VOLUME 92.5 fl (80.0-105.0); MEAN CORPUSCULAR HEMOGLOBIN 29.9 pg (25.0-35.0); MEAN CORPUSCULAR HGB CONC 32.3 g/dl (31.0-37.0); MEAN PLATELET VOLUME 8.9 fl (7.0-11.0); MONO # 0.6 (0.1-0.6); MONO % 4.4 % (1.0-6.0); RBC 4.28 10^6/uL (3.5-6.1); RED CELL DISTRIBUTION WIDTH 14.2 % (11.5-14.5); WHITE BLOOD COUNT 13.7 10^3/uL (4.5-11.0)
[2018-10-20 07:07] LABS: ALBUMIN 3.6 g/dL (3.0-4.8); CALCIUM 7.1 mg/dL (8.4-10.5)
[2018-10-20] MEDS: Budesonide 0.5 mg/2 ml Inhal Susp UD IH SCH ×2 (07:19→20:22)
[2018-10-20] MEDS ORDERED: POLYETHYLENE GLYCOL 3350 17 GM/Dose PACKET PO PRN (09:13)
[2018-10-20] MEDS: Pantoprazole 40 mg EC Tab PO SCH (09:26)
[2018-10-20] MEDS: FERRIC CITRATE PO SCH ×3 (09:27→18:20)
[2018-10-20] MEDS: MethylPREDNISolone 40 mg Vial IVP SCH ×2 (09:27→22:07)
[2018-10-20] MEDS: Insulin Reg-MEDIUM-Coverage SC SCH ×4 (09:29→22:00)
--- NOTE | 2018-10-20 11:31 | CP.PCM.PN ---
<Florentin Dhaliwal - Last Filed: 10/20/18 11:26> Subjective - Date & Time of Evaluation Date of Evaluation: 10/20/18 Time of Evaluation: 08:30 - Subjective Subjective: INTERNAL MEDICINE PROGRESS NOTE FOR DR. SHERIE Dhaliwal PGY1 Pt seen and examined at bedside this am. No acute events overnight. Pt reports some improvement in her respiratory symptoms. She was seen tolerating diet. She has not worked with PT yet. She denies 12 point ROS Objective - Vital Signs/Intake and Output Vital Signs (last 24 hours): Temp Pulse Resp BP Pulse Ox 98.6 F 83 25 H 112/79 100 10/20/18 04:00 10/20/18 06:00 10/20/18 06:00 10/20/18 04:00 10/20/18 06:00 Intake and Output: 10/20/18 10/20/18 06:59 18:59 Intake Total 600 Output Total 0 Balance 600 - Medications Medications: Current Medications Acetaminophen (Tylenol 325mg Tab) 650 mg PO Q6H PRN PRN Reason: Headache Last Admin: 10/18/18 19:07 Dose: 650 mg Apixaban (Eliquis) 2.5 mg PO BID [facility]; Protocol Last Admin: 10/20/18 09:26 Dose: 2.5 mg Aspirin (Aspirin Chewable) 81 mg PO DAILY [facility] Last Admin: 10/20/18 09:27 Dose: 81 mg Budesonide (Pulmicort Respules) 0.5 mg IH [id number] [facility] Last Admin: 10/20/18 07:19 Dose: 0.5 mg Insulin Human Regular (Humulin R Med) 0 units SC ACHS [facility]; Protocol Last Admin: 10/20/18 09:29 Dose: 1 u Levalbuterol HCl (Xopenex) 1.25 mg IH Q6H [facility] Last Admin: 10/20/18 07:19 Dose: 1.25 mg Loratadine (Claritin) 10 mg PO DAILY [facility] Last Admin: 10/20/18 09:26 Dose: 10 mg Methylprednisolone (Solu-Medrol) 40 mg IVP Q12 [facility] Last Admin: 10/20/18 09:27 Dose: 40 mg Montelukast Sodium (Singulair) 10 mg PO HS [facility] Last Admin: 10/19/18 21:34 Dose: 10 mg Ferric Citrate [ Auryxia] 2 Tab (Home Med) 2 tab PO TID [facility] Last Admin: 10/20/18 09:27 Dose: 2 tab Pantoprazole Sodium (Protonix Ec Tab) 40 mg PO DAILY [facility] Last Admin: 10/20/18 09:26 Dose: 40 mg Polyethylene Glycol (Miralax) 17 gm PO BID PRN PRN Reason: Constipation - Labs Labs: 10/20/18 05:40 10/20/18 05:40 PT 11.8 SECONDS (9.4-12.5) 10/19/18 12:15 INR 1.04 10/19/18 12:15 APTT 26.5 Seconds (26.9-38.3) L 10/20/18 05:40 - Constitutional Appears: Well, Non-toxic, No Acute Distress - Head Exam Head Exam: NORMAL INSPECTION, NORMOCEPHALIC - Eye Exam Eye Exam: EOMI, Normal appearance - ENT Exam ENT Exam: Mucous Membranes Moist, Normal Exam. Upper airway stridor - Respiratory Exam Respiratory Exam: Wheezes. absent: Rales, Rhonchi Additional comments: large neck circumference - Cardiovascular Exam Cardiovascular Exam: REGULAR RHYTHM, +S1, +S2 - GI/Abdominal Exam GI & Abdominal Exam: Soft. absent: Tenderness - Extremities Exam Extremities Exam: Normal Inspection. absent: Tenderness - Back Exam Back Exam: NORMAL INSPECTION. absent: CVA tenderness (L), CVA tenderness (R) - Neurological Exam Neurological Exam: Alert, Awake, Oriented x3 - Psychiatric Exam Psychiatric exam: Normal Affect, Normal Mood - Skin Skin Exam: Dry, Intact, Warm Assessment and Plan - Assessment and Plan (Free Text) Assessment: 53 year old female with PMH asthma on home daily prednisone, CVA, hx elevated homocysteine, ESRD on HD admitted for asthma exacerbation in the setting of ESRD Plan: Shortness of breath - Upper airway wheezing noted on exam likely 2/2 asthma exacerbation. Remains afebrile, not tachycardic, not hypoxic, no hypercarbia on ABG. Leukocytosis likely 2/2 demargination from solu-medrol - continue loratidine, f/u IgE level - Bipap prn for SOB - will continue solumedrol to 40Q12, will continue tapering - continue duonebs q6 h filiberto and q2 prn, singulair, budesonide - Pulmonology following - blood cultures have been negative so far, MRSA screen negative - monitor respiratory status on telemetry ESRD on HD MWF - Will undero ultrafiltration today - scheduled for HD today, continue regular regimen - nephrology Dr Peralta consulted. f/u recs. - continue with home Auryxia 3 tabs PO TID Hyperkalemia - Will continue albuterol, insulin - ISS sliding scale Constipation - miralax bid prn monitor BMs. if > 1 or liquidy BMs, will make it prn DM2 - A1c this admission is 6.9% - continue insulin sliding scale - religious educator consulted Hx of CVA: - continue aspirin and eliquis - Pt has baseline speech impediment impairing her ability to complete sentences Obesity - diet/exercise recommended. Sustainability Project Coordinator eval ordered Activity: OOB to chair. PT eval & treat ordered Diet: renal, HHD, diabetic GI/DVT ppx: protonix, eliquis Dispo: Pending PT eval & treat Case reviewed with attending physician, Dr. Kayla Dhaliwal PGY1 <Kayla Lloyd R - Last Filed: 10/21/18 12:19> Objective - Vital Signs/Intake and Output Vital Signs (last 24 hours): Temp Pulse Resp BP Pulse Ox 98.6 F 89 23 107/67 93 L 10/20/18 04:00 10/21/18 02:30 10/20/18 19:30 10/20/18 19:31 10/20/18 19:30 - Medications Medications: Current Medications Acetaminophen (Tylenol 325mg Tab) 650 mg PO Q6H PRN PRN Reason: Headache Last Admin: 10/20/18 16:30 Dose: 650 mg Apixaban (Eliquis) 2.5 mg PO BID [facility]; Protocol Last Admin: 10/21/18 09:11 Dose: 2.5 mg Aspirin (Aspirin Chewable) 81 mg PO DAILY [facility] Last Admin: 10/21/18 09:11 Dose: 81 mg Budesonide (Pulmicort Respules) 0.5 mg IH [id number] [facility] Last Admin: 10/21/18 07:02 Dose: 0.5 mg Insulin Human Regular (Humulin R Med) 0 units SC [facility]; Protocol Last Admin: 10/21/18 12:03 Dose: Not Given Levalbuterol HCl (Xopenex) 1.25 mg IH Q6H [facility] Last Admin: 10/21/18 06:54 Dose: 1.25 mg Loratadine (Claritin) 10 mg PO DAILY [facility] Last Admin: 10/21/18 09:11 Dose: 10 mg Methylprednisolone (Solu-Medrol) 40 mg IVP Q12 [facility] Last Admin: 10/21/18 09:12 Dose: 40 mg Montelukast Sodium (Singulair) 10 mg PO HS [facility] Last Admin: 10/20/18 22:07 Dose: 10 mg Ferric Citrate [ Auryxia] 2 Tab (Home Med) 2 tab PO TID [facility] Last Admin: 10/21/18 09:12 Dose: 2 tab Pantoprazole Sodium (Protonix Ec Tab) 40 mg PO DAILY [facility] Last Admin: 10/21/18 09:11 Dose: 40 mg Sodium Polystyrene Sulfonate (Kayexalate) 15 gm PO DAILY [facility] Last Admin: 10/21/18 09:16 Dose: 15 gm - Labs Labs: 10/21/18 06:40 10/21/18 06:40 PT 11.8 SECONDS (9.4-12.5) 10/19/18 12:15 INR 1.04 10/19/18 12:15 APTT 26.5 Seconds (26.9-38.3) L 10/20/18 05:40 Attending/Attestation - Attestation I have personally seen and examined this patient.: Yes I have fully participated in the care of the patient.: Yes I have reviewed all pertinent clinical information, including history, physical exam and plan: Yes Notes (Text): Patient seen and examined by me with resident at approximately 9:10AM on 10/20/18. Case including HPI, physical exam, and assessment and plan discussed with resident. Agree with above with following additions/corrections. Patient is a 53-year-old female with past medical history significant for end- stage renal disease on dialysis Friday, Friday, and Friday, asthma, CVA, TIA, homocystinuria on Eliquis, and hypertension that presented to the emergency room for wheezing and shortness of breath for one week. Patient states that she feels ok. Shortness of breath a little better today. Still with some wheezing. Patient states she is having some watery bowel movements. Patient denies chest pain or palpitations. No headaches or dizziness. No nausea, vomiting, or abdominal pain. No fevers or chills. Physical exam: General: Awake and alert lying in bed in no acute distress. HEENT: Normocephalic, atraumatic. Extraocular muscles intact, pupils equal and reactive, no scleral icterus. Oropharynx is pink and moist. No pharyngeal erythema or exudate appreciated. Neck is supple. Cardiovascular: Regular rhythm. Normal S1, S2. No murmurs, rubs, or gallops appreciated Pulmonary: Normal respiratory effort. Decreased breath sounds. Coarse breath sounds. Expiratory wheezing heard throughout anteriorly and posteriorly. Gastrointestinal: Soft, nondistended. Nontender. Positive bowel sounds all 4 quadrants. No guarding. Musculoskeletal: Moves all extremities. No calf tenderness. No edema appreciated. Central nervous system: AAOx3. Dermatologic: Skin warm and dry. Assessment and plan: Patient is a 53-year-old female with past medical history significant for end-stage renal disease on dialysis Friday, Friday, and Friday, asthma, CVA, TIA, homocystinuria on Eliquis, and hypertension that pre sented to the emergency room for wheezing and shortness of breath for one week. 1. Dyspnea. Secondary to asthma exacerbation. Continue pulmicort and Xoponex. Continue solumedrol and singulair. Continue O2 via nasal cannula as needed. Continue BIPAP as needed. Pulmonary recommendations appreciated. Patient for ultrafiltration today. 2. Hyperkalemia. Continue dialysis per history instructor. Patient for ultrafiltration today. Continue to monitor. 3. Hyperphosphotemia. Continue home auryxia 4. ESRD. Continue dialysis M/W/F per nephrology. For ultrafiltration today. [employer] recommendations appreciated. 5. DM2. HgbA1C 6.9. Continue insulin sliding scale. Continue to monitor accuchecks. Diet and exercise recommended. 6. Leukocytosis. Likely secondary to steroids. Continue to monitor. 7. History of CVA. Continue ASA 8. History of homocystinuria. Continue Eliquis 2.5mg PO BID. 9. Constipation. Resolved. Miralax prn. 10. GI/DVT prophylaxis. Protonix/Eliquis. Case was discussed in detail with the patient regarding current diagnosis and treatment plan. All questions answered.
[2018-10-21] MEDS: Levalbuterol 1.25 MG/3 ML Inhal Soln UD IH SCH ×4 (01:40→21:40)
[2018-10-21 06:54] LABS: BASO # 0.01 K/mm3 (0.0-2.0); BASO % 0.1 % (0.0-3.0); HEMOGLOBIN 13.1 g/dL (12.0-16.0); LYMPH # 1.1 (1.2-3.4); LYMPH % 6.1 % (22.0-35.0); MEAN CELL VOLUME 90.1 fl (80.0-105.0); MEAN CORPUSCULAR HEMOGLOBIN 30.1 pg (25.0-35.0); MEAN CORPUSCULAR HGB CONC 33.4 g/dl (31.0-37.0); MEAN PLATELET VOLUME 8.8 fl (7.0-11.0); MONO % 5.6 % (1.0-6.0); RBC 4.35 10^6/uL (3.5-6.1); RED CELL DISTRIBUTION WIDTH 14.1 % (11.5-14.5); WHITE BLOOD COUNT 18.3 10^3/uL (4.5-11.0)
[2018-10-21] MEDS: Budesonide 0.5 mg/2 ml Inhal Susp UD IH SCH ×2 (07:02→21:40)
[2018-10-21 07:23] LABS: ALB/GLOB RATIO 1.1 (1.1-1.8); ALBUMIN 3.5 g/dL (3.0-4.8); CALCIUM 6.5 mg/dL (8.4-10.5)
--- NOTE | 2018-10-21 07:42 | PN ---
DATE: 10/20/2018 SUBJECTIVE: The patient is seen lying in bed in the ICU. She is awake. She is alert. She is comfortable. She reports feeling better. PHYSICAL EXAMINATION: GENERAL: Middle-aged lady lying in bed. VITAL SIGNS: Blood pressure 112/79, heart rate 86, respiratory rate 18, and temperature 98.6. HEENT: Normocephalic and atraumatic. Positive pallor. NECK: Supple. No JVD. LUNGS: Bilateral rhonchi, bilateral expiratory wheeze. EXTREMITIES: No lower extremity edema. LABORATORY DATA: WBC 13.7, hemoglobin 12.8, hematocrit 39.6, and platelets 272. Sodium 130, potassium 5.5, chloride 92, CO2 of 24, BUN 61, creatinine 6.3, glucose 189, calcium 7.1, phosphorus 6.4, magnesium 1.9, and albumin 3.6. MEDICATIONS: List reviewed. ASSESSMENT: 1. Asthma exacerbation with bronchospasms. 2. Persistent hyperkalemia. 3. End-stage renal disease. 4. Anemia of chronic kidney disease. 5. Hyperphosphatemia. 6. History of cerebrovascular accident. PLAN: 1. Ultrafiltration today for 2 hours to remove 2 kg. 2. Dialysis tomorrow. 3. Continue respiratory treatments and steroids. 4. Kayexalate 15 g daily. 5. . Mame Kruse MD
--- NOTE | 2018-10-21 09:02 | CP.PCM.PN ---
<Florentin Dhaliwal - Last Filed: 10/21/18 11:09> Subjective - Date & Time of Evaluation Date of Evaluation: 10/21/18 Time of Evaluation: 08:39 - Subjective Subjective: INTERNAL MEDICINE PROGRESS NOTE FOR DR. SHEREI Dhaliwal PGY1 Pt seen and examined at bedside this am with daughter present at bedside. She reports improvement in her wheezing. She is denying 12 point ROS Objective - Vital Signs/Intake and Output Vital Signs (last 24 hours): Temp Pulse Resp BP Pulse Ox 98.6 F 89 23 107/67 93 L 10/20/18 04:00 10/21/18 02:30 10/20/18 19:30 10/20/18 19:31 10/20/18 19:30 - Medications Medications: Current Medications Acetaminophen (Tylenol 325mg Tab) 650 mg PO Q6H PRN PRN Reason: Headache Last Admin: 10/20/18 16:30 Dose: 650 mg Apixaban (Eliquis) 2.5 mg PO BID [facility]; Protocol Last Admin: 10/20/18 18:16 Dose: 2.5 mg Aspirin (Aspirin Chewable) 81 mg PO DAILY [facility] Last Admin: 10/20/18 09:27 Dose: 81 mg Budesonide (Pulmicort Respules) 0.5 mg IH [id number] [facility] Last Admin: 10/21/18 07:02 Dose: 0.5 mg Insulin Human Regular (Humulin R Med) 0 units SC ACHS [facility]; Protocol Last Admin: 10/20/18 22:00 Dose: Not Given Levalbuterol HCl (Xopenex) 1.25 mg IH Q6H [facility] Last Admin: 10/21/18 06:54 Dose: 1.25 mg Loratadine (Claritin) 10 mg PO DAILY [facility] Last Admin: 10/20/18 09:26 Dose: 10 mg Methylprednisolone (Solu-Medrol) 40 mg IVP Q12 [facility] Last Admin: 10/20/18 22:07 Dose: 40 mg Montelukast Sodium (Singulair) 10 mg PO HS [facility] Last Admin: 10/20/18 22:07 Dose: 10 mg Ferric Citrate [ Auryxia] 2 Tab (Home Med) 2 tab PO TID [facility] Last Admin: 10/20/18 18:20 Dose: 2 tab Pantoprazole Sodium (Protonix Ec Tab) 40 mg PO DAILY [facility] Last Admin: 10/20/18 09:26 Dose: 40 mg Sodium Polystyrene Sulfonate (Kayexalate) 15 gm PO DAILY [facility] - Labs Labs: 10/21/18 06:40 10/21/18 06:40 PT 11.8 SECONDS (9.4-12.5) 10/19/18 12:15 INR 1.04 10/19/18 12:15 APTT 26.5 Seconds (26.9-38.3) L 10/20/18 05:40 - Constitutional Appears: Well, Non-toxic, No Acute Distress - Head Exam Head Exam: NORMAL INSPECTION, NORMOCEPHALIC - Eye Exam Eye Exam: EOMI, Normal appearance - ENT Exam ENT Exam: Mucous Membranes Moist, Normal Exam. Upper airway stridor - Respiratory Exam Respiratory Exam: Wheezes. absent: Rales, Rhonchi Additional comments: large neck circumference - Cardiovascular Exam Cardiovascular Exam: REGULAR RHYTHM, +S1, +S2 - GI/Abdominal Exam GI & Abdominal Exam: Soft. absent: Tenderness - Extremities Exam Extremities Exam: Normal Inspection. absent: Tenderness - Back Exam Back Exam: NORMAL INSPECTION. absent: CVA tenderness (L), CVA tenderness (R) - Neurological Exam Neurological Exam: Alert, Awake, Oriented x3 - Psychiatric Exam Psychiatric exam: Normal Affect, Normal Mood - Skin Skin Exam: Dry, Intact, Warm Assessment and Plan - Assessment and Plan (Free Text) Assessment: 53 year old female with PMH asthma on home daily prednisone, CVA, hx elevated homocysteine, ESRD on HD admitted for asthma exacerbation in the setting of ESRD Plan: Shortness of breath - Upper airway wheezing noted on exam likely 2/2 asthma exacerbation. Remains afebrile, not tachycardic, not hypoxic, no hypercarbia on ABG. Leukocytosis likely 2/2 demargination from solu-medrol - continue loratidine, IgE level borderline elevated - Bipap prn for SOB - will continue solumedrol to 40Q12, will continue tapering - continue duonebs q6 h filiberto and q2 prn, singulair, budesonide - Pulmonology following - blood cultures have been negative so far, MRSA screen negative - monitor respiratory status on telemetry ESRD on HD MWF - scheduled for HD today, continue regular regimen - nephrology Dr Peralta consulted. f/u recs. - continue with home Auryxia 3 tabs PO TID Hyperkalemia - Will continue albuterol, insulin - ISS sliding scale Constipation - miralax bid prn monitor BMs. if > 1 or liquidy BMs, will make it prn DM2 - A1c this admission is 6.9% - continue insulin sliding scale - director of occupational therapy consulted Hx of CVA: - continue aspirin and eliquis - Pt has baseline speech impediment impairing her ability to complete sentences Obesity - diet/exercise recommended. Chair Pad Maker ingrisal ordered Diet: renal, HHD, diabetic GI/DVT ppx: protonix, eliquis PT recommending TCU Case reviewed with attending physician, Dr. Kayla Dhaliwal PGY1 <Kayal Lloyd R - Last Filed: 10/22/18 08:34> Objective - Vital Signs/Intake and Output Vital Signs (last 24 hours): Temp Pulse Resp BP Pulse Ox 98.5 F 88 18 94/59 L 100 10/22/18 06:00 10/22/18 06:00 10/22/18 06:00 10/22/18 06:00 10/22/18 06:00 Intake and Output: 10/22/18 10/22/18 06:59 18:59 Intake Total 480 Balance 480 - Medications Medications: Current Medications Acetaminophen (Tylenol 325mg Tab) 650 mg PO Q6H PRN PRN Reason: Headache Last Admin: 10/20/18 16:30 Dose: 650 mg Apixaban (Eliquis) 2.5 mg PO BID [facility]; Protocol Last Admin: 10/21/18 18:58 Dose: 2.5 mg Aspirin (Aspirin Chewable) 81 mg PO DAILY [facility] Last Admin: 10/21/18 09:11 Dose: 81 mg Budesonide (Pulmicort Respules) 0.5 mg IH [id number] [facility] Last Admin: 10/22/18 08:26 Dose: Not Given Calcium Acetate (Phoslo) 667 mg PO WM [facility] Docusate Sodium (Colace) 100 mg PO BID [facility] Insulin Human Regular (Humulin R Med) 0 units SC ACHS [facility]; Protocol Last Admin: 10/21/18 22:26 Dose: Not Given Levalbuterol HCl (Xopenex) 1.25 mg IH Q6H [facility] Last Admin: 10/22/18 08:26 Dose: Not Given Loratadine (Claritin) 10 mg PO DAILY [facility] Last Admin: 10/21/18 09:11 Dose: 10 mg Methylprednisolone (Solu-Medrol) 40 mg IVP Q12 [facility] Last Admin: 10/21/18 22:29 Dose: 40 mg Montelukast Sodium (Singulair) 10 mg PO HS [facility] Last Admin: 10/21/18 22:30 Dose: 10 mg Ferric Citrate [ Auryxia] 2 Tab (Home Med) 2 tab PO TID [facility] Last Admin: 10/21/18 18:58 Dose: 2 tab Pantoprazole Sodium (Protonix Ec Tab) 40 mg PO DAILY [facility] Last Admin: 10/21/18 09:11 Dose: 40 mg Sodium Polystyrene Sulfonate (Kayexalate) 15 gm PO DAILY [facility] Last Admin: 10/21/18 09:16 Dose: 15 gm - Labs Labs: 10/22/18 07:00 10/22/18 07:00 PT 11.8 SECONDS (9.4-12.5) 10/19/18 12:15 INR 1.04 10/19/18 12:15 APTT 26.5 Seconds (26.9-38.3) L 10/20/18 05:40 Attending/Attestation - Attestation I have personally seen and examined this patient.: Yes I have fully participated in the care of the patient.: Yes I have reviewed all pertinent clinical information, including history, physical exam and plan: Yes Notes (Text): Patient seen and examined by me with resident at approximately 10AM on 10/21/18. Case including HPI, physical exam, and assessment and plan discussed with resident. Agree with above with following additions/corrections. Patient is a 53-year-old female with past medical history significant for end- stage renal disease on dialysis Friday, Friday, and Friday, asthma, CVA, TIA, homocystinuria on Eliquis, and hypertension that presented to the emergency room for wheezing and shortness of breath for one week. Patient states that she is feeling a little better today. Shortness of breath improved. Still coughing. Stil with watery bowel movements. Patient denies chest pain or palpitations. No headaches or dizziness. No nausea, vomiting, or abdominal pain. No fevers or chills. Physical exam: General: Awake and alert lying in bed in no acute distress. HEENT: Normocephalic, atraumatic. Extraocular muscles intact, pupils equal and reactive, no scleral icterus. Oropharynx is pink and moist. No pharyngeal erythema or exudate appreciated. Neck is supple. Cardiovascular: Regular rhythm. Normal S1, S2. No murmurs, rubs, or gallops appreciated Pulmonary: Normal respiratory effort. Decreased breath sounds. Improved coarse breath sounds. Expiratory wheezing heard throughout anteriorly and posteriorly. Gastrointestinal: Soft, nondistended. Nontender. Positive bowel sounds all 4 quadrants. No guarding. Musculoskeletal: Moves all extremities. No calf tenderness. No edema appreciated. Central nervous system: AAOx3. Dermatologic: Skin warm and dry. Assessment and plan: Patient is a 53-year-old female with past medical history significant for end-stage renal disease on dialysis Friday, Friday, and Friday, asthma, CVA, TIA, homocystinuria on Eliquis, and hypertension that presented to the emergency room for wheezing and shortness of breath for one week. 1. Dyspnea. Secondary to asthma exacerbation. Continue Pulmicort. Continue Xoponex neb treatments. Continue solumedrol and singulair. Continue O2 via nasal cannula as needed. Continue BIPAP as needed. Patient counseled on using her home oxygen. Pulmonary recommendations appreciated. For dialysis today. 2. Hyperkalemia. Dialysis today. Also started on Kayexelate by medical insurance biller. Continue to monitor. 3. Hyperphosphotemia. Continue home auryxia 4. ESRD. Continue dialysis M/W/F per nephrology. For dialysis today. Welder Fitter Helper recommendations appreciated. 5. DM2. HgbA1C 6.9. Continue insulin sliding scale. Hyperglycemia likely secondary to steroids. Continue to monitor accuchecks. Diet and exercise recommended. 6. Leukocytosis. Likely secondary to steroids. Continue to monitor. 7. History of CVA. Continue ASA 8. History of homocystinuria. Continue Eliquis 2.5mg PO BID. 9. Constipation. Resolved. On kayexelate per neprhologist. 10. GI/DVT prophylaxis. Protonix/Eliquis. Case was discussed in detail with the patient and patient's daughter at bedside regarding current diagnosis and treatment plan. All questions answered.
[2018-10-21] MEDS: Pantoprazole 40 mg EC Tab PO SCH (09:11)
[2018-10-21] MEDS: Insulin Reg-MEDIUM-Coverage SC SCH ×4 (09:12→22:26)
[2018-10-21] MEDS: FERRIC CITRATE PO SCH ×3 (09:12→18:58)
[2018-10-21] MEDS: MethylPREDNISolone 40 mg Vial IVP SCH ×2 (09:12→22:29)
--- NOTE | 2018-10-21 19:49 | PN ---
DATE: 10/20/2018 SUBJECTIVE: The patient is seen in the dialysis unit. She is awake. She is alert. She feels better. She denies any chest pain. She denies any shortness of breath. PHYSICAL EXAMINATION: GENERAL: Middle-aged lady lying in bed. VITAL SIGNS: Blood pressure 107/67, heart rate 89, respiratory rate 18, and temperature 98. HEENT: Normocephalic and atraumatic. Positive pallor. NECK: Supple. No JVD. LUNGS: Bilateral equal air entry, bilateral equal expansion. CARDIAC: S1 and S2. Regular rate and rhythm. No murmur. No rub. ABDOMEN: Obese, distended, soft, and nontender. Bowel sounds present. EXTREMITIES: No lower extremity edema. INTAKE AND OUTPUT: Not charted. LABORATORY DATA: WBC 18, hemoglobin 13.1, hematocrit 39, and platelets 267. Sodium 127, potassium 6.1, chloride 91, CO2 of 20, BUN 99, creatinine 8.9, glucose 173, calcium 6.5, phosphorus 8.7, magnesium 1.8, and albumin 3.5. CURRENT MEDICATIONS: List reviewed. ASSESSMENT: 1. Asthma exacerbation, respiratory failure. 2. Hyperkalemia. 3. Hypocalcemia. 4. Severe hyperphosphatemia. 5. History of cerebrovascular accident. PLAN: 1. Continue respiratory treatments, nebulizers, steroids. 2. Continue empiric antibiotics. 3. Dialysis with potassium 1 bath. 4. Continue Kayexalate 15 g daily. 5. Add PhosLo 1 tablet t.i.d. with meals to help increase calcium and lower phosphorus. Mame Kruse MD
--- NOTE | 2018-10-21 20:13 | CARD ---
APPROVED REPORT Date of service: 10/21/2018 EKG Measurement Heart [id number] <Conclusion> Sinus rhythm with short [place] Left Anterior Andrea-Block. Low voltage QRS Abnormal ECG
[2018-10-22] MEDS ORDERED: POLYETHYLENE GLYCOL 3350 17 GM/Dose PACKET PO PRN (00:19)
[2018-10-22] MEDS: Levalbuterol 1.25 MG/3 ML Inhal Soln UD IH SCH ×4 (02:08→19:28)
[2018-10-22 06:02] VITALS: O2SAT 100
[2018-10-22 07:16] LABS: BASO # 0.01 K/mm3 (0.0-2.0); BASO % 0.1 % (0.0-3.0); HEMOGLOBIN 12.6 g/dL (12.0-16.0); LYMPH # 0.8 (1.2-3.4); LYMPH % 6.8 % (22.0-35.0); MEAN CELL VOLUME 92.6 fl (80.0-105.0); MEAN CORPUSCULAR HEMOGLOBIN 29.9 pg (25.0-35.0); MEAN CORPUSCULAR HGB CONC 32.3 g/dl (31.0-37.0); MEAN PLATELET VOLUME 9.2 fl (7.0-11.0); MONO # 0.6 (0.1-0.6); MONO % 4.6 % (1.0-6.0); RBC 4.21 10^6/uL (3.5-6.1); RED CELL DISTRIBUTION WIDTH 14.4 % (11.5-14.5); WHITE BLOOD COUNT 12.2 10^3/uL (4.5-11.0)
[2018-10-22 08:20] LABS: ALBUMIN 3.2 g/dL (3.0-4.8); CALCIUM 6.7 mg/dL (8.4-10.5)
[2018-10-22] MEDS: Budesonide 0.5 mg/2 ml Inhal Susp UD IH SCH ×2 (08:26→19:28)
[2018-10-22] MEDS: Pantoprazole 40 mg EC Tab PO SCH (11:51)
[2018-10-22] MEDS: Insulin Reg-MEDIUM-Coverage SC SCH ×4 (11:52→22:37)
[2018-10-22] MEDS: FERRIC CITRATE PO SCH ×3 (11:52→18:00)
[2018-10-22] MEDS: MethylPREDNISolone 40 mg Vial IVP SCH ×2 (11:53→22:27)
--- NOTE | 2018-10-22 14:26 | CP.PCM.PN ---
<Florentin Dhaliwal - Last Filed: 10/22/18 14:05> Subjective - Date & Time of Evaluation Date of Evaluation: 10/22/18 Time of Evaluation: 08:30 - Subjective Subjective: INTERNAL MEDICINE PROGRESS NOTE FOR DR SHERIE Dhaliwal PGY1 Pt seen and examined in dialysis unit this am. She reports SOB has improved. She is tolerating diet. She otherwise denying ROS Objective - Vital Signs/Intake and Output Vital Signs (last 24 hours): Temp Pulse Resp BP Pulse Ox 98.1 F 88 18 97/64 L 100 10/22/18 12:00 10/22/18 12:00 10/22/18 12:00 10/22/18 12:00 10/22/18 06:00 Intake and Output: 10/22/18 10/22/18 06:59 18:59 Intake Total 480 Balance 480 - Medications Medications: Current Medications Acetaminophen (Tylenol 325mg Tab) 650 mg PO Q6H PRN PRN Reason: Headache Last Admin: 10/20/18 16:30 Dose: 650 mg Apixaban (Eliquis) 2.5 mg PO BID [facility]; Protocol Last Admin: 10/22/18 11:51 Dose: 2.5 mg Aspirin (Aspirin Chewable) 81 mg PO DAILY [facility] Last Admin: 10/22/18 11:51 Dose: 81 mg Budesonide (Pulmicort Respules) 0.5 mg IH [id number] [facility] Last Admin: 10/22/18 08:26 Dose: Not Given Calcium Acetate (Phoslo) 667 mg PO WM [facility] Last Admin: 10/22/18 11:51 Dose: 667 mg Docusate Sodium (Colace) 100 mg PO BID [facility] Last Admin: 10/22/18 11:51 Dose: 100 mg Insulin Human Regular (Humulin R Med) 0 units SC ACHS [facility]; Protocol Last Admin: 10/22/18 12:35 Dose: 7 u Levalbuterol HCl (Xopenex) 1.25 mg IH Q6H [facility] Last Admin: 10/22/18 13:48 Dose: Not Given Loratadine (Claritin) 10 mg PO DAILY [facility] Last Admin: 10/22/18 11:52 Dose: 10 mg Methylprednisolone (Solu-Medrol) 40 mg IVP Q12 [facility] Last Admin: 10/22/18 11:53 Dose: 40 mg Montelukast Sodium (Singulair) 10 mg PO HS [facility] Last Admin: 10/21/18 22:30 Dose: 10 mg Ferric Citrate [ Auryxia] 2 Tab (Home Med) 2 tab PO TID [facility] Last Admin: 10/22/18 11:52 Dose: 2 tab Pantoprazole Sodium (Protonix Ec Tab) 40 mg PO DAILY [facility] Last Admin: 10/22/18 11:51 Dose: 40 mg - Labs Labs: 10/22/18 07:00 10/22/18 07:00 PT 11.8 SECONDS (9.4-12.5) 10/19/18 12:15 INR 1.04 10/19/18 12:15 APTT 26.5 Seconds (26.9-38.3) L 10/20/18 05:40 - Constitutional Appears: Well, Non-toxic, No Acute Distress - Head Exam Head Exam: NORMAL INSPECTION, NORMOCEPHALIC - Eye Exam Eye Exam: EOMI, Normal appearance - ENT Exam ENT Exam: Mucous Membranes Moist, Normal Exam. Upper airway stridor - Respiratory Exam Respiratory Exam: Wheezes. absent: Rales, Rhonchi Additional comments: large neck circumference - Cardiovascular Exam Cardiovascular Exam: REGULAR RHYTHM, +S1, +S2 - GI/Abdominal Exam GI & Abdominal Exam: Soft. absent: Tenderness - Extremities Exam Extremities Exam: Normal Inspection. absent: Tenderness - Back Exam Back Exam: NORMAL INSPECTION. absent: CVA tenderness (L), CVA tenderness (R) - Neurological Exam Neurological Exam: Alert, Awake, Oriented x3 - Psychiatric Exam Psychiatric exam: Normal Affect, Normal Mood - Skin Skin Exam: Dry, Intact, Warm Assessment and Plan - Assessment and Plan (Free Text) Assessment: 53 year old female with PMH asthma on home daily prednisone, CVA, hx elevated homocysteine, ESRD on HD admitted for asthma exacerbation in the setting of ESRD Plan: Shortness of breath - Upper airway wheezing noted on exam likely 2/2 asthma exacerbation. Remains afebrile, not tachycardic, not hypoxic, no hypercarbia on ABG. Leukocytosis likely 2/2 demargination from solu-medrol - Will consult ENT, questionable vocal cord dysfunction given history of CVA, stridor non-responsive to bronchodilator therapy, IV steroids, anti-cholinergics - Per pulmonology, pt would benefit from PFTs and flow-volume to differential asthma vs vocal cord dysfunction - continue loratidine, IgE level borderline elevated - Bipap prn for SOB - will continue solumedrol to 40Q12, will continue tapering - continue xopenex, montelukast, budesonide - Pulmonology following - blood cultures have been negative so far, MRSA screen negative ESRD on HD MWF - scheduled for HD today, continue regular regimen - nephrology Dr Peralta consulted. f/u recs. - continue phoslo/auryxia per nephro recs Hyperkalemia - Resolved today after dialysis - ISS sliding scale Constipation - miralax bid prn monitor BMs. if > 1 or liquidy BMs, will make it prn DM2 - A1c this admission is 6.9% - continue insulin sliding scale - nurses educator consulted Hx of CVA: - continue aspirin and eliquis - Pt has baseline speech impediment impairing her ability to complete sentences Obesity - diet/exercise recommended. Apartment House Manager eval ordered Diet: renal, HHD, diabetic GI/DVT ppx: protonix, eliquis PT recommending [facility] Case reviewed with attending physician, Dr. Kayla Dhaliwal PGY1 <Kayla Lloyd R - Last Filed: 10/23/18 07:50> Objective - Vital Signs/Intake and Output Vital Signs (last 24 hours): Temp Pulse Resp BP Pulse Ox 97.8 F 60 21 109/72 100 10/23/18 06:00 10/23/18 06:00 10/23/18 06:00 10/23/18 06:00 10/22/18 06:00 Intake and Output: 10/23/18 10/23/18 06:59 18:59 Intake Total 960 540 Output Total 0 Balance 960 540 - Medications Medications: Current Medications Acetaminophen (Tylenol 325mg Tab) 650 mg PO Q6H PRN PRN Reason: Headache Last Admin: 10/20/18 16:30 Dose: 650 mg Apixaban (Eliquis) 2.5 mg PO BID [facility]; Protocol Last Admin: 10/22/18 18:01 Dose: 2.5 mg Aspirin (Aspirin Chewable) 81 mg PO DAILY [facility] Last Admin: 10/22/18 11:51 Dose: 81 mg Budesonide (Pulmicort Respules) 0.5 mg IH [id number] [facility] Last Admin: 10/23/18 07:28 Dose: 0.5 mg Calcium Acetate (Phoslo) 667 mg PO WM [facility] Last Admin: 10/22/18 17:59 Dose: 667 mg Docusate Sodium (Colace) 100 mg PO BID [facility] Last Admin: 10/22/18 18:00 Dose: 100 mg Insulin Human Regular (Humulin R Med) 0 units SC ACHS [facility]; Protocol Last Admin: 10/22/18 22:37 Dose: Not Given Levalbuterol HCl (Xopenex) 1.25 mg IH Q6H [facility] Last Admin: 10/23/18 07:28 Dose: 1.25 mg Loratadine (Claritin) 10 mg PO DAILY [facility] Last Admin: 10/22/18 11:52 Dose: 10 mg Methylprednisolone (Solu-Medrol) 40 mg IVP Q12 [facility] Last Admin: 10/22/18 22:27 Dose: 40 mg Montelukast Sodium (Singulair) 10 mg PO HS [facility] Last Admin: 10/22/18 22:28 Dose: 10 mg Ferric Citrate [ Auryxia] 2 Tab (Home Med) 2 tab PO TID [facility] Last Admin: 10/22/18 18:00 Dose: 2 tab Pantoprazole Sodium (Protonix Ec Tab) 40 mg PO DAILY [facility] Last Admin: 10/22/18 11:51 Dose: 40 mg - Labs Labs: 10/23/18 06:30 10/22/18 07:00 PT 11.8 SECONDS (9.4-12.5) 10/19/18 12:15 INR 1.04 10/19/18 12:15 APTT 26.5 Seconds (26.9-38.3) L 10/20/18 05:40 Attending/Attestation - Attestation I have personally seen and examined this patient.: Yes I have fully participated in the care of the patient.: Yes I have reviewed all pertinent clinical information, including history, physical exam and plan: Yes Notes (Text): Patient seen and examined by me with resident at approximately 10:40AM on 10/22/18. Case including HPI, physical exam, and assessment and plan discussed with resident. Agree with above with following additions/corrections. Patient is a 53-year-old female with past medical history significant for end- stage renal disease on dialysis Friday, Friday, and Friday, asthma, CVA, TIA, homocystinuria on Eliquis, and hypertension that presented to the emergency room for wheezing and shortness of breath for one week. Patient seen in dialysis. Patient states her shortness of breath has improved. She states she always has wheezing at baseline. Patient states she is still having watery bowel movements. No chest pain or palpitations. No headaches or dizziness. No nausea, vomiting, or abdominal pain. No fevers or chills. Physical exam: General: Awake and alert lying in bed in no acute distress. HEENT: Normocephalic, atraumatic. Extraocular muscles intact, pupils equal and reactive, no scleral icterus. Oropharynx is pink and moist. No pharyngeal erythema or exudate appreciated. Neck is supple. Cardiovascular: Regular rhythm. Normal S1, S2. No murmurs, rubs, or gallops appreciated Pulmonary: Normal respiratory effort. Decreased breath sounds. Mild expiratory wheezing,. No rhonchi or rales appreciated. Gastrointestinal: Soft, nondistended. Nontender. Positive bowel sounds all 4 quadrants. No guarding. Musculoskeletal: Moves all extremities. No calf tenderness. No edema appreciated. Central nervous system: AAOx3. Dysarthria at baseline secondary to previous CVA. Dermatologic: Skin warm and dry. Assessment and plan: Patient is a 53-year-old female with past medical history significant for end-stage renal disease on dialysis Friday, Friday, and Friday, asthma, CVA, TIA, homocystinuria on Eliquis, and hypertension that pres ented to the emergency room for wheezing and shortness of breath for one week. 1. Dyspnea. Secondary to asthma exacerbation. Continue Xoponex nebulizer treatments. Continue Pulmicort. Continue solumedrol and singulair. Continue O2 via nasal cannula as needed. Continue BIPAP as needed. Patient counseled on using her home oxygen. Pulmonary recommendations appreciated. ENT consulted, pending recommendations. 2. Hyperkalemia. Resolved for now. Patient at dialysis today. Continue to monitor 3. Hyperphosphotemia. Continue home auryxia. Continue phoslo. 4. ESRD. Continue dialysis per nephrology. Felting Machine Operator recommendations appreciated. 5. DM2. HgbA1C 6.9. Continue insulin sliding scale. Hyperglycemia likely secondary to steroids. Continue to monitor accuchecks. Diet and exercise recommended. 6. Leukocytosis. Likely secondary to steroids. Continue to monitor. 7. History of CVA. With residual dysarthria. Continue ASA 8. History of homocystinuria. Continue Eliquis 2.5mg PO BID. 9. Constipation. Resolved. Continue to monitor. 10. GI/DVT prophylaxis. Protonix/Eliquis. Case was discussed in detail with the patient regarding current diagnosis and treatment plan. All questions answered.
--- NOTE | 2018-10-22 15:40 | PN ---
DATE: 10/22/2018 SUBJECTIVE: The patient is seen lying in bed. She is awake, she is alert, she is comfortable. She reports she is having diarrhea. She had 3 bowel movements yesterday. PHYSICAL EXAMINATION GENERAL: Obese, middle-aged lady lying in bed. VITAL SIGNS: Blood pressure 97/64, heart rate 88, respiratory rate 18, temperature 98. HEENT: Normocephalic, atraumatic, positive pallor. NECK: Supple, no JVD. LUNGS: Bilateral equal air entry, bilateral equal expansion, minimal rhonchi. CARDIAC: S1 and S2, regular rate and rhythm, no murmur, no rub. ABDOMEN: Obese, distended, soft, nontender, bowel sounds present. EXTREMITIES: No lower extremity edema. INTAKE AND OUTPUT: Not charted. LABORATORY DATA: WBC 12, hemoglobin 12.6, hematocrit 39, platelets 270. Sodium 131, potassium 5.0, chloride 92, CO2 of 24, BUN 67, creatinine 5.7, glucose 272. ASSESSMENT 1. Acute asthma exacerbation, resolving. 2. Stridor. 3. Hyperkalemia, resolved. 4. Constipation, now with diarrhea. 5. Hypertension. 6. End-stage renal disease. PLAN 1. Continue respiratory treatments, steroids. 2. Hold all laxatives. 3. Next dialysis tomorrow. 4. No objection to discharge. Mame Kruse MD
--- NOTE | 2018-10-22 17:52 | PN ---
DATE: 10/22/2018 SUBJECTIVE: The patient was seen and examined at bedside. She is comfortable. She is not in respiratory or otherwise distress. She reports subjectively her breathing is doing better. No stridor. No audible wheezing. PHYSICAL EXAMINATION VITAL SIGNS: Temperature 98.1, blood pressure 97/64, respiratory rate 18, and oxygen saturation 100% on 2 liters nasal cannula. ENT: Head and neck atraumatic. LUNGS: Clear to auscultation bilaterally. HEART: Regular rate and rhythm. S1 and S2 normal. ABDOMEN: Soft, nontender and nondistended. MUSCULOSKELETAL: No C/C/E. NEUROLOGIC: The patient moves all extremities spontaneously. SKIN: Moist. PSYCHIATRIC: The patient is alert, awake, and oriented x3. LABORATORY DATA: Sodium 131, potassium 5, chloride 92, carbon dioxide 24, BUN 67, creatinine 5.7 (the patient is on chronic HD), glucose 306. AST 18, ALT 17 and total bilirubin 0.5. WBC 12.2, hemoglobin 12.6 and platelet count 217. MEDICATIONS: Tylenol p.r.n., Eliquis, aspirin, budesonide, PhosLo, Colace, regular insulin sliding scale medium protocol, Xopenex every 6 hours, Claritin, Solu-Medrol 40 mg IV every 12 hours, Singulair 10 mg at bedtime and Protonix daily. ASSESSMENT AND PLAN: This is a 53-year-old lady, who initially presented with asthma exacerbation with significant concern for vocal cord dysfunction. The patient was treated with bronchodilators and steroid taper. She substantially improved and was discharged from the ICU to regular floor. ENT consult is pending. At present time, I would continue with steroid tapering to overlap with ICS upon discharge and bronchodilators as needed. The patient needs to see pulmonary doctor as an outpatient in 7-10 days after discharge. The patient does not have any stridor, does not have any wheezes on auscultation. She is protecting her airways. She is not in respiratory or otherwise distress. Dami Dorman MD [facility]
--- NOTE | 2018-10-22 19:49 | CP.PCM.CON ---
History of Present Illness - History of Present Illness History of Present Illness: Patient is a 53 y/o female with a PMH of ESRD (HD MWF), homocystineuria on elliquis, asthma (unsure if she has been intubated in the past), CVAx2, TIAx2, HTN. Patient was admitted for wheezing and SOB secondary to asthma exacerbation. Patient was recently admitted for wheeze and COPD exacerbation. Patient experienced excessive wheezing during her dialysis and was brought to the ICU. She was subsequently transferred to the floor. ENT has been asked to evaluate for VCD etiology of wheezing. Pt seen and examined with agreement. She states she has noted voice change and has no dysphagia/odnynophagia. She states she did not smoke although lived among smokers. Patient having some expiratory noisy breathing during examination. PMHx: TIAx2, thromboembolic stroke x2, ESRD on HD and asthma PSh: , cholecystectomy Sh: denies tobacco/EtOH, Drug use and lives with 3 children (pt had been exposed to second hand smoking) FH: Mother 71 CVA, Fater CVAx3 Home meds: chart reviewed Allergies: NKDA Review of Systems - Constitutional Constitutional: As Per HPI - EENT Eyes: As Per HPI Ears: As Per HPI Nose/Mouth/Throat: As Per HPI - Breasts Breasts: As Per HPI - Cardiovascular Cardiovascular: As Per HPI - Respiratory Respiratory: As Per HPI - Gastrointestinal Gastrointestinal: As Per HPI - Genitourinary Genitourinary: As Per HPI - Reproductive: Female Reproductive:Female: As Per HPI - Menstruation Menstruation: As Per HPI - Musculoskeletal Musculoskeletal: As Per HPI - Integumentary Integumentary: As Per HPI - Neurological Neurological: As Per HPI - Psychiatric Psychiatric: As Per HPI - Endocrine Endocrine: As Per HPI - Hematologic/Lymphatic Hematologic: As Per HPI Past Patient History - Infectious Disease Hx of Infectious Diseases: None - Tetanus Immunizations Tetanus Immunization: Unknown - Past Social History Smoking Status: Never Smoked - CARDIAC Hx Cardiac Disorders: Yes Hx Congestive Heart Failure: Yes Hx Hypertension: Yes - PULMONARY Hx Chronic Obstructive Pulmonary Disease (COPD): Yes - NEUROLOGICAL HX Cerebrovascular Accident: Yes - HEENT Hx HEENT Problems: No - RENAL Hx Renal Failure: Yes - ENDOCRINE/METABOLIC Hx Endocrine Disorders: Yes (HYPERPARATHYROIDISM) - HEMATOLOGICAL/ONCOLOGICAL Hx Blood Disorders: Yes Hx Anemia: Yes - INTEGUMENTARY Hx Dermatological Problems: No - MUSCULOSKELETAL/RHEUMATOLOGICAL Hx Musculoskeletal Disorders: No - GASTROINTESTINAL Hx Gastrointestinal Disorders: Yes Hx Gall Bladder Disease: Yes (s/p cholecystectomy) - GENITOURINARY/GYNECOLOGICAL Hx Genitourinary Disorders: No (C/S X3) - PSYCHIATRIC Hx Psychophysiologic Disorder: No Hx Substance Use: No - SURGICAL HISTORY Hx Cholecystectomy: Yes Other/Comment: L upper arm AV shunt - ANESTHESIA Hx Anesthesia: Yes Hx Anesthesia Reactions: No Hx Malignant Hyperthermia: No Meds Allergies/Adverse Reactions: Allergies Allergy/AdvReac Type Severity Reaction Status Date / Time No Known Allergies Allergy Verified 10/14/18 17:33 - Medications Medications: Current Medications Acetaminophen (Tylenol 325mg Tab) 650 mg PO Q6H PRN PRN Reason: Headache Last Admin: 10/20/18 16:30 Dose: 650 mg Apixaban (Eliquis) 2.5 mg PO BID [facility]; Protocol Last Admin: 10/22/18 18:01 Dose: 2.5 mg Aspirin (Aspirin Chewable) 81 mg PO DAILY [facility] Last Admin: 10/22/18 11:51 Dose: 81 mg Budesonide (Pulmicort Respules) 0.5 mg IH [id number] [facility] Last Admin: 10/22/18 19:28 Dose: 0.5 mg Calcium Acetate (Phoslo) 667 mg PO WM [facility] Last Admin: 10/22/18 17:59 Dose: 667 mg Docusate Sodium (Colace) 100 mg PO BID [facility] Last Admin: 10/22/18 18:00 Dose: 100 mg Insulin Human Regular (Humulin R Med) 0 units SC ACHS [facility]; Protocol Last Admin: 10/22/18 17:59 Dose: 3 u Levalbuterol HCl (Xopenex) 1.25 mg IH Q6H [facility] Last Admin: 10/22/18 19:28 Dose: 1.25 mg Loratadine (Claritin) 10 mg PO DAILY [facility] Last Admin: 10/22/18 11:52 Dose: 10 mg Methylprednisolone (Solu-Medrol) 40 mg IVP Q12 [facility] Last Admin: 10/22/18 11:53 Dose: 40 mg Montelukast Sodium (Singulair) 10 mg PO HS [facility] Last Admin: 10/21/18 22:30 Dose: 10 mg Ferric Citrate [ Auryxia] 2 Tab (Home Med) 2 tab PO TID [facility] Last Admin: 10/22/18 18:00 Dose: 2 tab Pantoprazole Sodium (Protonix Ec Tab) 40 mg PO DAILY [facility] Last Admin: 10/22/18 11:51 Dose: 40 mg Physical Exam - Constitutional Appears: Well, Non-toxic - Head Exam Head Exam: ATRAUMATIC, NORMAL INSPECTION - Eye Exam Eye Exam: EOMI, Normal appearance Pupil Exam: NORMAL ACCOMODATION - ENT Exam ENT Exam: Mucous Membranes Moist Additional comments: Ears: canals and TM's wnl bilaterally Nose: mild septum deviation to the left Throat: wnl MMM, no exudate/erythema Neck : supple no adenopathy trachea midline Procedure: Flexible Fiberoptic Laryngoscopy-performed 10/22/18 Indication: Vocal cord disfunction and strong gag /poor anatomy for mirror exam Informed verbal consent obtained nose anesthetized with 50/50 topical lidocaine/afrin solution scope advanced through floor of right nostril. Findings Nasopharynx: wnl no mass Oropharynx: wnl no base of tongue mass or lesions Supraglottis: wnl no lesions/masses Glottis: no lesions masses Glottic movement: wnl no paresis paralysis, no paradoxical movement Hypopharynx: wnl no lesions/masses Interarytenoid: moderate edema indicative of laryngopharyngeal reflux Patient tolerated the procedure well. Airway patent and stable. NO Vocal fold dysfunction noted - Neck Exam Neck exam: Positive for: Normal Inspection. Negative for: Lymphadenopathy - Respiratory Exam Respiratory Exam: Wheezes Results - Vital Signs Recent Vital Signs: Last Vital Signs Temp 98.1 F 10/22/18 12:00 Pulse 88 10/22/18 12:00 Resp 18 10/22/18 12:00 BP 97/64 L 10/22/18 12:00 Pulse Ox 100 10/22/18 06:00 - Labs Result Diagrams: 10/22/18 07:00 10/22/18 07:00 Labs: Laboratory Results - last 24 hr 10/21/18 10/21/18 10/22/18 17:14 21:24 07:00 WBC 12.2 H D RBC 4.21 Hgb 12.6 Hct 39.0 MCV 92.6 MCH 29.9 MCHC 32.3 RDW 14.4 Plt Count 270 MPV 9.2 Neut % (Auto) 88.5 H Lymph % (Auto) 6.8 L Haakon % (Auto) 4.6 Eos % (Auto) 0.0 L Baso % (Auto) 0.1 Lymph # (Auto) 0.8 L Haakon # (Auto) 0.6 Eos # (Auto) 0.0 Baso # (Auto) 0.01 Absolute Neuts (auto) 10.83 H Sodium Potassium Chloride Carbon Dioxide Anion Gap BUN Creatinine Est GFR ( Amer) Est GFR (Non-Af Amer) POC Glucose (mg/dL) 249 H 275 H Random Glucose Calcium Phosphorus Magnesium Total Bilirubin AST ALT Alkaline Phosphatase Total Protein Albumin Globulin Albumin/Globulin Ratio 10/22/18 10/22/18 10/22/18 07:00 07:26 11:30 WBC RBC Hgb Hct MCV MCH MCHC RDW Plt Count MPV Neut % (Auto) Lymph % (Auto) Haakon % (Auto) Eos % (Auto) Baso % (Auto) Lymph # (Auto) Haakon # (Auto) Eos # (Auto) Baso # (Auto) Absolute Neuts (auto) Sodium 131 L Potassium 5.0 Chloride 92 L Carbon Dioxide 24 Anion Gap 20 BUN 67 H Creatinine 5.7 H Est GFR ( Amer) 9 Est GFR (Non-Af Amer) 8 POC Glucose (mg/dL) 280 H 306 H Random Glucose 272 H Calcium 6.7 L* Phosphorus 6.3 H Magnesium 1.8 Total Bilirubin 0.5 AST 18 ALT 17 Alkaline Phosphatase 102 Total Protein 6.5 Albumin 3.2 Globulin 3.3 Albumin/Globulin Ratio 1.0 L 10/22/18 16:22 WBC RBC Hgb Hct MCV MCH MCHC RDW Plt Count MPV Neut % (Auto) Lymph % (Auto) Haakon % (Auto) Eos % (Auto) Baso % (Auto) Lymph # (Auto) Haakon # (Auto) Eos # (Auto) Baso # (Auto) Absolute Neuts (auto) Sodium Potassium Chloride Carbon Dioxide Anion Gap BUN Creatinine Est GFR ( Amer) Est GFR (Non-Af Amer) POC Glucose (mg/dL) 217 H Random Glucose Calcium Phosphorus Magnesium Total Bilirubin AST ALT Alkaline Phosphatase Total Protein Albumin Globulin Albumin/Globulin Ratio Assessment & Plan (1) Asthma exacerbation Status: Acute Priority: High (2) Altered mental status Status: Acute (3) Asthma Status: Acute (4) CVA (cerebral infarction) Status: Acute (5) Dyspnea Status: Acute (6) ESRD (end stage renal disease) Status: Acute (7) ESRD (end stage renal disease) on dialysis Status: Chronic Priority: Medium (8) Wheeze Status: Acute (9) Other voice and resonance disorders Status: Acute (10) 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 GERD tx, f/u out patient - Date & Time Date: 10/22/18 Time: 19:49
[2018-10-23] MEDS: Levalbuterol 1.25 MG/3 ML Inhal Soln UD IH SCH ×3 (01:53→13:39)
[2018-10-23 06:31] VITALS: BP 109/72; RESP 21; TEMP 97.8
[2018-10-23 07:11] LABS: BASO # 0.01 K/mm3 (0.0-2.0); BASO % 0.1 % (0.0-3.0); HEMOGLOBIN 12.7 g/dL (12.0-16.0); LYMPH # 1.1 (1.2-3.4); LYMPH % 7.5 % (22.0-35.0); MEAN CELL VOLUME 91.5 fl (80.0-105.0); MEAN CORPUSCULAR HEMOGLOBIN 29.8 pg (25.0-35.0); MEAN CORPUSCULAR HGB CONC 32.6 g/dl (31.0-37.0); MEAN PLATELET VOLUME 8.9 fl (7.0-11.0); MONO # 0.6 (0.1-0.6); MONO % 4.1 % (1.0-6.0); RBC 4.26 10^6/uL (3.5-6.1); RED CELL DISTRIBUTION WIDTH 14.5 % (11.5-14.5); WHITE BLOOD COUNT 14.8 10^3/uL (4.5-11.0)
[2018-10-23] MEDS: Budesonide 0.5 mg/2 ml Inhal Susp UD IH SCH (07:28)
[2018-10-23 08:24] LABS: ALB/GLOB RATIO 1.1 (1.1-1.8); ALBUMIN 3.4 g/dL (3.0-4.8); CALCIUM 6.4 mg/dL (8.4-10.5)
[2018-10-23] MEDS: Insulin Reg-MEDIUM-Coverage SC SCH ×2 (08:30→12:59)
[2018-10-23] MEDS: MethylPREDNISolone 40 mg Vial IVP SCH (13:00)
[2018-10-23] MEDS: FERRIC CITRATE PO SCH ×2 (13:00)
[2018-10-23] MEDS: Pantoprazole 40 mg EC Tab PO SCH (13:01)
--- NOTE | 2018-10-23 13:05 | CP.PCM.DIS ---
<Isra,Rayan - Last Filed: 10/23/18 12:52> Provider - Provider Date of Admission: 10/16/18 13:01 Attending physician: Kayla Lloyd DO Primary care physician: Tennille Renteria MD Consults: 10/14/18 20:04 Nephrology Consult Routine Comment: Consulting Provider: Andre Peralta Consulting Physician: Andre Peralta Reason for Consult: ESRD patient on HD MWF 10/14/18 23:58 Nursing Referral for Palliative Care Routine Comment: Physician Instructions: Reason For Exam: ESRD on dialysis and COPD 10/15/18 00:41 Transition In Care/Readmission Reduction Routine Comment: Physician Instructions: Reason For Exam: COPD and ESRD on dialysis 10/15/18 12:12 Diabetic Education Referral Routine Comment: Physician Instructions: Reason For Exam: diabetes, ?home insulin use in past? 10/16/18 11:53 Pulmonology Consult Routine Comment: Consulting Provider: Yadira Mccray Consulting Physician: Yadira Mccray Reason for Consult: mod-persistent asthma, interstitial opacities on CT 10/22/18 11:47 ENT [Otolaryngology Consult] Routine Consulting Provider: Christophe Keith Consulting Physician: Christophe Keith Reason for Consult: ?vocal cord dysfunction/persistent stridor Time Spent in preparation of Discharge (in minutes): 45 Diagnosis - Discharge Diagnosis (1) Asthma exacerbation Status: Acute Priority: High (2) ESRD (end stage renal disease) on dialysis Status: Chronic Priority: Medium (3) 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26 10^6/uL (3.5-6.1) 10/23/18 06:30 Hgb 12.7 g/dL (12.0-16.0) 10/23/18 06:30 Hct 39.0 % (36.0-48.0) 10/23/18 06:30 MCV 91.5 fl (80.0-105.0) 10/23/18 06:30 MCH 29.8 pg (25.0-35.0) 10/23/18 06:30 MCHC 32.6 g/dl (31.0-37.0) 10/23/18 06:30 RDW 14.5 % (11.5-14.5) 10/23/18 06:30 Plt Count 287 10^3/uL (120.0-450.0) 10/23/18 06:30 MPV 8.9 fl (7.0-11.0) 10/23/18 06:30 Neut % (Auto) 88.3 % (50.0-68.0) H 10/23/18 06:30 Lymph % (Auto) 7.5 % (22.0-35.0) L 10/23/18 06:30 [place] % (Auto) 4.1 % (1.0-6.0) 10/23/18 06:30 Eos % (Auto) 0.0 % (1.5-5.0) L 10/23/18 06:30 Baso % (Auto) 0.1 % (0.0-3.0) 10/23/18 06:30 Lymph # (Auto) 1.1 (1.2-3.4) L 10/23/18 06:30 [place] # (Auto) 0.6 (0.1-0.6) 10/23/18 06:30 Eos # (Auto) 0.0 (0.0-0.7) 10/23/18 06:30 Baso # (Auto) 0.01 K/mm3 (0.0-2.0) 10/23/18 06:30 Absolute Neuts (auto) 13.07 (1.4-6.5) H 10/23/18 06:30 Neutrophils % (Manual) 89 % (50.0-70.0) H 10/15/18 06:00 Lymphocytes % (Manual) 10 % (22.0-35.0) L 10/15/18 06:00 Monocytes % (Manual) 1 % (1.0-6.0) 10/15/18 06:00 Platelet Evaluation Normal (NORMAL) 10/15/18 06:00 PT 11.8 SECONDS (9.4-12.5) 10/19/18 12:15 INR 1.04 10/19/18 12:15 APTT 26.5 Seconds (26.9-38.3) L 10/20/18 05:40 pCO2 40 mm/Hg (35-45) 10/16/18 15:50 pO2 84.0 mm/Hg (80-100) 10/16/18 15:50 HCO3 34.2 mmol/L (21-28) H 10/16/18 15:50 ABG pH 7.54 (7.35-7.45) H 10/16/18 15:50 ABG Total CO2 35.4 mmol.L (22-28) H 10/16/18 15:50 ABG O2 Saturation 97.9 % (95-98) 10/16/18 15:50 ABG O2 Content 17.1 ML/dl (15-23) 10/16/18 15:50 ABG Base Excess 10.7 mmol/L (-2.0-3.0) H 10/16/18 15:50 ABG Hemoglobin 12.7 g/dL (11.7-17.4) 10/16/18 15:50 ABG Carboxyhemoglobin 1.4 % (0.5-1.5) 10/16/18 15:50 POC ABG HHb (Measured) 2.0 % (0-5) 10/16/18 15:50 ABG Methemoglobin 1.1 % (0.0-3.0) 10/16/18 15:50 ABG O2 Capacity 17.5 mL/dl (16-24) 10/16/18 15:50 VBG pH 7.47 (7.32-7.43) H 10/14/18 17:50 VBG pCO2 48.0 (40-60) 10/14/18 17:50 VBG HCO3 34.9 mmol/l (21-28) H 10/14/18 17:50 VBG Total CO2 36.4 mmol.L (22-28) H 10/14/18 17:50 VBG O2 Sat (Calc) 71.1 % (40-65) H 10/14/18 17:50 VBG Base Excess 9.7 mmol/L (0.0-2.0) H 10/14/18 17:50 VBG Potassium 4.4 mmol/L (3.6-5.2) 10/14/18 17:50 Hgb O2 Saturation 95.5 % (95.0-98.0) 10/16/18 15:50 Sodium 135.0 mmol/L (132-148) 10/14/18 17:50 Chloride 97.0 mmol/L (98-107) L 10/14/18 17:50 Glucose 113 mg/dl (65-105) H 10/14/18 17:50 Lactate 1.1 mmol/L (0.7-2.1) 10/14/18 17:50 FiO2 28.0 % 10/16/18 15:50 Sodium 130 mmol/L (132-148) L 10/23/18 06:30 Potassium 5.2 mmol/L (3.6-5.0) H 10/23/18 06:30 Chloride 88 mmol/L (98-107) L 10/23/18 06:30 Carbon Dioxide 23 mmol/L (21-33) 10/23/18 06:30 Anion Gap 24 (10-20) H 10/23/18 06:30 BUN 109 mg/dL (7-21) H 10/23/18 06:30 Creatinine 8.7 mg/dl (0.7-1.2) H* D 10/23/18 06:30 Est GFR ( Amer) 6 10/23/18 06:30 Est GFR (Non-Af Amer) 5 10/23/18 06:30 POC Glucose (mg/dL) 205 mg/dL (65-110) H 10/23/18 07:37 Random Glucose 210 mg/dL (70-110) H 10/23/18 06:30 Hemoglobin A1c 6.9 % (4.2-6.5) H 10/15/18 08:51 Calcium 6.4 mg/dL (8.4-10.5) L* 10/23/18 06:30 Phosphorus 8.1 mg/dL (2.5-4.5) H 10/23/18 06:30 Magnesium 1.9 mg/dL (1.7-2.2) 10/23/18 06:30 Total Bilirubin 0.3 mg/dL (0.2-1.3) 10/23/18 06:30 AST 22 U/L (14-36) 10/23/18 06:30 ALT 17 U/L (7-56) 10/23/18 06:30 Alkaline Phosphatase 97 U/L (38-126) 10/23/18 06:30 Lactate Dehydrogenase 557 U/L (333-699) 10/14/18 17:30 Total Creatine Kinase 277 U/L (35-230) H 10/14/18 17:30 CK-MB (CK-2) 1.3 ng/mL (0.0-3.6) 10/14/18 17:30 CK-MB (CK-2) % Cancelled 10/14/18 17:30 Troponin I 0.02 ng/mL D 10/14/18 17:30 Total Protein 6.6 g/dL (5.8-8.3) 10/23/18 06:30 Albumin 3.4 g/dL (3.0-4.8) 10/23/18 06:30 Globulin 3.2 gm/dL 10/23/18 06:30 Albumin/Globulin Ratio 1.1 (1.1-1.8) 10/23/18 06:30 Beta HCG, Quant < 2.39 mIU/mL (0-6.15) 10/14/18 17:30 Venous Blood Potassium 4.4 mmol/L (3.6-5.2) 10/14/18 17:50 IgE 187 kU/L (<re=177) H 10/17/18 09:00 Hep Bs Antigen Negative (NEGATIVE) 10/16/18 11:50 Hep Bs Antibody Negative (NEGATIVE) 10/16/18 11:50 - Hospital Course Hospital Course: Upon Admission: 53 year old female, with a past medical history of asthma (on home 10 mg PO prednisone, never intubated), homocystinuria on elliquis, CVA, ESRD (M/W/F), came to ED for have wheezing and sob for past week. Patient is a poor historian, most info obtained by bedside daughter (who works at [employer] [place]). Daughter states that she was recently discharged from [facility] [facility] 2.5 weeks ago, treated for COPD exacerbation. Patient, however, started having exacerbation within the past week, using nebulizer machine 3-4x/day, and night time awakenings 2-3x per week. This morning, during dialysis session, there was excessive wheezing, for which patient got a duoneb treatment during session and was sent to [facility] ED for further evaluation Hospital Course: Pt was admitted for dyspnea 2/2 asthma exacerbation. Pt was started on nebulizer treatments including xopenox, pulmicort and singular. She was started on IV solumedrol. Pt was transferred to ICU for close management for a short period of time, however did not require intubation and had not used BiPAP. Pt had underwent HD and ultrafiltration and was followed by nephrology throughout hospital stay. Pt was followed by pulmonology for persistent wheezing and recommendations were appreciated. ENT was consulted for possible vocal cord dysfunction, who performed bedside laryngoscopy and did not appreciate vocal cord dysfunction. Pulmonology had recommended outpatient PFTs & flow-volume loops in the outpatient setting. Outpatient ENT followup was also advised. Upon Discharge: Pt is feeling better and respiratory status has improved, wheezing improved. Vital signs/labs are stable. Pt was deemed stable by specialists to discharge to subacute rehab. Medication reconcilation was performed. Pt was educated on lifestyle modification, medication compliance and close outpatient followup. Pt advised to return to ED if she experiences new symptoms or symptoms return. Pt to be discharged on prednisone taper: Take 6 tablets (60mg) a day for 2 days Take 5 tablets (50mg) a day for 2 days Take 4 tablets (40mg) a day for 2 days Take 3 tablets (30mg) a day for 2 days Take 2 tablets (20mg) a day for 2 days Take 1 tablet (10mg) a day for 2 days Discharge Exam - Head Exam Head Exam: ATRAUMATIC, NORMAL INSPECTION - Eye Exam Eye Exam: EOMI, Normal appearance - ENT Exam ENT Exam: Mucous Membranes Moist - Neck Exam Neck exam: Normal Inspection - Respiratory Exam Respiratory Exam: NORMAL BREATHING PATTERN, UNREMARKABLE - Cardiovascular Exam Cardiovascular Exam: REGULAR RHYTHM, +S1, +S2 - GI/Abdominal Exam GI & Abdominal Exam: Soft. absent: Tenderness - Extremities Exam Extremities exam: normal inspection - Back Exam Back exam: NORMAL INSPECTION - Neurological Exam Neurological exam: Alert, Oriented x3 - Psychiatric Exam Psychiatric exam: Normal Affect, Normal Mood - Skin Skin Exam: Dry, Intact, Warm Discharge Plan - Discharge Medications Prescriptions: predniSONE [Prednisone] See Taper PO DAILY #42 tab - Follow Up Plan Condition: STABLE Disposition: REHAB FACILITY/REHAB UNIT Instructions: Acid Reflux (Gastroesophageal Reflux Disease), Adult (DC), End Stage Kidney Disease (DC), Asthma (DC), Renal Failure Diet (DC), Hyperkalemia (DC), Reactive Airways Disease (DC) Additional Instructions: You will be transferred to a subacute rehabilitation facility, [facility]. While at the facility, please follow these instructions: Please resume the medications you have been prescribed. Please start an oral prednisone taper with the following directions: Prednisone 10mg Take 6 tablets (60mg) a day for 2 days Take 5 tablets (50mg) a day for 2 days Take 4 tablets (40mg) a day for 2 days Take 3 tablets (30mg) a day for 2 days Take 2 tablets (20mg) a day for 2 days Take 1 tablet (10mg) a day for 2 days Please continue using oxygen Please continue using your BiPAP at night as needed Please continue dialysis as per your online merchant Please discuss all your medications with the doctors who will be visiting you. If your symptoms return, or you experience new symptoms, please inform the staff immediately. Upon Discharge from rehabilitation facility: Please follow up with your primary care doctor, and your creative services writer Dr. Renteria within 3-5 days of discharge from the hospital. Please discuss undergoing "pulmonary function tests" and "flow-volume" loops. Please follow up with your online merchant (kidney doctor), within 1 week of discharge. Please resume your home medications. Please discuss your medications with your d octors. Please discuss refills for your medications with your primary care doctor. If your symptoms return or you experience new symptoms, please visit the nearest emergency room Referrals: Tennille Renteria MD [Primary Care Provider] - Mame Kruse MD [Staff Provider] - Christophe Keith DO [Staff Provider] - Dami Dorman MD [Staff Provider] - <Kayla Lloyd R - Last Filed: 10/24/18 15:35> Provider - Provider Date of Admission: 10/16/18 13:01 Attending physician: Kayla Lloyd DO Primary care physician: Tennille Renteria MD Consults: 10/14/18 20:04 Nephrology Consult Routine Comment: Consulting Provider: Andre Peralta Consulting Physician: Andre Pearlta Reason for Consult: ESRD patient on HD MWF 10/14/18 23:58 Nursing Referral for Palliative Care Routine Comment: Physician Instructions: Reason For Exam: ESRD on dialysis and COPD 10/15/18 00:41 Transition In Care/Readmission Reduction Routine Comment: Physician Instructions: Reason For Exam: COPD and ESRD on dialysis 10/15/18 12:12 Diabetic Education Referral Routine Comment: Physician Instructions: Reason For Exam: diabetes, ?home insulin use in past? 10/16/18 11:53 Pulmonology Consult Routine Comment: Consulting Provider: Yadira Mccray Consulting Physician: Yadira Mccray Reason for Consult: mod-persistent asthma, interstitial opacities on CT 10/22/18 11:47 ENT [Otolaryngology Consult] Routine Consulting Provider: Christophe Keith Consulting Physician: Christophe Keith Reason for Consult: ?vocal cord dysfunction/persistent stridor Hospital Course - Lab Results Lab Results: Micro Results 10/14/18 17:30 Blood-Venous Blood Culture - Final NO GROWTH AFTER 5 DAYS 10/14/18 17:30 Blood-Venous Gram Stain - Final TEST NOT PERFORMED 10/14/18 17:00 Blood-Venous Blood Culture - Final NO GROWTH AFTER 5 DAYS 10/14/18 17:00 Blood-Venous Gram Stain - Final TEST NOT PERFORMED 10/16/18 16:00 Naris MRSA Culture (Admit) - Final MRSA NOT DETECTED Most Recent Lab Values WBC 14.8 10^3/uL (4.5-11.0) H D 10/23/18 06:30 RBC 4.26 10^6/uL (3.5-6.1) 10/23/18 06:30 Hgb 12.7 g/dL (12.0-16.0) 10/23/18 06:30 Hct 39.0 % (36.0-48.0) 10/23/18 06:30 MCV 91.5 fl (80.0-105.0) 10/23/18 06:30 MCH 29.8 pg (25.0-35.0) 10/23/18 06:30 MCHC 32.6 g/dl (31.0-37.0) 10/23/18 06:30 RDW 14.5 % (11.5-14.5) 10/23/18 06:30 Plt Count 287 10^3/uL (120.0-450.0) 10/23/18 06:30 MPV 8.9 fl (7.0-11.0) 10/23/18 06:30 Neut % (Auto) 88.3 % (50.0-68.0) H 10/23/18 06:30 Lymph % (Auto) 7.5 % (22.0-35.0) L 10/23/18 06:30 [place] % (Auto) 4.1 % (1.0-6.0) 10/23/18 06:30 Eos % (Auto) 0.0 % (1.5-5.0) L 10/23/18 06:30 Baso % (Auto) 0.1 % (0.0-3.0) 10/23/18 06:30 Lymph # (Auto) 1.1 (1.2-3.4) L 10/23/18 06:30 [place] # (Auto) 0.6 (0.1-0.6) 10/23/18 06:30 Eos # (Auto) 0.0 (0.0-0.7) 10/23/18 06:30 Baso # (Auto) 0.01 K/mm3 (0.0-2.0) 10/23/18 06:30 Absolute Neuts (auto) 13.07 (1.4-6.5) H 10/23/18 06:30 Neutrophils % (Manual) 89 % (50.0-70.0) H 10/15/18 06:00 Lymphocytes % (Manual) 10 % (22.0-35.0) L 10/15/18 06:00 Monocytes % (Manual) 1 % (1.0-6.0) 10/15/18 06:00 Platelet Evaluation Normal (NORMAL) 10/15/18 06:00 PT 11.8 SECONDS (9.4-12.5) 10/19/18 12:15 INR 1.04 10/19/18 12:15 APTT 26.5 Seconds (26.9-38.3) L 10/20/18 05:40 pCO2 40 mm/Hg (35-45) 10/16/18 15:50 pO2 84.0 mm/Hg (80-100) 10/16/18 15:50 HCO3 34.2 mmol/L (21-28) H 10/16/18 15:50 ABG pH 7.54 (7.35-7.45) H 10/16/18 15:50 ABG Total CO2 35.4 mmol.L (22-28) H 10/16/18 15:50 ABG O2 Saturation 97.9 % (95-98) 10/16/18 15:50 ABG O2 Content 17.1 ML/dl (15-23) 10/16/18 15:50 ABG Base Excess 10.7 mmol/L (-2.0-3.0) H 10/16/18 15:50 ABG Hemoglobin 12.7 g/dL (11.7-17.4) 10/16/18 15:50 ABG Carboxyhemoglobin 1.4 % (0.5-1.5) 10/16/18 15:50 POC ABG HHb (Measured) 2.0 % (0-5) 10/16/18 15:50 ABG Methemoglobin 1.1 % (0.0-3.0) 10/16/18 15:50 ABG O2 Capacity 17.5 mL/dl (16-24) 10/16/18 15:50 VBG pH 7.47 (7.32-7.43) H 10/14/18 17:50 VBG pCO2 48.0 (40-60) 10/14/18 17:50 VBG HCO3 34.9 mmol/l (21-28) H 10/14/18 17:50 VBG Total CO2 36.4 mmol.L (22-28) H 10/14/18 17:50 VBG O2 Sat (Calc) 71.1 % (40-65) H 10/14/18 17:50 VBG Base Excess 9.7 mmol/L (0.0-2.0) H 10/14/18 17:50 VBG Potassium 4.4 mmol/L (3.6-5.2) 10/14/18 17:50 Hgb O2 Saturation 95.5 % (95.0-98.0) 10/16/18 15:50 Sodium 135.0 mmol/L (132-148) 10/14/18 17:50 Chloride 97.0 mmol/L (98-107) L 10/14/18 17:50 Glucose 113 mg/dl (65-105) H 10/14/18 17:50 Lactate 1.1 mmol/L (0.7-2.1) 10/14/18 17:50 FiO2 28.0 % 10/16/18 15:50 Sodium 130 mmol/L (132-148) L 10/23/18 06:30 Potassium 5.2 mmol/L (3.6-5.0) H 10/23/18 06:30 Chloride 88 mmol/L (98-107) L 10/23/18 06:30 Carbon Dioxide 23 mmol/L (21-33) 10/23/18 06:30 Anion Gap 24 (10-20) H 10/23/18 06:30 BUN 109 mg/dL (7-21) H 10/23/18 06:30 Creatinine 8.7 mg/dl (0.7-1.2) H* D 10/23/18 06:30 Est GFR ( Amer) 6 10/23/18 06:30 Est GFR (Non-Af Amer) 5 10/23/18 06:30 POC Glucose (mg/dL) 153 mg/dL (65-110) H 10/23/18 12:50 Random Glucose 210 mg/dL (70-110) H 10/23/18 06:30 Hemoglobin A1c 6.9 % (4.2-6.5) H 10/15/18 08:51 Calcium 6.4 mg/dL (8.4-10.5) L* 10/23/18 06:30 Phosphorus 8.1 mg/dL (2.5-4.5) H 10/23/18 06:30 Magnesium 1.9 mg/dL (1.7-2.2) 10/23/18 06:30 Total Bilirubin 0.3 mg/dL (0.2-1.3) 10/23/18 06:30 AST 22 U/L (14-36) 10/23/18 06:30 ALT 17 U/L (7-56) 10/23/18 06:30 Alkaline Phosphatase 97 U/L (38-126) 10/23/18 06:30 Lactate Dehydrogenase 557 U/L (333-699) 10/14/18 17:30 Total Creatine Kinase 277 U/L (35-230) H 10/14/18 17:30 CK-MB (CK-2) 1.3 ng/mL (0.0-3.6) 10/14/18 17:30 CK-MB (CK-2) % Cancelled 10/14/18 17:30 Troponin I 0.02 ng/mL D 10/14/18 17:30 Total Protein 6.6 g/dL (5.8-8.3) 10/23/18 06:30 Albumin 3.4 g/dL (3.0-4.8) 10/23/18 06:30 Globulin 3.2 gm/dL 10/23/18 06:30 Albumin/Globulin Ratio 1.1 (1.1-1.8) 10/23/18 06:30 Beta HCG, Quant < 2.39 mIU/mL (0-6.15) 10/14/18 17:30 Venous Blood Potassium 4.4 mmol/L (3.6-5.2) 10/14/18 17:50 IgE 187 kU/L (<gb=130) H 10/17/18 09:00 Hep Bs Antigen Negative (NEGATIVE) 10/16/18 11:50 Hep Bs Antibody Negative (NEGATIVE) 10/16/18 11:50 Attending/Attestation - Attestation I have personally seen and examined this patient.: Yes I have fully participated in the care of the patient.: Yes I have reviewed all pertinent clinical information, including history, physical exam and plan: Yes Notes (Text): Please note this DC summary is for 10/23/18 Patient seen and examined by me with resident at approximately 10:55AM on 10/23/18. Case including discharge plan discussed with resident. Agree with above with following additions/corrections. Patient is a 53-year-old female with past medical history significant for end- stage renal disease on dialysis Friday, Friday, and Friday, asthma, CVA, TIA, homocystinuria on Eliquis, and hypertension that presented to the emergency room for wheezing and shortness of breath for one week. Please see H&P for full details. Patient was found to have dyspnea secondary to asthma exacerbation, hyperkalemia, hyperphosphatemia, end-stage renal disease on dialysis, type 2 diabetes, leukocytosis, history of CVA, history of homocystinuria, and constipation. Patient was treated with nebulizer treatments, Pulmicort, Solu- Medrol, and Singulair. Patient was also continued on O2 via nasal cannula. Patie nt was placed on BiPAP as needed. Patient was followed by creative services writer. Patient was also seen by ENT. Patient had a flexible fiberoptic laryngoscopy on 10/22/2017 which per ENT showed laryngopharyngeal reflux. Patient was continued on Protonix. Patient was also found to have hyperkalemia. Patient was treated with dialysis and Kayexalate. Patient also had hyperphosphatemia. Patient treated with PhosLo and Auryxia. Patient had multiple dialysis treatments and ultrafiltration treatments as per online merchant. Patient was found to have a hemoglobin A1c of 6.9. May be secondary to continued use of steroids. She was treated with insulin sliding scale. Accu-Cheks were monitored. Diet and exercise recommended. Patient also had leukocytosis which was likely secondary to steroids. Blood cultures showed no growth. Patient was continued on aspirin for history of CVA with residual dysarthria. Patient was continued on Eliquis for history of homocystinuria. Patient initially had constipation which resolved. Patient was feeling much better. Patient was seen by physical therapist recommended subacute rehabilitation. Patient was cleared for discharge by all consultants. Outpatient medication recommendations were discussed with consultants prior to discharge. Patient was discharged to subacute rehabilitation. On day of discharge, patient stated she was feeling better. Shortness of breath improved. Cough was improved. Patient denied headaches or dizziness. No chest pain or palpitations. No nausea, vomiting, or abdominal pain. Patient was tolerating diet well. No fevers or chills. No dysuria or burning with urination. Physical exam: General: Awake and alert lying in bed in no acute distress. HEENT: Normocephalic, atraumatic. Extraocular muscles intact, pupils equal and reactive, no scleral icterus. Oropharynx is pink and moist. No pharyngeal erythema or exudate appreciated. Neck is supple. Cardiovascular: Regular rhythm. Normal S1, S2. No murmurs, rubs, or gallops appreciated Pulmonary: Normal respiratory effort. Improved breath sounds. No rhonchi, rales, or wheezing appreciated. Gastrointestinal: Soft, nondistended. Nontender. Positive bowel sounds all 4 quadrants. No guarding. Musculoskeletal: Moves all extremities. No calf tenderness. No edema appreciated. Central nervous system: AAOx3. Dysarthria at baseline secondary to previous CVA. Dermatologic: Skin warm and dry. Please see chart for full details. Follow up instructions: Patient to follow up with primary care doctor within 3-5 days. Patient to complete prednisone taper as requested by creative services writer. Patient to continue using oxygen. Patient to continue BiPAP as needed. Patient to continue dialysis per online merchant. Patient to follow up with creative services writer Dr. Renteria within 3-5 days. Patient to have PFTs and flow volume loops as an outpatient. All instructions explained to the patient in detail. Patient both understands and agrees to all instructions. Written instructions also given. Time spent in discharging the patient including chart review, medication reconciliation, discussion with the patient, medical doctor md, consultants, and nursing staff was approximately 50 minutes.
[2018-10-23 17:00] VITALS: PULSE 86
--- NOTE | 2018-10-23 19:35 | PN ---
DATE: 10/23/2018 SUBJECTIVE: The patient is seen in the dialysis unit. She is awake, she is alert, and comfortable. She complains of some abdominal pain, but she denies any shortness of breath. PHYSICAL EXAMINATION GENERAL: An obese, middle-aged lady lying in bed. VITAL SIGNS: Blood pressure 109/72, heart rate 80, respiratory rate 21, and temperature 97.8. HEENT: Normocephalic, atraumatic, positive pallor. NECK: Supple, no JVD. LUNGS: Bilateral equal air entry, bilateral scattered rhonchi, no rales. CARDIAC: S1 and S2, regular rate and rhythm, no murmur, no rub. ABDOMEN: Obese, distended, soft, nontender, and bowel sounds present. EXTREMITIES: No lower extremity edema. LABORATORY DATA: WBC 14.8, hemoglobin 12.7, hematocrit 39, and platelets 287. Sodium 130, potassium 5.2, chloride 88, CO2 of 23, BUN 109, creatinine 8.7, and glucose 210. Calcium 6.4, magnesium 1.9, and phosphorus 8.1. CURRENT MEDICATIONS: Aspirin, Claritin, Eliquis, Auryxia, PhosLo, Protonix, Pulmicort, Singulair, Solu-Medrol, Tylenol, and Xopenex. ASSESSMENT: 1. Acute asthma exacerbation. 2. Status post stridor. 3. End-stage renal disease 4. Hyperkalemia. 5. Constipation. 6. Hypocalcemia/hyperphosphatemia secondary to secondary hyperparathyroidism. PLAN: 1. Table dialysis today. 2. Continue phosphate binder. 3. A second rapid PTH. 4. No objection to discharge. Mame Kruse MD
== END 2018-10-23 18:39 | DRG 588 ==
LOC: ED 17:08 → ERH 18:33 → 2RNO 22:07 → OBSVTOIN 10-16 13:01 → 5RNO 10-16 14:04 → CCU 10-16 15:04 → 2RNO 10-21 08:17
PROVIDERS: ADMIT Internal Medicine; ATTEND Hospitalist
PROC: 3E0F7GC Introduction of Other Therapeutic Substance into Respiratory Tract, Via Natural or Artificial Opening (ICD-10-PCS; 2018-10-15)
PROC: 5A1D70Z Performance of Urinary Filtration, Intermittent, Less than 6 Hours Per Day (ICD-10-PCS; 2018-10-16)
PROC: 5A1D70Z Performance of Urinary Filtration, Intermittent, Less than 6 Hours Per Day (ICD-10-PCS; 2018-10-17)
PROC: 5A1D70Z Performance of Urinary Filtration, Intermittent, Less than 6 Hours Per Day (ICD-10-PCS; 2018-10-19)
PROC: 5A1D70Z Performance of Urinary Filtration, Intermittent, Less than 6 Hours Per Day (ICD-10-PCS; 2018-10-20)
PROC: 5A09357 Assistance with Respiratory Ventilation, Less than 24 Consecutive Hours, Continuous Positive Airway Pressure (ICD-10-PCS; principal; 2018-10-21)
PROC: 5A1D70Z Performance of Urinary Filtration, Intermittent, Less than 6 Hours Per Day (ICD-10-PCS; 2018-10-21)
PROC: 5A1D70Z Performance of Urinary Filtration, Intermittent, Less than 6 Hours Per Day (ICD-10-PCS; 2018-10-22)
PROC: 5A1D70Z Performance of Urinary Filtration, Intermittent, Less than 6 Hours Per Day (ICD-10-PCS; 2018-10-23)
DX: J45.901 Unspecified asthma with (acute) exacerbation (principal); J96.90 Respiratory failure, unspecified, unspecified whether with hypoxia or hypercapnia; N18.6 End stage renal disease; I13.2 Hypertensive heart and chronic kidney disease with heart failure and with stage 5 chronic kidney disease, or end stage renal disease; I50.9 Heart failure, unspecified; E11.22 Type 2 diabetes mellitus with diabetic chronic kidney disease; E87.5 Hyperkalemia; J44.9 Chronic obstructive pulmonary disease, unspecified; E11.65 Type 2 diabetes mellitus with hyperglycemia; K59.00 Constipation, unspecified; N25.81 Secondary hyperparathyroidism of renal origin; D63.1 Anemia in chronic kidney disease; Z99.2 Dependence on renal dialysis; E66.9 Obesity, unspecified; D72.829 Elevated white blood cell count, unspecified; T38.0X5A Adverse effect of glucocorticoids and synthetic analogues, initial encounter; E83.51 Hypocalcemia; I69.322 Dysarthria following cerebral infarction; I47.1 Supraventricular tachycardia; K21.9 Gastro-esophageal reflux disease without esophagitis; E83.39 Other disorders of phosphorus metabolism